=== PATIENT | female | born 1955 | race Caucasian/White ===

== ENCOUNTER → 2018-11-02 | Outpatient (CLI) | payer MEDICARE ==
--- NOTE | 2018-11-02 18:45 | Diagnostic Imaging Report ---
INDICATION: Chronic pain. FINDINGS: There is resection of portions of the femoral neck and head with the residual bony proximal femur showing sclerosis and flattening. There is remodeling, sclerosis, and flattening of the acetabulum superiorly with pseudoarticulation. Findings are all very likely of a chronic nature, but I do not have prior for comparison. No acute lucent fracture line is seen. The left pelvic ring and symphysis are intact. Visualized portions of the left SI joint are intact. IMPRESSION: Postoperative and chronic-appearing findings about the left hip. An acute fracture line is not identified. Dictated by: Dictated on workstation # [id number]
== END ==
LOC: RAD FS 18:20
PROVIDERS: ATTEND Pediatrics
DX: G89.29 Other chronic pain (principal); M25.552 Pain in left hip; Z98.890 Other specified postprocedural states
CPT/HCPCS: 73502

== ENCOUNTER → 2019-06-15 | Outpatient (CLI) | payer MEDICARE | END | disposition home or self-care (01) | LOC: PREOP 05:49 | PROVIDERS: ATTEND Urology | DX: Z01.818 Encounter for other preprocedural examination (principal) ==

== ENCOUNTER 2019-12-08 13:38 | Emergency (ER) | payer MEDICARE, MEDICAID ==
[~2019-12-08] VITALS: Ht 162.6 cm; Wt 135.2 kg
--- NOTE | 2019-12-08 13:49 | ED Cough/URI ---
General Chief Complaint: Respiratory Problems Stated Complaint: SOB History of Present Illness Date Seen by Provider: Dec 08, 2019 Time Seen by Provider: 13:49 Initial Comments 64-year-old female sent out due to wheezing shortness of breath and cough. P atient reports that started having a little bit of a cough couple days ago, developed some wheezing and some shortness of breath today. Patient's oxygen was found to be 88% on room air upon arrival. She does not normally use home oxygen. [facility]. She denies any fevers, chills. She does continue to smoke and has a history of COPD. She used to use a nebulizer in the past but has been unable to do to COVID and them not being allowed to at [facility]. Patient denies any other systemic complaints such as chest pain, nausea vomiting diaphoresis. Allergies and Home Medications Allergies Coded Allergies: No Known Drug Allergies (Unverified , 12/08/19) Patient Home Medication List Home Medication List Reviewed: Yes Review of Systems Review of Systems Constitutional: No chills, No fever EENTM: no symptoms reported Respiratory: cough, short of breath, wheezing Cardiovascular: No chest pain, No palpitations Gastrointestinal: no symptoms reported Genitourinary: no symptoms reported Musculoskeletal: no symptoms reported Skin: no symptoms reported Psychiatric/Neurological: No Symptoms Reported Past Kbenknu-Pkqixe-Obkyyy Hx Past Med/Social Hx: Reviewed Nursing Past Med/Soc Hx Physical Exam Vital Signs - First Documented 12/08/19 13:50 Temp 36.8 Pulse 107 Resp 20 B/P (MAP) 133/53 (79) Pulse Ox 92 O2 Delivery Nasal Cannula Capillary Refill : Height: '" Weight: lbs. oz. kg; BMI Method: General Appearance: WD/WN, no apparent distress HEENT: PERRL/EOMI Respiratory: no respiratory distress, no accessory muscle use, wheezing (mild diffuse) Cardiovascular: regular rate, rhythm Gastrointestinal: normal bowel sounds, non tender, soft Neurologic/Psychiatric: alert, normal mood/affect, oriented x 3 Skin: normal color, warm/dry Progress/Results/Core Measures Suspected Sepsis SIRS Temperature: Pulse: Respiratory Rate: Laboratory Tests 12/08/19 14:05: White Blood Count 8.2 Blood Pressure / Mean: Laboratory Tests 12/08/19 14:05: Creatinine 0.41L, Platelet Count 307, Total Bilirubin 0.3 Results/Orders Lab Results Laboratory Tests Test 12/08/19 14:05 Range/Units White Blood Count 8.2 4.3-11.0 10^3/uL Red Blood Count 4.17 L 4.35-5.85 10^6/uL Hemoglobin 12.7 11.5-16.0 G/DL Hematocrit 36 35-52 % Mean Corpuscular Volume 85 80-99 FL Mean Corpuscular Hemoglobin 30 25-34 PG Mean Corpuscular Hemoglobin Concent 36 32-36 G/DL Red Cell Distribution Width 13.2 10.0-14.5 % Platelet Count 307 130-400 10^3/uL Mean Platelet Volume 8.2 7.4-10.4 FL Neutrophils (%) (Auto) 78 H 42-75 % Lymphocytes (%) (Auto) 12 12-44 % Monocytes (%) (Auto) 7 0-12 % Eosinophils (%) (Auto) 3 0-10 % Basophils (%) (Auto) 0 0-10 % Neutrophils # (Auto) 6.4 1.8-7.8 X 10^3 Lymphocytes # (Auto) 1.0 1.0-4.0 X 10^3 Monocytes # (Auto) 0.5 0.0-1.0 X 10^3 Eosinophils # (Auto) 0.3 0.0-0.3 10^3/uL Basophils # (Auto) 0.0 0.0-0.1 10^3/uL Sodium Level 121 *L 135-145 MMOL/L Potassium Level 3.4 L 3.6-5.0 MMOL/L Chloride Level 80 L 98-107 MMOL/L Carbon Dioxide Level 28 21-32 MMOL/L Anion Gap 13 5-14 MMOL/L Blood Urea Nitrogen 5 L 7-18 MG/DL Creatinine 0.41 L 0.60-1.30 MG/DL Estimat Glomerular Filtration Rate > 60 BUN/Creatinine Ratio 12 Glucose Level 173 H 70-105 MG/DL Calcium Level 8.5 8.5-10.1 MG/DL Corrected Calcium 9.1 8.5-10.1 MG/DL Total Bilirubin 0.3 0.1-1.0 MG/DL Aspartate Amino Transf (AST/SGOT) 15 5-34 U/L Alanine Aminotransferase (ALT/SGPT) 14 0-55 U/L Alkaline Phosphatase 106 40-136 U/L Pro-B-Type Natriuretic Peptide 68.2 <75.0 PG/ML Total Protein 5.8 L 6.4-8.2 GM/DL Albumin 3.3 3.2-4.5 GM/DL My Orders Orders - MONTRELL CHANG DO Albuterol/Ipra Inhalation Soln (Duoneb I (12/08/19 14:00) Dexamethasone Injection (Decadron Inje (12/08/19 14:00) Svn Small Volume Nebulizer (12/08/19 13:54) Cbc With Automated Diff (12/08/19 13:54) Comprehensive Metabolic Panel (12/08/19 13:54) Coronavirus Sars-Cov-2 So 2019 (12/08/19 13:54) Chest 1 View Ap/Pa Only (12/08/19 14:13) Probnp Fs (12/08/19 15:13) Azithromycin Injection (Zithromax Inject (12/08/19 17:00) Ns Iv 1000 Ml (Sodium Chloride 0.9%) (12/08/19 17:00) Medications Given in ED Current Medications Medications Dose Ordered Sig/Letitia Route Start Time Stop Time Status Last Admin Dose Admin Albuterol/ Ipratropium 3 ml ONCE ONCE INH 12/08/19 14:00 12/08/19 14:01 DC 12/08/19 14:21 3 ML Dexamethasone Sodium Phosphate 10 mg ONCE ONCE IV 12/08/19 14:00 12/08/19 14:01 DC 12/08/19 14:21 10 MG Vital Signs/I&O 12/08/19 13:50 Temp 36.8 Pulse 107 Resp 20 B/P (MAP) 133/53 (79) Pulse Ox 92 O2 Delivery Nasal Cannula Capillary Refill : Progress Note : Time: 15:26 Progress Note Patient with low sodium of 121 with low chloride. Patient with x-ray concerning for infiltrate versus edema. Based on patient's presentation labs and response to DuoNeb I suspect that it is more CHF versus infiltrate. We will transfer patient to [facility] or Dr. Saldivar for further management. We'll obtain a BNP to help guide at treatment. Patient stable with her oxygen the mid 90s upon transfer. She did respond well to the DuoNeb with decreased wheezing. Diagnostic Imaging Diagonstic Imaging: Xray Plain Films/CT/US/NM/MRI: chest Comments [facility]. [place], [place] NAME: VIDA MERAZ [facility] REC#: [id number] PT STATUS: REG ER : 1955 PHYSICIAN: MONTRELL CHANG DO ADMIT DATE: 12/08/19/ER FS Draft Date of Exam:12/08/19 CHEST 1 VIEW AP/PA ONLY EXAMINATION: Chest 1 view. HISTORY: Shortness of breath. Cough. COMPARISON: None available. FINDINGS: Patchy opacities are seen throughout the lungs, greatest in the lung bases. The cardiac silhouette is prominent. No large pleural effusion or pneumothorax. No acute osseous abnormality. IMPRESSION: Cardiomegaly. Patchy opacities throughout the lungs may represent edema or infectious/inflammatory process. Departure Communication (Admissions) Time/Spoke to Admitting Phy: 15:10 Impression Primary Impression: COPD (chronic obstructive pulmonary disease) Qualified Codes: J44.1 - Chronic obstructive pulmonary disease with (acute) exacerbation Additional Impressions: Hyponatremia Pulmonary edema Qualified Codes: J81.0 - Acute pulmonary edema Disposition: 62 DISC/XFER TO IRF Condition: Stable Admissions Decision to Admit Reason: Admit from ER (General) Decision to Admit/Date: Dec 08, 2019 Time/Decision to Admit Time: 15:10 Transfer Transfer Reason: Patient preference Transfer Progress Notes Patient was to be initially admitted at [facility]. Patient's primary care provider called was upset and requested patient be transferred to where he can provide care at [facility]. Patient requested that she would be okay to be transferred over there so per her request as request patient now be transferred in stable condition 10 the [facility] Departure-Patient Inst. Referrals: PHOENIX GODOY MD (PCP/Family) Primary Care Physician MONTRELL CHANG DO Dec 08, 2019 13:49
[2019-12-08] MEDS ORDERED: RT-ALBUTEROL/IPRATROPIUM 3 ML (DUONEB) VIAL INH ONE (14:00)
[2019-12-08 14:24] LABS: HEMATOCRIT 36 % (35-52); HEMOGLOBIN 12.7 G/DL (11.5-16.0); MEAN CORPUSCULAR HEMOGLOBIN 30 PG (25-34); MEAN CORPUSCULAR VOLUME 85 FL (80-99); WHITE BLOOD COUNT 8.2 10^3/uL (4.3-11.0)
[2019-12-08 14:25] LABS: BASOPHILS % (AUTO) 0 % (0-10); EOSINOPHILS # (AUTO) 0.3 10^3/uL (0.0-0.3); EOSINOPHILS % (AUTO) 3 % (0-10); LYMPHOCYTES % (AUTO) 12 % (12-44); MEAN CORPUSCULAR HGB CONC 36 G/DL (32-36); MEAN PLATELET VOLUME 8.2 FL (7.4-10.4); MONOCYTES # (AUTO) 0.5 X 10^3 (0.0-1.0); MONOCYTES % (AUTO) 7 % (0-12); NEUTROPHILS # (AUTO) 6.4 X 10^3 (1.8-7.8); NEUTROPHILS % (AUTO) 78 % (42-75); PLATELET COUNT 307 10^3/uL (130-400)
[2019-12-08 14:38] LABS: ALANINE AMINOTRANSFERASE 14 U/L (0-55); ALBUMIN 3.3 GM/DL (3.2-4.5); ALKALINE PHOSPHATASE 106 U/L (40-136); BILIRUBIN,TOTAL 0.3 MG/DL (0.1-1.0); BUN/CREATININE RATIO 12; CALCIUM 8.5 MG/DL (8.5-10.1); CARBON DIOXIDE 28 MMOL/L (21-32); CREATININE SERUM 0.41 MG/DL (0.60-1.30); GFR ESTIMATED > 60; GLUCOSE 173 MG/DL (70-105); POTASSIUM 3.4 MMOL/L (3.6-5.0); TOTAL PROTEIN 5.8 GM/DL (6.4-8.2)
[2019-12-08 14:40] LABS: CHLORIDE 80 MMOL/L (98-107); SODIUM 121 MMOL/L (135-145)
--- NOTE | 2019-12-08 14:48 | Diagnostic Imaging Report ---
EXAMINATION: Chest 1 view. HISTORY: Shortness of breath. Cough. COMPARISON: None available. FINDINGS: Patchy opacities are seen throughout the lungs, greatest in the lung bases. The cardiac silhouette is prominent. No large pleural effusion or pneumothorax. No acute osseous abnormality. IMPRESSION: Cardiomegaly. Patchy opacities throughout the lungs may represent edema or infectious/inflammatory process. Dictated by: Dictated on workstation # [id number]
[2019-12-08] MEDS ORDERED: NS IV 1000 ML 1,000 ML IV STA (17:00)
[2019-12-08] MEDS ORDERED: AZITHROMYCIN INJECTION 500 MG in NS (IVPB) 250 ML IV STA (17:00)
[2019-12-08 18:10] VITALS: BP 172/86
== END 2019-12-08 18:10 | disposition short-term general hospital (02) ==
LOC: EDUNIT# 13:38 → ER FS 13:39
DX: J44.9 Chronic obstructive pulmonary disease, unspecified (principal); E87.1 Hypo-osmolality and hyponatremia; J81.1 Chronic pulmonary edema; F17.200 Nicotine dependence, unspecified, uncomplicated; Z20.828 Contact with and (suspected) exposure to other viral communicable diseases
CPT/HCPCS: 36415; 51702; 71045; 80053; 83880; 85025; 99285; U0002; 87635

== ENCOUNTER 2020-06-29 18:22 | Emergency (ER) | payer MEDICARE, MEDICAID ==
[~2020-06-29] VITALS: Ht 162.5 cm; Wt 135.2 kg
--- NOTE | 2020-06-29 19:09 | Diagnostic Imaging Report ---
EXAMINATION: Chest 1 view. HISTORY: Cough. COMPARISON: Chest radiograph 12/08/2019. FINDINGS: Heart size is enlarged. There is blunting of the left costophrenic angle. There are mild bibasilar opacities, left greater than right. No pneumothorax. The osseous structures are intact. IMPRESSION: Likely left pleural effusion with bibasilar atelectasis or consolidation, left greater than right. Dictated by: Dictated on workstation # [id number]
[2020-06-29 19:29] LABS: BASOPHILS % (AUTO) 0 % (0-10); EOSINOPHILS # (AUTO) 0.1 10^3/uL (0.0-0.3); EOSINOPHILS % (AUTO) 1 % (0-10); HEMATOCRIT 34 % (35-52); HEMOGLOBIN 12.6 G/DL (11.5-16.0); LYMPHOCYTES # (AUTO) 1.3 X 10^3 (1.0-4.0); LYMPHOCYTES % (AUTO) 11 % (12-44); MEAN CORPUSCULAR HEMOGLOBIN 30 PG (25-34); MEAN CORPUSCULAR HGB CONC 37 G/DL (32-36); MEAN CORPUSCULAR VOLUME 81 FL (80-99); MONOCYTES # (AUTO) 0.7 X 10^3 (0.0-1.0); MONOCYTES % (AUTO) 6 % (0-12); NEUTROPHILS # (AUTO) 9.9 X 10^3 (1.8-7.8); NEUTROPHILS % (AUTO) 82 % (42-75); PLATELET COUNT 429 10^3/uL (130-400); WHITE BLOOD COUNT 12.1 10^3/uL (4.3-11.0)
[2020-06-29 19:41] LABS: BACTERIA,URINE LARGE /HPF; BILIRUBIN,URINE NEGATIVE (NEGATIVE); CLARITY,URINE CLOUDY; COLOR,URINE YELLOW; GLUCOSE, URINE (UA) NEGATIVE (NEGATIVE); KETONES,URINE NEGATIVE (NEGATIVE); LEUKOCYTE ESTERASE ,URINE 3+ (NEGATIVE); NITRITE,URINE POSITIVE (NEGATIVE); PH,URINE 7.5 (5-9); PROTEIN,URINE NEGATIVE (NEGATIVE); RENAL EPITHELIAL CELLS,URINE 0-2 /HPF; WBC,URINE >100 /HPF
[2020-06-29 19:45] LABS: ALANINE AMINOTRANSFERASE 19 U/L (0-55); ALKALINE PHOSPHATASE 108 U/L (40-136); BILIRUBIN,TOTAL 0.4 MG/DL (0.1-1.0); BUN/CREATININE RATIO 13; CALCIUM 9.1 MG/DL (8.5-10.1); CARBON DIOXIDE 27 MMOL/L (21-32); CHLORIDE 74 MMOL/L (98-107); CREATININE SERUM 0.38 MG/DL (0.60-1.30); GFR ESTIMATED > 60; GLUCOSE 129 MG/DL (70-105); POTASSIUM 2.9 MMOL/L (3.6-5.0); SODIUM 113 MMOL/L (135-145)
[2020-06-29 19:46] LABS: TOTAL PROTEIN 6.3 GM/DL (6.4-8.2)
[2020-06-29 20:28] LABS: EOSINOPHILS % (MANUAL) 3 %; LYMPHOCYTES % (MANUAL) 10 %; MONOCYTES % (MANUAL) 4 %; NEUTROPHILS % (MANUAL) 83 %; PLATELET ESTIMATE LRG PLTS; TOXIC GRANULATION/VACUOLAZATIO 3+
[2020-06-29 20:31] LABS: BUN/CREATININE RATIO 12; CALCIUM 8.8 MG/DL (8.5-10.1); CARBON DIOXIDE 27 MMOL/L (21-32); CHLORIDE 74 MMOL/L (98-107); CREATININE SERUM 0.42 MG/DL (0.60-1.30); GFR ESTIMATED > 60; GLUCOSE 126 MG/DL (70-105); SODIUM 112 MMOL/L (135-145)
[2020-06-29] MEDS ORDERED: NS IV 1000 ML 1,000 ML IV SCH (21:45)
[2020-06-29] MEDS ORDERED: cefTRIAXone FOR IV USE 1,000 MG in WATER (STERILE) FOR INJECTION 10 ML IV ONE (21:45)
[2020-06-29] MEDS ORDERED: KCL 20 MEQ TAB (K-DUR) PO ONE (21:45)
--- NOTE | 2020-06-29 23:04 | ED Abdominal Pain ---
General Chief Complaint: - Urinary Stated Complaint: URINE OUTPUT Nursing Triage Note: Patient presents to the ED from [facility] via EMS with c/o of decreased urine output, weakness, and catheter site pain. She reports that she has been feeling weaker and her legs gave out to her while she was transferring to the stool earlier. group home staff report that the patient has had decreased urinary output throughout the day. Sepsis Screen: No Definite Risk Source of Information: Patient, EMS History of Present Illness Date Seen by Provider: Jun 29, 2020 Time Seen by Provider: 16:45 Initial Comments Patient is a 64-year-old [facility] patient who presents with complaints of decreased urinary output generalized weakness and pain around catheter insertion site. Patient states she is weaker than normal and her legs have been giving out. She also reports diarrhea. Patient denies fever chills nausea vomiting. No chest pain palpitation shortness of breath. No abdominal pain. No other symptoms or complaints. Timing/Duration: 2-3 Days Severity/Quality: Moderate, Dull Location: Other Radiation: Other Activities at Onset: Other Modifying Factors: Improves With Other Associated Symptoms: Other Allergies and Home Medications Allergies Coded Allergies: No Known Drug Allergies (Unverified , 12/08/19) Patient Home Medication List Home Medication List Reviewed: Yes Review of Systems Review of Systems Constitutional: no symptoms reported EENTM: No Symptoms Reported Respiratory: No Symptoms Reported Cardiovascular: No Symptoms Reported Gastrointestinal: No Symptoms Reported Genitourinary: No Symptoms Reported Musculoskeletal: no symptoms reported Skin: no symptoms reported Psychiatric/Neurological: No Symptoms Reported Endocrine: No Symptoms Reported Hematologic/Lymphatic: No Symptoms Reported All Other Systems Reviewed Negative Unless Noted: Yes Past Zggtvbs-Jtlcro-Kfljxr Hx Past Med/Social Hx: Reviewed Nursing Past Med/Soc Hx Patient Social History Alcohol Use: Denies Use Smoking Status: Current Everyday Smoker Type Used: Cigarettes 2nd Hand Smoke Exposure: No Recent Infectious Disease Expo: No Recent Hopitalizations: No Seasonal Allergies Seasonal Allergies: No Past Medical History Surgeries: Yes (right mastectomy) Section, Gallbladder Respiratory: Yes COPD Cardiac: Yes Hypertension Neurological: No Genitourinary: No Gastrointestinal: No Musculoskeletal: No Endocrine: No HEENT: No Cancer: Yes Breast Did You Recieve Any Treatments: Yes What Type of Treatment Did You: Surgical Intervention Psychosocial: No Integumentary: No Physical Exam Vital Signs Vital Signs - First Documented 3/28/21 18:55 Temp 36.7 Pulse 80 Resp 22 B/P (MAP) 196/80 (118) Pulse Ox 96 O2 Delivery Room Air Capillary Refill : Less Than 3 Seconds Height/Weight/BMI Height: '" Weight: lbs. oz. kg; 51.00 BMI Method: General Appearance: WD/WN, no apparent distress HEENT: PERRL/EOMI, pharynx normal Neck: non-tender, full range of motion, supple Respiratory: chest non-tender, lungs clear Cardiovascular: normal peripheral pulses, no JVD, no murmur Gastrointestinal: normal bowel sounds, non tender, soft Extremities: non-tender Back: no CVA tenderness Neurologic/Psychiatric: hat sprayer II-XII nml as tested, no motor/sensory deficits, normal mood/affect, oriented x 3 Focused Exam Sepsis Stage: Ruled Out Progress/Results/Core Measures Results/Orders Lab Results Laboratory Tests Test 06/29/20 19:17 06/29/20 19:27 06/29/20 20:07 Range/Units White Blood Count 12.1 H 4.3-11.0 10^3/uL Red Blood Count 4.15 L 4.35-5.85 10^6/uL Hemoglobin 12.6 11.5-16.0 G/DL Hematocrit 34 L 35-52 % Mean Corpuscular Volume 81 80-99 FL Mean Corpuscular Hemoglobin 30 25-34 PG Mean Corpuscular Hemoglobin Concent 37 H 32-36 G/DL Red Cell Distribution Width 12.7 10.0-14.5 % Platelet Count 429 H 130-400 10^3/uL Mean Platelet Volume 8.0 7.4-10.4 FL Immature Granulocyte % (Auto) 1 % Neutrophils (%) (Auto) 82 H 42-75 % Lymphocytes (%) (Auto) 11 L 12-44 % Monocytes (%) (Auto) 6 0-12 % Eosinophils (%) (Auto) 1 0-10 % Basophils (%) (Auto) 0 0-10 % Neutrophils # (Auto) 9.9 H 1.8-7.8 X 10^3 Lymphocytes # (Auto) 1.3 1.0-4.0 X 10^3 Monocytes # (Auto) 0.7 0.0-1.0 X 10^3 Eosinophils # (Auto) 0.1 0.0-0.3 10^3/uL Basophils # (Auto) 0.0 0.0-0.1 10^3/uL Immature Granulocyte # (Auto) 0.1 0.0-0.1 10^3/uL Neutrophils % (Manual) 83 % Lymphocytes % (Manual) 10 % Monocytes % (Manual) 4 % Eosinophils % (Manual) 3 % Toxic Granulation 3+ Platelet Estimate LRG PLTS Sodium Level 113 *L 112 *L 135-145 MMOL/L Potassium Level 2.9 L 3.0 L 3.6-5.0 MMOL/L Chloride Level 74 L 74 L 98-107 MMOL/L Carbon Dioxide Level 27 27 21-32 MMOL/L Anion Gap 12 11 5-14 MMOL/L Blood Urea Nitrogen 5 L 5 L 7-18 MG/DL Creatinine 0.38 L 0.42 L 0.60-1.30 MG/DL Estimat Glomerular Filtration Rate > 60 > 60 BUN/Creatinine Ratio 13 12 Glucose Level 129 H 126 H 70-105 MG/DL Calcium Level 9.1 8.8 8.5-10.1 MG/DL Corrected Calcium 9.1 8.5-10.1 MG/DL Total Bilirubin 0.4 0.1-1.0 MG/DL Aspartate Amino Transf (AST/SGOT) 21 5-34 U/L Alanine Aminotransferase (ALT/SGPT) 19 0-55 U/L Alkaline Phosphatase 108 40-136 U/L Total Protein 6.3 L 6.4-8.2 GM/DL Albumin 4.0 3.2-4.5 GM/DL Urine Color YELLOW Urine Clarity CLOUDY Urine pH 7.5 5-9 Urine Specific Leon 1.015 L 1.016-1.022 Urine Protein NEGATIVE NEGATIVE Urine Glucose (UA) NEGATIVE NEGATIVE Urine Ketones NEGATIVE NEGATIVE Urine Nitrite POSITIVE H NEGATIVE Urine Bilirubin NEGATIVE NEGATIVE Urine Urobilinogen 0.2 < = 1.0 MG/DL Urine Leukocyte Esterase 3+ H NEGATIVE Urine RBC (Auto) TRACE-I NEGATIVE Urine RBC NONE /HPF Urine WBC >100 H /HPF Urine Squamous Epithelial Cells NONE /HPF Urine Renal Epithelial Cells 0-2 /HPF Urine Crystals NONE /LPF Urine Bacteria LARGE H /HPF Urine Casts NONE /LPF Urine Mucus NEGATIVE /LPF Urine Culture Indicated YES My Orders Orders - GABINO GUTIERREZ DO Cbc And Manual Diff (06/29/20 18:54) Comprehensive Metabolic Panel (06/29/20 18:54) Urinalysis (06/29/20 18:54) Chest 1 View Ap/Pa Only (06/29/20 18:54) Urine Culture (06/29/20 19:27) Basic Metabolic Panel (06/29/20 19:50) Ceftriaxone For Iv Use (Rocephin For I (06/29/20 21:45) Potassium Chloride (Tablet) (K Dur Table (06/29/20 21:45) Ns Iv 1000 Ml (Sodium Chloride 0.9%) (06/29/20 21:45) Medications Given in ED Current Medications Medications Dose Ordered Sig/Letitia Route Start Time Stop Time Status Last Admin Dose Admin Ceftriaxone Sodium 1000 mg/ Sterile Water 10 ml @ 200 mls/hr ONCE ONCE IV 06/29/20 21:45 06/29/20 21:47 DC 06/29/20 22:01 200 MLS/HR Potassium Chloride 40 meq ONCE ONCE PO 06/29/20 21:45 06/29/20 21:46 DC 06/29/20 22:01 40 MEQ Vital Signs/I&O 06/29/20 18:55 Temp 36.7 Pulse 80 Resp 22 B/P (MAP) 196/80 (118) Pulse Ox 96 O2 Delivery Room Air Blood Pressure Mean: 118 Departure Communication (Admissions) Generalized weakness with urinary tract infection and chronic hyponatremia. Antibiotics and normal saline started. Dr. Harsh GODOY agrees to admit to the [facility]. Impression Primary Impression: Urinary tract infection Additional Impression: Hyponatremia Disposition: [facility] Condition: Stable Departure-Patient Inst. Referrals: PHOENIX GODOY MD (PCP/Family) Primary Care Physician GABINO GUTIERREZ DO Jun 29, 2020 23:04
[2020-06-30 02:29] VITALS: BP 159/75
== END 2020-06-30 02:29 | disposition short-term general hospital (02) ==
LOC: EDUNIT# 18:22 → ER FS 18:25
DX: N39.0 Urinary tract infection, site not specified (principal); E87.1 Hypo-osmolality and hyponatremia; I10 Essential (primary) hypertension; J44.9 Chronic obstructive pulmonary disease, unspecified; F17.210 Nicotine dependence, cigarettes, uncomplicated; Z85.3 Personal history of malignant neoplasm of breast; Z96.0 Presence of urogenital implants
CPT/HCPCS: 36415; 51702; 71045; 80048; 80053; 81000; 85007; 85027; 87077; 87088; 87186

== ENCOUNTER 2020-09-04 17:12 | Emergency (ER) | payer MEDICARE, MEDICAID ==
--- NOTE | 2020-09-04 17:30 | Diagnostic Imaging Report ---
PROCEDURE: CT head w/o r/o stroke. TECHNIQUE: Multiple contiguous axial images were obtained through the brain without the use of intravenous contrast. Auto Exposure Controls were utilized during the CT exam to meet ALARA standards for radiation dose reduction. INDICATION: Strokelike symptoms. FINDINGS: There is prominence of the ventricles and sulci. There are subtle areas of decreased attenuation in the frontal white matter, bilaterally. There is no hydrocephalus. There is no midline shift. There is no mass, hemorrhage or extra-axial fluid collection. Calvarium is intact. The sinuses and mastoid air cells are clear. IMPRESSION: 1. Subtle areas of decreased attenuation in the frontal white matter, bilaterally. While this simply may reflect chronic microvascular ischemic disease, the possibility of developing stroke certainly cannot be excluded. Recommend clinical correlation and, if warranted, follow-up with MRI. 2. No evidence of hemorrhage. Dictated by: Dictated on workstation # [id number]
[2020-09-04] MEDS ORDERED: NS IV 1000 ML 1,000 ML IV STA ×2 (17:34→18:04)
--- NOTE | 2020-09-04 17:35 | ED General ---
General Chief Complaint: Neuro-Stroke Like Symptoms Stated Complaint: AMS Source of Information: EMS, Prison Records, Old Records Exam Limitations: Other (altered mental status) History of Present Illness Date Seen by Provider: Sep 04, 2020 Time Seen by Provider: 17:14 Initial Comments 65-year-old female presenting by EMS from [facility] with altered mental status. According to the retirement staff through EMS patient was last seen normal around 3 PM. Then this afternoon they had gone to her room and found her on the toilet and she was confused. She was having trouble answering questions and EMS was activated to transport her to the ED for evaluation. No fever noted. She had been acting normal according to retirement staff prior to 3 PM. She has indwelling felix catheter and does not have much output in it. She has occasional non productive cough on arrival to the ED. Timing/Duration: 1-3 Hours Associated Systoms: Cough, Malaise Allergies and Home Medications Allergies Coded Allergies: No Known Drug Allergies (Unverified , 12/08/19) Patient Home Medication List Home Medication List Reviewed: Yes Review of Systems Review of Systems Constitutional: No fever Respiratory: cough Genitourinary: see HPI Skin: rash (erythema to groin and under pannus) Unable to answer questions for ROS due to altered mental status Past Aehtsaw-Vnafyz-Qbgmzf Hx Past Med/Social Hx: Reviewed Nursing Past Med/Soc Hx Patient Social History Type Used: Cigarettes 2nd Hand Smoke Exposure: No Recent Hopitalizations: No Seasonal Allergies Seasonal Allergies: No Past Medical History Surgeries: Yes (right mastectomy) Section, Gallbladder Respiratory: Yes COPD Cardiac: Yes Hypertension Neurological: No Genitourinary: No Gastrointestinal: No Musculoskeletal: No Endocrine: No HEENT: No Cancer: Yes Breast Did You Recieve Any Treatments: Yes What Type of Treatment Did You: Surgical Intervention Psychosocial: No Integumentary: No Physical Exam Vital Signs Vital Signs - First Documented 09/04/20 17:12 Temp 37.5 Pulse 125 Resp 20 B/P (MAP) 122/77 (92) Pulse Ox 96 O2 Delivery Room Air Capillary Refill : Height, Weight, BMI Height: '" Weight: lbs. oz. kg; 51.00 BMI Method: General Appearance: No Apparent Distress, Obese HEENT: PERRL/EOMI; No Moist Mucous Membranes (slightly dry mucous membranes) Neck: Supple Respiratory: Chest Non Tender, No Accessory Muscle Use, No Respiratory Distress, Decreased Breath Sounds Cardiovascular: Normal Peripheral Pulses, Tachycardia Gastrointestinal: Normal Bowel Sounds, No Pulsatile Mass, Non Tender, Soft Rectal: Deferred Extremity: Normal Capillary Refill, Pedal Edema (1+ BLE pedal edema) Neurologic/Psychiatric: Disoriented (answered "I don't know" when asked her name, could not say where she was at or anything in regard to time or why she was here. ), Other (somnolent but opens eyes to voice. will answer questions but says "I don't know" to respond to most questions.) Skin: Warm/Dry, Erythema (groin and under pannus) Focused Exam Sepsis Stage: Sepsis Possible Source: Pulmonary Lactate Level 09/04/20 17:32: Lactic Acid Level 3.51*H Time of Focused Exam: 18:21 Respiratory: Chest Non Tender, No Accessory Muscle Use, No Respiratory Distress, Decreased Breath Sounds Cardiovascular: Normal Peripheral Pulses, Tachycardia Capillary Refill: Less Than 3 Seconds Peripheral Pulses: 2+ Radial Pulses (R), 2+ Radial Pulses (L) Skin: normal color, warm/dry Lactic Acid Level Laboratory Tests Test 09/04/20 17:32 Lactic Acid Level 3.51 MMOL/L (0.50-2.00) *H Within 3hrs of presentation: Admin fluids, Admin ABX, Blood cultures prior to ABX's, Focus exam, Lactate level Progress/Results/Core Measures Suspected Sepsis SIRS Temperature: Pulse: Respiratory Rate: Laboratory Tests 09/04/20 17:32: White Blood Count 38.0*H Blood Pressure / Mean: 09/04/20 17:32: Lactic Acid Level 3.51*H Laboratory Tests 09/04/20 17:32: Creatinine 0.61, INR Comment 1.0, Platelet Count 428H, Total Bilirubin 0.9 Results/Orders Lab Results Laboratory Tests Test 09/04/20 17:32 09/04/20 17:33 09/04/20 17:42 Range/Units White Blood Count 38.0 *H 4.3-11.0 10^3/uL Red Blood Count 4.31 L 4.35-5.85 10^6/uL Hemoglobin 12.9 11.5-16.0 G/DL Hematocrit 37 35-52 % Mean Corpuscular Volume 85 80-99 FL Mean Corpuscular Hemoglobin 30 25-34 PG Mean Corpuscular Hemoglobin Concent 35 32-36 G/DL Red Cell Distribution Width 13.1 10.0-14.5 % Platelet Count 428 H 130-400 10^3/uL Mean Platelet Volume 8.4 7.4-10.4 FL Immature Granulocyte % (Auto) 1 % Neutrophils (%) (Auto) 92 H 42-75 % Lymphocytes (%) (Auto) 2 L 12-44 % Monocytes (%) (Auto) 5 0-12 % Eosinophils (%) (Auto) 0 0-10 % Basophils (%) (Auto) 0 0-10 % Neutrophils # (Auto) 35.1 H 1.8-7.8 X 10^3 Lymphocytes # (Auto) 0.7 L 1.0-4.0 X 10^3 Monocytes # (Auto) 1.7 H 0.0-1.0 X 10^3 Eosinophils # (Auto) 0.0 0.0-0.3 10^3/uL Basophils # (Auto) 0.1 0.0-0.1 10^3/uL Immature Granulocyte # (Auto) 0.4 H 0.0-0.1 10^3/uL Neutrophils % (Manual) 78 % Lymphocytes % (Manual) 0 % Monocytes % (Manual) 2 % Eosinophils % (Manual) 0 % Basophils % (Manual) 0 % Band Neutrophils 14 % Atypical Lymphocytes 5 % Blast Cells 1 % Prothrombin Time 13.4 12.2-14.7 SEC INR Comment 1.0 0.8-1.4 Activated Partial Thromboplast Time 31 24-35 SEC Sodium Level 113 *L 135-145 MMOL/L Potassium Level 4.5 3.6-5.0 MMOL/L Chloride Level 77 L 98-107 MMOL/L Carbon Dioxide Level 20 L 21-32 MMOL/L Anion Gap 16 H 5-14 MMOL/L Blood Urea Nitrogen 7 7-18 MG/DL Creatinine 0.61 0.60-1.30 MG/DL Estimat Glomerular Filtration Rate > 60 BUN/Creatinine Ratio 11 Glucose Level 177 H 70-105 MG/DL Lactic Acid Level 3.51 *H 0.50-2.00 MMOL/L Calcium Level 9.3 8.5-10.1 MG/DL Corrected Calcium 9.7 8.5-10.1 MG/DL Magnesium Level 1.3 L 1.6-2.4 MG/DL Total Bilirubin 0.9 0.1-1.0 MG/DL Aspartate Amino Transf (AST/SGOT) 21 5-34 U/L Alanine Aminotransferase (ALT/SGPT) 15 0-55 U/L Alkaline Phosphatase 119 40-136 U/L Troponin I < 0.30 <0.30 NG/ML Pro-B-Type Natriuretic Peptide 291.8 H <75.0 PG/ML Total Protein 6.2 L 6.4-8.2 GM/DL Albumin 3.5 3.2-4.5 GM/DL Blood Gas Puncture Site RT RADIAL Blood Gas Patient Temperature 37.5 Arterial Blood pH 7.49 H 7.37-7.43 Arterial Blood Partial Pressure CO2 34 L 35-45 MMHG Arterial Blood Partial Pressure O2 73 L 79-93 MMHG Arterial Blood HCO3 26 23-27 MMOL/L Arterial Blood Total CO2 26.9 21.0-31.0 MMOL/L Arterial Blood Oxygen Saturation 96 94-100 % Arterial Blood Base Excess 2.8 H -2.5-2.5 MMOL/L Arjun Test OK Blood Gas Ventilator Setting NO Blood Gas Inspired Oxygen ROOM AIR Urine Color YELLOW Urine Clarity SLT CLOUDY Urine pH 7.5 5-9 Urine Specific [place] 1.010 L 1.016-1.022 Urine Protein TRACE H NEGATIVE Urine Glucose (UA) NEGATIVE NEGATIVE Urine Ketones NEGATIVE NEGATIVE Urine Nitrite POSITIVE H NEGATIVE Urine Bilirubin NEGATIVE NEGATIVE Urine Urobilinogen 0.2 < = 1.0 MG/DL Urine Leukocyte Esterase 3+ H NEGATIVE Urine RBC (Auto) TRACE H NEGATIVE Urine RBC NONE /HPF Urine WBC 25-50 H /HPF Urine Squamous Epithelial Cells NONE /HPF Urine Crystals NONE /LPF Urine Bacteria LARGE H /HPF Urine Casts NONE /LPF Urine Mucus NEGATIVE /LPF Urine Culture Indicated YES My Orders Orders - ZEV CONLEY MD Ct Head Wo-R/O Stroke (09/04/20 17:14) Cbc With Automated Diff (09/04/20 17:32) Magnesium (09/04/20 17:32) Chest 1 View Ap/Pa Only (09/04/20 17:32) Ekg Tracing (09/04/20 17:32) Comprehensive Metabolic Panel (09/04/20 17:32) Protime With Inr (09/04/20 17:32) Partial Thromboplastin Time (09/04/20 17:32) O2 (09/04/20 17:32) Monitor-Rhythm Ecg Trace Only (09/04/20 17:32) Ed Iv/Invasive Line Start (09/04/20 17:32) Troponin I Fs (09/04/20 17:32) Probnp Fs (09/04/20 17:32) Blood Culture (09/04/20 17:32) Ua Culture If Indicated (09/04/20 17:32) Lactic Acid Analyzer (09/04/20 17:32) Ns Iv 1000 Ml (Sodium Chloride 0.9%) (09/04/20 17:34) Manual Differential (09/04/20 17:32) Arterial Blood Gas (09/04/20 17:48) Cefepime Injection (Maxipime Injection) (09/04/20 18:04) Ns Iv 1000 Ml (Sodium Chloride 0.9%) (09/04/20 18:04) Urine Culture (09/04/20 17:42) Vital Signs/I&O 09/04/20 09/04/20 17:12 19:04 Temp 37.5 37.5 Pulse 125 117 Resp 20 20 B/P (MAP) 122/77 (92) 177/86 Pulse Ox 96 98 O2 Delivery Room Air Room Air Capillary Refill : Progress Note #1: Progress Note Obtain labs, chest x-ray, urine, CT of her head. With her report of sudden change in mental status per retirement will obtain a CT of her head initially to evaluate for possible stroke or bleeding. Differential diagnosis includes sepsis, urinary tract infection, pneumonia, stroke, dehydration, electrolyte imbalance, myocardial infarction Progress Note #2: Progress Note CT head read out by radiologist as subtle bilateral frontal hypodensities and concerns remain for stroke then obtaining an MRI would be helpful. However with her exam she exhibits signs for infection such as tachycardia in addition to the altered mental status and decreased breath sounds with pulmonary exam and occasional cough. Her Felix catheter does not have any urine output and appears to need changed. When the catheter was changed she had cloudy urine and almost 1100 mL of urine come out almost immediately. This would be consistent with some urinary retention due to the catheter being clogged and not draining. Progress Note #3: Progress Note White blood cell count came back at 38,000 with a left shift. She had elevated lactic acid of 3.51. Her renal function was normal with a creatinine 0.61. Her chest x-ray was showing bilateral basilar infiltrates and possible effusion. Her urinalysis also showed infection. Her heart rate is improving as she is getting IV fluids. Her signs of sepsis with elevated white count, lactic acid, and tachycardia are consistent with her pneumonia and urinary tract infection. These could be causing her altered mental status. Page placed to Dr. Phoenix Godoy her primary care provider about admission. Progress Note #4: Progress Note [address] Godoy and he accepted patient for admission at [facility]. We will continue with the cefepime for pneumonia and IV fluids for sepsis. Call placed to [facility] to get a bed assignment and discussed with REECE Finn and she gave the bed assignment as well as report was given to her. Pt remains stable for transfer and will continue with having EMS give IVF and monitor on telemetry for transport. ECG Initial ECG Impression Date: Sep 04, 2020 Initial ECG Impression Time: 18:11 Initial ECG Rate: 116 Initial ECG Rhythm: S.Tach Initial ECG Comparisson: No Previous ECG Available Comment Sinus tachycardia with heart rate of 116 bpm. DE interval [address] elevation. QT interval 313 ms with a QTc interval 435 ms. No prior tracing related available for comparison. Diagnostic Imaging Diagonstic Imaging: CT Plain Films/CT/US/NM/MRI: head Comments NAME: VIDA MERAZ [facility] REC#: [id number] PT STATUS: REG ER : 1955 PHYSICIAN: ZEV CONLEY MD ADMIT DATE: 09/04/20/ER FS Draft Date of Exam:09/04/20 CT HEAD WO-R/O STROKE PROCEDURE: CT head w/o r/o stroke. TECHNIQUE: Multiple contiguous axial images were obtained through the brain without the use of intravenous contrast. Auto Exposure Controls were utilized during the CT exam to meet ALARA standards for radiation dose reduction. INDICATION: Strokelike symptoms. FINDINGS: There is prominence of the ventricles and sulci. There are subtle areas of decreased attenuation in the frontal white matter, bilaterally. There is no hydrocephalus. There is no midline shift. There is no mass, hemorrhage or extra-axial fluid collection. Calvarium is intact. The sinuses and mastoid air cells are clear. IMPRESSION: 1. Subtle areas of decreased attenuation in the frontal white matter, bilaterally. While this simply may reflect chronic microvascular ischemic disease, the possibility of developing stroke certainly cannot be excluded. Recommend clinical correlation and, if warranted, follow-up with MRI. 2. No evidence of hemorrhage. Dictated on workstation # [id number] Dict: 09/04/20 1724 Trans: 09/04/20 1729 [facility] [id number] Interpreted by: MADYSON JUNG MD Electronically signed by: Diagonstic Imaging: Xray Plain Films/CT/US/NM/MRI: chest Comments [facility] [place], [place] NAME: VIDA MERAZ [facility] REC#: [id number] PT STATUS: REG ER : 1955 PHYSICIAN: ZEV CONLEY MD ADMIT DATE: 09/04/20/ER FS Signed Date of Exam:09/04/20 CHEST 1 VIEW AP/PA ONLY INDICATION: Lethargy and altered mental status. Comparison is made to prior examination 06/29/2020. FINDINGS: Heart size is normal. There are patchy bibasilar infiltrates. There is a small left pleural effusion. There is no pneumothorax. Mediastinum is unremarkable. IMPRESSION: Patchy bibasilar infiltrates and probable small left pleural effusion. Dictated by: Dictated on workstation # [id number] Dict: 09/04/20 1754 Trans: 09/04/20 1815 [facility] [id number] Interpreted by: MADYSON JUNG MD Electronically signed by: MADYSON JUNG MD 09/04/20 181 Departure Impression Primary Impression: Sepsis Qualified Codes: A41.9 - Sepsis, unspecified organism Additional Impressions: FDC-acquired pneumonia Altered mental status Qualified Codes: R41.0 - Disorientation, unspecified Urinary retention Felix catheter in place on admission Obstructed Felix catheter Qualified Codes: T83.091A - Other mechanical complication of indwelling urethral catheter, initial encounter Catheter cystitis Qualified Codes: T83.518A - Infection and inflammatory reaction due to other urinary catheter, initial encounter; N30.90 - Cystitis, unspecified without hematuria Disposition: XF [facility]-TRM HOSP Condition: Stable Transfer Transfer Reason: Patient preference Time Spoke to Accepting Phy: 18:25 Transfer Progress Notes 1824 d/w Dr. Phoenix Godoy about the patient and he accepted her to [facility] for pneumonia, sepsis, uti, altered mental status. 1841 Sharri, REECE, gave me a bed assignment for the patient and took report about the patient. Will arrange transport for her to go to [facility] Transfer Facility: [facility] Method of Transfer: EMS Departure-Patient Inst. Referrals: PHOENIX GODOY MD (PCP/Family) Primary Care Physician ZEV CONLEY MD Sep 04, 2020 17:35
[2020-09-04 17:48] LABS: BASOPHILS % (AUTO) 0 % (0-10); EOSINOPHILS % (AUTO) 0 % (0-10); HEMATOCRIT 37 % (35-52); HEMOGLOBIN 12.9 G/DL (11.5-16.0); LYMPHOCYTES % (AUTO) 2 % (12-44); MEAN CORPUSCULAR HEMOGLOBIN 30 PG (25-34); MEAN CORPUSCULAR HGB CONC 35 G/DL (32-36); MEAN CORPUSCULAR VOLUME 85 FL (80-99); MEAN PLATELET VOLUME 8.4 FL (7.4-10.4); MONOCYTES % (AUTO) 5 % (0-12); NEUTROPHILS % (AUTO) 92 % (42-75); PLATELET COUNT 428 10^3/uL (130-400)
[2020-09-04 17:49] LABS: BASOPHILS # (AUTO) 0.1 10^3/uL (0.0-0.1); LYMPHOCYTES # (AUTO) 0.7 X 10^3 (1.0-4.0); MONOCYTES # (AUTO) 1.7 X 10^3 (0.0-1.0); NEUTROPHILS # (AUTO) 35.1 X 10^3 (1.8-7.8)
--- NOTE | 2020-09-04 17:57 | Diagnostic Imaging Report ---
INDICATION: Lethargy and altered mental status. Comparison is made to prior examination 06/29/2020. FINDINGS: Heart size is normal. There are patchy bibasilar infiltrates. There is a small left pleural effusion. There is no pneumothorax. Mediastinum is unremarkable. IMPRESSION: Patchy bibasilar infiltrates and probable small left pleural effusion. Dictated by: Dictated on workstation # [id number]
[2020-09-04 18:02] LABS: PROTHROMBIN TIME PATIENT 13.4 SEC (12.2-14.7)
[2020-09-04] MEDS ORDERED: CEFEPIME INJECTION 1,000 MG in WATER (STERILE) FOR INJECTION 10 ML IV STA (18:04)
[2020-09-04 18:09] LABS: ABG BASE EXCESS 2.8 MMOL/L (-2.5-2.5); ABG OXYGEN SATURATION 96 % (94-100); ABG PCO2 34 MMHG (35-45); ABG PH 7.49 (7.37-7.43); ABG PO2 73 MMHG (79-93); ABG TCO2 26.9 MMOL/L (21.0-31.0)
[2020-09-04 18:10] LABS: ALLENS TEST OK; INSPIRED O2 ROOM AIR; PATIENT TEMP 37.5; VENTILATOR NO
[2020-09-04 18:11] LABS: BACTERIA,URINE LARGE /HPF; BILIRUBIN,URINE NEGATIVE (NEGATIVE); CLARITY,URINE SLT CLOUDY; COLOR,URINE YELLOW; GLUCOSE, URINE (UA) NEGATIVE (NEGATIVE); KETONES,URINE NEGATIVE (NEGATIVE); LEUKOCYTE ESTERASE ,URINE 3+ (NEGATIVE); NITRITE,URINE POSITIVE (NEGATIVE); PH,URINE 7.5 (5-9); PROTEIN,URINE TRACE (NEGATIVE); WBC,URINE 25-50 /HPF
[2020-09-04 18:32] LABS: CARBON DIOXIDE 20 MMOL/L (21-32); CHLORIDE 77 MMOL/L (98-107); POTASSIUM 4.5 MMOL/L (3.6-5.0); SODIUM 113 MMOL/L (135-145)
[2020-09-04 18:33] LABS: ALANINE AMINOTRANSFERASE 15 U/L (0-55); ALBUMIN 3.5 GM/DL (3.2-4.5); ALKALINE PHOSPHATASE 119 U/L (40-136); BILIRUBIN,TOTAL 0.9 MG/DL (0.1-1.0); BUN/CREATININE RATIO 11; CALCIUM 9.3 MG/DL (8.5-10.1); CREATININE SERUM 0.61 MG/DL (0.60-1.30); GFR ESTIMATED > 60; GLUCOSE 177 MG/DL (70-105); MAGNESIUM 1.3 MG/DL (1.6-2.4); TOTAL PROTEIN 6.2 GM/DL (6.4-8.2)
[2020-09-04 18:34] LABS: ATYPICAL LYMPHOCYTES 5 %; BAND NEUTROPHILS 14 %; BASOPHILS % (MANUAL) 0 %; BLAST CELLS 1 %; EOSINOPHILS % (MANUAL) 0 %; LYMPHOCYTES % (MANUAL) 0 %; MONOCYTES % (MANUAL) 2 %; NEUTROPHILS % (MANUAL) 78 %
[2020-09-04 19:04] VITALS: BP 177/86
== END 2020-09-04 19:04 | disposition short-term general hospital (02) ==
LOC: EDUNIT# 17:12 → ER FS 17:13
DX: A41.9 Sepsis, unspecified organism (principal); R41.82 Altered mental status, unspecified; R33.9 Retention of urine, unspecified; T83.098A Other mechanical complication of other urinary catheter, initial encounter; T83.511A Infection and inflammatory reaction due to indwelling urethral catheter, initial encounter; J44.9 Chronic obstructive pulmonary disease, unspecified; E66.9 Obesity, unspecified; I10 Essential (primary) hypertension; Z68.43 Body mass index [BMI] 50.0-59.9, adult
CPT/HCPCS: 36415; 51702; 70450; 71045; 80053; 81000; 82805; 83605; 83735; 83880; 84484; 85007; 85027; 85610; 85730; 87040; 87077; 87088; 87186; 93005; 93041

== ENCOUNTER → 2021-02-28 | Outpatient (CLI) | payer MEDICARE, MEDICAID | PROVIDERS: ATTEND Pediatrics | DX: R19.7 Diarrhea, unspecified (principal); T36.95XA Adverse effect of unspecified systemic antibiotic, initial encounter | CPT/HCPCS: 87015; 87045; 87046; 87899 ==

== ENCOUNTER → 2021-03-21 | Outpatient (CLI) | payer MEDICARE, MEDICAID ==
[2021-03-21 10:09] LABS: CALCIUM 9.5 MG/DL (8.5-10.1); CREATININE SERUM 0.44 MG/DL (0.60-1.30); HEMATOCRIT 42 % (35-52); HEMOGLOBIN 13.9 g/dL (11.5-16.0); MEAN CORPUSCULAR HEMOGLOBIN 28 pg (25-34); MEAN CORPUSCULAR HGB CONC 33 g/dL (32-36); MEAN CORPUSCULAR VOLUME 83 fL (80-99); MEAN PLATELET VOLUME 8.5 fL (9.0-12.2); PLATELET COUNT 398 10^3/uL (130-400); POTASSIUM 4.1 MMOL/L (3.6-5.0); WHITE BLOOD COUNT 11.1 10^3/uL (4.3-11.0)
== END ==
LOC: LAB FS 10:06
PROVIDERS: ATTEND Pediatrics
DX: R06.02 Shortness of breath (principal)
CPT/HCPCS: 36415; 80048; 83880; 85027

== ENCOUNTER → 2021-06-18 | Outpatient (CLI) | payer MEDICARE, MEDICAID ==
[2021-06-18 18:13] LABS: HEMATOCRIT 41 % (35-52); HEMOGLOBIN 13.6 g/dL (11.5-16.0); MEAN CORPUSCULAR HEMOGLOBIN 28 pg (25-34); MEAN CORPUSCULAR HGB CONC 33 g/dL (32-36); MEAN CORPUSCULAR VOLUME 85 fL (80-99); MEAN PLATELET VOLUME 8.8 fL (9.0-12.2); PLATELET COUNT 392 10^3/uL (130-400); WHITE BLOOD COUNT 10.1 10^3/uL (4.3-11.0)
[2021-06-18 18:29] LABS: BUN/CREATININE RATIO 10; CARBON DIOXIDE 27 MMOL/L (21-32); CHLORIDE 91 MMOL/L (98-107); CREATININE SERUM 0.51 MG/DL (0.60-1.30); GFR ESTIMATED 104; POTASSIUM 4.8 MMOL/L (3.6-5.0); SODIUM 130 MMOL/L (135-145)
[2021-06-18 18:30] LABS: ALANINE AMINOTRANSFERASE 11 U/L (0-55); ALBUMIN 4.7 GM/DL (3.2-4.5); ALKALINE PHOSPHATASE 190 U/L (40-136); BILIRUBIN,TOTAL 0.2 MG/DL (0.1-1.0); CALCIUM 9.7 MG/DL (8.5-10.1); GLUCOSE 100 MG/DL (70-105); TOTAL PROTEIN 7.2 GM/DL (6.4-8.2)
== END ==
PROVIDERS: ATTEND Pediatrics
DX: J44.9 Chronic obstructive pulmonary disease, unspecified (principal)
CPT/HCPCS: 36415; 80053; 85027

== ENCOUNTER → 2021-10-19 | Outpatient (CLI) | payer MEDICARE, MEDICAID ==
[2021-10-19 17:22] LABS: HEMATOCRIT 40 % (35-52); HEMOGLOBIN 13.6 g/dL (11.5-16.0); MEAN CORPUSCULAR HEMOGLOBIN 29 pg (25-34); MEAN CORPUSCULAR HGB CONC 34 g/dL (32-36); MEAN CORPUSCULAR VOLUME 85 fL (80-99); MEAN PLATELET VOLUME 8.9 fL (9.0-12.2); PLATELET COUNT 348 10^3/uL (130-400); WHITE BLOOD COUNT 10.8 10^3/uL (4.3-11.0)
[2021-10-19 17:27] LABS: BILIRUBIN,URINE NEGATIVE (NEGATIVE); CLARITY,URINE CLEAR; GLUCOSE, URINE (UA) NEGATIVE (NEGATIVE); KETONES,URINE NEGATIVE (NEGATIVE); LEUKOCYTE ESTERASE ,URINE 2+ (NEGATIVE); NITRITE,URINE POSITIVE (NEGATIVE); PROTEIN,URINE NEGATIVE (NEGATIVE)
[2021-10-19 17:55] LABS: BACTERIA,URINE MODERATE /HPF; COLOR,URINE PALE YELLOW; RBC,URINE 0-2 /HPF; WBC,URINE 25-50 /HPF
[2021-10-19 17:57] LABS: ALBUMIN 4.3 GM/DL (3.2-4.5); BILIRUBIN,TOTAL 0.5 MG/DL (0.1-1.0); CALCIUM 9.5 MG/DL (8.5-10.1); CREATININE SERUM 0.52 MG/DL (0.60-1.30); POTASSIUM 4.2 MMOL/L (3.6-5.0); TOTAL PROTEIN 6.5 GM/DL (6.4-8.2)
== END ==
PROVIDERS: ATTEND Pediatrics
DX: R10.9 Unspecified abdominal pain (principal)
CPT/HCPCS: 80053; 81000; 85027; 87088

== ENCOUNTER 2022-04-01 14:20 | Inpatient (IN) | payer MEDICARE, MEDICAID ==
[~2022-04-01] VITALS: Ht 162 cm; Wt 109.0 kg
--- NOTE | 2022-04-01 14:28 | ED Respiratory ---
General Chief Complaint: COVID19 Suspect/Confirmed Stated Complaint: SOB; COVID+ Source: patient, EMS Exam Limitations: no limitations History of Present Illness Date Seen by Provider: Apr 01, 2022 Time Seen by Provider: 14:16 Initial Comments 66-year-old female who resides in a local nursing facility with history of COPD presents to the emergency department today for progressively worsening shortness of breath. She was diagnosed with COVID on 03/29. She is on Paxlovid, steroids, Zithromax and breathing treatments and her breathing has continued to decline. She is on 2 L of oxygen via nasal cannula [id number]. Advised to increase this to 4 L as she continues to have respiratory distress. She denies any fevers. She has had a cough that is productive of clear sputum. No nausea or vomiting. No changes in bowel or bladder habits. Allergies and Home Medications Allergies Coded Allergies: No Known Drug Allergies (Unverified , 12/08/19) Patient Home Medication List Home Medication List Reviewed: Yes Review of Systems Review of Systems Constitutional: no symptoms reported EENTM: no symptoms reported Respiratory: cough, short of breath Cardiovascular: no symptoms reported Gastrointestinal: no symptoms reported Genitourinary: no symptoms reported Musculoskeletal: no symptoms reported Skin: no symptoms reported Psychiatric/Neurological: No Symptoms Reported Hematologic/Lymphatic: No Symptoms Reported Immunological/Allergic: no symptoms reported Past Rfuqvgq-Ugaruh-Kfmclc Hx Patient Social History Tobacco Use?: No Use of E-Cig and/or Vaping dev: No Substance use?: No Alcohol Use?: No Family Medical History Reviewed Nursing Family Hx No Pertinent Family Hx Physical Exam Vital Signs - First Documented 04/01/22 04/01/22 14:20 14:32 Temp 36.5 Pulse 109 Resp 32 B/P (MAP) 173/80 (111) Pulse Ox 90 O2 Delivery Nasal Cannula O2 Flow Rate 2.00 Capillary Refill : Height: '" Weight: lbs. oz. kg; BMI Method: General Appearance: WD/WN, moderate distress HEENT: normal ENT inspection, pharynx normal Neck: non-tender, supple Respiratory: other (Dramatically decreased breath sounds bilaterally. She has tachypnea, retractions.) Cardiovascular: no murmur, tachycardia Gastrointestinal: normal bowel sounds, non tender, soft Extremities: normal range of motion, normal inspection Neurologic/Psychiatric: alert, oriented x 3 Skin: normal color, warm/dry Focused Exam Lactate Level 04/01/22 14:26: Lactic Acid Level Laboratory Tests Test 04/01/22 14:26 Progress/Results/Core Measures Suspected Sepsis SIRS Temperature: Pulse: Respiratory Rate: Blood Pressure / Mean: 04/01/22 14:26: Results/Orders Lab Results Laboratory Tests Test 04/01/22 14:26 Range/Units My Orders Orders - KENNYLEV LEWWILMER Bird DO Blood Culture (04/01/22 14:28) Sputum Culture (04/01/22 14:28) Ed Iv/Invasive Line Start (04/01/22 14:28) Ed Iv/Invasive Line Start (04/01/22 14:28) Vital Signs Adult Sepsis Patie Q15M (04/01/22 14:28) Lactic Acid Analyzer (04/01/22 14:28) Vital Signs/I&O 04/01/22 04/01/22 14:20 14:32 Temp 36.5 Pulse 109 Resp 32 B/P (MAP) 173/80 (111) Pulse Ox 90 O2 Delivery Nasal Cannula Nasal Cannula O2 Flow Rate 2.00 4.00 Capillary Refill : Departure Communication (Admissions) Patient has significant increased work of breathing. She is on 5 L oxygen via nasal cannula here and her oxygen saturations are 90 to 92% but still had significant increased work of breathing. Started on BiPAP for work of breathing and she tolerated this well with improvement overall in her symptoms. She had a chest x-ray and labs this morning. Only lab anomaly was sodium of 128. Chest x-ray showed no acute findings. No indication to repeat these at this time. I spoke with Dr. [email or web address] and she accepts the patient in transfer to [place], request the ICU. Impression Primary Impression: COPD exacerbation Additional Impression: COVID-19 Disposition: 30 STILL A PATIENT Condition: Stable KENNY,STACEYWILMER Bird DO Apr 01, 2022 14:27
[2022-04-01] MEDS ORDERED: guaiFENesin SYRUP 100 MG/5 ML 10 ML (ROBITUSSIN SF) PO PRN (16:30)
[2022-04-01] MEDS ORDERED: ONDANSETRON 4 MG/2 ML (SDV) Z0FRAN IV PRN (16:30)
[2022-04-01] MEDS ORDERED: DexMEDEtomidine 250 ML DRIP 250 ML IV ONE (16:42)
[2022-04-01] MEDS ORDERED: RT-ALBUTEROL/IPRATROPIUM 3 ML (DUONEB) VIAL ONE (16:46)
[2022-04-01] MEDS: DexMEDEtomidine 250 ML DRIP 250 ML IV SCH (16:50)
[2022-04-01] MEDS: ENOXAPARIN 60 MG/0.6 ML (LOVENOX) SYR SC SCH (16:50)
[2022-04-01 16:55] VITALS: BP 177/96
[2022-04-01 16:58] VITALS: BP 177/96
[2022-04-01] MEDS ORDERED: RT-ALBUTEROL/IPRATROPIUM 3 ML (DUONEB) VIAL INH PRN (17:00)
--- NOTE | 2022-04-01 17:14 | Diagnostic Imaging Report ---
INDICATION: Respiratory failure Portable chest 5:12 PM There is infiltrate present in the right lung with some faint interstitial infiltrate in the left lung. IMPRESSION: Bilateral pulmonary infiltrates worse on the right than on the left and predominantly interstitial suspicious for pneumonia. Dictated by: Dictated on workstation # [id number]
--- NOTE | 2022-04-01 17:21 | Tele-ICU Consult ---
History of Present Illness History of Present Illness Date Seen by Provider: Apr 01, 2022 Time Seen by Provider: 17:20 Date of Admission (Tele-ICU Physician , consultation as per request of PCP Service provided via interactive audio and video telecommunications E-CARE system to a patient admitted to ICU bed in [facility]. Available chart/ vitals / labs / Images reviewed H&P is from ER notes Patient's information available about PMH, Shx, Fhx allergy reviewed inEMR. ROS as per chart and RN report Now in ICU, hemodynamically stable Video assessment done using teleICU camera, rest of exam as per RN Discussed with RN. Consultants: Hospital course: 04/01- PER ER NOTES; 66-year-old female who resides in a local nursing facility with history of COPD presents to the emergency department today for progressively worsening shortness of breath. She was diagnosed with COVID on 03/29. She is on Paxlovid, steroids, Zithromax and breathing treatments and her breathing has continued to decline. She is on 2 L of oxygen via nasal cannula [id number]. Advised to increase this to 4 L as she continues to have respiratory distress. She denies any fevers. She has had a cough that is productive of clear sputum. No nausea or vomiting. No changes in bowel or bladder habits. A/P AHRF / ARDS due to severe COVID19 - NIPPV - bipap 18/8 50% , rr 26 TV 600 MV > 20 L -prone position to consider - conservative fluid strategy [id number]-Tjdlfzjiasr-7/COVID-19 PNA -diagnosed with COVID on 03/29 as per records , was Paxlovid, steroids, Zithromax ( Symptom onset ~1/ DX 1/ unvaccinated -Remdesivir -Dexamethasone IV - given h/o COPD will give higher doses -Hypercoagulable state ->check ddimer , started on maximilian 60 bid ( proph dose for her weight ) Monitor for superimposed bact PNA -check PCT , was tx for 3 d with Z max as per ER note - check cxr Tachycardia - -will check trop and BNP Anxiety - starting precedex gtt Lines : periph , (Central Line Necessity Reviewed) Hughes: OG: Nutrition: npo Analgesia: Anxiety/ delirium VTE Prophylaxis: maximilian 60 bid ( proph dose for her weight ) Stress Ulcer Prophylaxis: Plans in collaboration with bedside consultants and IM MDs. Discussed with RN to reach out if any questions or concerns A total of 35 minutes of critical care time was devoted to this patient today, required to treat and/or prevent further deterioration of critical care condition ( as above ) . I am remotely monitoring this patient from another state. I am unable to do the bedside exam, and history/physical and pertinent information is taken from other notes in the computer and bedside staff. . Allergies and Home Medications Allergies Coded Allergies: No Known Drug Allergies (Unverified , 12/08/19) Past Medical/Social/Family Hx Patient Social History Tobacco Use?: Yes Tobacco type used: Cigarettes Smoking Status: Current Everyday Smoker Use of E-Cig and/or Vaping dev: No Substance use?: No Alcohol Use?: No Pt stated abuse/neglect: No Immunizations Up To Date Influenza Vaccine Up-to-Date: Yes; Up-to-Date Current Status status: No Advance Directives: No Communicates: Verbally Primary Language: Divehi Preferred Spoken Language: Divehi Review of Systems Constitutional: see HPI Focused Exam Lactate Level 04/01/22 14:26: Lactic Acid Level 0.82 Height, Weight, BMI Height: '" Weight: lbs. oz. kg; 60.96 BMI Method: Lactic Acid Level Laboratory Tests Test 04/01/22 14:26 Lactic Acid Level 0.82 MMOL/L (0.50-2.00) Exam Exam Patient acknowledged, consented, and participated in this virtual visit which was conducted using real time audio/video Vital Signs Date Time Temp Pulse Resp B/P (MAP) Pulse Ox O2 Delivery O2 Flow Rate FiO2 04/01/22 17:00 110 24 154/74 (100) 95 NIV Bilevel 40.00 04/01/22 16:58 107 97 40 04/01/22 16:55 107 30 97 40.00 04/01/22 16:50 105 177/96 04/01/22 16:44 NIV Bilevel 40.00 04/01/22 16:40 95 NIV Bilevel 40 04/01/22 16:37 110 04/01/22 16:35 177/96 (123) 04/01/22 16:30 115 29 212/118 (149) 91 NIV CPAP 04/01/22 15:16 36.5 88 20 141/76 98 NIV Bilevel 50.00 04/01/22 15:04 100 NIV Bilevel 50 04/01/22 14:32 36.5 109 32 173/80 (111) 90 Nasal Cannula 4.00 04/01/22 14:20 Nasal Cannula 2.00 Height & Weight Height: '" Weight: lbs. oz. kg; 60.96 BMI Method: General Appearance: Other Capillary Refill: Less Than 3 Seconds Gastrointestinal: normal bowel sounds, non tender, soft Assessment/Plan Assessment/Plan 1 BRAEDEN WALKER MD Apr 01, 2022 17:21
[2022-04-01 18:04] LABS: ABG BASE EXCESS 2.3 MMOL/L (-2.5-2.5); ABG OXYGEN SATURATION 94 % (94-100); ABG PCO2 59 MMHG (35-45); ABG PO2 74 MMHG (79-93); ABG TCO2 30.2 MMOL/L (21.0-31.0)
[2022-04-01 18:06] LABS: INSPIRED O2 40%; PATIENT TEMP 36.3; VENTILATOR NO
[2022-04-01] MEDS ORDERED: LISI40TA9 PO (18:23)
[2022-04-01] MEDS ORDERED: PRD20T PO (18:23)
[2022-04-01] MEDS ORDERED: FURO20TA4 PO (18:23)
[2022-04-01] MEDS ORDERED: MULT-974 PO (18:23)
[2022-04-01] MEDS ORDERED: AMLO-250 PO (18:23)
[2022-04-01] MEDS ORDERED: NIRM1TAB5 PO (18:23)
[2022-04-01] MEDS ORDERED: AZIT250T12 PO (18:23)
[2022-04-01] MEDS ORDERED: METO-333 PO (18:23)
[2022-04-01] MEDS ORDERED: POLY17PO6 PO (18:23)
[2022-04-01] MEDS ORDERED: GUAI120013 PO (18:23)
[2022-04-01] MEDS ORDERED: MAGN400C PO (18:23)
[2022-04-01] MEDS ORDERED: BUSP30TA2 PO (18:23)
[2022-04-01] MEDS ORDERED: ROPI0.5T4 PO (18:23)
[2022-04-01] MEDS ORDERED: GLMP2T PO (18:23)
[2022-04-01] MEDS ORDERED: POTA10CA44 PO (18:23)
[2022-04-01] MEDS ORDERED: NF-NACL1GT PO (18:23)
[2022-04-01] MEDS ORDERED: ACET325T38 PO (18:23)
[2022-04-01] MEDS ORDERED: BACL10TA PO (18:23)
[2022-04-01] MEDS ORDERED: DULO60CA59 PO (18:23)
[2022-04-01 18:40] VITALS: BP 105/56
[2022-04-01] MEDS: RT-ALBUTEROL/IPRATROPIUM 3 ML (DUONEB) VIAL INH SCH ×2 (18:40→22:44)
[2022-04-01] MEDS: cefTRIAXone 1 GM PRE-MIX 50 ML IV SCH (18:47)
[2022-04-01] MEDS: inSUlin ASPART (NovoLOG) 1 UNIT/0.01 ML (CHARGE PER UNIT) SC SCH (21:00)
[2022-04-01 22:44] VITALS: BP 157/102
[2022-04-01] MEDS: NS IV 1000 ML 1,000 ML IV SCH (23:07)
[2022-04-02 03:05] VITALS: BP 144/76
[2022-04-02] MEDS: RT-ALBUTEROL/IPRATROPIUM 3 ML (DUONEB) VIAL INH SCH ×5 (03:05→19:41)
[2022-04-02] MEDS: ENOXAPARIN 60 MG/0.6 ML (LOVENOX) SYR SC SCH (04:40)
[2022-04-02 05:02] LABS: HEMATOCRIT 37 % (35-52); HEMOGLOBIN 12.3 g/dL (11.5-16.0); MEAN CORPUSCULAR HEMOGLOBIN 29 pg (25-34); MEAN CORPUSCULAR HGB CONC 34 g/dL (32-36); MEAN CORPUSCULAR VOLUME 87 fL (80-99); MEAN PLATELET VOLUME 9.1 fL (9.0-12.2); PLATELET COUNT 334 10^3/uL (130-400); WHITE BLOOD COUNT 7.1 10^3/uL (4.3-11.0)
[2022-04-02 05:18] LABS: CALCIUM 9.7 MG/DL (8.5-10.1)
[2022-04-02 05:23] LABS: CREATININE SERUM 0.6 MG/DL (0.60-1.30)
[2022-04-02 05:41] LABS: PHOSPHORUS 3.4 MG/DL (2.3-4.7)
[2022-04-02 05:43] LABS: MAGNESIUM 2.1 MG/DL (1.6-2.4)
[2022-04-02 06:17] LABS: ABG BASE EXCESS 2.1 MMOL/L (-2.5-2.5); ABG OXYGEN SATURATION 63 % (94-100); ABG PCO2 48 MMHG (35-45); ABG PH 7.37 (7.37-7.43); ABG TCO2 28.6 MMOL/L (21.0-31.0)
[2022-04-02 06:23] LABS: ABG PO2 35 MMHG (79-93); ALLENS TEST YES-POS; INSPIRED O2 40%; PATIENT TEMP 36.4; VENTILATOR NO
[2022-04-02] MEDS: inSUlin ASPART (NovoLOG) 1 UNIT/0.01 ML (CHARGE PER UNIT) SC SCH ×4 (06:42→21:55)
[2022-04-02 07:04] VITALS: BP 167/86
[2022-04-02 07:16] LABS: ABG OXYGEN SATURATION 95 % (94-100); ABG PCO2 56 MMHG (35-45); ABG PO2 73 MMHG (79-93); ABG TCO2 30.4 MMOL/L (21.0-31.0)
[2022-04-02 07:18] LABS: ABG PH 7.32 (7.37-7.43)
[2022-04-02 07:19] LABS: ALLENS TEST YES-POS; INSPIRED O2 40%; PATIENT TEMP 36.4; VENTILATOR NO
--- NOTE | 2022-04-02 09:00 | Tele-ICU Progress Note ---
Subjective Date Seen by a Provider: Apr 02, 2022 Time Seen by a Provider: 09:00 Subjective/Events-last exam (Tele-ICU Physician , consultation) Available chart/ vitals / labs / Images reviewed H&P is from ER notes Patient's information available about PMH, allergy reviewed in EMR. ROS as per chart and RN report Video assessment done using teleICU camera, rest of exam as per RN Discussed with RN. This patient admitted with COPD exacerbation along with COVID19 pneumonia requiring BiPAP ventilation. Currently she is on a Decadron 10 mg every 12 hours DuoNeb nebulizer treatment IV Rocephin. She does have a respiratory acidosis on the blood gas. Urine output is increasing. Impression 1. Acute hypoxic and hypercarbic respiratory failure secondary to COPD exacerbation as well as COVID19 pneumonia. However superadded imposed bacterial pneumonia cannot be ruled out. Will continue BiPAP ventilation 18/8 with 40% FiO2 and wean FiO2 as tolerated. Will continue Decadron, Rocephin, Lovenox. 2. Hyperglycemia secondary to steroids and underlying type 2 diabetes mellitus.. We will continue ISS. 3. Anion gap metabolic acidosis. We will continue hydration and monitor electrolytes. 4. DVT prophylaxis and ulcer prophylaxis. 5. Continue Precedex drip for anxiety related to BiPAP. Plans in collaboration with bedside consultants and IM MDs. Discussed with the [employer]ER to reach out if any questions or concerns. Critical care time 22 minutes. Sepsis Event Evaluation Height, Weight, BMI Height: '" Weight: lbs. oz. kg; 60.96 BMI Method: Focused Exam Lactate Level 04/01/22 14:26: Lactic Acid Level 0.82 Exam Exam Patient acknowledged, consented, and participated in this virtual visit which was conducted using real time audio/video Vital Signs Date Time Temp Pulse Resp B/P (MAP) Pulse Ox O2 Delivery O2 Flow Rate FiO2 04/02/22 08:19 91 NIV Bilevel 40 04/02/22 08:00 102 138/76 (96) 97 NIV Bilevel 40.00 04/02/22 08:00 36.5 04/02/22 07:04 92 25 97 40.00 04/02/22 07:00 96 134/74 (94) 95 NIV Bilevel 40.00 04/02/22 07:00 93 04/02/22 06:06 36.4 04/02/22 06:00 109 143/73 (96) 97 NIV Bilevel 40.00 04/02/22 05:00 97 138/77 (97) 95 NIV Bilevel 40.00 04/02/22 04:00 98 181/93 (122) 93 NIV Bilevel 40.00 04/02/22 04:00 97 NIV Bilevel 40 04/02/22 03:05 95 25 95 40.00 04/02/22 03:00 93 152/76 (101) 95 NIV Bilevel 40.00 04/02/22 02:00 90 144/77 (99) 95 NIV Bilevel 40.00 04/02/22 01:00 98 153/79 (103) 95 NIV Bilevel 40.00 04/02/22 01:00 88 04/02/22 00:00 98 148/85 (106) 93 NIV Bilevel 40.00 04/02/22 00:00 37.0 NIV Bilevel 40.00 04/01/22 23:49 94 NIV Bilevel 40 04/01/22 23:00 98 129/73 (91) 97 NIV Bilevel 40.00 04/01/22 22:44 99 23 95 40.00 04/01/22 22:00 67 132/97 (109) 97 NIV Bilevel 40.00 04/01/22 21:00 72 137/75 (95) 96 NIV Bilevel 40.00 04/01/22 21:00 72 137/75 04/01/22 20:00 95 NIV Bilevel 40 04/01/22 20:00 66 23 128/72 (90) 97 NIV Bilevel 40.00 04/01/22 19:28 36.3 73 105/49 (67) 96 NIV Bilevel 40.00 04/01/22 19:00 70 04/01/22 19:00 71 23 102/55 (71) 91 NIV Bilevel 40.00 04/01/22 18:40 90 25 93 40.00 04/01/22 18:00 90 22 120/63 (82) 96 NIV Bilevel 40.00 04/01/22 17:00 110 24 154/74 (100) 95 NIV Bilevel 40.00 04/01/22 17:00 36.6 04/01/22 16:58 107 97 40 04/01/22 16:55 107 30 97 40.00 04/01/22 16:50 105 177/96 04/01/22 16:44 NIV Bilevel 40.00 04/01/22 16:40 95 NIV Bilevel 40 04/01/22 16:37 110 04/01/22 16:35 177/96 (123) 04/01/22 16:30 115 29 212/118 (149) 91 NIV CPAP 04/01/22 15:16 36.5 88 20 141/76 98 NIV Bilevel 50.00 04/01/22 15:04 100 NIV Bilevel 50 04/01/22 14:32 36.5 109 32 173/80 (111) 90 Nasal Cannula 4.00 04/01/22 14:20 Nasal Cannula 2.00 I & O 04/02/22 07:00 Intake Total 0 ml Output Total 490 ml Balance -490 ml Height & Weight Height: '" Weight: lbs. oz. kg; 60.96 BMI Method: General Appearance: Other Capillary Refill: Less Than 3 Seconds Gastrointestinal: normal bowel sounds, non tender, soft Results Lab Laboratory Tests 04/02/22 04:35 Assessment/Plan Assessment/Plan as above Critical Care: Critically Ill Patient Time spent with patient (mins): 22 GEOVANNA BERGMAN MD Apr 02, 2022 09:00
[2022-04-02] MEDS: PANTOPRAZOLE 40 MG (PROTONIX) VIAL IV SCH (09:26)
--- NOTE | 2022-04-02 10:06 | History & Physical ---
SONIAKARYN 04/02/22 1006: History of Present Illness History of Present Illness Reason for visit/HPI Ms. Meraz is a 66 year old female with a PMHx of COPD who presented to the [facility] ED on 04/01 with increased SOA. [facility] and has tested positive for COVID on 03/29. Management with azithromycin, steroids, Paxlovid, and breathing treatments was initiated, however the patient's respiratory status continued to decline. The patient was placed on BiPap in the ED for respiratory support. The patient is admitted to the Hospitalist service for acute respiratory failure with hypoxia and respiratory acidosis likely secondary to COPD exacerbation and COVID infection with ICU management. Patient is resting in bed this morning on BiPap. Patient denies head ache, chest pain, SOA at rest, abdominal pain, or N/V/D. Patient denies other PMHx. Patient states she uses a wheelchair in the penitentiary and is able to assist with transfers. Date of Admission Apr 01, 2022 at 16:22 Date Seen by a Provider: Apr 02, 2022 Time Seen by a Provider: 08:30 I consulted on this patient on 04/02/22 09:58 Attending Physician Saad Lara MD Admitting Physician Admitting Physician: Berna Saldivar MD Attending Physician: Berna Saldivar MD Consult Allergies and Home Medications Allergies Coded Allergies: No Known Drug Allergies (Unverified , 12/08/19) Patient Home Medication List Home Medication List Reviewed: Yes Acetaminophen (Tylenol) 325 Mg Tablet, 650 MG PO DAILY PRN, (Reported) Entered as Reported by: CODY FUENTES on 04/01/221822 Last Action: Held Amlodipine Besylate (Amlodipine Besylate) 5 Mg Tablet, 5 MG PO DAILY, (Reported) Entered as Reported by: CODY FUENTES on 04/01/221822 Last Action: Held Azithromycin (Azithromycin) 250 Mg Tablet, 250 MG PO DAILY, (Reported) Entered as Reported by: CODY FUENTES on 04/01/221822 Last Action: Held Baclofen (Baclofen) 10 Mg Tablet, 10 MG PO DAILY, (Reported) Entered as Reported by: CODY FUENTES on 04/01/221822 Last Action: Continued Buspirone HCl (Buspirone HCl) 30 Mg Tablet, 30 MG PO BID, (Reported) Entered as Reported by: CODY FUENTES on 04/01/221822 Last Action: Converted Duloxetine HCl (Duloxetine HCl) 60 Mg Capsule.dr, 60 MG PO DAILY, (Reported) Entered as Reported by: CODY FUENTES on 04/01/221822 Last Action: Converted Furosemide (Furosemide) 20 Mg Tablet, 20 MG PO DAILY, (Reported) Entered as Reported by: CODY FUENTES on 04/01/221822 Last Action: Continued Glimepiride (Amaryl) 2 Mg Tab, 2 MG PO TID, (Reported) Entered as Reported by: CODY FUENTES on 04/01/221822 Last Action: Held Guaifenesin (Mucinex) 1,200 Mg Tab.er.12h, 1,200 MG PO BID, (Reported) Entered as Reported by: CODY FUENTES on 04/01/221822 Last Action: Reviewed Lisinopril (Lisinopril) 40 Mg Tablet, 40 MG PO DAILY, (Reported) Entered as Reported by: CODY FUENTES on 04/01/221822 Last Action: Continued Magnesium Oxide (Magnesium) 400 Mg Magnesium Capsule, 400 MG PO DAILY, (Reported) Entered as Reported by: CODY FUENTES on 04/01/221822 Last Action: Held Metoprolol Tartrate (Metoprolol Tartrate) 25 Mg Tablet, 25 MG PO BID, (Reported) Entered as Reported by: CODY FUENTES on 04/01/221822 Last Action: Held Multivitamin (Multi-Vitamin Daily) 1 Each Tablet, 1 EACH PO DAILY, (Reported) Entered as Reported by: CODY FUENTES on 04/01/221822 Last Action: Held Nirmatrelvir/Ritonavir (Paxlovid 150-100 mg Pack (Eua)) 150 Mg-100 Mg Tablet, 1 EACH PO BID, (Reported) Entered as Reported by: CODY FUENTES on 04/01/221822 Last Action: Held Polyethylene Glycol 3350 (Miralax) 17 Gram Powd.pack, 17 GM PO DAILY PRN PRN for CONSTIPATION-1ST LINE, (Reported) Entered as Reported by: CODY FUENTES on 04/01/221822 Last Action: Held Potassium Chloride (Potassium Chloride) 10 Meq Capsule.er, 10 MEQ PO, (Reported) Entered as Reported by: CODY FUENTES on 04/01/221822 Last Action: Held Prednisone (Prednisone) 20 Mg Tab, 20 MG PO BID, (Reported) Entered as Reported by: CODY FUENTES on 04/01/221822 Last Action: Held Ropinirole HCl (Ropinirole HCl) 0.5 Mg Tablet, 0.5 MG PO HS, (Reported) Entered as Reported by: CODY FUENTES on 04/01/221822 Last Action: Converted Sodium Chloride (Sodium Chloride) 1 Gram Tab, 1 GM PO TID, (Reported) Entered as Reported by: CODY FUENTES on 04/01/221822 Last Action: Continued Past Dccirki-Tpptpj-Oprjai Hx Patient Social History Tobacco Use?: Yes Tobacco type used: Cigarettes Smoking Status: Current Everyday Smoker (one pack per day) Use of E-Cig and/or Vaping dev: No Substance use?: No Alcohol Use?: No Pt feels they are or have been: No Seasonal Allergies Seasonal Allergies: No Current Status status: No Advance Directives: No Communicates: Verbally Primary Language: Bulgarian Preferred Spoken Language: Bulgarian Past Medical History Surgeries: Section, Gallbladder COPD Hypertension Breast Did You Recieve Any Treatments: Yes What Type of Treatment Did You: Surgical Intervention Family Medical History Reviewed Nursing Family Hx No Pertinent Family Hx Review of Systems Constitutional: no symptoms reported EENTM: no symptoms reported Respiratory: no symptoms reported; No short of breath Cardiovascular: no symptoms reported; No chest pain, No palpitations Gastrointestinal: no symptoms reported; No abdominal pain, No constipation, No diarrhea, No nausea, No vomiting Genitourinary: no symptoms reported Musculoskeletal: no symptoms reported Skin: no symptoms reported Psychiatric/Neurological: No Symptoms Reported; Denies Headache All Other Systems Reviewed Negative Unless Noted: Yes Physical Exam Vital Signs Vital Signs - First Documented 04/01/22 04/01/22 04/01/22 14:20 14:32 15:04 Temp 36.5 Pulse 109 Resp 32 B/P (MAP) 173/80 (111) Pulse Ox 90 O2 Delivery Nasal Cannula O2 Flow Rate 2.00 FiO2 50 Capillary Refill : Less Than 3 Seconds Height, Weight, BMI Height: '" Weight: lbs. oz. kg; 60.96 BMI Method: General Appearance: Other (patient on BiPap therapy) Respiratory: No Accessory Muscle Use, Other (coarse breath sounds bilaterally) Cardiovascular: Other (distal heart sounds) Gastrointestinal: Normal Bowel Sounds, Non Tender, Soft Genital/Rectal: Other (urinary catheter in place) Extremity: Other (trace pedal and LE edema bilaterally. SCDs in place) Neurologic/Psychiatric: Alert Skin: Normal Color, Warm/Dry Comments NAME: VIDA MERAZ [facility] REC#: [id number] PT STATUS: ADM IN : 1955 PHYSICIAN: BRAEDEN WALKER MD ADMIT DATE: 04/01/22/ICU Signed Date of Exam:04/01/22 CHEST 1 VIEW, AP/PA ONLY INDICATION: Respiratory failure Portable chest 5:12 PM There is infiltrate present in the right lung with some faint interstitial infiltrate in the left lung. IMPRESSION: Bilateral pulmonary infiltrates worse on the right than on the left and predominantly interstitial suspicious for pneumonia. Dictated by: Dictated on workstation # [id number] Dict: 04/01/221710 Trans: 04/01/221715 [facility] [id number] Interpreted by: MANSOOR JAQUEZ MD Electronically signed by: MANSOOR JAQUEZ MD 04/01/221715 Assessment/Plan Assessment and Plan 1. Acute respiratory failure with hypoxia and respiratory acidosis, likely secondary to COPD exacerbation and COVID -BiPap for respiratory support - wean as tolerated -Decadron 10mg Q12H IV -Rocephin 1gm IV - running -Duoneb breathing treatments 3ml RTQ4H INH -Precedex drip for BiPap related anxiety -Lovenox 60mg Q12H SC for DVT prophylaxis. SCDs in place 2. Type 2 Diabetes mellitus -Sliding scale insulin -Monitor blood glucose 3. HTN -Monitor BP -Consider resuming home medications -> lisinopril 40mg PO qd, amlodipine 5mg PO qd, metoprolol 25mg PO BID 4. Hyponatremia of 132 on 04/02 -Monitor with AM BMP 5. Anion gap of 17 -Monitor with AM labs Admission Diagnosis Admission Status: Inpatient Order (span 2 midnights) BERNA SALDIVAR MD 04/02/22 1221: Allergies and Home Medications Allergies Coded Allergies: No Known Drug Allergies (Unverified , 12/08/19) Patient Home Medication List Home Medication List Reviewed: Yes Acetaminophen (Tylenol) 325 Mg Tablet, 650 MG PO DAILY PRN, (Reported) Entered as Reported by: CODY FUENTES on 04/01/221822 Last Action: Held Amlodipine Besylate (Amlodipine Besylate) 5 Mg Tablet, 5 MG PO DAILY, (Reported) Entered as Reported by: CODY FUENTES on 04/01/221822 Last Action: Held Azithromycin (Azithromycin) 250 Mg Tablet, 250 MG PO DAILY, (Reported) Entered as Reported by: CODY FUENTES on 04/01/221822 Last Action: Held Baclofen (Baclofen) 10 Mg Tablet, 10 MG PO DAILY, (Reported) Entered as Reported by: CODY FUENTES on 04/01/221822 Last Action: Continued Buspirone HCl (Buspirone HCl) 30 Mg Tablet, 30 MG PO BID, (Reported) Entered as Reported by: CODY FUENTES on 04/01/221822 Last Action: Converted Duloxetine HCl (Duloxetine HCl) 60 Mg Capsule.dr, 60 MG PO DAILY, (Reported) Entered as Reported by: CODY FUENTES on 04/01/221822 Last Action: Converted Furosemide (Furosemide) 20 Mg Tablet, 20 MG PO DAILY, (Reported) Entered as Reported by: CODY FUENTES on 04/01/221822 Last Action: Continued Glimepiride (Amaryl) 2 Mg Tab, 2 MG PO TID, (Reported) Entered as Reported by: CODY FUENTES on 04/01/221822 Last Action: Held Guaifenesin (Mucinex) 1,200 Mg Tab.er.12h, 1,200 MG PO BID, (Reported) Entered as Reported by: CODY FUENTES on 04/01/221822 Last Action: Reviewed Lisinopril (Lisinopril) 40 Mg Tablet, 40 MG PO DAILY, (Reported) Entered as Reported by: CODY FUENTES on 04/01/221822 Last Action: Continued Magnesium Oxide (Magnesium) 400 Mg Magnesium Capsule, 400 MG PO DAILY, (Reported) Entered as Reported by: CODY FUENTES on 04/01/221822 Last Action: Held Metoprolol Tartrate (Metoprolol Tartrate) 25 Mg Tablet, 25 MG PO BID, (Reported) Entered as Reported by: CODY FUENTES on 04/01/221822 Last Action: Held Multivitamin (Multi-Vitamin Daily) 1 Each Tablet, 1 EACH PO DAILY, (Reported) Entered as Reported by: CODY FUENTES on 04/01/221822 Last Action: Held Nirmatrelvir/Ritonavir (Paxlovid 150-100 mg Pack (Eua)) 150 Mg-100 Mg Tablet, 1 EACH PO BID, (Reported) Entered as Reported by: CODY FUENTES on 04/01/221822 Last Action: Held Polyethylene Glycol 3350 (Miralax) 17 Gram Powd.pack, 17 GM PO DAILY PRN PRN for CONSTIPATION-1ST LINE, (Reported) Entered as Reported by: CODY FUENTES on 04/01/221822 Last Action: Held Potassium Chloride (Potassium Chloride) 10 Meq Capsule.er, 10 MEQ PO, (Reported) Entered as Reported by: CODY FUENTES on 04/01/221822 Last Action: Held Prednisone (Prednisone) 20 Mg Tab, 20 MG PO BID, (Reported) Entered as Reported by: CODY FUENTES on 04/01/221822 Last Action: Held Ropinirole HCl (Ropinirole HCl) 0.5 Mg Tablet, 0.5 MG PO HS, (Reported) Entered as Reported by: CODY FUENTES on 04/01/221822 Last Action: Converted Sodium Chloride (Sodium Chloride) 1 Gram Tab, 1 GM PO TID, (Reported) Entered as Reported by: CODY FUENTES on 04/01/221822 Last Action: Continued Past Aatrcfc-Vvlqzf-Jigddo Hx Immunizations Up To Date First/Initial COVID19 Vaccinat: unvaccinated Assessment/Plan Assessment and Plan Patient is a 66-year-old female with past medical history of COPD who presented to the emergency department due to respiratory distress secondary to COVID. She had already been treated with Paxlovid, steriods, and antibiotics [place] but continued to progress. She is normally on 2 L of oxygen due to her COPD but had to be increased to 4 L and was still hypoxic. In the ER she was quite tachypneic and had increased work of breathing so was placed on BiPAP. She was admitted here to the ICU for this. This morning she reports reports feeling a little bit better and would like to trial off of BiPAP so that she can eat. She has no other complaints at this time. BP is trending up slightly so will restarted her Norvasc. Continue on steroids. TeleICU consulted, appreciate recs. Supervisory-Addendum Brief Verification & Attestation Participated in pt care: history, MDM, physical Personally performed: exam, history, MDM, supervision of care Care discussed with: Medical Student Procedures: n/a Results interpretation: Verified all documentation Verification and Attestation of Medical Student E/M Service A medical student performed and documented this service in my presence. I reviewed and verified all information documented by the medical student and made modifications to such information, when appropriate. I personally performed the physical exam and medical decision making. Berna Saldivar, Apr 02, 2022,12:17 KARYN SCOTT Apr 02, 2022 10:06 BERNA SALDIVAR MD Apr 02, 2022 12:21
[2022-04-02 10:35] VITALS: BP 148/77
[2022-04-02] MEDS ORDERED: amLODIPine 5 MG (NORVASC) TAB PO NR (12:24)
[2022-04-02] MEDS: NS IV 1000 ML 1,000 ML IV SCH ×2 (14:10→16:26)
--- NOTE | 2022-04-02 14:17 | Physical Therapy Evaluation ---
PT Evaluation-General Medical Diagnosis Admission Date Apr 01, 2022 at 16:22 Medical Diagnosis: respiratory failure/Covid Onset Date: Apr 01, 2022 Therapy Diagnosis Therapy Diagnosis: debility/weakness Precautions Precautions/Isolations: Airborne Isolation, Fall Prevention Referral Physician: Yariel Reason for Referral: Evaluation/Treatment Medical History Pertinent Medical History: COPD, HTN, Smoking Additional Medical History morbid obesity/non ambulatory PLOF/w/c bound an sleeps in a recliner Current History ER secondary to Covid 03/29/22 Reviewed History: Yes Social History Home: Halfway Prior Prior Level of Function SCALE: Activities may be completed with or without assistive devices. 9-Jshunieata-tpzuqkm completes the activity by him/herself with no assistance from a helper. 5-Set-up or Clean-up Assistance-helper sets up or cleans up; patient completes activity. [place] assists only prior to or following the activity. 4-Supervision or Touching Assistance-helper provides verbal cues and/or touching/steadying and/or contact guard assistance as patient completes activity. Assistance may be provided throughout the activity or intermittently. 3-Partial/Moderate Assistance-helper does LESS THAN HALF the effort. [place] lifts, holds or supports trunk or limbs, but provides less than half the effort. 2-Substantial/Maximal Assistance-helper does MORE THAN HALF the effort. [place] lifts or holds trunk or limbs and provides more than half the effort. 1-Gebyjkgbx-hvpvaq does ALL the effort. Patient does none of the effort to complete the activity. Or, the assistance of 2 or more helpers is required for the patient to complete the activity. If activity was not attempted, code reason: 7-Patient Refused. 9-Not Applicable-not attempted and the patient did not perform the activity before the current illness, exacerbation or injury. 10-Not Attempted due to Environmental Limitations-(lack of equipment, weather restraints, etc.). 88-Not Attempted due to Medical Conditions or Safety Concerns. Transfers (B,C,W/C): 2 Gait: 9 Stairs: 9 Wheelchair Mobility: 2 Indoor Mobility (Ambulation): Not [place] Stairs: Not [place] Prior Devices Use: Manual wheelchair PT Evaluation-Current Subjective Patient agrees to PT. Objective Patient Orientation: Person, Situation Attachments: Oxygen (vapotherm), Hughes Catheter, IV ROM/Strength ROM Lower Extremities bilateral LE limited due to obesity Strength Lower Extremities 3-/5 grossly bilateral LE Integumentary/Posture Bladder Incontinence: Hughes Cath Neuromuscular (Tone, Coordination, Reflexes) grossly intact Sensory Vision: Functional Hearing: Impaired Transfers Roll Left to Right (QC): 2 Sit to Lying (QC): 2 Lying to Sitting/Side of Bed(Q: 2 Sit to Stand (QC): 88 Chair/Bfe-if-Ejumg Xfer(QC): 88 Gait Does the Patient Walk?: No and Walking Goal NOT indicated Walk 10 feet (QC): 9 Walk 50 ft with 2 Turns(QC): 9 Walk 150 ft (QC): 9 Balance Sitting Static: Fair Sitting Dynamic: Fair Assessment/Needs Patient will be seen short term by skilled PT to address functional strength and bed mobility/transfers to ensure safe return to care home at maximum LOF. Rehab Potential: Guarded PT Care Home Goals Wind Up Operator Goals PT Wind Up Operator Goals Time Frame: Apr 17, 2022 Roll Left & Right (QC): 3 Sit to Lying (QC): 3 Lying-Sitting on Side/Bed(QC): 3 Sit to Stand (QC): 2 Chair/Kxf-qq-Gjutt Xfer(QC): 2 Does the Patient Walk: No and Walking Goal NOT indicated PT Plan Problem List Problem List: Activity Tolerance, Functional Strength, Safety, Balance, Transfer, Bed Mobility Treatment/Plan Treatment Plan: Continue Plan of Care Treatment Plan: Bed Mobility, Education, Functional Activity [place], Functional Strength, Safety, Therapeutic Exercise, Transfers Treatment Duration: Apr 17, 2022 Frequency: 6 times per week Estimated Hrs Per Day: .25 hour per day Time Time In: 1345 Time Out: 1400 DATE: Apr 02, 2022 Total Billed Treatment Time: 15 Total Billed Treatment 1 visit [facility] 15 min NOVA DODSON PT Apr 02, 2022 14:17
[2022-04-02] MEDS: ENOXAPARIN 40 MG/0.4 ML (LOVENOX) SYR SC SCH (16:26)
[2022-04-02] MEDS: cefTRIAXone 1 GM PRE-MIX 50 ML IV SCH (18:05)
[2022-04-02] MEDS: rOPINIRole 0.25 MG (REQUIP) TAB PO SCH (20:00)
[2022-04-02] MEDS: busPIRone 15 MG (BUSPAR) TABLET PO SCH (20:00)
[2022-04-02] MEDS: SODIUM CHLORIDE 1 GM TABLET PO SCH (20:01)
[2022-04-02] MEDS ORDERED: amLODIPine 5 MG (NORVASC) TAB PO ONE (21:00)
[2022-04-02] MEDS: RT-ALBUTEROL HFA 8.5 GM INHALER IH SCH (22:32)
[2022-04-03] MEDS: RT-ALBUTEROL HFA 8.5 GM INHALER IH SCH ×6 (03:12→22:08)
[2022-04-03 05:16] LABS: HEMATOCRIT 35 % (35-52); HEMOGLOBIN 11.8 g/dL (11.5-16.0); MEAN CORPUSCULAR HEMOGLOBIN 29 pg (25-34); MEAN CORPUSCULAR HGB CONC 34 g/dL (32-36); MEAN CORPUSCULAR VOLUME 86 fL (80-99); MEAN PLATELET VOLUME 8.8 fL (9.0-12.2); PLATELET COUNT 338 10^3/uL (130-400); WHITE BLOOD COUNT 8.8 10^3/uL (4.3-11.0)
[2022-04-03] MEDS: ENOXAPARIN 40 MG/0.4 ML (LOVENOX) SYR SC SCH ×2 (05:22→18:00)
[2022-04-03 05:35] LABS: POTASSIUM 3.4 MMOL/L (3.6-5.0)
[2022-04-03 05:36] LABS: CALCIUM 9.2 MG/DL (8.5-10.1)
[2022-04-03] MEDS: inSUlin ASPART (NovoLOG) 1 UNIT/0.01 ML (CHARGE PER UNIT) SC SCH ×4 (05:39→22:47)
[2022-04-03 05:40] LABS: CREATININE SERUM 0.53 MG/DL (0.60-1.30); PHOSPHORUS 2.1 MG/DL (2.3-4.7)
[2022-04-03 05:42] LABS: MAGNESIUM 2.1 MG/DL (1.6-2.4)
[2022-04-03 07:22] VITALS: BP 153/75
[2022-04-03] MEDS: PANTOPRAZOLE 40 MG (PROTONIX) VIAL IV SCH (08:06)
[2022-04-03] MEDS: amLODIPine 5 MG (NORVASC) TAB PO SCH (08:07)
[2022-04-03] MEDS: busPIRone 15 MG (BUSPAR) TABLET PO SCH ×2 (08:07→20:02)
[2022-04-03] MEDS: lisINopril 40 MG (PRINIVIL) TABLET PO SCH (08:07)
[2022-04-03] MEDS: DULoxetine 30 MG (CYMBALTA) CAP PO SCH (08:07)
[2022-04-03] MEDS: BACLOFEN 10 MG (LIORESAL) TAB PO SCH (08:07)
[2022-04-03] MEDS: POTASSIUM CL 10MEQ/50ML IVPB 50 ML IV SCH (08:08)
[2022-04-03] MEDS ORDERED: FUROSEMIDE 20 MG (LASIX) TAB PO SCH (09:00)
[2022-04-03] MEDS: SODIUM CHLORIDE 1 GM TABLET PO SCH ×3 (09:49→20:03)
--- NOTE | 2022-04-03 10:47 | Progress Note ---
KARYN SCOTT 04/03/22 10:47am: Subjective Date Seen by a Provider: Apr 03, 2022 Time Seen by a Provider: 08:30 Subjective/Events-last exam Ms. Stephenson is a 66 year old female with a PMHx of COPD who presented to the [facility] ED on 04/01 with increased SOA. Patient resides at a local senior care and has tested positive for COVID on 03/29. Management with azithromycin, steroids, Paxlovid, and breathing treatments was initiated, however the patient's respiratory status continued to decline. The patient was placed on BiPap in the ED for respiratory support. The patient is admitted to the Hospitalist service for acute respiratory failure with hypoxia and respiratory acidosis likely secondary to COPD exacerbation and COVID infection with ICU management. Patient is resting in bed this morning with Vapotherm. Patient is responsive to voice but does not answer questions. Per nursing report the patient has not been tolerating BiPap or vapotherm and continuously pulled them off throughout the night. Focused Exam Lactate Level 04/01/22 14:26: Lactic Acid Level 0.82 Objective Exam Last Set of Vital Signs Vital Signs Date Time Temp Pulse Resp B/P (MAP) Pulse Ox O2 Delivery O2 Flow Rate FiO2 04/03/22 10:36 98 Vapotherm 30.00 50 04/03/22 10:00 60 162/71 (101) 04/03/22 09:00 33 04/03/22 08:03 36.6 Capillary Refill : Less Than 3 Seconds I&O Intake and Output 04/03/22 00:00 Intake Total 2310 ml Output Total 1390 ml Balance 920 ml Intake Oral 1310 ml IV Total 1000 ml Output Urine Total 1390 ml Results Lab Laboratory Tests 04/02/22 11:13: Glucometer 139H 04/02/22 17:08: Glucometer 229H 04/02/22 20:04: Glucometer 191H 04/02/22 21:50: Glucometer 172H 04/03/22 05:00: White Blood Count 8.8, Red Blood Count 4.03, Hemoglobin 11.8, Hematocrit 35, Mean Corpuscular Volume 86, Mean Corpuscular Hemoglobin 29, Mean Corpuscular Hemoglobin Concent 34, Red Cell Distribution Width 13.3, Platelet Count 338, Mean Platelet Volume 8.8L, Sodium Level 129L, Potassium Level 3.4L, Chloride Level 94L, Carbon Dioxide Level 24, Anion Gap 11, Blood Urea Nitrogen 10, Creatinine 0.53L, Estimat Glomerular Filtration Rate 102, BUN/Creatinine Ratio 19, Glucose Level 163H, Calcium Level 9.2, Phosphorus Level 2.1L, Magnesium Level 2.1 04/03/22 05:23: Glucometer 161H Microbiology 04/01/22 Blood Culture - Preliminary, Resulted Aerococcus Viridans 04/01/22 Gram Stain, Resulted Pending 04/01/22 Sputum Culture - Preliminary, Resulted Usual upper respiratory baltazar Clinical Quality Measures Admission Status Admission Dx 1. Acute respiratory failure with hypoxia and respiratory acidosis, likely secondary to COPD exacerbation and COVID -BiPap for respiratory support - wean as tolerated -Decadron 10mg Q12H IV -Rocephin 1gm IV - running -Duoneb breathing treatments 3ml RTQ4H INH -Precedex drip for BiPap related anxiety -Lovenox 60mg Q12H SC for DVT prophylaxis. SCDs in place 2. Type 2 Diabetes mellitus -Sliding scale insulin -Monitor blood glucose 3. HTN -Monitor BP -Consider resuming home medications -> lisinopril 40mg PO qd, amlodipine 5mg PO qd, metoprolol 25mg PO BID 4. Hyponatremia of 132 on 04/02 -Monitor with AM BMP 5. Anion gap of 17 -Monitor with AM labs LALA SALDIVAR MD 04/03/22 12:57pm: Assessment/Plan Assessment/Plan Assess & Plan/Chief Complaint Patient was quite confused overnight and this morning and was pulling at lines and trying to pull off her BiPAP and Vapotherm. She was placed on Precedex. On my exam she was much more cooperative though somewhat confused. She is doing well on Vapotherm though. We will continue with current measures. Appreciate teleICU involvement. Supervisory-Addendum Brief Verification & Attestation Participated in pt care: history, MDM, physical Personally performed: exam, history, MDM, supervision of care Care discussed with: Medical Student Procedures: n/a Results interpretation: Verified all documentation Verification and Attestation of Medical Student E/M Service A medical student performed and documented this service in my presence. I reviewed and verified all information documented by the medical student and made modifications to such information, when appropriate. I personally performed the physical exam and medical decision making. Lala Saldivar, Apr 03, 2022,12:54 KARYN SCOTT Apr 03, 2022 10:47 am LALA SALDIVAR MD Apr 03, 2022 12:57 pm
[2022-04-03] MEDS: NS IV 1000 ML 1,000 ML IV SCH (11:00)
--- NOTE | 2022-04-03 11:01 | Tele-ICU Progress Note ---
Subjective Date Seen by a Provider: Apr 03, 2022 Time Seen by a Provider: 10:57 Subjective/Events-last exam (Tele-ICU Physician , Progress note) Available chart/ vitals / labs / Images reviewed H&P is from ER notes Patient's information available about PMH, allergy reviewed in EMR. ROS as per chart and RN report Video assessment done using teleICU camera, rest of exam as per RN Discussed with RN. This patient admitted with COPD exacerbation along with COVID19 pneumonia requiring BiPAP ventilation. Currently she is on a Decadron 10 mg every 12 hours DuoNeb nebulizer treatment IV Rocephin. She does have a respiratory acidosis on the blood gas. Urine output is increasing. 04/03/22 Patient is resting in bed this morning with Vapotherm. . Per nursing report the patient has not been tolerating BiPap or vapotherm and continuously pulled them off throughout the night. Impression 1. Acute hypoxic and hypercarbic respiratory failure secondary to COPD exacerbation as well as COVID19 pneumonia. However superadded imposed bacterial pneumonia cannot be ruled out. Will continue BiPAP ventilation 18/8 with 40% FiO2 and wean FiO2 as tolerated. Vapo therm as tolerated. Will continue Decadron, Rocephin, Lovenox. 2. Hyperglycemia secondary to steroids and underlying type 2 diabetes mellitus.. We will continue ISS. 3. Anion gap metabolic acidosis. We will continue hydration and monitor electrolytes. 4. DVT prophylaxis and ulcer prophylaxis. 5. Continue Precedex drip for anxiety related to BiPAP. If does not tolerate will consider intubation. Plans in collaboration with bedside consultants and IM MDs. Discussed with the ENGINEERING PROGRAM ANALYST to reach out if any questions or concerns. Sepsis Event Evaluation Height, Weight, BMI Height: '" Weight: lbs. oz. kg; 60.96 BMI Method: Focused Exam Lactate Level 04/01/22 14:26: Lactic Acid Level 0.82 Exam Exam Patient acknowledged, consented, and participated in this virtual visit which was conducted using real time audio/video Vital Signs Date Time Temp Pulse Resp B/P (MAP) Pulse Ox O2 Delivery O2 Flow Rate FiO2 04/03/22 10:36 98 Vapotherm 30.00 50 04/03/22 10:00 60 162/71 (101) 99 Vapotherm 40.00 40.00 04/03/22 09:25 Vapotherm 40.00 40.00 04/03/22 09:00 55 33 157/91 (113) 100 Vapotherm 40.00 40.00 04/03/22 08:03 36.6 04/03/22 08:00 NIV Bilevel 40.00 04/03/22 08:00 97 NIV Bilevel 40 04/03/22 08:00 80 23 161/77 (105) 96 Vapotherm 30.00 50.00 04/03/22 07:22 111 28 96 40.00 04/03/22 07:14 84 Vapotherm 30.00 50 04/03/22 07:00 116 28 141/91 (108) 96 Vapotherm 30.00 50.00 04/03/22 07:00 99 04/03/22 06:29 98 153/75 (101) 97 Vapotherm 30.00 50.00 04/03/22 05:42 107 119/52 (74) 94 Vapotherm 30.00 50.00 04/03/22 05:00 106 33 95 Vapotherm 30.00 50.00 04/03/22 04:00 96 Vapotherm 40.00 40 04/03/22 04:00 89 () 95 Vapotherm 30.00 50.00 04/03/22 03:36 37.2 04/03/22 03:30 103 116/73 (87) 97 Vapotherm 30.00 50.00 04/03/22 03:12 98 Vapotherm 30.00 50 04/03/22 02:00 98 21 142/65 (90) 97 Vapotherm 30.00 50.00 04/03/22 01:38 148 04/03/22 01:00 94 04/03/22 01:00 94 115/71 (86) 96 Vapotherm 30.00 50.00 04/03/22 00:00 89 38 138/73 (94) 96 Vapotherm 30.00 50.00 04/02/22 23:36 95 Vapotherm 40.00 40 04/02/22 23:23 36.8 Vapotherm 30.00 50.00 04/02/22 22:36 Vapotherm 30.00 50.00 04/02/22 22:32 94 Vapotherm 30.00 50 04/02/22 21:59 37.1 Vapotherm 40.00 40.00 04/02/22 21:00 95 25 177/100 (125) 94 Vapotherm 40.00 40.00 04/02/22 20:00 122 29 191/97 (128) 92 Vapotherm 40.00 40.00 04/02/22 19:41 94 Vapotherm 40.00 40 04/02/22 19:30 Vapotherm 40.00 40.00 04/02/22 19:28 92 Vapotherm 40.00 40 04/02/22 19:00 124 04/02/22 19:00 124 34 147/85 (105) 90 Vapotherm 40.00 40.00 04/02/22 18:00 116 26 140/67 (91) 94 Vapotherm 40.00 40.00 04/02/22 17:00 101 23 146/89 (108) 96 Vapotherm 40.00 40.00 04/02/22 16:00 95 Vapotherm 60 04/02/22 16:00 36.9 04/02/22 16:00 102 30 171/92 (118) 97 Vapotherm 40.00 40.00 04/02/22 15:00 106 17 159/99 (119) 96 Vapotherm 40.00 60.00 04/02/22 15:00 97 Vapotherm 40.00 40 04/02/22 14:57 99 Vapotherm 40.00 60 04/02/22 14:00 82 26 179/84 (115) 100 Vapotherm 40.00 60.00 04/02/22 13:26 Vapotherm 40.00 60.00 04/02/22 13:00 90 25 171/90 (117) 98 NIV Bilevel 40.00 04/02/22 13:00 91 Vapotherm 4 04/02/22 13:00 91 04/02/22 12:42 96 Vapotherm 40.00 60 04/02/22 12:00 78 24 147/80 (102) 96 NIV Bilevel 40.00 04/02/22 11:47 36.4 04/02/22 11:00 75 24 142/71 (94) 96 NIV Bilevel 40.00 I & O 04/03/22 07:00 Intake Total 2870 ml Output Total 1900 ml Balance 970 ml Height & Weight Height: '" Weight: lbs. oz. kg; 60.96 BMI Method: General Appearance: Other Respiratory: No Accessory Muscle Use, Other (coarse breath sounds bilaterally) Cardiovascular: Other (distal heart sounds) Capillary Refill: Less Than 3 Seconds Gastrointestinal: normal bowel sounds, non tender, soft Extremity: Other (trace pedal and LE edema bilaterally. SCDs in place) Neurologic/Psychiatric: Alert Skin: Normal Color, Warm/Dry Results Lab Laboratory Tests 04/02/22 04:35 04/03/22 05:00 Assessment/Plan Assessment/Plan as above Critical Care: Critically Ill Patient Time spent with patient (mins): 15 GEOVANNA BERGMAN MD Apr 03, 2022 11:01
--- NOTE | 2022-04-03 12:18 | Physical Therapy Daily Note ---
PT Daily Note-Current Subjective Pt in bed, agreeable to bed exercises. Nursing reports Pt is non-compliant with vapotherm and bipap. Pt pleasant but not oriented with this therapist. Pain Numeric Pain Scale: 0-No Pain Location: No Pain Reported Section J - Health Conditions 1. Rarely or not at all 2. Occasionally 3. Frequently 4. Almost constantly 8. Unable to answer Pain Effect on Sleep: 1 Pain Interference with Therapy: 1 Pain Interference w/Day-to-Day: 1 Mental Status Patient Orientation: Person, Confused Attachments: Oxygen Pt thought she was in this therapist's living room and that the room was not hers. Re-oriented to place and time. Transfers SCALE: Activities may be completed with or without assistive devices. 4-[id number]-ncchfxk completes the activity by him/herself with no assistance from a helper. 5-Set-up or Clean-up Assistance-helper sets up or cleans up; patient completes activity. Rock assists only prior to or following the activity. 4-Supervision or Touching Assistance-helper provides verbal cues and/or touching/steadying and/or contact guard assistance as patient completes activity. Assistance may be provided throughout the activity or intermittently. 3-Partial/Moderate Assistance-helper does LESS THAN HALF the effort. Rock lifts, holds or supports trunk or limbs, but provides less than half the effort. 2-Substantial/Maximal Assistance-helper does MORE THAN HALF the effort. Rock lifts or holds trunk or limbs and provides more than half the effort. 7-Hqmhhgajo-neddmx does ALL the effort. Patient does none of the effort to complete the activity. Or, the assistance of 2 or more helpers is required for the patient to complete the activity. If activity was not attempted, code reason: 7-Patient Refused. 9-Not Applicable-not attempted and the patient did not perform the activity before the current illness, exacerbation or injury. 10-Not Attempted due to Environmental Limitations-(lack of equipment, weather restraints, etc.). 88-Not Attempted due to Medical Conditions or Safety Concerns. Exercises Supine Ex: Ankle pumps, Quad Set, Glut sets, Heel Slides, Hip abd/add Supine Reps: 10 Treatments LE functional exercises. In bed with O2 in situ, needs met. Assessment Current Status: Fair Progress Pt compliant with exercises this date. PT Data Communications Analyst Goals Intermediate Goals PT Data Communications Analyst Goals Time Frame: Apr 17, 2022 Roll Left & Right (QC): 3 Sit to Lying (QC): 3 Lying-Sitting on Side/Bed(QC): 3 Sit to Stand (QC): 2 Chair/Ipu-mr-Ttbkv Xfer(QC): 2 Does the Patient Walk: No and Walking Goal NOT indicated PT Plan Problem List Problem List: Activity Tolerance, Functional Strength, Safety, Balance, Transfer, Bed Mobility Treatment/Plan Treatment Plan: Continue Plan of Care Treatment Plan: Bed Mobility, Education, Functional Activity Forest, Functional Strength, Safety, Therapeutic Exercise, Transfers Treatment Duration: Apr 17, 2022 Frequency: 6 times per week Estimated Hrs Per Day: .25 hour per day Time Time In: 1113 Time Out: 1125 DATE: Apr 03, 2022 Total Billed Treatment Time: 12 Total Billed Treatment 1, Ex ANNIE SANTILLAN DPT Apr 03, 2022 12:18
[2022-04-03] MEDS: cefTRIAXone 1 GM PRE-MIX 50 ML IV SCH (18:00)
[2022-04-03] MEDS: rOPINIRole 0.25 MG (REQUIP) TAB PO SCH (20:02)
[2022-04-04] MEDS: DexMEDEtomidine 250 ML DRIP 250 ML IV SCH ×3 (00:11→11:13)
[2022-04-04] MEDS: NS IV 1000 ML 1,000 ML IV SCH ×2 (00:11→20:11)
[2022-04-04] MEDS: RT-ALBUTEROL HFA 8.5 GM INHALER IH SCH ×6 (02:44→22:00)
[2022-04-04] MEDS: ENOXAPARIN 40 MG/0.4 ML (LOVENOX) SYR SC SCH ×2 (04:58→17:56)
[2022-04-04 05:03] LABS: HEMATOCRIT 37 % (35-52); HEMOGLOBIN 12.6 g/dL (11.5-16.0); MEAN CORPUSCULAR HEMOGLOBIN 29 pg (25-34); MEAN CORPUSCULAR HGB CONC 34 g/dL (32-36); MEAN CORPUSCULAR VOLUME 87 fL (80-99); MEAN PLATELET VOLUME 8.8 fL (9.0-12.2); PLATELET COUNT 355 10^3/uL (130-400); WHITE BLOOD COUNT 9.5 10^3/uL (4.3-11.0)
[2022-04-04 05:25] LABS: CALCIUM 9.1 MG/DL (8.5-10.1); CREATININE SERUM 0.6 MG/DL (0.60-1.30); MAGNESIUM 1.8 MG/DL (1.6-2.4); PHOSPHORUS 3.4 MG/DL (2.3-4.7); POTASSIUM 3.7 MMOL/L (3.6-5.0)
[2022-04-04] MEDS: inSUlin ASPART (NovoLOG) 1 UNIT/0.01 ML (CHARGE PER UNIT) SC SCH ×4 (05:27→20:18)
[2022-04-04] MEDS ORDERED: NS IV 500 ML 500 ML IV PRN (07:45)
[2022-04-04] MEDS: PANTOPRAZOLE 40 MG (PROTONIX) VIAL IV SCH (07:59)
--- NOTE | 2022-04-04 08:52 | Tele-ICU Progress Note ---
Subjective Date Seen by a Provider: Apr 04, 2022 Time Seen by a Provider: 08:47 Subjective/Events-last exam This patient admitted with COPD exacerbation along with COVID19 pneumonia requiring BiPAP ventilation. Currently she is on a Decadron 10 mg every 12 hours DuoNeb nebulizer treatment IV Rocephin. She does have a respiratory acidosis on the blood gas. Urine output is increasing. Currently on Decadron 10, on bid lovenox due to elevated d dimer On vapotherm increased to 25lpm, FiO2 30% with SpO2 97%, working hard to breathe, On IV Precedex 1.5, will get new ABG Sepsis Event Evaluation Height, Weight, BMI Height: '" Weight: lbs. oz. kg; 60.96 BMI Method: Focused Exam Lactate Level 04/01/22 14:26: Lactic Acid Level 0.82 Exam Exam Patient acknowledged, consented, and participated in this virtual visit which was conducted using real time audio/video Vital Signs Date Time Temp Pulse Resp B/P (MAP) Pulse Ox O2 Delivery O2 Flow Rate FiO2 04/04/22 08:29 97 Vapotherm 25.00 35.00 04/04/22 08:20 99 NIV Bilevel 40.00 04/04/22 08:00 100 Vapotherm 25.00 45.00 04/04/22 08:00 36.4 04/04/22 08:00 100 Vapotherm 25.00 35.00 04/04/22 07:00 65 04/04/22 06:15 100 Vapotherm 25.00 45 04/04/22 06:10 72 30 167/84 (111) 100 NIV Bilevel 40.00 04/04/22 05:10 53 25 122/104 (110) 100 NIV Bilevel 40.00 04/04/22 04:50 36.1 NIV Bilevel 40.00 04/04/22 04:10 57 22 161/87 (111) 99 Vapotherm 25.00 40.00 04/04/22 04:00 93 Vapotherm 40 04/04/22 03:00 55 22 166/90 (115) 99 Vapotherm 40.00 40.00 04/04/22 02:45 99 Vapotherm 25.00 45 04/04/22 02:00 93 31 169/93 (118) 100 Vapotherm 40.00 40.00 04/04/22 01:00 54 23 172/86 (114) 100 Vapotherm 40.00 40.00 04/04/22 01:00 54 04/04/22 00:00 50 24 165/89 (114) 100 Vapotherm 40.00 40.00 04/03/22 23:54 93 Vapotherm 40 04/03/22 23:25 36.5 04/03/22 23:00 53 22 168/91 (116) 100 Vapotherm 40.00 40.00 04/03/22 22:09 100 Vapotherm 30.00 50 04/03/22 22:00 49 24 170/81 (110) 100 Vapotherm 40.00 40.00 04/03/22 21:35 77 23 169/88 (115) 100 Vapotherm 40.00 40.00 04/03/22 20:00 93 Vapotherm 40 04/03/22 19:57 97 Vapotherm 30.00 50 04/03/22 19:53 108 110/82 (91) 99 Vapotherm 40.00 40.00 04/03/22 19:47 36.6 04/03/22 19:38 109 30 138/82 (100) 97 Vapotherm 40.00 40.00 04/03/22 19:04 106 04/03/22 18:00 133 175/96 (122) 97 Vapotherm 40.00 40.00 04/03/22 17:00 101 167/84 (111) 92 Vapotherm 40.00 40.00 04/03/22 16:10 35.7 04/03/22 16:00 93 174/86 (115) 95 Vapotherm 40.00 40.00 04/03/22 16:00 93 Vapotherm 40 04/03/22 15:00 83 175/82 (113) 95 Vapotherm 40.00 40.00 04/03/22 14:18 96 Vapotherm 30.00 50 04/03/22 14:00 93 172/93 (119) 96 Vapotherm 40.00 40.00 04/03/22 13:00 101 171/98 (122) 95 Vapotherm 40.00 40.00 04/03/22 12:36 75 04/03/22 12:16 36.4 04/03/22 12:00 75 165/76 (105) 96 Vapotherm 40.00 40.00 04/03/22 12:00 95 Vapotherm 40 04/03/22 11:00 60 187/76 (113) 98 Vapotherm 40.00 40.00 04/03/22 10:36 98 Vapotherm 30.00 50 04/03/22 10:00 60 162/71 (101) 99 Vapotherm 40.00 40.00 04/03/22 09:25 Vapotherm 40.00 40.00 04/03/22 09:00 55 33 157/91 (113) 100 Vapotherm 40.00 40.00 I & O 04/04/22 06:59 Intake Total 3720 ml Output Total 2800 ml Balance 920 ml Height & Weight Height: '" Weight: lbs. oz. kg; 60.96 BMI Method: General Appearance: Moderate Distress, Other Respiratory: No Accessory Muscle Use, Decreased Breath Sounds, Rhonci, Other (coarse breath sounds bilaterally) Cardiovascular: Regular Rate, Rhythm, Bradycardia, Other (distal heart sounds) Capillary Refill: Less Than 3 Seconds Gastrointestinal: normal bowel sounds, non tender, soft Extremity: Other (trace pedal and LE edema bilaterally. SCDs in place) Neurologic/Psychiatric: Alert, Other (confused, lethargic but arousable) Skin: Normal Color, Warm/Dry Results Lab Laboratory Tests 04/03/22 05:00 04/04/22 04:03 Assessment/Plan Assessment/Plan COVID PNA, also H fllu in sputum- will continue IV Rocephin, Decadron, vapotherm I am concerned about WOB and mental status change, lehtargy, I would have a low threshold to intubate Has small amout of secretions, appears to swallow ok I spoke with hospitalist who has been following pt, She feels pt is actually looking better than yesterday, will hold off intubation unless pt is hard to arouse or SpO2 goes < 90% on oxygen Critical Care: Critically Ill Patient Time spent with patient (mins): 35 BAILEY STRICKLAND MD Apr 04, 2022 08:52
[2022-04-04] MEDS: lisINopril 40 MG (PRINIVIL) TABLET PO SCH ×2 (09:00→15:30)
[2022-04-04] MEDS: SODIUM CHLORIDE 1 GM TABLET PO SCH ×3 (09:00→20:09)
[2022-04-04] MEDS: DULoxetine 30 MG (CYMBALTA) CAP PO SCH ×2 (09:00→15:30)
[2022-04-04] MEDS: amLODIPine 5 MG (NORVASC) TAB PO SCH ×2 (09:00→15:30)
[2022-04-04] MEDS: busPIRone 15 MG (BUSPAR) TABLET PO SCH ×3 (09:00→20:10)
[2022-04-04] MEDS: BACLOFEN 10 MG (LIORESAL) TAB PO SCH ×2 (09:00→15:30)
[2022-04-04 10:01] LABS: ABG BASE EXCESS 6.3 MMOL/L (-2.5-2.5); ABG OXYGEN SATURATION 98 % (94-100); ABG PCO2 60 MMHG (35-45); ABG PO2 90 MMHG (79-93); ABG TCO2 33.8 MMOL/L (21.0-31.0)
[2022-04-04 10:06] LABS: ABG PH 7.34 (7.37-7.43); ALLENS TEST YES-POS; INSPIRED O2 35%; PATIENT TEMP 36.7; VENTILATOR NO
--- NOTE | 2022-04-04 13:19 | Progress Note ---
KARYN SCOTT 04/04/22 1319: Subjective Date Seen by a Provider: Apr 04, 2022 Time Seen by a Provider: 10:30 Subjective/Events-last exam Ms. Stephenson is a 66 year old female with a PMHx of COPD who presented to the [facility] ED on 04/01 with increased SOA. Patient resides at a local [facility] and has tested positive for COVID on 03/29. Management with azithromycin, steroids, Paxlovid, and breathing treatments was initiated, however the patient's respiratory status continued to decline. The patient was placed on BiPap in the ED for respiratory support. The patient is admitted to the Hospitalist service for acute respiratory failure with hypoxia and respiratory acidosis likely se condary to COPD exacerbation and COVID infection with ICU management. Patient is resting in bed this morning with Vapotherm. Patient is responsive to voice and is agitated. Mittens are in place to prevent patient from removing vapotherm/BiPap. Review of Systems Unable to obtain Focused Exam Lactate Level 04/01/22 14:26: Lactic Acid Level 0.82 Objective Exam Last Set of Vital Signs Vital Signs Date Time Temp Pulse Resp B/P (MAP) Pulse Ox O2 Delivery O2 Flow Rate FiO2 04/04/22 12:32 59 04/04/22 12:00 29 149/84 (105) 94 Vapotherm 20.00 30.00 04/04/22 12:00 36.9 04/04/22 10:02 35 Capillary Refill : Less Than 3 Seconds I&O Intake and Output 04/04/22 00:00 Intake Total 2730 ml Output Total 3400 ml Balance -670 ml Intake Oral 1630 ml IV Total 1100 ml Output Urine Total 3400 ml General: Other (Responsive to voice, moderately agitated) Lungs: Other (Exam findings were dictated to me by Dr. Saldivar - diminished lung sounds bilaterally, no wheezing) Results Lab Laboratory Tests 04/03/22 15:40: Glucometer 187H 04/03/22 20:28: Glucometer 164H 04/04/22 04:03: White Blood Count 9.5, Red Blood Count 4.30, Hemoglobin 12.6, Hematocrit 37, Mean Corpuscular Volume 87, Mean Corpuscular Hemoglobin 29, Mean Corpuscular Hemoglobin Concent 34, Red Cell Distribution Width 13.2, Platelet Count 355, Mean Platelet Volume 8.8L, Sodium Level 133L, Potassium Level 3.7, Chloride Level 97L, Carbon Dioxide Level 26, Anion Gap 10, Blood Urea Nitrogen 11, Creatinine 0.60, Estimat Glomerular Filtration Rate 99, BUN/Creatinine Ratio 18, Glucose Level 153H, Calcium Level 9.1, Phosphorus Level 3.4, Magnesium Level 1.8 04/04/22 09:54: Blood Gas Puncture Site L RADIAL, Blood Gas Patient Temperature 36.7, Arterial Blood pH 7.34*L, Arterial Blood Partial Pressure CO2 60H, Arterial Blood Partial Pressure O2 90, Arterial Blood HCO3 32H, Arterial Blood Total CO2 33.8H, Arterial Blood Oxygen Saturation 98, Arterial Blood Base Excess 6.3H, Arjun Test YES-POS, Blood Gas Ventilator Setting NO, Blood Gas Inspired Oxygen 35% 04/04/22 11:22: Glucometer 147H Microbiology 04/01/22 Blood Culture - Preliminary, Resulted Aerococcus Viridans Staphylococcus hominis Acinetobacter pittii 04/01/22 Gram Stain - Final, Complete 04/01/22 Sputum Culture - Final, Complete Usual Mixed Chantelle Haemophilus influenza See Comments Assessment/Plan Assessment/Plan Assess & Plan/Chief Complaint 1. Acute respiratory failure with hypoxia and respiratory acidosis, likely secondary to COPD exacerbation and COVID -Vapotherm therapy, BiPap if needed. Close monitoring and communication with EICU provider to determine whether intubation is necessary. Patient is alert this morning and tolerating Vapotherm well. -Decadron 10mg Q12H IV -Rocephin 1gm IV - running -Duoneb breathing treatments 3ml RTQ4H INH -Precedex drip for BiPap related anxiety -Lovenox 60mg Q12H SC for DVT prophylaxis. SCDs in place 2. Type 2 Diabetes mellitus -Sliding scale insulin -Monitor blood glucose 3. HTN -Monitor BP -Consider resuming home medications -> lisinopril 40mg PO qd, amlodipine 5mg PO qd, metoprolol 25mg PO BID 4. Hyponatremia of 133 on 04/04 -Monitor with AM BMP 5. Anion gap of 17, resolution to 10 on 04/04 -Monitor with AM labs Clinical Quality Measures Admission Status Admission Dx 1. Acute respiratory failure with hypoxia and respiratory acidosis, likely secondary to COPD exacerbation and COVID -BiPap for respiratory support - wean as tolerated -Decadron 10mg Q12H IV -Rocephin 1gm IV - running -Duoneb breathing treatments 3ml RTQ4H INH -Precedex drip for BiPap related anxiety -Lovenox 60mg Q12H SC for DVT prophylaxis. SCDs in place 2. Type 2 Diabetes mellitus -Sliding scale insulin -Monitor blood glucose 3. HTN -Monitor BP -Consider resuming home medications -> lisinopril 40mg PO qd, amlodipine 5mg PO qd, metoprolol 25mg PO BID 4. Hyponatremia of 132 on 04/02 -Monitor with AM BMP 5. Anion gap of 17 -Monitor with AM labs BRENA SALDIVAR MD 04/04/222058: Assessment/Plan Assessment/Plan Assess & Plan/Chief Complaint Pt alert and on Vapotherm. I weaned down oxygen while at bedside and oxygen saturation remained 97% or above. She is more alert today than she was yesterday and her only request is for her mittens to be taken off. We discussed their indication at this time but as soon as it was safe they would be removed. When I exited room I was winformed by RN TeleICU had requested intubation due to work of breathing. Discussed with TeleICU physician, Dr Pearson, about patient status. Ultimately elected to give her a little longer as she was maintaining oxygenation and hypercapnia essentially stable on ABG though up very slightly. Plan to reassess with nurse this afternoon to see if more cooperative or work of breathing improves. Discussed plan with RN and gave instructions to call for any issues or concerns and we would have a low threshold for intubation. Supervisory-Addendum Brief Verification & Attestation Participated in pt care: history, MDM, physical Personally performed: exam, history, MDM, supervision of care Care discussed with: Medical Student Procedures: n/a Results interpretation: Verified all documentation Verification and Attestation of Medical Student E/M Service A medical student performed and documented this service in my presence. I reviewed and verified all information documented by the medical student and made modifications to such information, when appropriate. I personally performed the physical exam and medical decision making. Berna Saldivar, Apr 04, 2022,20:55 KARYN SCOTT Apr 04, 2022 13:19 BERNA SALDIVAR MD Apr 04, 2022 20:59
[2022-04-04] MEDS ORDERED: FUROSEMIDE 40 MG/4 ML INJ (LASIX) ONE (13:22)
--- NOTE | 2022-04-04 13:39 | Tele-ICU Progress Note ---
Subjective Date Seen by a Provider: Apr 04, 2022 Time Seen by a Provider: 13:37 Subjective/Events-last exam called by RN, pt confused and not keepin oxygen off, SpO2 falls into low 80's, At this point would intubate, Still having paradoxical breathing with spont RR 35-40 Sepsis Event Evaluation Height, Weight, BMI Height: '" Weight: lbs. oz. kg; 60.96 BMI Method: Focused Exam Lactate Level 04/01/22 14:26: Lactic Acid Level 0.82 Exam Exam Patient acknowledged, consented, and participated in this virtual visit which was conducted using real time audio/video Vital Signs Date Time Temp Pulse Resp B/P (MAP) Pulse Ox O2 Delivery O2 Flow Rate FiO2 04/04/22 13:00 67 29 177/78 (111) 96 Vapotherm 20.00 30.00 04/04/22 12:32 59 04/04/22 12:00 54 29 149/84 (105) 94 Vapotherm 20.00 30.00 04/04/22 12:00 36.9 04/04/22 11:59 36.9 94 Vapotherm 20.00 30.00 04/04/22 11:13 54 171/85 04/04/22 11:00 61 26 168/77 (107) 98 Vapotherm 25.00 35.00 04/04/22 10:18 82 157/70 04/04/22 10:02 99 Vapotherm 25.00 35 04/04/22 10:00 82 28 157/70 (99) 99 Vapotherm 25.00 35.00 04/04/22 09:00 75 162/90 (114) 97 Vapotherm 25.00 35.00 04/04/22 08:29 97 Vapotherm 25.00 35.00 04/04/22 08:20 99 NIV Bilevel 40.00 04/04/22 08:00 93 Vapotherm 40 04/04/22 08:00 100 Vapotherm 25.00 45.00 04/04/22 08:00 61 31 163/89 (113) 100 Vapotherm 25.00 45.00 04/04/22 08:00 36.4 04/04/22 08:00 100 Vapotherm 25.00 35.00 04/04/22 07:00 60 27 172/106 (128) 100 NIV Bilevel 40.00 04/04/22 07:00 65 04/04/22 06:15 100 Vapotherm 25.00 45 04/04/22 06:10 72 30 167/84 (111) 100 NIV Bilevel 40.00 04/04/22 05:10 53 25 122/104 (110) 100 NIV Bilevel 40.00 04/04/22 04:50 36.1 NIV Bilevel 40.00 04/04/22 04:10 57 22 161/87 (111) 99 Vapotherm 25.00 40.00 04/04/22 04:00 93 Vapotherm 40 04/04/22 03:00 55 22 166/90 (115) 99 Vapotherm 40.00 40.00 04/04/22 02:45 99 Vapotherm 25.00 45 04/04/22 02:00 93 31 169/93 (118) 100 Vapotherm 40.00 40.00 04/04/22 01:00 54 23 172/86 (114) 100 Vapotherm 40.00 40.00 04/04/22 01:00 54 04/04/22 00:00 50 24 165/89 (114) 100 Vapotherm 40.00 40.00 04/03/22 23:54 93 Vapotherm 40 04/03/22 23:25 36.5 04/03/22 23:00 53 22 168/91 (116) 100 Vapotherm 40.00 40.00 04/03/22 22:09 100 Vapotherm 30.00 50 04/03/22 22:00 49 24 170/81 (110) 100 Vapotherm 40.00 40.00 04/03/22 21:35 77 23 169/88 (115) 100 Vapotherm 40.00 40.00 04/03/22 20:00 93 Vapotherm 40 04/03/22 19:57 97 Vapotherm 30.00 50 04/03/22 19:53 108 110/82 (91) 99 Vapotherm 40.00 40.00 04/03/22 19:47 36.6 04/03/22 19:38 109 30 138/82 (100) 97 Vapotherm 40.00 40.00 04/03/22 19:04 106 04/03/22 18:00 133 175/96 (122) 97 Vapotherm 40.00 40.00 04/03/22 17:00 101 167/84 (111) 92 Vapotherm 40.00 40.00 04/03/22 16:10 35.7 04/03/22 16:00 93 174/86 (115) 95 Vapotherm 40.00 40.00 04/03/22 16:00 93 Vapotherm 40 04/03/22 15:00 83 175/82 (113) 95 Vapotherm 40.00 40.00 04/03/22 14:18 96 Vapotherm 30.00 50 04/03/22 14:00 93 172/93 (119) 96 Vapotherm 40.00 40.00 I & O 04/04/22 07:00 Intake Total 3720 ml Output Total 2800 ml Balance 920 ml Height & Weight Height: '" Weight: lbs. oz. kg; 60.96 BMI Method: General Appearance: Moderate Distress, Other Respiratory: No Accessory Muscle Use, Decreased Breath Sounds, Rhonci, Other (coarse breath sounds bilaterally) Cardiovascular: Regular Rate, Rhythm, Bradycardia, Other (distal heart sounds) Capillary Refill: Less Than 3 Seconds Gastrointestinal: normal bowel sounds, non tender, soft Extremity: Other (trace pedal and LE edema bilaterally. SCDs in place) Neurologic/Psychiatric: Alert, Other (confused, lethargic but arousable) Skin: Normal Color, Warm/Dry Results Lab Laboratory Tests 04/03/22 05:00 04/04/22 04:03 Assessment/Plan Assessment/Plan called by RN, pt confused and not keepin oxygen off, SpO2 falls into low 80's, At this point would intubate, Still having paradoxical breathing with spont RR 35-[address] Saldivar, we agreed pt should be inrubated Critical Care: Critically Ill Patient Time spent with patient (mins): 20 BAILEY STRICKLAND MD Apr 04, 2022 13:39
[2022-04-04] MEDS: PROPOFOL DRIP (ICU) 100 ML IV SCH ×4 (14:04→22:29)
[2022-04-04 14:08] VITALS: BP 185/85
--- NOTE | 2022-04-04 14:26 | Diagnostic Imaging Report ---
EXAMINATION: Chest 1 view HISTORY: Intubated COMPARISON: 04/01/2022 FINDINGS: Endotracheal tube tip terminates 5 cm above the mely. Gastric tube tip terminates below the field of view. Bilateral interstitial opacities have improved. Left hemidiaphragm is elevated. No pneumothorax. There is a small left effusion. IMPRESSION: 1. Small left effusion and improving bilateral interstitial opacities. Dictated by: Dictated on workstation # [id number]
--- NOTE | 2022-04-04 14:36 | Progress Note ---
Standard Progress Note Progress Notes/Assess & Plan Date Seen by a Provider: Apr 04, 2022 Time Seen by a Provider: 14:35 Progress/Assessment & Plan asked to check CXR, ET tube is in good position, BP up, will give am meds thru OG tube BAILEY STRICKLAND MD Apr 04, 2022 14:36
--- NOTE | 2022-04-04 14:42 | Anesthesia-Procedure Note ---
Procedures/Interventions Procedure Start/Stop/Diagnosis Date of Procedure: Apr 04, 2022 Start Time: 13:45 Referring Physician: Yariel Preprocedural Diagnosis: respiratory fx/covid Positive Brief History Called to intubate patient no longer tolerating hi flow NC or bipap due to confusion and agitation. PPV with 15L via ambu mask. Intubation x 1 attempt with glidescope 3. Sp02 main tained greater than 96% throughout. OGT/PIV/stephon placed at this time as well. Stop Time: 14:30 Central Line/IV Access IV : Location: Right Site: Antecubital IV Catheter Type: Peripheral IV IV Catheter Gauge: 20 Progress Flushed with 10mL NS. Site intact. Intubation Vital Signs Pre-procedure see nurse notes 100% pre-Ox, [id number]: Yes Intubation Method: orotracheal Videoscope used: Yes (glidescope 3 ) Grade View: 1 Medications: Etomidate (20mg), Propofol (gtt started per sedation protocol), Rocuronium (given post extubation as patient is moving extremities during line placement. Propofol gtt for sedation infusing as well. 50mg), Succinylcholine (100mg) Mask Ventilation: positive Positive End Tide CO2: Yes (delayed. Glidescope reinerted to ensure ETT remained through cords. +) ETT Securred @ (cm): 22 Intubated with ease: Yes Intubation Complications: no complications Post Intubation Xray-done: Yes Arterial Line Arterial Line Catheter: 20G (attempted on right first, unable to thread guide wire but blood return positive. ) Type: Radial Location: Left Procedure: prepped, draped in sterile fashion, good wave-form was obtained, patient tolerated procedure well, no immediate complications, post procedure area cleaned, post procedure dressing applied HAILEY ZHANG CRNA Apr 04, 2022 14:42
--- NOTE | 2022-04-04 15:32 | Progress Note ---
Standard Progress Note Progress Notes/Assess & Plan Date Seen by a Provider: Apr 04, 2022 Time Seen by a Provider: 15:31 Progress/Assessment & Plan on IV propofol and IV Precedex, still restless, will add IV Fentanyl drip starting at 50 mcg MD MARCO A Gann JOSEPH K MD Apr 04, 2022 15:32
[2022-04-04 15:49] LABS: BASOPHILS % (AUTO) 0 % (0-10); EOSINOPHILS % (AUTO) 0 % (0-10); HEMATOCRIT 34 % (35-52); HEMOGLOBIN 11.7 g/dL (11.5-16.0); LYMPHOCYTES # (AUTO) 0.6 10^3/uL (1.0-4.0); LYMPHOCYTES % (AUTO) 8 % (12-44); MEAN CORPUSCULAR HEMOGLOBIN 30 pg (25-34); MEAN CORPUSCULAR HGB CONC 35 g/dL (32-36); MEAN CORPUSCULAR VOLUME 86 fL (80-99); MEAN PLATELET VOLUME 8.5 fL (9.0-12.2); MONOCYTES # (AUTO) 0.8 10^3/uL (0.0-1.0); MONOCYTES % (AUTO) 9 % (0-12); NEUTROPHILS # (AUTO) 6.6 10^3/uL (1.8-7.8); NEUTROPHILS % (AUTO) 78 % (42-75); PLATELET COUNT 338 10^3/uL (130-400); WHITE BLOOD COUNT 8.4 10^3/uL (4.3-11.0)
[2022-04-04] MEDS ORDERED: SUCCINYLCHOLINE INJ 100 MG/5 ML SYR/VIAL INJ ONE (16:11)
[2022-04-04] MEDS ORDERED: ROCURONIUM 10 MG/ML 5 ML SYRINGE IV ONE (16:11)
[2022-04-04] MEDS ORDERED: ETOMIDATE IV SOLN 20 MG/10 ML VIAL IV ONE (16:11)
[2022-04-04 16:18] LABS: BAND NEUTROPHILS 2 %; BASOPHILS % (MANUAL) 0 %; EOSINOPHILS % (MANUAL) 0 %; LYMPHOCYTES % (MANUAL) 6 %; MONOCYTES % (MANUAL) 6 %; MYELOCYTES % 1 %; NEUTROPHILS % (MANUAL) 85 %; RBC MORPH NORMAL
[2022-04-04] MEDS: fentaNYL DRIP PRE-MIX 250 ML IV SCH ×2 (16:58→20:19)
[2022-04-04 17:14] LABS: ABG BASE EXCESS 4.9 MMOL/L (-2.5-2.5); ABG OXYGEN SATURATION 100 % (94-100); ABG PCO2 53 MMHG (35-45); ABG PH 7.37 (7.37-7.43); ABG PO2 267 MMHG (79-93); ABG TCO2 31.8 MMOL/L (21.0-31.0)
[2022-04-04 17:27] LABS: ALLENS TEST YES-POS
[2022-04-04 17:28] LABS: INSPIRED O2 20%; PATIENT TEMP 36.2; VENTILATOR YES
[2022-04-04] MEDS: cefTRIAXone 1 GM PRE-MIX 50 ML IV SCH (17:56)
[2022-04-04 19:38] VITALS: BP 145/62
[2022-04-04] MEDS: rOPINIRole 0.25 MG (REQUIP) TAB PO SCH (20:10)
[2022-04-04 22:00] VITALS: BP 111/65
[2022-04-05] VITALS (7 sets, daily range): BP systolic 113–142; BP diastolic 47–72
[2022-04-05] MEDS: PROPOFOL DRIP (ICU) 100 ML IV SCH ×9 (01:36→23:34)
[2022-04-05] MEDS: RT-ALBUTEROL HFA 8.5 GM INHALER IH SCH ×3 (03:02→10:53)
[2022-04-05 04:10] LABS: BASOPHILS # (AUTO) 0.1 10^3/uL (0.0-0.1); BASOPHILS % (AUTO) 0 % (0-10); EOSINOPHILS % (AUTO) 0 % (0-10); HEMATOCRIT 37 % (35-52); LYMPHOCYTES % (AUTO) 7 % (12-44); MEAN CORPUSCULAR HEMOGLOBIN 29 pg (25-34); MEAN CORPUSCULAR HGB CONC 33 g/dL (32-36); MEAN CORPUSCULAR VOLUME 88 fL (80-99); MEAN PLATELET VOLUME 8.6 fL (9.0-12.2); MONOCYTES # (AUTO) 1.1 10^3/uL (0.0-1.0); MONOCYTES % (AUTO) 8 % (0-12); NEUTROPHILS # (AUTO) 11.8 10^3/uL (1.8-7.8); NEUTROPHILS % (AUTO) 79 % (42-75); PLATELET COUNT 411 10^3/uL (130-400); WHITE BLOOD COUNT 14.9 10^3/uL (4.3-11.0)
[2022-04-05] MEDS: ENOXAPARIN 40 MG/0.4 ML (LOVENOX) SYR SC SCH ×2 (04:25→17:21)
[2022-04-05] MEDS: fentaNYL DRIP PRE-MIX 250 ML IV SCH ×5 (04:29→21:51)
[2022-04-05 04:30] LABS: CALCIUM 8.7 MG/DL (8.5-10.1); CREATININE SERUM 0.73 MG/DL (0.60-1.30); MAGNESIUM 1.8 MG/DL (1.6-2.4); PHOSPHORUS 3.8 MG/DL (2.3-4.7); POTASSIUM 3.2 MMOL/L (3.6-5.0)
[2022-04-05] MEDS: inSUlin ASPART (NovoLOG) 1 UNIT/0.01 ML (CHARGE PER UNIT) SC SCH ×4 (04:32→21:00)
[2022-04-05] MEDS: MAGNESIUM 1 GM/100 ML IVPB 100 ML IV SCH (04:33)
[2022-04-05] MEDS: POTASSIUM CL 10MEQ/50ML IVPB 50 ML IV SCH ×3 (04:45→07:10)
[2022-04-05] MEDS: KCL 20 MEQ TAB (K-DUR) PO SCH (04:46)
--- NOTE | 2022-04-05 06:47 | Occ Therapy Progress Note ---
Therapy Progress Note OT orders received. Pt currently intubated. OT to monitor pt's status then will initiate treatment when pt is medically stable and able to actively participate in skilled therapy. LEXY SALAMANCA Apr 05, 2022 06:47
--- NOTE | 2022-04-05 07:31 | Physical Therapy Progress Note ---
Therapy Progress Note Patient currently sedated and intubated. PT will monitor patient's status and initiate treatment when patient is able to actively participate with skilled therapy. NOVA DODSON PT Apr 05, 2022 07:31
[2022-04-05] MEDS: FUROSEMIDE 40 MG/4 ML INJ (LASIX) IVP SCH (08:20)
[2022-04-05] MEDS: amLODIPine 5 MG (NORVASC) TAB PO SCH (08:20)
[2022-04-05] MEDS: PANTOPRAZOLE 40 MG (PROTONIX) VIAL IV SCH (08:20)
[2022-04-05] MEDS: busPIRone 15 MG (BUSPAR) TABLET PO SCH ×2 (08:20→20:58)
[2022-04-05] MEDS: DULoxetine 30 MG (CYMBALTA) CAP PO SCH (08:20)
[2022-04-05] MEDS: lisINopril 40 MG (PRINIVIL) TABLET PO SCH (08:20)
[2022-04-05] MEDS: SODIUM CHLORIDE 1 GM TABLET PO SCH ×3 (08:25→20:58)
[2022-04-05] MEDS: BACLOFEN 10 MG (LIORESAL) TAB PO SCH (08:25)
--- NOTE | 2022-04-05 09:07 | Diagnostic Imaging Report ---
EXAMINATION: Chest, 1 view. HISTORY: Intubation. COMPARISON: 04/04/2022. FINDINGS: Heart size and pulmonary vasculature are normal. Stable small left pleural effusion. Overall stable appearance of the interstitial opacities seen throughout both lungs, greatest within the left upper lobe. No pneumothorax. The osseous structures are intact. Medical support lines and tubes are unchanged. IMPRESSION: Stable interstitial opacities and small left pleural effusion compared to 04/04/2022. Dictated by: Dictated on workstation # [id number]
--- NOTE | 2022-04-05 11:05 | Tele-ICU Progress Note ---
Subjective Date Seen by a Provider: Apr 05, 2022 Time Seen by a Provider: 11:01 Subjective/Events-last exam (Tele-ICU Physician , Progress note) Available chart/ vitals / labs / Images reviewed H&P is from ER notes Patient's information available about PMH, allergy reviewed in EMR. ROS as per chart and RN report Video assessment done using teleICU camera, rest of exam as per RN Discussed with RN. This patient admitted with COPD exacerbation along with COVID19 pneumonia requiring BiPAP ventilation. Currently she is on a Decadron 10 mg every 12 hours DuoNeb nebulizer treatment IV Rocephin. She does have a respiratory acidosis on the blood gas. Urine output is increasing. 04/03/22 Patient is resting in bed this morning with Vapotherm. . Per nursing report the patient has not been tolerating BiPap or vapotherm and continuously pulled them off throughout the night. 04/05/22 . she was intubated on 04/04/22 due to increased WOB. now sedated on Vent 400/45%/20/8 Impression 1. Acute hypoxic and hypercarbic respiratory failure secondary to COPD exacerbation as well as COVID19 pneumonia. However superadded imposed bacterial pneumonia cannot be ruled out. Will continue Ventilator support with TV 400, RR20,peep 8, fi02 45% FiO2 and wean FiO2 as tolerated. Will continue Decadron, Rocephin, Lovenox. 2. Hyperglycemia secondary to steroids and underlying type 2 diabetes melli tus.. We will continue ISS. 3. Started already on iv lasix, 4. DVT prophylaxis and ulcer prophylaxis. 5. Continue Propafol and fenanyl drip.. Plans in collaboration with bedside consultants and IM MDs. Discussed with the CASE REVIEWER, and RT to reach out if any questions or concerns. Sepsis Event Evaluation Height, Weight, BMI Height: '" Weight: lbs. oz. kg; 60.96 BMI Method: Exam Exam Patient acknowledged, consented, and participated in this virtual visit which was conducted using real time audio/video Vital Signs Date Time Temp Pulse Resp B/P (MAP) Pulse Ox O2 Delivery O2 Flow Rate FiO2 04/05/22 10:00 48 19 96 Mechanical Ventilator 65.00 04/05/22 09:51 48 145/59 04/05/22 09:45 73 173/75 1/2/23 09:25 37.0 56 94 40 04/05/22 09:00 50 20 96 Mechanical Ventilator 65.00 04/05/22 08:54 51 126/55 04/05/22 08:53 51 126/55 04/05/22 08:00 55 20 88 Mechanical Ventilator 65.00 04/05/22 08:00 37.0 04/05/22 07:36 56 22 94 40 04/05/22 07:00 53 19 94 Mechanical Ventilator 65.00 04/05/22 07:00 53 04/05/22 06:00 60 23 143/78 (99) 95 Mechanical Ventilator 65.00 04/05/22 05:46 79 152/72 04/05/22 05:00 74 19 129/59 (82) 96 Mechanical Ventilator 65.00 04/05/22 04:00 100 Mechanical Ventilator 65 04/05/22 04:00 75 20 128/58 (81) 97 Mechanical Ventilator 65.00 04/05/22 03:00 51 20 115/51 (72) 98 Mechanical Ventilator 65.00 04/05/22 02:55 52 20 98 40 04/05/22 02:00 55 20 115/51 (72) 98 Mechanical Ventilator 65.00 04/05/22 01:36 52 104/47 04/05/22 01:00 65 04/05/22 01:00 68 20 128/57 (80) 95 Mechanical Ventilator 65.00 04/05/22 00:00 53 19 123/55 (77) 97 Mechanical Ventilator 65.00 04/04/22 23:59 100 Mechanical Ventilator 65 04/04/22 23:00 51 19 122/54 (76) 97 Mechanical Ventilator 65.00 04/04/22 22:29 51 97/80 04/04/22 22:00 49 20 115/77 (90) 99 Mechanical Ventilator 65.00 04/04/22 22:00 48 20 99 40 04/04/22 21:00 53 19 110/56 (74) 98 Mechanical Ventilator 65.00 04/04/22 20:58 50 84/60 04/04/22 20:11 53 83/54 04/04/22 20:00 61 13 132/65 (87) 96 Mechanical Ventilator 65.00 04/04/22 20:00 100 Mechanical Ventilator 65 04/04/22 19:53 36.2 04/04/22 19:38 50 20 100 50 1/1/23 19:08 Mechanical Ventilator 65.00 04/04/22 19:00 51 20 132/60 (84) 100 Mechanical Ventilator 90.00 04/04/22 19:00 53 04/04/22 18:04 61 145/65 04/04/22 18:00 61 20 145/65 (91) 100 Mechanical Ventilator 90.00 04/04/22 17:57 68 149/72 04/04/22 17:10 51 20 147/66 (93) 100 Mechanical Ventilator 90.00 04/04/22 16:58 61 108/91 04/04/22 16:31 36.8 04/04/22 16:04 100 Mechanical Ventilator 90.00 04/04/22 16:00 49 19 147/67 (93) 100 Mechanical Ventilator 100.00 04/04/22 16:00 100 Mechanical Ventilator 90 04/04/22 15:13 67 146/67 04/04/22 15:00 67 20 192/85 (120) 100 Mechanical Ventilator 100.00 Automatic Cuff 04/04/22 14:25 04/04/22 14:08 75 20 99 100 04/04/22 14:04 92 190/88 04/04/22 14:00 57 29 174/75 (108) 96 Mechanical Ventilator 100.00 04/04/22 13:00 67 29 177/78 (111) 96 Vapotherm 20.00 30.00 04/04/22 12:32 59 04/04/22 12:00 93 Vapotherm 40 04/04/22 12:00 54 29 149/84 (105) 94 Vapotherm 20.00 30.00 04/04/22 12:00 36.9 04/04/22 11:59 36.9 94 Vapotherm 20.00 30.00 04/04/22 11:13 54 171/85 I & O 04/05/22 07:00 Intake Total 1495 ml Output Total 1525 ml Balance -30 ml Height & Weight Height: '" Weight: lbs. oz. kg; 60.96 BMI Method: General Appearance: Moderate Distress, Other Respiratory: No Accessory Muscle Use, Decreased Breath Sounds, Rhonci, Other (coarse breath sounds bilaterally) Cardiovascular: Regular Rate, Rhythm, Bradycardia, Other (distal heart sounds) Capillary Refill: Less Than 3 Seconds Gastrointestinal: normal bowel sounds, non tender, soft Extremity: Other (trace pedal and LE edema bilaterally. SCDs in place) Neurologic/Psychiatric: Alert, Other (confused, lethargic but arousable) Skin: Normal Color, Warm/Dry Results Lab Laboratory Tests 04/04/22 04:03 04/04/22 15:15 04/05/22 03:50 Assessment/Plan Assessment/Plan as above Critical Care: Ventilator Management Time spent with patient (mins): 36 GEOVANNA BERGMAN MD Apr 05, 2022 11:05
[2022-04-05 11:08] LABS: BILIRUBIN,URINE NEGATIVE (NEGATIVE); CLARITY,URINE CLEAR; COLOR,URINE YELLOW; GLUCOSE, URINE (UA) NEGATIVE (NEGATIVE); KETONES,URINE NEGATIVE (NEGATIVE); LEUKOCYTE ESTERASE ,URINE TRACE (NEGATIVE); NITRITE,URINE NEGATIVE (NEGATIVE); PROTEIN,URINE NEGATIVE (NEGATIVE)
[2022-04-05 11:18] LABS: BACTERIA,URINE FEW /HPF; SQUAMOUS EPITHELIAL CELL,UR 0-2 /HPF
[2022-04-05] MEDS ORDERED: RT-ALBUTEROL HFA 8.5 GM INHALER IH PRN (12:00)
[2022-04-05 12:39] LABS: ABG BASE EXCESS 3.6 MMOL/L (-2.5-2.5); ABG OXYGEN SATURATION 97 % (94-100); ABG PCO2 53 MMHG (35-45); ABG PH 7.35 (7.37-7.43); ABG PO2 76 MMHG (79-93); ABG TCO2 30.6 MMOL/L (21.0-31.0)
[2022-04-05 12:44] LABS: ALLENS TEST ART LINE; INSPIRED O2 45%; PATIENT TEMP 37.3; VENTILATOR YES
[2022-04-05] MEDS ORDERED: RT-ALBUTEROL/IPRATROPIUM 3 ML (DUONEB) VIAL ONE (14:14)
[2022-04-05] MEDS ORDERED: RT-ALBUTEROL/IPRATROPIUM 3 ML (DUONEB) VIAL INH PRN (14:15)
[2022-04-05] MEDS: cefTRIAXone 1 GM PRE-MIX 50 ML IV SCH (17:28)
--- NOTE | 2022-04-05 17:54 | Progress Note - Hospitalist ---
Subjective HPI/CC On Admission Date Seen by Provider: Apr 05, 2022 Time Seen by Provider: 09:30 Subjective/Events-last exam She is intubated and sedated. Objective Exam Vital Signs Vital Signs Date Time Temp Pulse Resp B/P (MAP) Pulse Ox O2 Delivery O2 Flow Rate FiO2 04/05/22 16:07 36.4 04/05/22 16:00 94 Mechanical Ventilator 45 04/05/22 16:00 55 19 65.00 Capillary Refill : Less Than 3 Seconds General Appearance: No Apparent Distress, Obese Respiratory: No Respiratory Distress, Decreased Breath Sounds, Other (intubated and sedated) Cardiovascular: No Murmur, Bradycardia Gastrointestinal: Normal Bowel Sounds, Soft Extremity: Normal Inspection, Pedal Edema Neurologic/Psychiatric: Alert Skin: Normal Color, Warm/Dry Results/Procedures Lab Laboratory Tests 04/05/22 03:50 Patient resulted labs reviewed. Imaging: Reviewed Imaging Report Assessment/Plan Assessment and Plan Assess & Plan/Chief Complaint Acute respiratory failure with hypoxia Pneumonia due to COVID-19 COPD with acute exacerbation Endotracheally intubated TeleICU following, managing ventilator Decadron Rocephin T2DM Sliding scale HTN Continue current meds DVT prophylaxis: Lovenox Critical Care Critically Ill Patient Diagnosis/Problems Diagnosis/Problems (1) Acute respiratory failure Status: Acute Qualifiers: Respiratory failure complication: hypoxia and hypercapnia Qualified Codes: J96.01 - Acute respiratory failure with hypoxia; J96.02 - Acute respiratory failure with hypercapnia (2) COVID-19 Status: Acute (3) COPD exacerbation Status: Acute (4) Endotracheally intubated Status: Acute KRISTY RAMOS MD Apr 05, 2022 17:54
[2022-04-05] MEDS: RT-ALBUTEROL/IPRATROPIUM 3 ML (DUONEB) VIAL INH SCH ×2 (19:25→22:16)
[2022-04-05] MEDS: rOPINIRole 0.25 MG (REQUIP) TAB PO SCH (20:58)
[2022-04-06] MEDS: PROPOFOL DRIP (ICU) 100 ML IV SCH ×9 (02:07→22:32)
[2022-04-06 02:18] VITALS: BP 139/54
[2022-04-06] MEDS: RT-ALBUTEROL/IPRATROPIUM 3 ML (DUONEB) VIAL INH SCH ×6 (02:18→22:06)
[2022-04-06 03:56] LABS: ABG BASE EXCESS 3.1 MMOL/L (-2.5-2.5); ABG OXYGEN SATURATION 97 % (94-100); ABG PCO2 48 MMHG (35-45); ABG PH 7.38 (7.37-7.43); ABG PO2 74 MMHG (79-93); ABG TCO2 29.5 MMOL/L (21.0-31.0)
[2022-04-06 03:57] LABS: BASOPHILS % (AUTO) 0 % (0-10); EOSINOPHILS % (AUTO) 0 % (0-10); HEMATOCRIT 33 % (35-52); LYMPHOCYTES # (AUTO) 0.7 10^3/uL (1.0-4.0); LYMPHOCYTES % (AUTO) 9 % (12-44); MEAN CORPUSCULAR HEMOGLOBIN 29 pg (25-34); MEAN CORPUSCULAR HGB CONC 33 g/dL (32-36); MEAN CORPUSCULAR VOLUME 88 fL (80-99); MEAN PLATELET VOLUME 8.7 fL (9.0-12.2); MONOCYTES # (AUTO) 0.6 10^3/uL (0.0-1.0); MONOCYTES % (AUTO) 7 % (0-12); NEUTROPHILS # (AUTO) 5.9 10^3/uL (1.8-7.8); NEUTROPHILS % (AUTO) 76 % (42-75); PLATELET COUNT 345 10^3/uL (130-400); WHITE BLOOD COUNT 7.7 10^3/uL (4.3-11.0)
[2022-04-06 04:19] LABS: ALLENS TEST YES-POS; INSPIRED O2 70%; PATIENT TEMP 36.4; VENTILATOR YES
[2022-04-06 04:20] LABS: POTASSIUM 3.3 MMOL/L (3.6-5.0); SMEAR SCAN COMMENT YES
[2022-04-06 04:21] LABS: CALCIUM 8.4 MG/DL (8.5-10.1)
[2022-04-06 04:25] LABS: CREATININE SERUM 0.69 MG/DL (0.60-1.30); PHOSPHORUS 3.9 MG/DL (2.3-4.7)
[2022-04-06 04:28] LABS: MAGNESIUM 1.9 MG/DL (1.6-2.4)
[2022-04-06] MEDS: fentaNYL DRIP PRE-MIX 250 ML IV SCH ×3 (05:44→17:34)
[2022-04-06] MEDS: ENOXAPARIN 40 MG/0.4 ML (LOVENOX) SYR SC SCH ×2 (05:45→17:33)
[2022-04-06] MEDS ORDERED: POTASSIUM CL 10MEQ/50ML IVPB 100 ML IV ONE (05:45)
[2022-04-06] MEDS: POTASSIUM CL 10MEQ/50ML IVPB 50 ML IV SCH ×2 (05:48→05:49)
--- NOTE | 2022-04-06 06:46 | Occ Therapy Progress Note ---
Therapy Progress Note Pt is currently intubated. OT to monitor pt's progress then will initiate treatment when pt is medically stable and able to actively participate in skilled therapy. LEXY SALAMANCA Apr 06, 2022 06:46
[2022-04-06] MEDS: MAGNESIUM 1 GM/100 ML IVPB 100 ML IV SCH (06:48)
[2022-04-06] MEDS: KCL 20 MEQ TAB (K-DUR) PO SCH (06:49)
[2022-04-06] MEDS: inSUlin ASPART (NovoLOG) 1 UNIT/0.01 ML (CHARGE PER UNIT) SC SCH ×3 (06:49→18:00)
--- NOTE | 2022-04-06 07:28 | Physical Therapy Progress Note ---
Therapy Progress Note Patient currently sedated and intubated. PT will require new orders and will monitor patient status. PT will initiate treatment when patient is able to actively participate with skilled therapy. NOVA DODSON PT Apr 06, 2022 07:28
[2022-04-06 07:41] VITALS: BP 142/58
--- NOTE | 2022-04-06 08:17 | Tele-ICU Progress Note ---
Subjective Date Seen by a Provider: Apr 06, 2022 Subjective/Events-last exam (Tele-ICU Physician , Progress note) Available chart/ vitals / labs / Images reviewed H&P is from ER notes Patient's information available about PMH, allergy reviewed in EMR. ROS as per chart and RN report Video assessment done using teleICU camera, rest of exam as per RN Discussed with RN. This patient admitted with COPD exacerbation along with COVID19 pneumonia requiring BiPAP ventilation. Currently she is on a Decadron 10 mg every 12 hours DuoNeb nebulizer treatment IV Rocephin. She does have a respiratory acidosis on the blood gas. Urine output is increasing. 04/03/22 Patient is resting in bed this morning with Vapotherm. . Per nursing report the patient has not been tolerating BiPap or vapotherm and continuously pulled them off throughout the night. 04/05/22 . she was intubated on 04/04/22 due to increased WOB. now sedated on Vent 400/45%/20/8 04/06/22 remained intubated, sedated ,not ready for SBT. Impression 1. Acute hypoxic and hypercarbic respiratory failure secondary to COPD exacerbation as well as COVID19 pneumonia. However superadded imposed bacterial pneumonia cannot be ruled out. Will continue Ventilator support with TV 400, RR20,peep 5, fi02 35% FiO2 and wean FiO2 as tolerated. Peak pressure 20, P mean 11 Will continue Decadron, Rocephin, Lovenox. 2. Hyperglycemia secondary to steroids and underlying type 2 diabetes mellitus.. We will continue ISS. 3. Started already on iv lasix, 4. DVT prophylaxis and ulcer prophylaxis. 5. Continue Propafol and fenanyl drip.. Plans in collaboration with bedside consultants and IM MDs. Discussed with the PARTS ROOM ASSISTANT, and RT to reach out if any questions or concerns. Sepsis Event Evaluation Height, Weight, BMI Height: '" Weight: lbs. oz. kg; 60.96 BMI Method: Exam Exam Patient acknowledged, consented, and participated in this virtual visit which was conducted using real time audio/video Vital Signs Date Time Temp Pulse Resp B/P (MAP) Pulse Ox O2 Delivery O2 Flow Rate FiO2 04/06/22 07:41 55 20 100 35 04/06/22 07:22 36.3 04/06/22 07:12 55 04/06/22 07:05 58 121/47 04/06/22 06:00 58 20 100 Mechanical Ventilator 70.00 04/06/22 05:45 54 121/47 04/06/22 05:44 54 121/47 04/06/22 05:00 51 20 99 Mechanical Ventilator 70.00 04/06/22 04:00 93 Mechanical Ventilator 70 04/06/22 04:00 54 20 99 Mechanical Ventilator 70.00 04/06/22 03:45 56 121/47 04/06/22 03:41 36.4 04/06/22 03:00 56 20 98 Mechanical Ventilator 70.00 04/06/22 02:18 53 20 95 40 04/06/22 02:07 57 123/47 04/06/22 02:00 53 20 97 Mechanical Ventilator 70.00 04/06/22 01:55 53 129/48 04/06/22 01:00 52 04/06/22 01:00 52 20 96 Mechanical Ventilator 70.00 04/06/22 00:54 55 122/45 04/06/22 00:00 55 20 95 Mechanical Ventilator 70.00 04/06/22 00:00 92 Mechanical Ventilator 70 04/05/22 23:34 57 123/47 04/05/22 23:00 57 20 95 Mechanical Ventilator 70.00 04/05/22 22:16 54 20 95 40 04/05/22 22:10 54 118/47 04/05/22 22:00 54 19 95 Mechanical Ventilator 70.00 04/05/22 21:51 56 126/50 04/05/22 21:04 36.6 86 18 94 Mechanical Ventilator 70.00 04/05/22 20:54 98 183/72 04/05/22 20:17 36.4 04/05/22 20:00 66 20 96 Mechanical Ventilator 65.00 04/05/22 20:00 94 Mechanical Ventilator 70 04/05/22 19:49 36.4 04/05/22 19:23 51 20 96 40 04/05/22 19:20 54 139/54 04/05/22 19:00 50 19 96 Mechanical Ventilator 65.00 04/05/22 19:00 50 04/05/22 18:00 53 22 94 Mechanical Ventilator 65.00 04/05/22 17:00 53 19 94 Mechanical Ventilator 65.00 04/05/22 16:07 36.4 04/05/22 16:00 94 Mechanical Ventilator 45 04/05/22 16:00 55 19 93 Mechanical Ventilator 65.00 04/05/22 15:05 93 40 04/05/22 15:00 48 19 98 Mechanical Ventilator 65.00 04/05/22 14:42 47 19 98 45 04/05/22 14:00 50 20 95 Mechanical Ventilator 65.00 04/05/22 13:00 51 20 96 Mechanical Ventilator 65.00 04/05/22 12:23 50 04/05/22 12:00 50 20 94 Mechanical Ventilator 65.00 04/05/22 12:00 92 Mechanical Ventilator 45 04/05/22 11:58 36.4 04/05/22 11:00 67 27 96 Mechanical Ventilator 65.00 04/05/22 10:53 49 20 95 45 04/05/22 10:00 48 19 96 Mechanical Ventilator 65.00 04/05/22 09:51 48 145/59 04/05/22 09:45 73 173/75 04/05/22 09:25 37.0 56 94 40 04/05/22 09:00 50 20 96 Mechanical Ventilator 65.00 04/05/22 08:54 51 126/55 04/05/22 08:53 51 126/55 I & O 04/06/22 07:00 Intake Total 1990 ml Output Total 1435 ml Balance 555 ml Height & Weight Height: '" Weight: lbs. oz. kg; 60.96 BMI Method: General Appearance: No Apparent Distress, Obese Respiratory: No Respiratory Distress, Decreased Breath Sounds, Other (intubated and sedated) Cardiovascular: No Murmur, Bradycardia Capillary Refill: Less Than 3 Seconds Gastrointestinal: normal bowel sounds, non tender, soft Extremity: Normal Inspection, Pedal Edema Neurologic/Psychiatric: Alert Skin: Normal Color, Warm/Dry Results Lab Laboratory Tests 04/04/22 15:15 04/05/22 03:50 04/06/22 03:45 Assessment/Plan Assessment/Plan as above Critical Care: Ventilator Management Time spent with patient (mins): 35 GEOVANNA BERGMAN MD Apr 06, 2022 08:17
--- NOTE | 2022-04-06 09:05 | Diagnostic Imaging Report ---
INDICATION: Respiratory failure. Frontal chest obtained at 05:47 a.m. and compared to yesterday. FINDINGS: ET tube and NG tube are unchanged. The heart is mildly enlarged. There is central vascular congestion. There is no pneumothorax or pleural fluid. There are mild perihilar infiltrates. IMPRESSION: Central vascular congestion with mild perihilar infiltrates. Stable life support lines. Dictated by: Dictated on workstation # [id number]
[2022-04-06] MEDS: busPIRone 15 MG (BUSPAR) TABLET PO SCH ×2 (09:09→20:05)
[2022-04-06] MEDS: DULoxetine 30 MG (CYMBALTA) CAP PO SCH (09:09)
[2022-04-06] MEDS: amLODIPine 5 MG (NORVASC) TAB PO SCH (09:09)
[2022-04-06] MEDS: FUROSEMIDE 40 MG/4 ML INJ (LASIX) IVP SCH (09:09)
[2022-04-06] MEDS: lisINopril 40 MG (PRINIVIL) TABLET PO SCH (09:09)
[2022-04-06] MEDS: PANTOPRAZOLE 40 MG (PROTONIX) VIAL IV SCH (09:09)
[2022-04-06] MEDS: BACLOFEN 10 MG (LIORESAL) TAB PO SCH (09:09)
[2022-04-06] MEDS: SODIUM CHLORIDE 1 GM TABLET PO SCH ×3 (09:43→20:05)
[2022-04-06] MEDS: NS IV 1000 ML 1,000 ML IV SCH ×2 (10:12→19:23)
[2022-04-06 11:01] VITALS: BP 138/52
[2022-04-06] MEDS ORDERED: ACET325T38 PO (11:43)
[2022-04-06] MEDS ORDERED: FEXO-14 PO (11:43)
[2022-04-06] MEDS ORDERED: ALBU2.5V4 NEB (11:43)
[2022-04-06] MEDS ORDERED: SACC250C12 PO (11:43)
[2022-04-06] MEDS ORDERED: ALBU18HF2 INH (11:43)
[2022-04-06] MEDS ORDERED: CARB15DR OU (11:43)
[2022-04-06] MEDS ORDERED: GLIM2TAB4 PO (11:43)
[2022-04-06] MEDS ORDERED: MULT-422 PO (11:43)
[2022-04-06] MEDS ORDERED: ANAS1TAB50 PO (11:43)
[2022-04-06] MEDS ORDERED: IPRA3AMP31 NEB (11:43)
--- NOTE | 2022-04-06 12:30 | Progress Note - Hospitalist ---
Subjective HPI/CC On Admission Date Seen by Provider: Apr 06, 2022 Time Seen by Provider: 09:20 Subjective/Events-last exam She remains intubated and sedated. Objective Exam Vital Signs Vital Signs Date Time Temp Pulse Resp B/P (MAP) Pulse Ox O2 Delivery O2 Flow Rate FiO2 04/06/22 12:00 60 20 93 Mechanical Ventilator 35.00 04/06/22 11:53 36.4 04/06/22 11:01 35 Capillary Refill : Less Than 3 Seconds General Appearance: No Apparent Distress, Obese Respiratory: No Respiratory Distress, Decreased Breath Sounds, Other (intubated and mechanically ventilated) Cardiovascular: No Murmur, Bradycardia Gastrointestinal: Normal Bowel Sounds, Soft Extremity: Normal Inspection, Pedal Edema Neurologic/Psychiatric: Other (sedated) Skin: Normal Color, Warm/Dry Results/Procedures Lab Laboratory Tests 04/06/22 03:45 Patient resulted labs reviewed. Imaging: Reviewed Imaging Report Assessment/Plan Assessment and Plan Assess & Plan/Chief Complaint Acute respiratory failure with hypoxia Pneumonia due to COVID-19 COPD with acute exacerbation Endotracheally intubated TeleICU following, managing ventilator, minimal requirements Decadron Rocephin T2DM Sliding scale HTN Continue current meds DVT prophylaxis: Lovenox Critical Care Critically Ill Patient Diagnosis/Problems Diagnosis/Problems (1) Acute respiratory failure Status: Acute Qualifiers: Respiratory failure complication: hypoxia and hypercapnia Qualified Codes: J96.01 - Acute respiratory failure with hypoxia; J96.02 - Acute respiratory failure with hypercapnia (2) COVID-19 Status: Acute (3) COPD exacerbation Status: Acute (4) Endotracheally intubated Status: Acute KRISTY RAMOS MD Apr 06, 2022 12:30
[2022-04-06 14:10] VITALS: BP 131/53
[2022-04-06 18:54] VITALS: BP 133/52
[2022-04-06] MEDS: rOPINIRole 0.25 MG (REQUIP) TAB PO SCH (20:06)
[2022-04-06 22:06] VITALS: BP 143/57
[2022-04-07] MEDS: fentaNYL DRIP PRE-MIX 250 ML IV SCH ×4 (00:05→19:01)
[2022-04-07] MEDS: inSUlin ASPART (NovoLOG) 1 UNIT/0.01 ML (CHARGE PER UNIT) SC SCH ×4 (00:12→17:30)
[2022-04-07] MEDS: PROPOFOL DRIP (ICU) 100 ML IV SCH ×8 (01:07→22:40)
[2022-04-07 02:46] VITALS: BP 135/53
[2022-04-07] MEDS: RT-ALBUTEROL/IPRATROPIUM 3 ML (DUONEB) VIAL INH SCH ×6 (02:47→23:02)
[2022-04-07 03:33] LABS: ABG BASE EXCESS 3.9 MMOL/L (-2.5-2.5); ABG OXYGEN SATURATION 96 % (94-100); ABG PCO2 49 MMHG (35-45); ABG PH 7.39 (7.37-7.43); ABG PO2 75 MMHG (79-93); ABG TCO2 30.1 MMOL/L (21.0-31.0)
[2022-04-07 03:34] LABS: BASOPHILS % (AUTO) 0 % (0-10); EOSINOPHILS % (AUTO) 0 % (0-10); HEMATOCRIT 33 % (35-52); HEMOGLOBIN 10.8 g/dL (11.5-16.0); LYMPHOCYTES # (AUTO) 0.7 10^3/uL (1.0-4.0); LYMPHOCYTES % (AUTO) 11 % (12-44); MEAN CORPUSCULAR HEMOGLOBIN 29 pg (25-34); MEAN CORPUSCULAR HGB CONC 33 g/dL (32-36); MEAN CORPUSCULAR VOLUME 89 fL (80-99); MEAN PLATELET VOLUME 8.8 fL (9.0-12.2); MONOCYTES # (AUTO) 0.5 10^3/uL (0.0-1.0); MONOCYTES % (AUTO) 8 % (0-12); NEUTROPHILS # (AUTO) 4.5 10^3/uL (1.8-7.8); NEUTROPHILS % (AUTO) 72 % (42-75); PLATELET COUNT 321 10^3/uL (130-400); WHITE BLOOD COUNT 6.2 10^3/uL (4.3-11.0)
[2022-04-07 03:56] LABS: POTASSIUM 3.7 MMOL/L (3.6-5.0)
[2022-04-07 03:58] LABS: CALCIUM 8.3 MG/DL (8.5-10.1)
[2022-04-07 04:00] LABS: ALLENS TEST YES-POS; PATIENT TEMP 36.9; VENTILATOR YES
[2022-04-07 04:02] LABS: CREATININE SERUM 0.7 MG/DL (0.60-1.30); PHOSPHORUS 4.1 MG/DL (2.3-4.7)
[2022-04-07] MEDS: ENOXAPARIN 40 MG/0.4 ML (LOVENOX) SYR SC SCH ×2 (05:20→17:34)
[2022-04-07] MEDS: MAGNESIUM 1 GM/100 ML IVPB 100 ML IV SCH (05:48)
[2022-04-07] MEDS: POTASSIUM CL 10MEQ/50ML IVPB 50 ML IV SCH (05:48)
[2022-04-07] MEDS: KCL 20 MEQ TAB (K-DUR) PO SCH (05:49)
--- NOTE | 2022-04-07 06:40 | Occ Therapy Progress Note ---
Therapy Progress Note Pt currently intubated. OT to monitor pt's status then will initiate treatment when pt is medically stable and able to actively participate in skilled therapy. LEXY SALAMANCA Apr 07, 2022 06:40
[2022-04-07 07:32] VITALS: BP 153/73
--- NOTE | 2022-04-07 07:48 | Tele-ICU Progress Note ---
Subjective Date Seen by a Provider: Apr 07, 2022 Subjective/Events-last exam Tele-ICU Physician , Progress note) Available chart/ vitals / labs / Images reviewed H&P is from ER notes Patient's information available about PMH, allergy reviewed in EMR. ROS as per chart and RN report Video assessment done using teleICU camera, rest of exam as per RN Discussed with RN. This patient admitted with COPD exacerbation along with COVID19 pneumonia requiring BiPAP ventilation. Currently she is on a Decadron 10 mg every 12 hours DuoNeb nebulizer treatment IV Rocephin. She does have a respiratory acidosis on the blood gas. Urine output is increasing. 04/03/22 Patient is resting in bed this morning with Vapotherm. . Per nursing report the patient has not been tolerating BiPap or vapotherm and continuously pulled them off throughout the night. 04/05/22 . she was intubated on 04/04/22 due to increased WOB. now sedated on Vent 400/45%/20/8 04/06/22 remained intubated, sedated ,not ready for SBT. 04/07/22 remained on vent. sputum c/s grew staph, H. influenza and acenetobacter which were not adequately treated. not ready for SBT. cxr showes jian. pulmonary congestive changes. Impression 1. Acute hypoxic and hypercarbic respiratory failure secondary to COPD exacerbation as well as COVID19 pneumonia. However superadded imposed bacterial pneumonia cannot be ruled out. Will continue Ventilator support with TV 400, RR20,peep 5, fi02 35% FiO2 and wean FiO2 as tolerated. Peak pressure 20, P mean 11 Will continue Decadron, Lovenox and start meropenum and doxycycline.. 2. Hyperglycemia secondary to steroids and underlying type 2 diabetes mellitus.. We will continue ISS. 3. Started already on iv lasix, will give additional dose of lasix. 4. DVT prophylaxis and ulcer prophylaxis. 5. Continue Propafol and fenanyl drip.. Plans in collaboration with bedside consultants and IM MDs. Discussed with the [employer] E[employer]CEMENT OFFICER, and RT to reach out if any questions or concerns. Sepsis Event Evaluation Height, Weight, BMI Height: '" Weight: lbs. oz. kg; 60.96 BMI Method: Exam Exam Patient acknowledged, consented, and participated in this virtual visit which was conducted using real time audio/video Vital Signs Date Time Temp Pulse Resp B/P (MAP) Pulse Ox O2 Delivery O2 Flow Rate FiO2 04/07/22 07:44 37.2 04/07/22 07:32 55 20 96 35 04/07/22 07:22 53 04/07/22 06:00 58 20 95 Mechanical Ventilator 35.00 04/07/22 05:59 55 135/53 04/07/22 05:58 55 135/53 04/07/22 05:10 55 135/53 04/07/22 05:00 55 20 96 Mechanical Ventilator 35.00 04/07/22 04:10 55 135/53 04/07/22 04:00 58 20 95 Mechanical Ventilator 35.00 04/07/22 04:00 95 Mechanical Ventilator 35 04/07/22 03:19 55 135/53 04/07/22 03:17 36.9 Mechanical Ventilator 35.00 04/07/22 03:00 53 20 96 Mechanical Ventilator 35.00 04/07/22 02:46 55 20 96 35 04/07/22 02:40 55 135/53 04/07/22 02:00 57 20 95 Mechanical Ventilator 35.00 04/07/22 01:07 59 143/57 04/07/22 01:00 56 04/07/22 01:00 56 20 96 Mechanical Ventilator 35.00 04/07/22 00:10 59 143/57 04/07/22 00:05 59 143/57 04/07/22 00:03 36.9 04/07/22 00:00 58 20 95 Mechanical Ventilator 35.00 04/07/22 00:00 92 Mechanical Ventilator 35 04/06/22 23:00 62 20 95 Mechanical Ventilator 35.00 04/06/22 22:32 59 143/57 04/06/22 22:06 59 20 95 35 04/06/22 22:00 56 20 95 Mechanical Ventilator 35.00 04/06/22 21:40 59 143/57 04/06/22 21:40 59 143/57 04/06/22 21:00 60 20 95 Mechanical Ventilator 35.00 04/06/22 20:05 61 141/55 04/06/22 20:00 93 Mechanical Ventilator 35 04/06/22 20:00 61 20 94 Mechanical Ventilator 35.00 04/06/22 19:11 37.4 04/06/22 19:00 62 20 95 Mechanical Ventilator 35.00 04/06/22 19:00 62 04/06/22 18:54 88 20 98 35 04/06/22 18:00 62 20 94 Mechanical Ventilator 35.00 04/06/22 17:34 73 131/53 04/06/22 17:34 73 131/53 04/06/22 17:00 62 19 94 Mechanical Ventilator 35.00 04/06/22 16:00 73 19 93 Mechanical Ventilator 35.00 04/06/22 16:00 94 Mechanical Ventilator 35 04/06/22 15:50 36.8 04/06/22 15:16 67 131/53 04/06/22 15:15 67 131/53 04/06/22 15:00 67 20 91 Mechanical Ventilator 35.00 04/06/22 14:52 67 131/53 04/06/22 14:10 72 20 93 35 04/06/22 14:00 57 19 94 Mechanical Ventilator 35.00 04/06/22 13:20 67 131/53 04/06/22 13:00 57 20 97 Mechanical Ventilator 35.00 04/06/22 12:45 58 04/06/22 12:00 60 20 93 Mechanical Ventilator 35.00 04/06/22 12:00 93 Mechanical Ventilator 35 04/06/22 11:53 36.4 04/06/22 11:16 58 138/52 04/06/22 11:15 58 138/52 04/06/22 11:05 58 138/52 04/06/22 11:01 58 20 96 35 04/06/22 11:00 58 20 96 Mechanical Ventilator 35.00 04/06/22 10:52 57 142/58 04/06/22 10:00 57 20 96 Mechanical Ventilator 35.00 04/06/22 09:45 55 142/58 04/06/22 09:44 55 142/58 04/06/22 09:20 55 142/58 04/06/22 09:00 57 19 99 Mechanical Ventilator 35.00 04/06/22 08:00 57 19 99 Mechanical Ventilator 35.00 04/06/22 08:00 93 Mechanical Ventilator 35 I & O 04/07/22 07:00 Intake Total 1240 ml Output Total 1550 ml Balance -310 ml Height & Weight Height: '" Weight: lbs. oz. kg; 60.96 BMI Method: General Appearance: No Apparent Distress, Obese Respiratory: No Respiratory Distress, Decreased Breath Sounds, Other (intubated and mechanically ventilated) Cardiovascular: No Murmur, Bradycardia Capillary Refill: Less Than 3 Seconds Gastrointestinal: normal bowel sounds, non tender, soft Extremity: Normal Inspection, Pedal Edema Neurologic/Psychiatric: Other (sedated) Skin: Normal Color, Warm/Dry Results Lab Laboratory Tests 04/06/22 03:45 04/07/22 03:25 Assessment/Plan Assessment/Plan as above Critical Care: Ventilator Management Time spent with patient (mins): 35 GEOVANNA BERGMAN MD Apr 07, 2022 07:48
--- NOTE | 2022-04-07 07:54 | Physical Therapy Progress Note ---
Therapy Progress Note Patient currently sedated and intubated. PT will require new orders and will monitor patient status. PT will initiate treatment when patient is able to actively participate with skilled therapy. BERRY VAN PT Apr 07, 2022 07:54
--- NOTE | 2022-04-07 08:26 | Diagnostic Imaging Report ---
EXAMINATION: Chest 1 view HISTORY: Covid-19. COMPARISON: 04/06/2022. FINDINGS: Endotracheal tube tip terminates 2 cm above the mely. Gastric tube terminates in the stomach or vascular congestion. Lung volumes are small. There are small pleural effusions. No pneumothorax. Heart size is normal. IMPRESSION: 1. Pulmonary vascular congestion and small pleural effusions. Dictated by: Dictated on workstation # [id number]
[2022-04-07] MEDS: FUROSEMIDE 40 MG/4 ML INJ (LASIX) IVP SCH (09:03)
[2022-04-07] MEDS: DOXYCYCLINE INJECTION 100 MG in NS (IVPB) 100 ML IV SCH ×3 (09:03→20:42)
[2022-04-07] MEDS: MEROPENEM 500 MG in NS (IVPB) 100 ML IV SCH ×3 (09:03→20:01)
[2022-04-07] MEDS: BACLOFEN 10 MG (LIORESAL) TAB PO SCH (09:04)
[2022-04-07] MEDS: DULoxetine 30 MG (CYMBALTA) CAP PO SCH (09:04)
[2022-04-07] MEDS: lisINopril 40 MG (PRINIVIL) TABLET PO SCH (09:04)
[2022-04-07] MEDS: amLODIPine 5 MG (NORVASC) TAB PO SCH (09:04)
[2022-04-07] MEDS: busPIRone 15 MG (BUSPAR) TABLET PO SCH ×2 (09:04→20:02)
[2022-04-07] MEDS: PANTOPRAZOLE 40 MG (PROTONIX) VIAL IV SCH (09:04)
[2022-04-07] MEDS: ANASTROZOLE 1 MG TAB (ARIMIDEX) PO SCH (09:05)
[2022-04-07] MEDS: SODIUM CHLORIDE 1 GM TABLET PO SCH ×3 (09:05→20:03)
[2022-04-07] MEDS: NS IV 1000 ML 1,000 ML IV SCH (10:50)
[2022-04-07 11:00] VITALS: BP 163/65
[2022-04-07] MEDS ORDERED: FUROSEMIDE 40 MG/4 ML INJ (LASIX) IVP NR (12:30)
--- NOTE | 2022-04-07 13:40 | Progress Note - Hospitalist ---
ABNER HERRERA 04/07/22 1340: Subjective HPI/CC On Admission Date Seen by Provider: Apr 07, 2022 Time Seen by Provider: 07:45 Subjective/Events-last exam Pt is sedated on a ventilator and was unable to acquire an interview. Pt was stable on vent. She received a CXR yesterday showing central vascular congestion with mild perihilar infiltrates; Today's CXR in comparison from yesterday showed pulmonary vascular congestion and small pleural effusions. Objective Exam Vital Signs Vital Signs Date Time Temp Pulse Resp B/P (MAP) Pulse Ox O2 Delivery O2 Flow Rate FiO2 04/07/22 12:07 60 145/56 04/07/22 11:00 17 94 Mechanical Ventilator 35.00 04/07/22 11:00 35 04/07/22 07:44 37.2 Capillary Refill : Less Than 3 Seconds General Appearance: Other Respiratory: Chest Non Tender, Lungs Clear, Normal Breath Sounds Cardiovascular: Regular Rate, Rhythm, No Edema, No Murmur, Normal Peripheral Pulses Gastrointestinal: No Organomegaly, Soft Rectal: Deferred Neurologic/Psychiatric: Other (sedated) Skin: Normal Color, Warm/Dry Results/Procedures Lab Laboratory Tests 04/07/22 03:25 Patient resulted labs reviewed. Imaging: Reviewed Imaging Report Assessment/Plan Assessment and Plan Assess & Plan/Chief Complaint Acute respiratory failure with hypoxia Pneumonia due to COVID-19 COPD with acute exacerbation Endotracheally intubated TeleICU following, managing ventilator, minimal requirements T2DM Sliding scale HTN Continue current meds DVT prophylaxis: LoveKRISTY Arreola MD 04/07/22 1634: Subjective HPI/CC On Admission Time Seen by Provider: 10:20 Objective Exam General Appearance: No Apparent Distress, Obese Respiratory: Lungs Clear, No Respiratory Distress Cardiovascular: No Murmur, Bradycardia Gastrointestinal: Normal Bowel Sounds, Soft Extremity: Normal Inspection, No Pedal Edema Neurologic/Psychiatric: Other (sedated) Skin: Normal Color, Warm/Dry Results/Procedures Imaging: Reviewed Imaging Report Assessment/Plan Assessment and Plan Assess & Plan/Chief Complaint Remains intubated and sedated. TeleICU following, managing ventilator. Started on Meropenem and Doxycycline for possible bacterial pneumonia. Critical Care: Critically Ill Patient Diagnosis/Problems Diagnosis/Problems (1) Acute respiratory failure Status: Acute Qualifiers: Qualified Codes: J96.01 - Acute respiratory failure with hypoxia; J96.02 - Acute respiratory failure with hypercapnia (2) COVID-19 Status: Acute (3) COPD exacerbation Status: Acute (4) Endotracheally intubated Status: Acute Supervisory-Addendum Brief Verification & Attestation Participated in pt care: history, MDM, physical Personally performed: exam, history, MDM, supervision of care Care discussed with: Medical Student Procedures: n/a Results interpretation: Verified all documentation A medical student performed and documented this service in my presence. I reviewed and verified all information documented by the medical student and made modifications to such information, when appropriate. I personally performed the physical exam and medical decision making. ABNER HERRERA Apr 07, 2022 13:40 KRISTY RAMOS MD Apr 07, 2022 16:34
[2022-04-07 15:25] VITALS: BP 165/64
[2022-04-07 18:52] VITALS: BP 145/55
[2022-04-07] MEDS: rOPINIRole 0.25 MG (REQUIP) TAB PO SCH (20:02)
[2022-04-07 23:06] VITALS: BP 165/64
[2022-04-08] MEDS: inSUlin ASPART (NovoLOG) 1 UNIT/0.01 ML (CHARGE PER UNIT) SC SCH ×4 (00:51→18:03)
[2022-04-08] MEDS: fentaNYL DRIP PRE-MIX 250 ML IV SCH ×3 (00:52→19:57)
[2022-04-08] MEDS: PROPOFOL DRIP (ICU) 100 ML IV SCH ×7 (00:52→23:11)
[2022-04-08] MEDS: MEROPENEM 500 MG in NS (IVPB) 100 ML IV SCH ×4 (02:24→19:46)
[2022-04-08 02:33] VITALS: BP 131/53
[2022-04-08] MEDS: RT-ALBUTEROL/IPRATROPIUM 3 ML (DUONEB) VIAL INH SCH ×6 (02:33→22:33)
[2022-04-08] MEDS: NS IV 1000 ML 1,000 ML IV SCH ×2 (03:30→22:10)
[2022-04-08 03:51] LABS: BASOPHILS % (AUTO) 0 % (0-10); EOSINOPHILS % (AUTO) 0 % (0-10); HEMATOCRIT 34 % (35-52); HEMOGLOBIN 11.2 g/dL (11.5-16.0); LYMPHOCYTES # (AUTO) 0.7 10^3/uL (1.0-4.0); LYMPHOCYTES % (AUTO) 10 % (12-44); MEAN CORPUSCULAR HEMOGLOBIN 29 pg (25-34); MEAN CORPUSCULAR HGB CONC 33 g/dL (32-36); MEAN CORPUSCULAR VOLUME 90 fL (80-99); MONOCYTES # (AUTO) 0.5 10^3/uL (0.0-1.0); MONOCYTES % (AUTO) 7 % (0-12); NEUTROPHILS # (AUTO) 5.4 10^3/uL (1.8-7.8); NEUTROPHILS % (AUTO) 74 % (42-75); PLATELET COUNT 297 10^3/uL (130-400); WHITE BLOOD COUNT 7.4 10^3/uL (4.3-11.0)
[2022-04-08 03:52] LABS: ABG BASE EXCESS 5.5 MMOL/L (-2.5-2.5); ABG OXYGEN SATURATION 96 % (94-100); ABG PCO2 51 MMHG (35-45); ABG PH 7.39 (7.37-7.43); ABG PO2 77 MMHG (79-93); ABG TCO2 31.8 MMOL/L (21.0-31.0)
[2022-04-08 03:53] LABS: ALLENS TEST ART LINE; INSPIRED O2 35%; PATIENT TEMP 37.3; VENTILATOR YES
[2022-04-08 04:52] LABS: CALCIUM 8.3 MG/DL (8.5-10.1); CREATININE SERUM 0.68 MG/DL (0.60-1.30); MAGNESIUM 1.9 MG/DL (1.6-2.4); PHOSPHORUS 3.8 MG/DL (2.3-4.7); POTASSIUM 3.4 MMOL/L (3.6-5.0)
[2022-04-08] MEDS: ENOXAPARIN 40 MG/0.4 ML (LOVENOX) SYR SC SCH ×2 (05:36→17:13)
[2022-04-08] MEDS: POTASSIUM CL 10MEQ/50ML IVPB 50 ML IV SCH ×3 (06:12→06:51)
--- NOTE | 2022-04-08 06:45 | Occ Therapy Progress Note ---
Therapy Progress Note Pt currently intubated. OT to monitor pt's status then will initiate treatment when pt is medically stable and able to actively participate in skilled therapy. LEXY SALAMANCA Apr 08, 2022 06:45
[2022-04-08] MEDS: KCL 20 MEQ TAB (K-DUR) PO SCH (06:51)
[2022-04-08] MEDS: MAGNESIUM 1 GM/100 ML IVPB 100 ML IV SCH (06:51)
[2022-04-08 07:21] VITALS: BP 160/66
--- NOTE | 2022-04-08 07:31 | Tele-ICU Progress Note ---
Subjective Date Seen by a Provider: Apr 08, 2022 Time Seen by a Provider: 12:03 Subjective/Events-last exam Tele-ICU Physician , Progress note) Available chart/ vitals / labs / Images reviewed H&P is from ER notes Patient's information available about PMH, allergy reviewed in EMR. ROS as per chart and RN report Video assessment done using teleICU camera, rest of exam as per RN Discussed with RN. This patient admitted with COPD exacerbation along with COVID19 pneumonia requiring BiPAP ventilation. Currently she is on a Decadron 10 mg every 12 hours DuoNeb nebulizer treatment IV Rocephin. She does have a respiratory acidosis on the blood gas. Urine output is increasing. 04/03/22 Patient is resting in bed this morning with Vapotherm. . Per nursing report the patient has not been tolerating BiPap or vapotherm and continuously pulled them off throughout the night. 04/05/22 . she was intubated on 04/04/22 due to increased WOB. now sedated on Vent 400/45%/20/8 04/06/22 remained intubated, sedated ,not ready for SBT. 04/07/22 remained on vent. sputum c/s grew staph, H. influenza and acenetobacter which were not adequately treated. not ready for SBT. cxr showes jian. pulmonary congestive changes. 04/08/2022 resting comfortably on the vent. sedation vacation given. awaiting her mental status to improve to give trial of sbt. Impression 1. Acute hypoxic and hypercarbic respiratory failure secondary to COPD exacerbation as well as COVID19 pneumonia. However superadded imposed bacterial pneumonia cannot be ruled out. Will continue Ventilator support with TV 400, RR20,peep 5, fi02 35% FiO2 and wean FiO2 as tolerated. Peak pressure 20, P mean 11. sedation is on hold now, w ill try on SBT today once her mental status improves will try on SBT Will decrease Decadron to 6 mg a day and continue, Lovenox, meropenum and doxycycline.. 2. Hyperglycemia secondary to steroids and underlying type 2 diabetes mellitus.. We will continue ISS. 3. Started already on iv lasix, will give additional dose of lasix. 4. DVT prophylaxis and ulcer prophylaxis. 5. Continue Propafol and fenanyl drip.. Plans in collaboration with bedside consultants and IM MDs. Discussed with the LICENSE DISTRIBUTOR, and RT to reach out if any questions or concerns. Sepsis Event Evaluation Height, Weight, BMI Height: '" Weight: lbs. oz. kg; 49.03 BMI Method: Exam Exam Patient acknowledged, consented, and participated in this virtual visit which was conducted using real time audio/video Vital Signs Date Time Temp Pulse Resp B/P (MAP) Pulse Ox O2 Delivery O2 Flow Rate FiO2 04/08/22 07:21 54 20 96 35 04/08/22 06:13 58 131/53 04/08/22 06:00 62 20 95 Mechanical Ventilator 35.00 04/08/22 05:00 58 131/53 04/08/22 05:00 58 131/53 04/08/22 05:00 60 20 96 Mechanical Ventilator 35.00 04/08/22 04:00 95 Mechanical Ventilator 35 04/08/22 04:00 58 20 96 Mechanical Ventilator 35.00 04/08/22 03:40 61 131/53 04/08/22 03:39 37.3 04/08/22 03:00 61 20 96 Mechanical Ventilator 35.00 04/08/22 02:40 58 131/53 04/08/22 02:33 61 20 95 35 04/08/22 02:00 60 20 96 Mechanical Ventilator 35.00 04/08/22 01:00 61 04/08/22 01:00 61 20 95 Mechanical Ventilator 35.00 04/08/22 00:52 58 165/64 04/08/22 00:52 58 165/64 04/08/22 00:46 37.6 Mechanical Ventilator 35.00 04/08/22 00:00 94 Mechanical Ventilator 35 04/08/22 00:00 58 165/64 04/08/22 00:00 100 20 94 Mechanical Ventilator 35.00 04/07/22 23:06 58 20 95 35 04/07/22 23:00 58 165/64 04/07/22 23:00 57 20 95 Mechanical Ventilator 35.00 04/07/22 22:40 60 145/55 04/07/22 22:00 58 20 95 Mechanical Ventilator 35.00 04/07/22 21:00 64 20 95 Mechanical Ventilator 35.00 04/07/22 20:30 58 165/64 04/07/22 20:02 60 145/55 04/07/22 20:00 95 Mechanical Ventilator 35 04/07/22 20:00 73 20 94 Mechanical Ventilator 35.00 04/07/22 19:43 37.2 04/07/22 19:01 60 145/55 04/07/22 19:00 65 04/07/22 19:00 65 20 94 Mechanical Ventilator 35.00 04/07/22 18:52 60 20 94 35 04/07/22 18:00 61 19 94 Mechanical Ventilator 35.00 04/07/22 18:00 61 115/46 04/07/22 17:00 62 19 94 Mechanical Ventilator 35.00 04/07/22 16:29 60 127/52 04/07/22 16:10 61 109/50 04/07/22 16:00 61 20 93 Mechanical Ventilator 35.00 04/07/22 16:00 92 Mechanical Ventilator 35 04/07/22 15:39 36.9 04/07/22 15:35 65 128/57 04/07/22 15:25 57 20 94 35 04/07/22 15:00 58 20 94 Mechanical Ventilator 35.00 04/07/22 14:00 58 19 94 Mechanical Ventilator 35.00 04/07/22 14:00 58 131/55 04/07/22 13:11 58 04/07/22 13:00 58 19 94 Mechanical Ventilator 35.00 04/07/22 12:07 60 145/56 04/07/22 12:00 60 19 93 Mechanical Ventilator 35.00 04/07/22 12:00 93 Mechanical Ventilator 35 04/07/22 11:34 60 142/53 04/07/22 11:00 68 17 94 Mechanical Ventilator 35.00 04/07/22 11:00 62 20 94 35 04/07/22 10:00 55 20 95 Mechanical Ventilator 35.00 04/07/22 10:00 55 151/59 04/07/22 10:00 55 151/59 04/07/22 09:00 71 28 96 Mechanical Ventilator 35.00 165/64 (97) 04/07/22 08:00 94 Mechanical Ventilator 35 04/07/22 08:00 58 19 94 Mechanical Ventilator 35.00 04/07/22 07:44 37.2 04/07/22 07:32 55 20 96 35 I & O 04/08/22 07:00 Intake Total 1535 ml Output Total 2810 ml Balance -1275 ml Height & Weight Height: '" Weight: lbs. oz. kg; 49.03 BMI Method: General Appearance: No Apparent Distress, Obese Respiratory: Lungs Clear, No Respiratory Distress Cardiovascular: No Murmur, Bradycardia Capillary Refill: Less Than 3 Seconds Gastrointestinal: normal bowel sounds, non tender, soft Extremity: Normal Inspection, No Pedal Edema Neurologic/Psychiatric: Other (sedated) Skin: Normal Color, Warm/Dry Results Lab Laboratory Tests 04/07/22 03:25 04/08/22 03:45 Assessment/Plan Assessment/Plan as above Critical Care: Ventilator Management Time spent with patient (mins): 36 GEOVANNA BERGMAN MD Apr 08, 2022 07:31
--- NOTE | 2022-04-08 07:34 | Physical Therapy Progress Note ---
Therapy Progress Note Patient currently sedated and intubated. PT will require new orders and will monitor patient status. PT will initiate treatment when patient is able to actively participate with skilled therapy. NOVA DODSON PT Apr 08, 2022 07:34
--- NOTE | 2022-04-08 08:59 | Diagnostic Imaging Report ---
INDICATION: Respiratory failure Portable chest 5:44 AM There is ET tube projected over the trachea. NG tube enters the stomach. There are no infiltrates, effusions or pneumothoraces. IMPRESSION: No acute abnormalities in the chest. No appreciable change compared to previous day. Dictated by: Dictated on workstation # [id number]
[2022-04-08] MEDS: busPIRone 15 MG (BUSPAR) TABLET PO SCH ×2 (09:13→20:00)
[2022-04-08] MEDS: PANTOPRAZOLE 40 MG (PROTONIX) VIAL IV SCH (09:13)
[2022-04-08] MEDS: BACLOFEN 10 MG (LIORESAL) TAB PO SCH (09:14)
[2022-04-08] MEDS: FUROSEMIDE 40 MG/4 ML INJ (LASIX) IVP SCH (09:14)
[2022-04-08] MEDS: ANASTROZOLE 1 MG TAB (ARIMIDEX) PO SCH (09:14)
[2022-04-08] MEDS: DULoxetine 30 MG (CYMBALTA) CAP PO SCH (09:14)
[2022-04-08] MEDS: lisINopril 40 MG (PRINIVIL) TABLET PO SCH (09:14)
[2022-04-08] MEDS: amLODIPine 5 MG (NORVASC) TAB PO SCH (09:14)
[2022-04-08] MEDS: SODIUM CHLORIDE 1 GM TABLET PO SCH ×3 (09:14→20:01)
[2022-04-08] MEDS: DOXYCYCLINE INJECTION 100 MG in NS (IVPB) 100 ML IV SCH ×2 (09:15→20:01)
[2022-04-08 11:04] VITALS: BP 165/65
--- NOTE | 2022-04-08 15:00 | Progress Note - Hospitalist ---
ABNER HERRERA 04/08/22 1500: Subjective HPI/CC On Admission Date Seen by Provider: Apr 08, 2022 Time Seen by Provider: 08:15 Subjective/Events-last exam Geovanna Stephenson is a 66yo female presenting with acute respiratory failure with hypoxia secondary to COVID and possibly superimposed pneumonia. CXR on 04/07/22 s howed pulmonary vascular congestion with small pleural effusion, and today showed no acute abnormalities or change from previous CXR. TeleICU continued ventilator settings and started patient on Meropenem and Doxycycline. Patient is currently sedated and wasn't able to participate in an interview. Objective Exam Vital Signs Vital Signs Date Time Temp Pulse Resp B/P (MAP) Pulse Ox O2 Delivery O2 Flow Rate FiO2 04/08/22 15:26 53 20 97 35 04/08/22 15:00 Mechanical Ventilator 35.00 04/08/22 11:55 36.8 Capillary Refill : Less Than 3 Seconds Respiratory: Normal Breath Sounds, Crackles Cardiovascular: Regular Rate, Rhythm, No Murmur, Normal Peripheral Pulses Gastrointestinal: Soft; No Distended Skin: Normal Color, Warm/Dry Results/Procedures Lab Laboratory Tests 04/08/22 03:45 Patient resulted labs reviewed. Imaging: Reviewed Imaging Report Assessment/Plan Assessment and Plan Assess & Plan/Chief Complaint 1. Acute respiratory failure with hypoxia secondary to COVID-19 and possibly superimposed pneumonia Hypercapnia ABG: PCO2 51mmHg increased from 49mmHg on 04/07/22 Endotracheally intubated 2. T2DM Elevated blood glucose 3. HTN 4. DVT prophylaxis Pt is intubated on ventilator; cannot ambulate Plan: 1. Acute respiratory failure with hypoxia secondary to COVID-19 and possibly superimposed pneumonia TeleICU monitoring Ventilator Albuterol/Ipratropium 3ml RTQ4HR Pantoprazole 40mg daily IV Propofol 100ml @ 15.12mls/hr Fentanyl 250ml @ 10mls/hr Decadron 6mg daily injection Consider discontinuing Decadron Meropenum 500mg/sodium chloride 100ml @ 200mls/hr Doxycycline Hyclate 100mg/sodium chloride 100ml @ 100mls/hr 2. T2DM Insulin Aspart - Sliding scale 3. HTN Amlodipine 5mg daily po Lisinopril 40gm daily po 4. DVT prophylaxis Enoxaparin 40mg Q12H SC KRISTY RAMOS MD 04/08/22 1655: Subjective HPI/CC On Admission Time Seen by Provider: 10:15 Objective Exam General Appearance: No Apparent Distress, Obese Respiratory: Lungs Clear, No Respiratory Distress, Other (intubated and mechanically ventilated) Cardiovascular: No Murmur, Bradycardia Gastrointestinal: Normal Bowel Sounds, Soft Extremity: Normal Inspection, No Pedal Edema Neurologic/Psychiatric: Other (sedated) Skin: Normal Color, Warm/Dry Results/Procedures Imaging: Reviewed Imaging Report Assessment/Plan Assessment and Plan Assess & Plan/Chief Complaint Continue ventilator weaning as tolerated per TeleICU. IV antibiotics for possible secondary bacterial pneumonia. Consider tapering steroids. Critical Care: Critically Ill Patient Diagnosis/Problems Diagnosis/Problems (1) Acute respiratory failure Status: Acute Qualifiers: Qualified Codes: J96.01 - Acute respiratory failure with hypoxia; J96.02 - Acute respiratory failure with hypercapnia (2) COVID-19 Status: Acute (3) Endotracheally intubated Status: Acute (4) COPD exacerbation Status: Acute (5) Morbid obesity Status: Acute Supervisory-Addendum Brief Verification & Attestation Participated in pt care: history, MDM, physical Personally performed: exam, history, MDM, supervision of care Care discussed with: Medical Student Procedures: n/a Results interpretation: Verified all documentation A medical student performed and documented this service in my presence. I reviewed and verified all information documented by the medical student and made modifications to such information, when appropriate. I personally performed the physical exam and medical decision making. ABNER HERRERA Apr 08, 2022 15:00 KRISTY RAMOS MD Apr 08, 2022 16:55
[2022-04-08 15:26] VITALS: BP 165/65
[2022-04-08 19:42] VITALS: BP 165/64
[2022-04-08] MEDS: rOPINIRole 0.25 MG (REQUIP) TAB PO SCH (20:00)
[2022-04-08] MEDS: DexMEDEtomidine 250 ML DRIP 250 ML IV SCH (22:26)
[2022-04-08 22:33] VITALS: BP 129/46
[2022-04-09] MEDS: inSUlin ASPART (NovoLOG) 1 UNIT/0.01 ML (CHARGE PER UNIT) SC SCH ×5 (00:39→23:49)
[2022-04-09] MEDS ORDERED: hydrALAZINE (APESOLINE) 20 MG/ML VIAL IV ONE (01:30)
[2022-04-09] MEDS: MEROPENEM 500 MG in NS (IVPB) 100 ML IV SCH ×2 (01:46→08:17)
[2022-04-09] MEDS: fentaNYL DRIP PRE-MIX 250 ML IV SCH ×4 (01:58→22:57)
[2022-04-09] MEDS: PROPOFOL DRIP (ICU) 100 ML IV SCH ×5 (02:22→22:56)
[2022-04-09] MEDS: RT-ALBUTEROL/IPRATROPIUM 3 ML (DUONEB) VIAL INH SCH ×6 (03:24→23:00)
[2022-04-09 03:27] VITALS: BP 181/67
[2022-04-09 04:25] LABS: ABG BASE EXCESS 5.7 MMOL/L (-2.5-2.5); ABG OXYGEN SATURATION 95 % (94-100); ABG PCO2 47 MMHG (35-45); ABG PH 7.42 (7.37-7.43); ABG PO2 67 MMHG (79-93); ABG TCO2 31.4 MMOL/L (21.0-31.0); ALLENS TEST YES-POS; INSPIRED O2 35%; VENTILATOR YES
[2022-04-09 04:26] LABS: BASOPHILS % (AUTO) 0 % (0-10); EOSINOPHILS % (AUTO) 0 % (0-10); HEMATOCRIT 37 % (35-52); HEMOGLOBIN 12.1 g/dL (11.5-16.0); LYMPHOCYTES # (AUTO) 1.2 10^3/uL (1.0-4.0); LYMPHOCYTES % (AUTO) 21 % (12-44); MEAN CORPUSCULAR HEMOGLOBIN 30 pg (25-34); MEAN CORPUSCULAR HGB CONC 33 g/dL (32-36); MEAN CORPUSCULAR VOLUME 90 fL (80-99); MEAN PLATELET VOLUME 9.4 fL (9.0-12.2); MONOCYTES # (AUTO) 0.5 10^3/uL (0.0-1.0); MONOCYTES % (AUTO) 9 % (0-12); NEUTROPHILS # (AUTO) 3.7 10^3/uL (1.8-7.8); NEUTROPHILS % (AUTO) 65 % (42-75); PATIENT TEMP 37.4; PLATELET COUNT 224 10^3/uL (130-400); WHITE BLOOD COUNT 5.7 10^3/uL (4.3-11.0)
[2022-04-09 04:43] LABS: CALCIUM 8.3 MG/DL (8.5-10.1); CREATININE SERUM 0.61 MG/DL (0.60-1.30); MAGNESIUM 1.9 MG/DL (1.6-2.4); PHOSPHORUS 2.9 MG/DL (2.3-4.7); POTASSIUM 3.1 MMOL/L (3.6-5.0)
[2022-04-09] MEDS ORDERED: POTASSIUM CL 10MEQ/50ML IVPB 200 ML IV ONE (04:55)
[2022-04-09] MEDS: POTASSIUM CL 10MEQ/50ML IVPB 50 ML IV SCH ×5 (05:01→08:17)
[2022-04-09] MEDS: ENOXAPARIN 40 MG/0.4 ML (LOVENOX) SYR SC SCH ×2 (05:02→16:21)
[2022-04-09] MEDS: KCL 20 MEQ TAB (K-DUR) PO SCH (05:18)
[2022-04-09] MEDS: MAGNESIUM 1 GM/100 ML IVPB 100 ML IV SCH (05:18)
--- NOTE | 2022-04-09 06:40 | Occ Therapy Progress Note ---
Therapy Progress Note Pt currently intubated. OT to monitor pt's status then will initiate treatment when pt is medically stable and able to actively participate in skilled therapy. LEXY SALAMANCA Apr 09, 2022 06:40
[2022-04-09 07:06] VITALS: BP 166/62
--- NOTE | 2022-04-09 07:30 | Physical Therapy Progress Note ---
Therapy Progress Note Patient currently sedated and intubated. PT will require new orders and will monitor patient status. PT will initiate treatment when patient is able to actively participate with skilled therapy. NOVA DODSON PT Apr 09, 2022 07:30
[2022-04-09] MEDS: lisINopril 40 MG (PRINIVIL) TABLET PO SCH (08:32)
[2022-04-09] MEDS: busPIRone 15 MG (BUSPAR) TABLET PO SCH ×2 (08:32→20:56)
[2022-04-09] MEDS: FUROSEMIDE 40 MG/4 ML INJ (LASIX) IVP SCH (08:32)
[2022-04-09] MEDS: BACLOFEN 10 MG (LIORESAL) TAB PO SCH (08:32)
[2022-04-09] MEDS: amLODIPine 5 MG (NORVASC) TAB PO SCH (08:32)
[2022-04-09] MEDS: DOXYCYCLINE INJECTION 100 MG in NS (IVPB) 100 ML IV SCH (08:32)
[2022-04-09] MEDS: PANTOPRAZOLE 40 MG (PROTONIX) VIAL IV SCH (08:32)
[2022-04-09] MEDS: DULoxetine 30 MG (CYMBALTA) CAP PO SCH (08:32)
[2022-04-09] MEDS: SODIUM CHLORIDE 1 GM TABLET PO SCH ×3 (08:33→20:55)
[2022-04-09] MEDS: ANASTROZOLE 1 MG TAB (ARIMIDEX) PO SCH (08:34)
--- NOTE | 2022-04-09 10:35 | Diagnostic Imaging Report ---
INDICATION: Respiratory failure. Portable chest 3:50 AM There is an ET tube projecting over the trachea. NG tube tip is in the upper mediastinum just beyond the thoracic inlet. There is cardiomegaly with pulmonary vascular congestion. IMPRESSION: Congestive heart failure. NG tube is in the superior mediastinum. Dictated by: Dictated on workstation # [id number]
--- NOTE | 2022-04-09 10:38 | Tele-ICU Progress Note ---
Subjective Date Seen by a Provider: Apr 09, 2022 Subjective/Events-last exam This virtual visit was conducted using real time audio/video. Thank you for asking us to see this patient for respiratory insufficiency due to AECOPD, Covid infection and possible superimposed bacterial pna. PE: VSS. O2 sat 96% on AC20/400/35%/+5. HEENT: No obvious masses, adenopathy or JVD. Chest: coarse breath sounds on auscultation. CV: RRR S1 S2 No murmur or added sounds. Abd: Non-tender. Bowel sounds Y. : Unremarkable. Hughes Y. ART INSTRUCTOR/psychiatric: Grossly intact. No obvious focal findings. Extremities: No edema. Capillary refill < 3 seconds. Skin: unremarkable. Results: Elevated BG 125. Decreased K 3.1. AB.42/47/67 on 35%. CXR: hyperinflated. Available chart/ vitals / labs / images reviewed. Video assessment done using teleICU camera, rest of exam as per RN. A/P: Respiratory insufficiency: Continue present management with vent., Prop., Fent., Prec., duonebs. Hold SBT with marginal oxygenation Critical Care: critically ill patient. Cont. dex., abx, maximilian., SSI, lasix, PPI, Norv., lisin., Ropinirole. Discussed with RN Ainsley. Asked RN to reach out to eICU if any questions or concerns later. Time spent with patient/coordination of care with other health professionals (mins): 25 Sepsis Event Evaluation Height, Weight, BMI Height: '" Weight: lbs. oz. kg; 49.72 BMI Method: Exam Exam Patient acknowledged, consented, and participated in this virtual visit which was conducted using real time audio/video Vital Signs Date Time Temp Pulse Resp B/P (MAP) Pulse Ox O2 Delivery O2 Flow Rate FiO2 04/09/22 09:00 53 26 97 Mechanical Ventilator 35.00 04/09/22 08:51 57 144/57 04/09/22 08:30 97 Mechanical Ventilator 35 04/09/22 08:00 57 26 97 Mechanical Ventilator 35.00 04/09/22 07:50 37.4 04/09/22 07:06 57 20 97 35 04/09/22 07:00 58 25 97 Mechanical Ventilator 35.00 04/09/22 07:00 57 04/09/22 06:00 59 26 97 Mechanical Ventilator 35.00 04/09/22 05:00 60 22 96 Mechanical Ventilator 35.00 04/09/22 04:23 96 Mechanical Ventilator 35 04/09/22 04:00 67 20 98 Mechanical Ventilator 35.00 04/09/22 04:00 37.4 04/09/22 03:27 66 20 95 35 04/09/22 03:00 62 26 98 Mechanical Ventilator 35.00 04/09/22 02:00 63 26 94 Mechanical Ventilator 35.00 04/09/22 01:00 56 20 96 Mechanical Ventilator 35.00 04/09/22 01:00 57 04/09/22 00:00 97 Mechanical Ventilator 35 04/09/22 00:00 56 19 96 Mechanical Ventilator 35.00 04/08/22 23:00 59 20 95 Mechanical Ventilator 35.00 04/08/22 22:33 57 20 95 35 04/08/22 22:00 52 26 96 Mechanical Ventilator 35.00 04/08/22 21:00 56 21 96 Mechanical Ventilator 35.00 04/08/22 20:00 96 Mechanical Ventilator 35 04/08/22 20:00 58 22 94 Mechanical Ventilator 35.00 04/08/22 20:00 37.1 04/08/22 19:42 48 20 97 35 04/08/22 19:00 51 04/08/22 19:00 50 25 97 Mechanical Ventilator 35.00 04/08/22 18:00 54 37 96 Mechanical Ventilator 35.00 04/08/22 17:14 52 169/63 04/08/22 17:00 51 20 97 Mechanical Ventilator 35.00 04/08/22 16:27 37.2 04/08/22 16:00 51 19 97 Mechanical Ventilator 35.00 04/08/22 16:00 95 Mechanical Ventilator 35 04/08/22 15:26 53 20 97 35 04/08/22 15:00 55 20 97 Mechanical Ventilator 35.00 04/08/22 14:00 67 19 94 Mechanical Ventilator 35.00 04/08/22 13:00 61 04/08/22 13:00 59 19 96 Mechanical Ventilator 35.00 04/08/22 12:00 95 Mechanical Ventilator 35 04/08/22 12:00 65 19 96 Mechanical Ventilator 35.00 04/08/22 11:55 36.8 04/08/22 11:04 69 20 95 35 04/08/22 11:00 65 20 95 Mechanical Ventilator 35.00 I & O 04/09/22 07:00 Intake Total 2188 ml Output Total 1900 ml Balance 288 ml Height & Weight Height: '" Weight: lbs. oz. kg; 49.72 BMI Method: General Appearance: No Apparent Distress, Obese Respiratory: Lungs Clear, No Respiratory Distress, Other (intubated and mechani kade ventilated) Cardiovascular: No Murmur, Bradycardia Capillary Refill: Less Than 3 Seconds Gastrointestinal: normal bowel sounds, non tender, soft Extremity: Normal Inspection, No Pedal Edema Neurologic/Psychiatric: Other (sedated) Skin: Normal Color, Warm/Dry Results Lab Laboratory Tests 04/08/22 03:45 04/09/22 04:13 Assessment/Plan Assessment/Plan See free text Critical Care: Ventilator Management ELIAS FLYNN MD Apr 09, 2022 10:38
[2022-04-09 10:40] VITALS: BP 149/62
[2022-04-09] MEDS: MICONAZOLE 2% POWDER (DESENEX AF) 90 GM TOP SCH ×2 (11:17→20:56)
--- NOTE | 2022-04-09 13:18 | Progress Note - Hospitalist ---
Subjective HPI/CC On Admission Date Seen by Provider: Apr 09, 2022 Time Seen by Provider: 10:50 Subjective/Events-last exam She remains intubated and sedated. Objective Exam Vital Signs Vital Signs Date Time Temp Pulse Resp B/P (MAP) Pulse Ox O2 Delivery O2 Flow Rate FiO2 04/09/22 12:00 54 20 97 Mechanical Ventilator 35.00 04/09/22 11:42 37.0 04/09/22 10:40 35 Capillary Refill : Less Than 3 Seconds General Appearance: No Apparent Distress, Obese, Other (intubated and sedated) Respiratory: No Respiratory Distress, Other (intubated and mechanically ventilated) Cardiovascular: Regular Rate, Rhythm, No Murmur Gastrointestinal: Normal Bowel Sounds, Soft Extremity: Normal Inspection, No Pedal Edema Neurologic/Psychiatric: Other (sedated) Skin: Warm/Dry, Pallor Results/Procedures Lab Laboratory Tests 04/09/22 04:13 Patient resulted labs reviewed. Imaging: Reviewed Imaging Report Assessment/Plan Assessment and Plan Assess & Plan/Chief Complaint Acute respiratory failure with hypoxia secondary to COVID-19 and possibly superimposed pneumonia TeleICU following, managing ventilator Failed SBT yesterday Continue steroids MAT protocol Not septic, procalcitonin negative x2, no evidence of bacterial pneumonia Stop antibiotics T2DM Sliding scale insulin HTN Continue current meds DVT prophylaxis: Lovenox Critical Care Critically Ill Patient Diagnosis/Problems Diagnosis/Problems (1) Acute respiratory failure Status: Acute Qualifiers: Respiratory failure complication: hypoxia and hypercapnia Qualified Codes: J96.01 - Acute respiratory failure with hypoxia; J96.02 - Acute respiratory failure with hypercapnia (2) COVID-19 Status: Acute (3) Endotracheally intubated Status: Acute (4) COPD exacerbation Status: Acute (5) Morbid obesity Status: Acute KRISTY RAMOS MD Apr 09, 2022 13:18
[2022-04-09] MEDS: NS IV 1000 ML 1,000 ML IV SCH (13:32)
[2022-04-09] MEDS: hydrALAZINE (APESOLINE) 20 MG/ML VIAL IV SCH ×2 (18:47→22:57)
[2022-04-09 20:10] VITALS: BP 166/63
[2022-04-09] MEDS: rOPINIRole 0.25 MG (REQUIP) TAB PO SCH (20:56)
[2022-04-09] MEDS: DexMEDEtomidine 250 ML DRIP 250 ML IV SCH (22:42)
[2022-04-09 23:00] VITALS: BP 142/54
[2022-04-10 02:44] VITALS: BP 140/55
[2022-04-10] MEDS: RT-ALBUTEROL/IPRATROPIUM 3 ML (DUONEB) VIAL INH SCH ×6 (02:44→23:15)
[2022-04-10 04:03] LABS: ABG OXYGEN SATURATION 95 % (94-100); ABG PCO2 46 MMHG (35-45); ABG PH 7.42 (7.37-7.43); ABG PO2 66 MMHG (79-93); ABG TCO2 30.8 MMOL/L (21.0-31.0)
[2022-04-10 04:04] LABS: ALLENS TEST ARTLINE; INSPIRED O2 35%; PATIENT TEMP 37; VENTILATOR YES
[2022-04-10 04:07] LABS: BASOPHILS % (AUTO) 0 % (0-10); EOSINOPHILS % (AUTO) 1 % (0-10); HEMATOCRIT 36 % (35-52); HEMOGLOBIN 11.5 g/dL (11.5-16.0); LYMPHOCYTES # (AUTO) 1.1 10^3/uL (1.0-4.0); LYMPHOCYTES % (AUTO) 17 % (12-44); MEAN CORPUSCULAR HEMOGLOBIN 29 pg (25-34); MEAN CORPUSCULAR HGB CONC 32 g/dL (32-36); MEAN CORPUSCULAR VOLUME 91 fL (80-99); MEAN PLATELET VOLUME 9.8 fL (9.0-12.2); MONOCYTES # (AUTO) 0.5 10^3/uL (0.0-1.0); MONOCYTES % (AUTO) 7 % (0-12); NEUTROPHILS # (AUTO) 4.9 10^3/uL (1.8-7.8); NEUTROPHILS % (AUTO) 74 % (42-75); PLATELET COUNT 195 10^3/uL (130-400); WHITE BLOOD COUNT 6.7 10^3/uL (4.3-11.0)
[2022-04-10] MEDS: hydrALAZINE (APESOLINE) 20 MG/ML VIAL IV SCH ×6 (04:14→23:58)
[2022-04-10] MEDS: ENOXAPARIN 40 MG/0.4 ML (LOVENOX) SYR SC SCH ×2 (04:15→17:46)
[2022-04-10 04:36] LABS: CALCIUM 8.1 MG/DL (8.5-10.1); CREATININE SERUM 0.56 MG/DL (0.60-1.30); POTASSIUM 3.5 MMOL/L (3.6-5.0)
[2022-04-10] MEDS: NS IV 1000 ML 1,000 ML IV SCH ×2 (04:58→22:02)
[2022-04-10] MEDS: MAGNESIUM 1 GM/100 ML IVPB 100 ML IV SCH (05:08)
[2022-04-10] MEDS: inSUlin ASPART (NovoLOG) 1 UNIT/0.01 ML (CHARGE PER UNIT) SC SCH ×4 (05:08→23:55)
[2022-04-10] MEDS: KCL 20 MEQ TAB (K-DUR) PO SCH (05:08)
[2022-04-10] MEDS: POTASSIUM CL 10MEQ/50ML IVPB 50 ML IV SCH ×3 (05:15→05:53)
[2022-04-10] MEDS: fentaNYL DRIP PRE-MIX 250 ML IV SCH ×3 (05:52→22:13)
[2022-04-10 06:41] VITALS: BP 121/48
[2022-04-10] MEDS: DULoxetine 30 MG (CYMBALTA) CAP PO SCH (08:40)
[2022-04-10] MEDS: DexMEDEtomidine 250 ML DRIP 250 ML IV SCH ×2 (08:40→20:35)
[2022-04-10] MEDS: busPIRone 15 MG (BUSPAR) TABLET PO SCH ×2 (08:41→20:36)
[2022-04-10] MEDS: PANTOPRAZOLE 40 MG (PROTONIX) VIAL IV SCH (08:41)
[2022-04-10] MEDS: lisINopril 40 MG (PRINIVIL) TABLET PO SCH (08:41)
[2022-04-10] MEDS: FUROSEMIDE 40 MG/4 ML INJ (LASIX) IVP SCH (08:41)
[2022-04-10] MEDS: amLODIPine 5 MG (NORVASC) TAB PO SCH (08:41)
[2022-04-10] MEDS: SODIUM CHLORIDE 1 GM TABLET PO SCH ×3 (08:42→20:37)
[2022-04-10] MEDS: BACLOFEN 10 MG (LIORESAL) TAB PO SCH (08:42)
[2022-04-10] MEDS: MICONAZOLE 2% POWDER (DESENEX AF) 90 GM TOP SCH ×2 (08:42→20:37)
[2022-04-10] MEDS: ANASTROZOLE 1 MG TAB (ARIMIDEX) PO SCH (08:45)
--- NOTE | 2022-04-10 08:50 | Diagnostic Imaging Report ---
INDICATION: Ventilator support. TIME OF EXAM: 7:27 AM. COMPARISON: Correlation is made with the prior chest of one day earlier. FINDINGS: The ET tube and NG tube are noted. The NG tube has been advanced and appears to pass below the diaphragm. The heart size is stable. There appears to be some atelectasis or infiltrate in the left base. The right lung appears fairly clear. No significant effusion or pneumothorax is seen. IMPRESSION: The NG tube appears to pass below the diaphragm on today's study. There is some left basilar infiltrate or atelectasis. Dictated by: Dictated on workstation # [id number]
--- NOTE | 2022-04-10 08:52 | Tele-ICU Progress Note ---
Subjective Date Seen by a Provider: Apr 10, 2022 Subjective/Events-last exam Tele-ICU Physician , Progress note) Available chart/ vitals / labs / Images reviewed H&P is from ER notes Patient's information available about PMH, allergy reviewed in EMR. ROS as per chart and RN report Video assessment done using teleICU camera, rest of exam as per RN Discussed with RN. This patient admitted with COPD exacerbation along with COVID19 pneumonia requiring BiPAP ventilation. Currently she is on a Decadron 10 mg every 12 hours DuoNeb nebulizer treatment IV Rocephin. She does have a respiratory acidosis on the blood gas. Urine output is increasing. 04/03/22 Patient is resting in bed this morning with Vapotherm. . Per nursing report the patient has not been tolerating BiPap or vapotherm and continuously pulled them off throughout the night. 04/05/22 . she was intubated on 04/04/22 due to increased WOB. now sedated on Vent 400/45%/20/8 04/06/22 remained intubated, sedated ,not ready for SBT. 04/07/22 remained on vent. sputum c/s grew staph, H. influenza and acenetobacter which were not adequately treated. not ready for SBT. cxr showes jian. pulmonary congestive changes. 04/08/2022 resting comfortably on the vent. sedation vacation given. awaiting her mental status to improve to give trial of sbt. 04/10/2022 she is resting on vent. sedation is with prof 10, fentanyl 150mcg, & precedex 0.7 mcg. Doxycycline dc'd as procal x3 normal. Impression 1. Acute hypoxic and hypercarbic respiratory failure secondary to COPD exacerbation as well as COVID19 pneumonia. Will continue Ventilator support with TV 400, RR20,peep 5, fi02 35% FiO2 and wean FiO2 as tolerated. if we could wean fentanyl below 75 mcg consider SBT today. continue Decadron to 6 mg a day . 2. Hyperglycemia secondary to steroids and underlying type 2 diabetes mellitus.. We will continue ISS. 3. Started already on iv lasix, will give additional dose of lasix. 4. DVT prophylaxis and ulcer prophylaxis. 5. Continue Propafol and fenanyl drip. as mentioned above. Plans in collaboration with bedside consultants and IM MDs. Discussed with the BELLSTAFF, and RT to reach out if any questions or concerns. Sepsis Event Evaluation Height, Weight, BMI Height: '" Weight: lbs. oz. kg; 45.80 BMI Method: Exam Exam Patient acknowledged, consented, and participated in this virtual visit which was conducted using real time audio/video Vital Signs Date Time Temp Pulse Resp B/P (MAP) Pulse Ox O2 Delivery O2 Flow Rate FiO2 04/10/22 08:40 64 140/57 04/10/22 08:00 64 20 94 Mechanical Ventilator 35.00 04/10/22 07:51 37.3 04/10/22 07:00 69 04/10/22 07:00 70 26 94 Mechanical Ventilator 35.00 04/10/22 06:41 63 20 93 35 04/10/22 06:00 57 32 94 Mechanical Ventilator 35.00 04/10/22 05:52 53 140/55 04/10/22 05:00 61 27 95 Mechanical Ventilator 35.00 04/10/22 04:00 53 28 95 Mechanical Ventilator 35.00 04/10/22 04:00 95 Mechanical Ventilator 35 04/10/22 03:40 36.6 04/10/22 03:00 62 26 97 Mechanical Ventilator 35.00 04/10/22 02:57 53 140/55 04/10/22 02:56 53 140/55 04/10/22 02:44 53 20 97 35 04/10/22 02:42 53 140/55 04/10/22 02:00 56 19 97 Mechanical Ventilator 35.00 04/10/22 01:00 60 04/10/22 01:00 55 20 96 Mechanical Ventilator 35.00 04/10/22 00:00 61 20 97 Mechanical Ventilator 35.00 04/10/22 00:00 36.9 04/10/22 00:00 36.9 04/09/22 23:20 96 Mechanical Ventilator 35 04/09/22 23:00 63 20 97 Mechanical Ventilator 35.00 04/09/22 23:00 59 20 96 35 04/09/22 22:57 56 166/63 04/09/22 22:56 56 166/63 04/09/22 22:42 56 166/63 04/09/22 22:00 56 19 97 Mechanical Ventilator 35.00 04/09/22 21:35 56 166/63 04/09/22 21:00 61 20 96 Mechanical Ventilator 35.00 04/09/22 20:21 56 166/63 04/09/22 20:10 56 20 96 35 04/09/22 20:00 96 Mechanical Ventilator 35 04/09/22 20:00 57 20 96 Mechanical Ventilator 35.00 04/09/22 19:54 36.3 04/09/22 19:00 61 19 96 Mechanical Ventilator 35.00 04/09/22 19:00 62 04/09/22 18:00 53 19 96 Mechanical Ventilator 35.00 04/09/22 17:35 55 185/71 04/09/22 17:00 54 20 96 Mechanical Ventilator 35.00 04/09/22 16:30 97 Mechanical Ventilator 35 04/09/22 16:21 57 169/73 04/09/22 16:18 37.4 04/09/22 16:00 55 19 96 Mechanical Ventilator 35.00 04/09/22 15:00 64 22 96 Mechanical Ventilator 35.00 04/09/22 14:56 57 169/73 04/09/22 14:53 55 20 97 35 04/09/22 14:00 53 20 98 Mechanical Ventilator 35.00 04/09/22 13:00 54 04/09/22 13:00 53 20 98 Mechanical Ventilator 35.00 04/09/22 12:51 55 178/69 04/09/22 12:30 97 Mechanical Ventilator 35 04/09/22 12:00 54 20 97 Mechanical Ventilator 35.00 04/09/22 11:42 37.0 04/09/22 11:00 56 26 95 Mechanical Ventilator 35.00 04/09/22 10:56 54 152/62 04/09/22 10:40 56 20 95 35 04/09/22 10:40 56 152/62 04/09/22 10:00 53 26 98 Mechanical Ventilator 35.00 04/09/22 09:00 53 26 97 Mechanical Ventilator 35.00 04/09/22 08:51 57 144/57 I & O 04/10/22 07:00 Intake Total 3080 ml Output Total 2625 ml Balance 455 ml Height & Weight Height: '" Weight: lbs. oz. kg; 45.80 BMI Method: General Appearance: No Apparent Distress, Obese, Other (intubated and sedated) Respiratory: No Respiratory Distress, Other (intubated and mechanically ventilated) Cardiovascular: Regular Rate, Rhythm, No Murmur Capillary Refill: Less Than 3 Seconds Gastrointestinal: normal bowel sounds, non tender, soft Extremity: Normal Inspection, No Pedal Edema Neurologic/Psychiatric: Other (sedated) Skin: Warm/Dry, Pallor Results Lab Laboratory Tests 04/09/22 04:13 04/10/22 03:55 Assessment/Plan Assessment/Plan as above Critical Care: Ventilator Management Time spent with patient (mins): 35 GEOVANNA BERGMAN MD Apr 10, 2022 08:52
[2022-04-10 10:21] VITALS: BP 155/63
[2022-04-10] MEDS: PROPOFOL DRIP (ICU) 100 ML IV SCH ×2 (10:38→22:13)
[2022-04-10 14:18] VITALS: BP 130/52
--- NOTE | 2022-04-10 15:42 | Progress Note - Hospitalist ---
Subjective HPI/CC On Admission Date Seen by Provider: Apr 10, 2022 Time Seen by Provider: 10:40 Subjective/Events-last exam She remains intubated and sedated. Objective Exam Vital Signs Vital Signs Date Time Temp Pulse Resp B/P (MAP) Pulse Ox O2 Delivery O2 Flow Rate FiO2 04/10/22 15:06 66 130/52 04/10/22 15:00 20 96 Mechanical Ventilator 35.00 04/10/22 14:18 35 04/10/22 12:05 37.6 Capillary Refill : Less Than 3 Seconds General Appearance: No Apparent Distress, Obese, Other (intubated and sedated) Respiratory: Lungs Clear, No Respiratory Distress Cardiovascular: Regular Rate, Rhythm, No Murmur Gastrointestinal: Normal Bowel Sounds, Soft Extremity: Normal Inspection, No Pedal Edema Neurologic/Psychiatric: Other (sedated) Skin: Normal Color, Warm/Dry Results/Procedures Lab Laboratory Tests 04/10/22 03:55 Patient resulted labs reviewed. Imaging: Reviewed Imaging Report Assessment/Plan Assessment and Plan Assess & Plan/Chief Complaint Acute respiratory failure with hypoxia secondary to COVID-19 and possibly superimposed pneumonia TeleICU following, managing ventilator Continue steroids MAT protocol Continue tube feeds T2DM Sliding scale insulin HTN Continue current meds Morbid obesity Clinically significant, no acute management needs DVT prophylaxis: Lovenox Critical Care Critically Ill Patient Diagnosis/Problems Diagnosis/Problems (1) Acute respiratory failure Status: Acute Qualifiers: Respiratory failure complication: hypoxia and hypercapnia Qualified Codes: J96.01 - Acute respiratory failure with hypoxia; J96.02 - Acute respiratory failure with hypercapnia (2) COVID-19 Status: Acute (3) Endotracheally intubated Status: Acute (4) COPD exacerbation Status: Acute (5) Morbid obesity Status: Acute KRISTY RAMOS MD Apr 10, 2022 15:42
[2022-04-10 20:14] VITALS: BP 146/62
[2022-04-10] MEDS: rOPINIRole 0.25 MG (REQUIP) TAB PO SCH (20:36)
[2022-04-10 23:07] VITALS: BP 135/54
[2022-04-11 03:05] VITALS: BP 145/56
[2022-04-11] MEDS: RT-ALBUTEROL/IPRATROPIUM 3 ML (DUONEB) VIAL INH SCH ×4 (03:05→13:26)
[2022-04-11] MEDS: hydrALAZINE (APESOLINE) 20 MG/ML VIAL IV SCH ×3 (03:35→11:36)
[2022-04-11 03:59] LABS: ABG BASE EXCESS 4.4 MMOL/L (-2.5-2.5); ABG OXYGEN SATURATION 96 % (94-100); ABG PCO2 50 MMHG (35-45); ABG PH 7.39 (7.37-7.43); ABG PO2 76 MMHG (79-93); ABG TCO2 30.5 MMOL/L (21.0-31.0)
[2022-04-11 04:00] LABS: BASOPHILS % (AUTO) 0 % (0-10); EOSINOPHILS # (AUTO) 0.1 10^3/uL (0.0-0.3); EOSINOPHILS % (AUTO) 1 % (0-10); HEMATOCRIT 35 % (35-52); HEMOGLOBIN 11.3 g/dL (11.5-16.0); LYMPHOCYTES # (AUTO) 1.2 10^3/uL (1.0-4.0); LYMPHOCYTES % (AUTO) 16 % (12-44); MEAN CORPUSCULAR HEMOGLOBIN 30 pg (25-34); MEAN CORPUSCULAR HGB CONC 33 g/dL (32-36); MEAN CORPUSCULAR VOLUME 93 fL (80-99); MEAN PLATELET VOLUME 10.1 fL (9.0-12.2); MONOCYTES # (AUTO) 0.5 10^3/uL (0.0-1.0); MONOCYTES % (AUTO) 6 % (0-12); NEUTROPHILS # (AUTO) 5.7 10^3/uL (1.8-7.8); NEUTROPHILS % (AUTO) 76 % (42-75); PLATELET COUNT 180 10^3/uL (130-400); WHITE BLOOD COUNT 7.6 10^3/uL (4.3-11.0)
[2022-04-11 04:03] LABS: ALLENS TEST ARTLINE; INSPIRED O2 35%; PATIENT TEMP 37.8; VENTILATOR YES
[2022-04-11] MEDS: ENOXAPARIN 40 MG/0.4 ML (LOVENOX) SYR SC SCH ×2 (04:17→17:26)
[2022-04-11 04:23] LABS: CALCIUM 8.1 MG/DL (8.5-10.1); CREATININE SERUM 0.53 MG/DL (0.60-1.30); MAGNESIUM 2.1 MG/DL (1.6-2.4); PHOSPHORUS 2.7 MG/DL (2.3-4.7); POTASSIUM 3.6 MMOL/L (3.6-5.0)
[2022-04-11] MEDS: POTASSIUM CL 10MEQ/50ML IVPB 50 ML IV SCH ×2 (05:11→05:13)
[2022-04-11] MEDS: MAGNESIUM 1 GM/100 ML IVPB 100 ML IV SCH (05:12)
[2022-04-11] MEDS: KCL 20 MEQ TAB (K-DUR) PO SCH (05:12)
[2022-04-11] MEDS: inSUlin ASPART (NovoLOG) 1 UNIT/0.01 ML (CHARGE PER UNIT) SC SCH ×4 (05:12→23:55)
[2022-04-11] MEDS: fentaNYL DRIP PRE-MIX 250 ML IV SCH (05:14)
[2022-04-11 06:49] VITALS: BP 157/57
[2022-04-11] MEDS: DexMEDEtomidine 250 ML DRIP 250 ML IV SCH (08:10)
[2022-04-11] MEDS: lisINopril 40 MG (PRINIVIL) TABLET PO SCH ×2 (08:10→09:03)
[2022-04-11] MEDS: PANTOPRAZOLE 40 MG (PROTONIX) VIAL IV SCH (08:11)
[2022-04-11] MEDS: ANASTROZOLE 1 MG TAB (ARIMIDEX) PO SCH (08:11)
[2022-04-11] MEDS: busPIRone 15 MG (BUSPAR) TABLET PO SCH ×2 (08:11→20:45)
[2022-04-11] MEDS: BACLOFEN 10 MG (LIORESAL) TAB PO SCH (08:11)
[2022-04-11] MEDS: DULoxetine 30 MG (CYMBALTA) CAP PO SCH (08:11)
[2022-04-11] MEDS: FUROSEMIDE 40 MG/4 ML INJ (LASIX) IVP SCH (08:11)
[2022-04-11] MEDS: SODIUM CHLORIDE 1 GM TABLET PO SCH ×3 (08:11→20:45)
[2022-04-11] MEDS: amLODIPine 5 MG (NORVASC) TAB PO SCH ×2 (08:11→09:03)
[2022-04-11] MEDS: MICONAZOLE 2% POWDER (DESENEX AF) 90 GM TOP SCH ×2 (08:12→20:13)
--- NOTE | 2022-04-11 09:09 | Diagnostic Imaging Report ---
INDICATION: Respiratory distress. Study compared 04/10/2022. FINDINGS: ET tube mid thoracic trachea stable. NG catheter tip is below the [id number], does appear to course below the EG junction. Some patchy bibasilar infiltrates as well as diffuse pulmonary opacity having improved. IMPRESSION: Improved basilar lung expansion with reduction in diffuse pulmonary opacity likely reduction in edema and decreased atelectasis. No adverse development. Stable support apparatus where visualized. Dictated by: Dictated on workstation # [id number]
[2022-04-11 10:10] VITALS: BP 118/107
[2022-04-11] MEDS: PROPOFOL DRIP (ICU) 100 ML IV SCH (10:43)
--- NOTE | 2022-04-11 11:07 | Tele-ICU Progress Note ---
Subjective Date Seen by a Provider: Apr 11, 2022 Time Seen by a Provider: 11:01 Subjective/Events-last exam Tele-ICU Physician , Progress note) Available chart/ vitals / labs / Images reviewed H&P is from ER notes Patient's information available about PMH, allergy reviewed in EMR. ROS as per chart and RN report Video assessment done using teleICU camera, rest of exam as per RN Discussed with RN. This patient admitted with COPD exacerbation along with COVID19 pneumonia requiring BiPAP ventilation. Currently she is on a Decadron 10 mg every 12 hours DuoNeb nebulizer treatment IV Rocephin. She does have a respiratory acidosis on the blood gas. Urine output is increasing. 04/03/22 Patient is resting in bed this morning with Vapotherm. . Per nursing report the patient has not been tolerating BiPap or vapotherm and continuously pulled them off throughout the night. 04/05/22 . she was intubated on 04/04/22 due to increased WOB. now sedated on Vent 400/45%/21/1104/06/22 remained intubated, sedated ,not ready for SBT. 04/07/22 remained on vent. sputum c/s grew staph, H. influenza and acenetobacter which were not adequately treated. not ready for SBT. cxr showes jian. pulmonary congestive changes. 04/08/2022 resting comfortably on the vent. sedation vacation given. awaiting her mental status to improve to give trial of sbt. 04/10/2022 she is resting on vent. sedation is with prof 10, fentanyl 150mcg, & precedex 0.7 mcg. Doxycycline dc'd as procal x3 normal. 04/11/2022. she is diuressing. pulmonary congestion improving but not adequate yet. bp stable. Impression 1. Acute hypoxic and hypercarbic respiratory failure secondary to COPD exacerbation as well as COVID19 pneumonia. will give metolazone via ngt and then try on SBT today.. continue Decadron to 6 mg a day . 2. Hyperglycemia secondary to steroids and underlying type 2 diabetes mellitus.. We will continue ISS. 3. Started already on iv lasix, will give additional dose of lasix. 4. DVT prophylaxis and ulcer prophylaxis. 5. Continue to wean Propafol and fenanyl drip as tolerated. Plans in collaboration with bedside consultants and IM MDs. Discussed with the PROTOTYPE FABRICATOR, and RT to reach out if any questions or concerns. Sepsis Event Evaluation Height, Weight, BMI Height: '" Weight: lbs. oz. kg; 45.99 BMI Method: Exam Exam Patient acknowledged, consented, and participated in this virtual visit which was conducted using real time audio/video Vital Signs Date Time Temp Pulse Resp B/P (MAP) Pulse Ox O2 Delivery O2 Flow Rate FiO2 04/11/22 10:46 Arterial Line 04/11/22 10:43 61 118/60 04/11/22 10:10 61 20 96 35 04/11/22 10:00 58 20 96 Mechanical Ventilator 35.00 04/11/22 09:01 62 114/46 04/11/22 09:00 62 19 95 Mechanical Ventilator 35.00 04/11/22 08:10 62 146/53 04/11/22 08:00 67 19 95 Mechanical Ventilator 35.00 04/11/22 08:00 37.3 04/11/22 08:00 97 Mechanical Ventilator 35 04/11/22 07:00 68 04/11/22 07:00 61 20 96 Mechanical Ventilator 35.00 04/11/22 06:49 59 20 97 35 04/11/22 06:00 65 20 97 Mechanical Ventilator 35.00 04/11/22 05:14 65 145/56 04/11/22 05:00 60 20 96 Mechanical Ventilator 35.00 04/11/22 04:00 65 20 95 Mechanical Ventilator 35.00 04/11/22 03:51 97 Mechanical Ventilator 35 04/11/22 03:38 37.8 04/11/22 03:05 56 20 97 35 04/11/22 03:00 56 19 97 Mechanical Ventilator 35.00 04/11/22 02:07 55 135/54 04/11/22 02:07 55 135/54 04/11/22 02:00 54 20 97 Mechanical Ventilator 35.00 04/11/22 01:00 60 04/11/22 01:00 57 20 97 Mechanical Ventilator 35.00 04/11/22 00:14 55 135/54 04/11/22 00:00 57 20 97 Mechanical Ventilator 35.00 04/10/22 23:59 97 Mechanical Ventilator 35 04/10/22 23:53 37.5 1/7/23 23:07 55 20 97 35 04/10/22 23:00 60 20 97 Mechanical Ventilator 35.00 04/10/22 22:13 56 146/62 04/10/22 22:13 56 146/62 04/10/22 22:00 61 20 97 Mechanical Ventilator 35.00 04/10/22 21:00 63 20 97 Mechanical Ventilator 35.00 04/10/22 20:41 37.4 04/10/22 20:35 56 146/62 04/10/22 20:14 56 20 97 35 04/10/22 20:00 52 19 98 Mechanical Ventilator 35.00 04/10/22 20:00 97 Mechanical Ventilator 35 04/10/22 19:06 62 130/52 04/10/22 19:00 52 04/10/22 19:00 50 19 97 Mechanical Ventilator 35.00 04/10/22 18:00 62 19 97 Mechanical Ventilator 35.00 04/10/22 17:00 54 20 97 Mechanical Ventilator 35.00 04/10/22 16:11 37.7 04/10/22 16:00 63 19 97 Mechanical Ventilator 35.00 04/10/22 16:00 94 Mechanical Ventilator 35 04/10/22 15:06 66 130/52 04/10/22 15:00 59 20 96 Mechanical Ventilator 35.00 04/10/22 14:42 66 130/52 04/10/22 14:18 66 27 96 35 04/10/22 14:00 68 19 95 Mechanical Ventilator 35.00 04/10/22 13:08 68 173/74 04/10/22 13:00 60 04/10/22 13:00 58 19 97 Mechanical Ventilator 35.00 04/10/22 12:05 37.6 04/10/22 12:00 60 20 95 Mechanical Ventilator 35.00 04/10/22 12:00 94 Mechanical Ventilator 35 I & O 04/11/22 07:00 Intake Total 2680 ml Output Total 2350 ml Balance 330 ml Height & Weight Height: '" Weight: lbs. oz. kg; 45.99 BMI Method: General Appearance: No Apparent Distress, Obese, Other (intubated and sedated) Respiratory: Lungs Clear, No Respiratory Distress Cardiovascular: Regular Rate, Rhythm, No Murmur Capillary Refill: Less Than 3 Seconds Gastrointestinal: normal bowel sounds, non tender, soft Extremity: Normal Inspection, No Pedal Edema Neurologic/Psychiatric: Other (sedated) Skin: Normal Color, Warm/Dry Results Lab Laboratory Tests 04/10/22 03:55 04/11/22 03:49 Assessment/Plan Assessment/Plan as above Critical Care: Ventilator Management Time spent with patient (mins): 32 GEOVANNA BERGMAN MD Apr 11, 2022 11:07
[2022-04-11] MEDS ORDERED: METOLAZONE 2.5 MG (ZAROXOLYN) TAB NG ONE (12:00)
--- NOTE | 2022-04-11 13:22 | Progress Note - Hospitalist ---
Subjective HPI/CC On Admission Date Seen by Provider: Apr 11, 2022 Time Seen by Provider: 10:45 Subjective/Events-last exam She remains intubated and sedated. Objective Exam Vital Signs Vital Signs Date Time Temp Pulse Resp B/P (MAP) Pulse Ox O2 Delivery O2 Flow Rate FiO2 04/11/22 13:00 55 04/11/22 12:10 135/64 04/11/22 12:00 35.8 04/11/22 12:00 20 97 Mechanical Ventilator 35.00 04/11/22 11:41 35 Capillary Refill : Less Than 3 Seconds General Appearance: No Apparent Distress, Obese, Other (intubated and sedated) Respiratory: Lungs Clear, No Respiratory Distress, Other (intubated and mechanically ventilated) Cardiovascular: Regular Rate, Rhythm, No Murmur Gastrointestinal: Normal Bowel Sounds, Soft Extremity: Normal Inspection, No Pedal Edema Neurologic/Psychiatric: Other (sedated) Skin: Normal Color, Warm/Dry Results/Procedures Lab Laboratory Tests 04/11/22 03:49 Patient resulted labs reviewed. Imaging: Reviewed Imaging Report Assessment/Plan Assessment and Plan Assess & Plan/Chief Complaint Acute respiratory failure with hypoxia secondary to COVID-19 TeleICU following, managing ventilator Continue steroids MAT protocol Continue tube feeds Wean sedation, SBT if able T2DM Sliding scale insulin HTN Continue current meds Morbid obesity Clinically significant, no acute management needs DVT prophylaxis: Lovenox Critical Care Ventilator Management Diagnosis/Problems Diagnosis/Problems (1) Acute respiratory failure Status: Acute Qualifiers: Respiratory failure complication: hypoxia and hypercapnia Qualified Codes: J96.01 - Acute respiratory failure with hypoxia; J96.02 - Acute respiratory failure with hypercapnia (2) COVID-19 Status: Acute (3) Endotracheally intubated Status: Acute (4) COPD exacerbation Status: Acute (5) Morbid obesity Status: Acute KRISTY RAMOS MD Apr 11, 2022 13:22
[2022-04-11 13:26] VITALS: BP 158/75
[2022-04-11 15:06] LABS: ABG BASE EXCESS 5.1 MMOL/L (-2.5-2.5); ABG OXYGEN SATURATION 93 % (94-100); ABG PCO2 45 MMHG (35-45); ABG PH 7.43 (7.37-7.43); ABG PO2 57 MMHG (79-93); ABG TCO2 30.9 MMOL/L (21.0-31.0)
[2022-04-11 15:15] LABS: ALLENS TEST positive; INSPIRED O2 35%
[2022-04-11 15:16] LABS: PATIENT TEMP 37.3; VENTILATOR NO
[2022-04-11] MEDS: RT-ALBUTEROL HFA 8.5 GM INHALER IH SCH ×2 (19:00→22:23)
[2022-04-11] MEDS: rOPINIRole 0.25 MG (REQUIP) TAB PO SCH (20:45)
[2022-04-11] MEDS: NS IV 1000 ML 1,000 ML IV SCH (20:47)
[2022-04-12] MEDS: RT-ALBUTEROL HFA 8.5 GM INHALER IH SCH ×6 (02:25→22:14)
[2022-04-12 05:02] LABS: BASOPHILS % (AUTO) 0 % (0-10); EOSINOPHILS # (AUTO) 0.1 10^3/uL (0.0-0.3); EOSINOPHILS % (AUTO) 1 % (0-10); HEMATOCRIT 35 % (35-52); HEMOGLOBIN 11.2 g/dL (11.5-16.0); LYMPHOCYTES # (AUTO) 0.8 10^3/uL (1.0-4.0); LYMPHOCYTES % (AUTO) 8 % (12-44); MEAN CORPUSCULAR HEMOGLOBIN 30 pg (25-34); MEAN CORPUSCULAR HGB CONC 32 g/dL (32-36); MEAN CORPUSCULAR VOLUME 92 fL (80-99); MEAN PLATELET VOLUME 10.3 fL (9.0-12.2); MONOCYTES # (AUTO) 0.7 10^3/uL (0.0-1.0); MONOCYTES % (AUTO) 7 % (0-12); NEUTROPHILS # (AUTO) 8.4 10^3/uL (1.8-7.8); NEUTROPHILS % (AUTO) 83 % (42-75); PLATELET COUNT 191 10^3/uL (130-400); WHITE BLOOD COUNT 10.1 10^3/uL (4.3-11.0)
[2022-04-12 05:19] LABS: CALCIUM 8.5 MG/DL (8.5-10.1); CREATININE SERUM 0.52 MG/DL (0.60-1.30); POTASSIUM 3.1 MMOL/L (3.6-5.0)
[2022-04-12] MEDS: MAGNESIUM 1 GM/100 ML IVPB 100 ML IV SCH (05:33)
[2022-04-12] MEDS: KCL 20 MEQ TAB (K-DUR) PO SCH (05:33)
[2022-04-12] MEDS: inSUlin ASPART (NovoLOG) 1 UNIT/0.01 ML (CHARGE PER UNIT) SC SCH ×3 (05:33→18:25)
[2022-04-12] MEDS: ENOXAPARIN 40 MG/0.4 ML (LOVENOX) SYR SC SCH ×2 (06:23→16:30)
[2022-04-12] MEDS: POTASSIUM CL 10MEQ/50ML IVPB 50 ML IV SCH ×5 (06:30→10:22)
--- NOTE | 2022-04-12 07:37 | Physical Therapy Progress Note ---
Therapy Progress Note Patient extubated 04/11/22. PT will require new orders when patient is deemed medically stable and able to actively participate with skilled therapy. NOVA DODSON PT Apr 12, 2022 07:37
--- NOTE | 2022-04-12 08:18 | Occ Therapy Progress Note ---
Therapy Progress Note Pt. has been extubated. Will await new therapy orders when medically stable to evaluate pt. Hold until OT has new orders. [id number] BRYCE SANDERSON OT Apr 12, 2022 08:18
--- NOTE | 2022-04-12 08:53 | Diagnostic Imaging Report ---
Indication: Respiratory distress Frontal chest obtained at 4:41 a.m. compared to yesterday. There is cardiomegaly. Patient has been extubated compared to the prior study and the NG tube removed. There is poor inspiration with some bibasilar atelectasis. There is some infiltrate in the right upper lobe. There is no pneumothorax or gross pleural fluid. Impression: Status post extubation. Mild right upper lobe infiltrate and bibasilar atelectasis. No pneumothorax or gross pleural fluid. Dictated by: Dictated on workstation # [id number]
--- NOTE | 2022-04-12 09:01 | Progress Note - Hospitalist ---
Subjective HPI/CC On Admission Date Seen by Provider: Apr 12, 2022 Subjective/Events-last exam Pt extubated yesterday. Doing well. Asking to go outside. Discussed how she is still in the ICU and needs to remain here. Rn requests speech therapy evaluation prior to starting diet. Objective Exam Vital Signs Vital Signs Date Time Temp Pulse Resp B/P (MAP) Pulse Ox O2 Delivery O2 Flow Rate FiO2 04/12/22 08:00 89 29 150/97 (114) High Flow N/C 3.00 04/12/22 07:59 36.5 04/12/22 07:26 97 04/11/22 16:00 35 Capillary Refill : Less Than 3 Seconds General Appearance: No Apparent Distress Results/Procedures Lab Laboratory Tests 04/12/22 04:44 Patient resulted labs reviewed. Imaging: Reviewed Imaging Report Assessment/Plan Assessment and Plan Assess & Plan/Chief Complaint Acute respiratory failure with hypoxia secondary to COVID-19 Continue steroids MAT protocol Extuabted 04/11 TeleICU consulted, appreciate recs Speech therapy consult T2DM Sliding scale insulin BS well controlled HTN Continue current meds Morbid obesity Clinically significant, no acute management needs DVT prophylaxis: Lovenox Critical Care Ventilator Management Clinical Quality Measures Admission Status Admission Dx Patient is a 66-year-old female with past medical history of COPD who presented to the emergency department due to respiratory distress secondary to COVID. She had already been treated with Paxlovid, steriods, and antibiotics in the alf but continued to progress. She is normally on 2 L of oxygen due to her COPD but had to be increased to 4 L and was still hypoxic. In the ER she was quite tachypneic and had increased work of breathing so was placed on BiPAP. She was admitted here to the ICU for this. This morning she reports reports feeling a little bit better and would like to trial off of BiPAP so that she can eat. She has no other complaints at this time. BP is trending up slightly so will restarted her Norvasc. Continue on steroids. TeleICU consulted, appreciate recs. BERNA SANDHU MD Apr 12, 2022 09:01
--- NOTE | 2022-04-12 09:23 | ST Dysphagia Evaluation ---
Speech Evaluation-General Medical Diagnosis Respiratory Failure/Covid Onset Date: Apr 01, 2022 Therapy Diagnosis Therapy Diagnosis: Suspected Oropharyngeal Dysphagia Precautions Precautions: Fall, Pressure Ulcer, Aspiration Precautions/Isolations: Airborne Isolation, Fall Prevention, Pressure Ulcer Referral Referring Physician: Dr. Saldivar Reason for Referral: Evaluation/Treatment Medical History Pertinent Medical History: COPD, HTN, Smoking Reviewed History: Yes Speech PLF/Current-Dysphagia Prior Level of Function The patient was unable to provide the clinician with prior level of function information due to her current cognitive functioning. Subjective The patient was seated upright in her bed, eyes opened, upon entrance to her room by the clinician. The patient did not respond verbally to the clinician's greeting, however, did make eye contact and follow the clinician throughout the room with her eye gaze. Cognitive Status Patient Orientation: Person, Confused Oral Motor Skills Dentition: Natural (Sparse, poor condition.) Ability to Follow Directions: Fair Oral Expression Ability: Moderate Impairment (Moderate to severe.) Voice Voice Phonatory-Based Quality: Breathy, Weak Face Facial Symmetry: Symmetrical Oral-Facial Assessment Oral-Facial Dentition: Normal Labial Seal Description: Weak Smile: Reduced ROM Puff Cheeks: Reduced Strength Lingual Protrusion: Normal Lingual ROM: Normal Lingual Strength: Abnormal Volitional Dry Swallow: Yes Voluntary Cough: No Can Clear Throat Volitionally: No Productive Cough: Yes Productive Throat Clear: Yes Dysphagia Evaluation Consistencies Presented: Thin Liquid, Moro Thick Liquid, Pureed The patient was able to draw material appropriately from a teaspoon and a straw. Intermittent oral holding was displayed with all consistencies which appeared secondary to fatigue. The patient would elicit posterior transfer of the ma terial with a verbal prompt from the clinician. Laryngeal elevation was present to palpation. A suspected delay was present to t he pharyngeal swallow. The patient displayed a delayed cough following trials of thin liquid. The patient does not display overt s/s of suspected aspiration with puree. While overt s/s of suspected aspiration were not present with nectar-thick liquids, the patient's respirations appeared to become labored and effortful. Following a period of rest, the patient's respirations returned to baseline. Recommendations: - The patient should remain N.P.O. at this time. - Frequent and excellent oral care to reduce the transfer of oral bacteria to the lungs should aspiration of secretions occur. - Ice chips, sparingly, for oral comfort and oropharyngeal swallowing rehabilitation following excellent oral care. - Essential medication may be crushed and placed in puree for administration (if necessary). - Speech pathology to re-assess the oropharyngeal swallowing function on the subsequent treatment date. The results and recommendations were discussed with the patient and the patient's RN immediately following completion of the study. Dysphagia Evaluation Summary The patient demonstrated suspected oropharyngeal dysphagia characterized by poor airway protection in the presence of bolus material. Additionally, the patient demonstrated an increased risk for aspiration at this time secondary to the increased respiratory effort displayed towards completion of the evaluation. Speech Short Term Goals Short Term Goals Short Term Goals 1. The patient will tolerate trials of the least restrictive diet consistency without s/s of suspected aspiration. Time Frame-STG: Three Days. Speech Half-Way Goals Half-Way Goals 1. The patient will tolerate the least restrictive diet consistency without s/s of suspected aspiration. Speech-Plan Treatment Plan Speech Therapy Treatment Plan: Continue Plan of Care Treatment Duration: Apr 23, 2022 Frequency: 4 times per week Estimated Hrs Per Day: .25 hour per day Rehab Potential: Guarded Safety Risks/Education Teaching Recipient: Patient Teaching Methods: Discussion Response to Teaching: Unable to Comprehend, Reinforcement Needed Education Topics Provided: Results, Recommendations, Plan of Care Time Speech Therapy Time In: 08:40 Speech Therapy Time Out: 08:56 DATE: Apr 12, 2022 Total Billed Time: 16 Billed Treatment Time 1, SHE ARAMBULA [facility] Apr 12, 2022 09:23
--- NOTE | 2022-04-12 09:24 | ST Cognitive Linguistic Eval ---
Speech Evaluation-General Medical Diagnosis Respiratory Failure/Covid Onset Date: Apr 01, 2022 Therapy Diagnosis Therapy Diagnosis: Declined Mentation/Cognitive Impairment (Moderate) Referral Referring Physician: Dr. Saldivar Reason for Referral: Evaluation/Treatment Medical History Pertinent Medical History: COPD, HTN, Smoking Reviewed History: Yes Speech PLF-Current Status Prior Level of Function The patient was unable to provide the clinician with prior level of function information. Subjective The patient was seated upright in bed, eyes opened, upon entrance to her room by the clinician. The patient does not respond to a verbal greeting, however, does make eye contact and track the patient as she moves around the bed. The patient was agreeable to participation in the cognitive linguistic assessment. Language Eval: Auditory Follows 1-Step Commands: Moderate (The patient intermittently followed simple one step commands with prolonged processing time and direct modeling.) The patient intermittently responded to simple yes and no questions asked by the clinician. The yes and no responses provided were accurate. The patient does not attempt to name familiar ADL items. Language Eval: Verbal Language The patient does not attempt expressive speech throughout the assessment. The patient does not gesture or request items verbally from the clinician. Cognitive Patient Orientation The patient was oriented to first name, only. The patient was not oriented to month, day of the week, or year regardless of maximum cueing (field of two, yes and no responses). Objective Cognitive Domain Attention: Moderate Composite Severity Rating: Moderate (Moderate to severe.) Objective Impression At this time, the patient displays increased fatigue and suspected confusion. A reliable cognitive evaluation could not be completed due to the level of confusion, however, the patient will continued to be monitored and re-assessed as the patient is appropriate. Speech Short Term Goals Short Term Goals Short Term Goals 1. The patient will display 80% accuracy with orientation information, independently. Time Frame-STG: Three Days. 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 The patient will display improved cognitive linguistic skills for safe discharge to the least restrictive environment. Time Frame: Ten Days. Speech-Plan Treatment Plan Speech Therapy Treatment Plan: Continue Plan of Care Treatment Duration: Apr 23, 2022 Frequency: 4 times per week Estimated Hrs Per Day: .25 hour per day Rehab Potential: Guarded Safety Risks/Education Teaching Recipient: Patient Teaching Methods: Discussion Response to Teaching: Reinforcement Needed Education Topics Provided: Results, Recommendations, Plan of Care, Orientation Strategies Time Speech Therapy Time In: 08:56 Speech Therapy Time Out: 09:12 DATE: Apr 12, 2022 Total Billed Time: 16 Billed Treatment Time 1, JOSE BULL [facility] Apr 12, 2022 09:24
[2022-04-12] MEDS: FUROSEMIDE 40 MG/4 ML INJ (LASIX) IVP SCH (09:52)
[2022-04-12] MEDS: PANTOPRAZOLE 40 MG (PROTONIX) VIAL IV SCH (09:52)
[2022-04-12] MEDS: BACLOFEN 10 MG (LIORESAL) TAB PO SCH (09:53)
[2022-04-12] MEDS: amLODIPine 5 MG (NORVASC) TAB PO SCH (09:53)
[2022-04-12] MEDS: DULoxetine 30 MG (CYMBALTA) CAP PO SCH (09:53)
[2022-04-12] MEDS: busPIRone 15 MG (BUSPAR) TABLET PO SCH ×2 (09:53→20:38)
[2022-04-12] MEDS: lisINopril 40 MG (PRINIVIL) TABLET PO SCH (09:53)
[2022-04-12] MEDS: SODIUM CHLORIDE 1 GM TABLET PO SCH ×3 (09:54→20:38)
[2022-04-12] MEDS: ANASTROZOLE 1 MG TAB (ARIMIDEX) PO SCH (09:54)
[2022-04-12] MEDS: MICONAZOLE 2% POWDER (DESENEX AF) 90 GM TOP SCH ×2 (09:55→20:34)
--- NOTE | 2022-04-12 11:12 | Tele-ICU Progress Note ---
Subjective Date Seen by a Provider: Apr 12, 2022 Time Seen by a Provider: 11:12 Subjective/Events-last exam Tele-ICU Physician , consultation as per request of PCP Service provided via interactive audio and video telecommunications E-CARE system to a patient admitted to ICU bed in [facility]. Available chart/ vitals / labs / Images reviewed H&P is from ER notes Patient's information available about PMH, Shx, Fhx allergy reviewed inEMR. ROS as per chart and RN report Now in ICU, hemodynamically stable Video assessment done using teleICU camera, rest of exam as per RN Discussed with RN. Consultants: Hospital course: (04/01) 66F Admitted for COVID PNA/COPD exacerbation. Bipap (04/04) Increased work of breathing. Bacteremia. H. influenza in sputum. INTUBATED @ 1355 (04/11) EXTUBATED A/P Acute hypoxic and hypercarbic respiratory failure secondary to COPD exacerbation as well as COVID19 pneumonia. -(04/11) EXTUBATED, on 3 L COVID19 pneumonia. continue Decadron to 6 mg a day - finished ABX course Hyperglycemia secondary to steroids and underlying type 2 diabetes mellitus -continue ISS to do swallow eval today Lines : midline left , (Central Line Necessity Reviewed) Hughes: + OG: Nutrition: to do swallow eval today Analgesia: Anxiety/ delirium VTE Prophylaxis: maximilian Stress Ulcer Prophylaxis: ppi Plans in collaboration with bedside consultants and IM MDs. Discussed with RN to reach out if any questions or concerns A total of 31 minutes of critical care time was devoted to this patient today, required to treat and/or prevent further deterioration of critical care condition ( as above ) . I am remotely monitoring this patient from another state. I am unable to do the bedside exam, and history/physical and pertinent information is taken from other notes in the computer and bedside staff. . Sepsis Event Evaluation Height, Weight, BMI Height: '" Weight: lbs. oz. kg; 45.99 BMI Method: Exam Exam Patient acknowledged, consented, and participated in this virtual visit which was conducted using real time audio/video Vital Signs Date Time Temp Pulse Resp B/P (MAP) Pulse Ox O2 Delivery O2 Flow Rate FiO2 04/12/22 10:50 High Flow N/C 2.00 04/12/22 10:47 97 High Flow N/C 2.00 04/12/22 10:00 92 37 162/83 (109) High Flow N/C 3.00 04/12/22 09:00 85 34 138/61 (86) High Flow N/C 3.00 04/12/22 08:00 89 29 150/97 (114) High Flow N/C 3.00 04/12/22 07:59 36.5 04/12/22 07:26 97 High Flow N/C 3.00 04/12/22 07:00 90 21 160/77 (104) 97 High Flow N/C 3.00 04/12/22 07:00 90 04/12/22 06:19 87 23 164/74 (104) 98 High Flow N/C 3.00 04/12/22 05:00 92 13 158/86 (110) 96 High Flow N/C 3.00 04/12/22 04:16 37.3 04/12/22 04:00 96 High Flow N/C 3.00 04/12/22 04:00 102 11 150/78 (102) 96 High Flow N/C 3.00 04/12/22 03:00 107 26 164/76 (105) 93 High Flow N/C 3.00 04/12/22 02:25 97 High Flow N/C 3.00 04/12/22 02:00 105 21 154/81 (105) 97 High Flow N/C 3.00 04/12/22 01:00 111 04/12/22 01:00 111 12 156/86 (109) 95 High Flow N/C 3.00 04/12/22 00:02 36.9 105 20 163/70 (101) 96 High Flow N/C 3.00 04/12/22 00:00 96 High Flow N/C 3.00 04/11/22 23:30 102 24 159/83 (108) 96 High Flow N/C 3.00 04/11/22 23:00 108 18 171/84 (113) 94 High Flow N/C 3.00 04/11/22 22:24 97 High Flow N/C 3.00 04/11/22 22:00 94 19 156/77 (103) 96 High Flow N/C 3.00 04/11/22 21:00 96 13 146/77 (100) 95 High Flow N/C 3.00 04/11/22 20:13 37.0 87 20 143/72 (95) 96 High Flow N/C 3.00 04/11/22 20:00 96 High Flow N/C 3.00 04/11/22 20:00 36.9 04/11/22 19:00 97 04/11/22 19:00 97 High Flow N/C 3.00 04/11/22 19:00 97 18 145/76 (99) 98 High Flow N/C 3.00 04/11/22 18:00 80 19 130/68 (88) 98 Nasal Cannula 6.00 04/11/22 17:00 89 13 153/64 (93) 97 Nasal Cannula 6.00 04/11/22 16:28 Nasal Cannula 6.00 04/11/22 16:20 98 28 97 04/11/22 16:00 96 Mechanical Ventilator 35 04/11/22 16:00 92 25 136/59 (84) 94 Mechanical Ventilator 35.00 04/11/22 15:01 86 110/46 04/11/22 15:00 71 22 133/51 (78) 94 Mechanical Ventilator 35.00 04/11/22 14:00 86 29 110/46 (67) 90 Mechanical Ventilator 35.00 04/11/22 13:26 85 29 96 35 04/11/22 13:00 74 19 159/74 (102) 97 Mechanical Ventilator 35.00 04/11/22 13:00 55 04/11/22 12:10 58 135/64 04/11/22 12:00 35.8 04/11/22 12:00 58 20 135/64 (87) 97 Mechanical Ventilator 35.00 04/11/22 11:41 94 Mechanical Ventilator 35 I & O 04/12/22 07:00 Intake Total 1025 ml Output Total 3475 ml Balance -2450 ml Height & Weight Height: '" Weight: lbs. oz. kg; 45.99 BMI Method: General Appearance: No Apparent Distress Respiratory: Lungs Clear, No Respiratory Distress, Other (intubated and mechanically ventilated) Cardiovascular: Regular Rate, Rhythm, No Murmur Capillary Refill: Less Than 3 Seconds Gastrointestinal: normal bowel sounds, non tender, soft Extremity: Normal Inspection, No Pedal Edema Neurologic/Psychiatric: Other (sedated) Skin: Normal Color, Warm/Dry Results Lab Laboratory Tests 04/11/22 03:49 04/12/22 04:44 Assessment/Plan Assessment/Plan 1 BRAEDEN WALKER MD Apr 12, 2022 11:12
[2022-04-12] MEDS: DexMEDEtomidine 250 ML DRIP 250 ML IV SCH (18:25)
[2022-04-12 18:50] VITALS: BP 107/59
[2022-04-12] MEDS: rOPINIRole 0.25 MG (REQUIP) TAB PO SCH (20:38)
[2022-04-12] MEDS: NS IV 1000 ML 1,000 ML IV SCH ×2 (22:09→22:21)
[2022-04-12 22:14] VITALS: BP 121/71
[2022-04-13] MEDS: inSUlin ASPART (NovoLOG) 1 UNIT/0.01 ML (CHARGE PER UNIT) SC SCH ×4 (00:30→21:00)
[2022-04-13] MEDS: RT-ALBUTEROL HFA 8.5 GM INHALER IH SCH ×6 (02:13→22:23)
[2022-04-13] MEDS: ENOXAPARIN 40 MG/0.4 ML (LOVENOX) SYR SC SCH ×2 (05:03→16:14)
--- NOTE | 2022-04-13 07:31 | Physical Therapy Progress Note ---
Therapy Progress Note Patient extubated 04/11/22. PT will require new orders when patient is deemed medically stable and able to actively participate with skilled therapy. NOVA DODSON PT Apr 13, 2022 07:31
[2022-04-13] MEDS: PANTOPRAZOLE 40 MG (PROTONIX) VIAL IV SCH (08:38)
[2022-04-13 09:16] VITALS: BP 133/68
--- NOTE | 2022-04-13 09:38 | Progress Note - Hospitalist ---
Subjective HPI/CC On Admission Date Seen by Provider: Apr 13, 2022 Subjective/Events-last exam Pt much more alert today. States she is breathing better and feeling better. Requesting a diet coke. No other complaints. Was on BiPAP in the afternoon but now back to [place]. Objective Exam Vital Signs Vital Signs Date Time Temp Pulse Resp B/P (MAP) Pulse Ox O2 Delivery O2 Flow Rate FiO2 04/13/22 09:16 36.2 61 96 28 04/13/22 07:06 High Flow N/C 2.00 04/13/22 06:00 20 133/68 (89) Capillary Refill : Less Than 3 Seconds General Appearance: No Apparent Distress, Chronically ill, Obese Respiratory: Lungs Clear, No Respiratory Distress Cardiovascular: Regular Rate, Rhythm, No Murmur Neurologic/Psychiatric: Alert, Oriented x3 Results/Procedures Lab Patient resulted labs reviewed. Imaging: Reviewed Imaging Report Assessment/Plan Assessment and Plan Assess & Plan/Chief Complaint Acute respiratory failure with hypoxia secondary to COVID-19 Continue steroids MAT protocol Extubated 04/11 TeleICU consulted, appreciate recs Speech therapy consult- NPO at this time, with improving mentation hopefully can advance today T2DM Sliding scale insulin BS well controlled HTN Continue current meds Morbid obesity Clinically significant, no acute management needs DVT prophylaxis: Lovenox Critical Care Ventilator Management Clinical Quality Measures Admission Status Admission Dx Patient is a 66-year-old female with past medical history of COPD who presented to the emergency department due to respiratory distress secondary to COVID. She had already been treated with Paxlovid, steriods, and antibiotics in the [facility] but continued to progress. She is normally on 2 L of oxygen due to her COPD but had to be increased to 4 L and was still hypoxic. In the ER she was quite tachypneic and had increased work of breathing so was placed on BiPAP. She was admitted here to the ICU for this. This morning she reports reports feeling a little bit better and would like to trial off of BiPAP so that she can eat. She has no other complaints at this time. BP is trending up slightly so will restarted her Norvasc. Continue on steroids. TeleICU consulted, appreciate recs. BERNA SANDHU MD Apr 13, 2022 09:38
--- NOTE | 2022-04-13 09:52 | Tele-ICU Progress Note ---
Subjective Date Seen by a Provider: Apr 13, 2022 Time Seen by a Provider: 09:51 Subjective/Events-last exam (Tele-ICU Physician , Progress Note ) Service provided via interactive audio and video telecommunications E-CARE system to a patient admitted to ICU bed in [facility]. Patient is seen today due to persistent need of ICU care Available chart/ vitals / labs / Images reviewed Video assessment done using teleICU camera, rest of exam as per RN Discussed with RN Events overnight : Afebrile hemodynamically stable Respiratory - 2l I/O = nwg 4L Drips: Pressors- no Consultants: Hospital course: Consultants: Hospital course: (04/01) 66F Admitted for COVID PNA/COPD exacerbation. Bipap (04/04) Increased work of breathing. Bacteremia. H. influenza in sputum. INTUBATED @ 1355 (04/11) EXTUBATED 04/12 - PRN BIPAP for WOB A/P Acute hypoxic and hypercarbic respiratory failure secondary to COPD exacerbation as well as COVID19 pneumonia. -(04/11) EXTUBATED, on 3 L 04/12 - PRN BIPAP for WOB - this am on 2 l - doing well COVID19 pneumonia. continue Decadron to 6 mg a day - finished ABX course Hyperglycemia secondary to steroids and underlying type 2 diabetes mellitus -continue ISS to do swallow eval today - Lines : midline left , (Central Line Necessity Reviewed) Hughes: + OG: Nutrition: to do swallow eval today Analgesia: Anxiety/ delirium VTE Prophylaxis: maximilian Stress Ulcer Prophylaxis: ppi Plans in collaboration with bedside consultants and IM MDs. Discussed with RN to reach out if any questions or concerns A total of 20 minutes of critical care time was devoted to this patient today, required to treat and/or prevent further deterioration of critical care condition ( as above ) . I am remotely monitoring this patient from another state. I am unable to do the bedside exam, and history/physical and pertinent information is taken from other notes in the computer and bedside staff. . Sepsis Event Evaluation Height, Weight, BMI Height: '" Weight: lbs. oz. kg; 45.99 BMI Method: Exam Exam Patient acknowledged, consented, and participated in this virtual visit which was conducted using real time audio/video Vital Signs Date Time Temp Pulse Resp B/P (MAP) Pulse Ox O2 Delivery O2 Flow Rate FiO2 04/13/22 09:16 36.2 61 96 28 04/13/22 08:00 36.2 04/13/22 07:06 High Flow N/C 2.00 04/13/22 07:06 88 Room Air 0.00 04/13/22 06:52 64 04/13/22 06:49 94 Room Air 0.00 04/13/22 06:44 96 High Flow N/C 2.00 04/13/22 06:00 53 20 133/68 (89) 96 Nasal Cannula 3.00 04/13/22 05:00 59 22 140/68 (92) 90 Nasal Cannula 3.00 04/13/22 04:25 127 04/13/22 04:08 36.0 04/13/22 04:00 53 22 137/71 (93) 96 Nasal Cannula 3.00 04/13/22 04:00 96 High Flow N/C 3.00 04/13/22 03:00 51 20 140/76 (97) 95 Nasal Cannula 3.00 04/13/22 02:18 95 Nasal Cannula 3.00 04/13/22 02:13 99 High Flow N/C 3.00 04/13/22 02:00 51 22 134/71 (92) 98 NIV Bilevel 40.00 04/13/22 01:00 55 04/13/22 01:00 60 18 138/73 (94) 98 NIV Bilevel 40.00 04/13/22 00:00 53 23 125/63 (83) 96 NIV Bilevel 40.00 04/13/22 00:00 96 NIV Bilevel 40 04/13/22 00:00 36.2 04/12/22 23:00 56 22 120/66 (84) 95 NIV Bilevel 40.00 04/12/22 22:20 56 112/68 04/12/22 22:14 57 21 98 40.00 04/12/22 22:00 56 21 112/68 (83) 99 NIV Bilevel 40.00 04/12/22 21:00 56 21 131/66 (87) 100 NIV Bilevel 40.00 04/12/22 20:33 36.1 58 20 114/65 (81) 99 NIV Bilevel 40.00 04/12/22 20:00 100 NIV Bilevel 40 04/12/22 19:00 59 04/12/22 19:00 59 20 112/62 (79) 97 NIV Bilevel 65.00 04/12/22 18:50 58 19 100 65.00 04/12/22 18:25 68 105/62 04/12/22 18:00 55 19 133/68 (89) 100 NIV Bilevel 65.00 04/12/22 17:00 60 19 130/70 (90) 100 NIV Bilevel 65.00 04/12/22 16:00 58 19 128/66 (86) 100 NIV Bilevel 65.00 04/12/22 16:00 35.7 NIV Bilevel 65.00 04/12/22 16:00 98 NIV Bilevel 65 04/12/22 15:00 65 17 158/94 (115) 100 High Flow N/C 2.00 04/12/22 14:00 69 18 148/74 (98) 100 High Flow N/C 2.00 04/12/22 13:07 87 04/12/22 13:00 84 25 161/90 (113) 94 High Flow N/C 2.00 04/12/22 12:30 93 65.00 04/12/22 12:00 36.0 04/12/22 12:00 90 High Flow N/C 2.00 04/12/22 12:00 90 14 167/75 (105) 89 High Flow N/C 2.00 04/12/22 11:00 96 37 149/70 (96) 93 High Flow N/C 2.00 04/12/22 10:50 High Flow N/C 2.00 04/12/22 10:47 97 High Flow N/C 2.00 04/12/22 10:00 92 37 162/83 (109) High Flow N/C 3.00 I & O 04/13/22 07:00 Intake Total 215 ml Output Total 3380 ml Balance -3165 ml Height & Weight Height: '" Weight: lbs. oz. kg; 45.99 BMI Method: General Appearance: No Apparent Distress, Chronically ill, Obese Respiratory: Lungs Clear, No Respiratory Distress Cardiovascular: Regular Rate, Rhythm, No Murmur Capillary Refill: Less Than 3 Seconds Gastrointestinal: normal bowel sounds, non tender, soft Extremity: Normal Inspection, No Pedal Edema Neurologic/Psychiatric: Alert, Oriented x3 Skin: Normal Color, Warm/Dry Results Lab Laboratory Tests 04/12/22 04:44 Assessment/Plan Assessment/Plan 1 BRAEDEN WALKER MD Apr 13, 2022 09:52
[2022-04-13] MEDS: DULoxetine 30 MG (CYMBALTA) CAP PO SCH (10:33)
[2022-04-13] MEDS: amLODIPine 5 MG (NORVASC) TAB PO SCH (10:33)
[2022-04-13] MEDS: busPIRone 15 MG (BUSPAR) TABLET PO SCH ×2 (10:33→20:27)
[2022-04-13] MEDS: BACLOFEN 10 MG (LIORESAL) TAB PO SCH (10:34)
[2022-04-13] MEDS: lisINopril 40 MG (PRINIVIL) TABLET PO SCH (10:34)
[2022-04-13] MEDS: FUROSEMIDE 40 MG/4 ML INJ (LASIX) IVP SCH (10:34)
[2022-04-13] MEDS: ANASTROZOLE 1 MG TAB (ARIMIDEX) PO SCH (10:34)
[2022-04-13] MEDS: SODIUM CHLORIDE 1 GM TABLET PO SCH ×3 (10:35→20:27)
[2022-04-13] MEDS: MICONAZOLE 2% POWDER (DESENEX AF) 90 GM TOP SCH ×2 (10:35→20:28)
[2022-04-13] MEDS: NS IV 1000 ML 1,000 ML IV SCH ×2 (11:12→22:09)
[2022-04-13] MEDS: KCL 20 MEQ TAB (K-DUR) PO SCH (11:13)
[2022-04-13] MEDS: POTASSIUM CL 10MEQ/50ML IVPB 50 ML IV SCH (11:13)
[2022-04-13] MEDS: MAGNESIUM 1 GM/100 ML IVPB 100 ML IV SCH (11:13)
--- NOTE | 2022-04-13 11:55 | Physical Therapy Evaluation ---
PT Evaluation-General Medical Diagnosis Admission Date Apr 01, 2022 at 16:22 Medical Diagnosis: Respiratory Failure/Covid Onset Date: Apr 01, 2022 Therapy Diagnosis Therapy Diagnosis: generalized weakness/debility Precautions Precautions/Isolations: Airborne Isolation, Aspiration, Fall Prevention, Pressure Ulcer Referral Physician: Yariel Reason for Referral: Evaluation/Treatment Medical History Pertinent Medical History: COPD, HTN, Smoking Additional Medical History morbid obesity/non ambulatory PLOF/w/c bound an sleeps in a recliner Current History recently intubated for several days, currently extubated. Reviewed History: Yes Social History Home: Halfway Prior Prior Level of Function SCALE: Activities may be completed with or without assistive devices. 2-Blpeytbynj-ihgfvzm completes the activity by him/herself with no assistance from a helper. 5-Set-up or Clean-up Assistance-helper sets up or cleans up; patient completes activity. [place] assists only prior to or following the activity. 4-Supervision or Touching Assistance-helper provides verbal cues and/or touching/steadying and/or contact guard assistance as patient completes activity. Assistance may be provided throughout the activity or intermittently. 3-Partial/Moderate Assistance-helper does LESS THAN HALF the effort. [place] lifts, holds or supports trunk or limbs, but provides less than half the effort. 2-Substantial/Maximal Assistance-helper does MORE THAN HALF the effort. [place] lifts or holds trunk or limbs and provides more than half the effort. 8-Fkwunhqbn-tkadrk does ALL the effort. Patient does none of the effort to complete the activity. Or, the assistance of 2 or more helpers is required for the patient to complete the activity. If activity was not attempted, code reason: 7-Patient Refused. 9-Not Applicable-not attempted and the patient did not perform the activity before the current illness, exacerbation or injury. 10-Not Attempted due to Environmental Limitations-(lack of equipment, weather restraints, etc.). 88-Not Attempted due to Medical Conditions or Safety Concerns. Transfers (B,C,W/C): 2 Gait: 9 Stairs: 9 Wheelchair Mobility: 2 Indoor Mobility (Ambulation): Not Applicalbe Stairs: Not Applicalbe Prior Devices Use: Manual wheelchair PT Evaluation-Current Subjective Patient agrees to PT. Objective Patient Orientation: Person, Time ROM/Strength ROM Lower Extremities bilateral LE WFL Strength Lower Extremities 1/5 grossly bilateral LE all planes Integumentary/Posture Bladder Incontinence: Hughes Cath Sensory Vision: Functional Hearing: Impaired Transfers Roll Left to Right (QC): 1 Sit to Lying (QC): 88 Lying to Sitting/Side of Bed(Q: 88 due to patient extreme weakness, patient will require a Fatmata Lift for safe transfers Treatment bilateral LE PROM all planes Assessment/Needs Patient will be seen short term by skilled PT to initiate bed mobility and transfer training with nursing staff due to patient will require a Fatmata for safe transfer for patient and staff. Rehab Potential: Guarded PT Residential Goals Lehr Loader Goals PT Lehr Loader Goals Time Frame: Apr 24, 2022 Roll Left & Right (QC): 2 Sit to Lying (QC): 2 Lying-Sitting on Side/Bed(QC): 2 Chair/Vwx-hz-Gjdvg Xfer(QC): 2 Does the Patient Walk: No and Walking Goal NOT indicated PT Plan Problem List Problem List: Activity Tolerance, Functional Strength, Safety, Balance, Transf er, Bed Mobility Treatment/Plan Treatment Plan: Continue Plan of Care Treatment Plan: Bed Mobility, Education, Functional Activity Forest, Functional Strength, Safety, Therapeutic Exercise, Transfers Treatment Duration: Apr 24, 2022 Frequency: 5 times per week Estimated Hrs Per Day: .25 hour per day Discharge Recommendations Therapy Discharge Recommendati: Other, See Comments (return to alf for continued care) Time Time In: 1050 Time Out: 1104 DATE: Apr 13, 2022 Total Billed Treatment Time: 14 Total Billed Treatment 1 visit [facility] 14 min NOVA DODSON PT Apr 13, 2022 11:55
--- NOTE | 2022-04-13 13:56 | Occ Therapy Progress Note ---
Therapy Progress Note OT orders received. OT will complete evaluation next available time, morning of 04/14/22. MIKE TURCIOS OT Apr 13, 2022 13:56
--- NOTE | 2022-04-13 14:02 | Speech Therapy Daily Note ---
Speech Daily Progress Note Subjective Date Seen by Provider: Apr 13, 2022 Time Seen by Provider: 09:35 The patient was lying in bed, awake and alert, upon entrance to her room by the clinician. The patient greeted the clinician and was agreeable to participation in the cognitive and dysphagia treatment session. Objective The patient has displayed cognitive improvement since the prior treatment session 24 hours prior. The patient interacts verbally with the clinician appropriately and responds consistently to yes and no questions accurately. The patient is oriented to self, location, city, month, and year. The patient is able to consistently follow simple one-step commands with high accuracy. The patient is currently receiving 3L supplemental oxygen via nasal cannula. The patient consumes teaspoons of thin liquid and nectar-thick liquid, straw drinks of thin liquid and nectar-thick liquid, and four ounces of puree. The patient displayed an intermittently wet vocal quality following straw drinks of thin liquid. Once the patient was challenged with a consecutive drink of thin liquid, rigorous coughing was displayed immediately following the swallow. Overt s/s of suspected aspiration were not displayed with nectar-thick liquids or puree. At this time, solid consistencies were deferred as energy conservation towards the patient's oropharyngeal swallow function. While the patient did display increased fatigue towards the close of the session, the patient's respiratory rate remained below 32 bpm. Recommendations: - PU4 (pureed) with mildly thick (nectar-thick) liquids, as tolerated. - Fully upright and alert for P.O. intake. Cease P.O. intake during periods of fatigue (including respiratory fatigue). - Full, 1:1, feeding assistance. - Small, single bites and sips. - Crush medication and place in puree for administration. - Monitor for s/s of suspected aspiration with P.O. intake. If demonstrated, place the patient N.P.O. and contact speech pathology. - Speech pathology to monitor the patient's diet tolerance three times per week or as appropriate. The results and recommendations were shared with the patient and the patient's RN immediately following completion. Assessment Assessment Current Status: Fair Progress Treatment Plan Continue Plan of Care Speech Short Term Goals Short Term Goals Short Term Goals 1. The patient will tolerate trials of the least restrictive diet consistency without s/s of suspected aspiration. Time Frame-STG: Three Days. Speech Halfway Goals Halfway Goals 1. The patient will tolerate the least restrictive diet consistency without s/s of suspected aspiration. Time Frame: Ten Days. Speech-Plan Treatment Plan Speech Therapy Treatment Plan: Continue Plan of Care Treatment Duration: Apr 23, 2022 Frequency: 4 times per week Estimated Hrs Per Day: .25 hour per day Rehab Potential: Guarded Safety Risks/Education Teaching Recipient: Patient Teaching Methods: Discussion Response to Teaching: Reinforcement Needed Education Topics Provided: Results, Recommendations, Plan of Care, Safe Swallowing Strategies Time Speech Therapy Time In: 09:35 Speech Therapy Time Out: 10:00 DATE: Apr 13, 2022 Total Billed Time: 25 Billed Treatment Time SHE Funes SLTS LOY, ELIZABETH ST Apr 13, 2022 14:02
[2022-04-13] MEDS: ACETAMINOPHEN 325 MG TABLET PO PRN (16:14)
[2022-04-13] MEDS: rOPINIRole 0.25 MG (REQUIP) TAB PO SCH (20:27)
[2022-04-14] MEDS: DexMEDEtomidine 250 ML DRIP 250 ML IV SCH (00:42)
[2022-04-14] MEDS: inSUlin ASPART (NovoLOG) 1 UNIT/0.01 ML (CHARGE PER UNIT) SC SCH ×4 (00:59→23:42)
[2022-04-14] MEDS: RT-ALBUTEROL HFA 8.5 GM INHALER IH SCH ×3 (02:43→10:25)
[2022-04-14] MEDS: ENOXAPARIN 40 MG/0.4 ML (LOVENOX) SYR SC SCH ×2 (06:06→17:40)
--- NOTE | 2022-04-14 07:58 | Occupational Therapy Eval ---
OT Evaluation-General/PLF Medical Diagnosis Admission Date Apr 01, 2022 at 16:22 Medical Diagnosis: Respiratory Failure/Covid Onset Date: Apr 01, 2022 Therapy Diagnosis Therapy Diagnosis: Weakness, inability to perform ADLS, low tolerance to activity Precautions Precautions/Isolations: Airborne Isolation, Aspiration, Fall Prevention, Pressure Ulcer Weight Bear Status Weight Bearing Restriction: Weight Bearing/Tolerated Referral Physician: Yariel Referral Reason: Activity Tolerance, Self Care, Evaluation/Treatment, Stre ngthening/ROM Referral Comments Eval and treat, PLOF LTC/NH Medical History Pertinent Medical History: COPD, HTN, Smoking Additional Medical History Morbid obesity, hard of hearing, Reviewed History: Yes Social History Home: Fdc Non ambulatory, sleeps in recliner ADL-Prior Level of Function SCALE: Activities may be completed with or without assistive devices. 8-Tbldrmhhhm-kumxwcm completes the activity by him/herself with no assistance from a helper. 5-Set-up or Clean-up Assistance-helper sets up or cleans up; patient completes activity. [place] assists only prior to or following the activity. 4-Supervision or Touching Assistance-helper provides verbal cues and/or touching/steadying and/or contact guard assistance as patient completes activity. Assistance may be provided throughout the activity or intermittently. 3-Partial/Moderate Assistance-helper does LESS THAN HALF the effort. [place] lifts, holds or supports trunk or limbs, but provides less than half the effort. 2-Substantial/Maximal Assistance-helper does MORE THAN HALF the effort. [place] lifts or holds trunk or limbs and provides more than half the effort. 3-Opkxxtemf-kcsotv does ALL the effort. Patient does none of the effort to complete the activity. Or, the assistance of 2 or more helpers is required for the patient to complete the activity. If activity was not attempted, code reason: 7-Patient Refused. 9-Not Applicable-not attempted and the patient did not perform the activity before the current illness, exacerbation or injury. 10-Not Attempted due to Environmental Limitations-(lack of equipment, weather restraints, etc.). 88-Not Attempted due to Medical Conditions or Safety Concerns. Self Care: Dependent Functional Cognition: Needed Some Help DME/Equipment Comments WC dependent OT Current Status Subjective Opens and closes eyes, answers yes and no intermittently Mental Status/Objective Patient Orientation: Person Attachments: Central Line, Hughes Catheter, IV, SCD's Current Glasses/Contacts: Yes Upper Extremity ROM Performed BUE PROM as pt pulls arm away from therapist and places under blanket ADL-Treatment Eating (QC): 88 Oral Hygiene (QC): 2 Shower/Bathe Self (QC): 88 Upper Body Dressing (QC): 7 Lower Body Dressing (QC): 88 On/Off Footwear (QC): 88 Toileting Hygiene (QC): 88 unable to arouse patient to perform Education OT Patient Education: Progress toward Goal/Update tx plan, Purpose of tx/functional activities, Reviewed precautions, Rehab process Teaching Recipient: Patient Teaching Methods: Demonstration, Discussion Response to Teaching: Unable to Return Demonstration, Reinforcement Needed OT Correction Goals Machining Manager Goals Time Frame: Apr 24, 2022 Eating (QC): 6 Oral Hygiene (QC): 6 Toileting Hygiene (QC): 2 Shower/Bathe Self (QC): 2 Upper Body Dressing (QC): 3 Lower Body Dressing (QC): 2 On/Off Footwear (QC): 2 Additional Goals: 1-Demonstrate ADL Tasks, 2-Verbalize Understanding, 3- ImproveStrength/Forest 1=Demonstrate adherence to instructed precautions during ADL tasks. 2=Patient will verbalize/demonstrate understanding of assistive devices/modifications for ADL. 3=Patient will improve strength/tolerance for activity to enable patient to perform ADL's. resident of snf WC bound OT Education/Plan Problem List/Assessment Assessment: Decreased Activ Tolerance, Decreased UE Strength, Dependent Transfers, Impaired Bed Mobility, Impaired Cognition, Impaired Coordination, Impaired Funct Balance, Impaired Self-Care Skills, Restricted Funct UE ROM Discharge Recommendations Plan/Recommendations: Continue POC Therapy Discharge Recommendati: 24 Hour Supervision, Post Acute OT Equpiment Recommendations-D/C: None Treatment Plan/Plan of Care Treatment,Training & Education: Yes Patient would benefit from OT for education, treatment and training to promote independence in ADL's, mobility, safety and/or upper extremity function for ADL's. Plan of Care: ADL Retraining, Functional Mobility, Group Exercise/Act as Ind, UE Funct Exercise/Act Treatment Duration: Apr 24, 2022 Frequency: 3 times per week (3-5 times per week) Estimated Hrs Per Day: .25 hour per day Agreement: Yes Rehab Potential: Guarded Time Start Time: 07:37 Stop Time: 07:52 DATE: Apr 14, 2022 Total Time Billed (hr/min): 15 Billed Treatment Time 1 EVH 15 minutes GRACE HUA OT Apr 14, 2022 07:58
[2022-04-14] MEDS: predniSONE 10 MG TAB PO SCH (08:33)
[2022-04-14] MEDS: PANTOPRAZOLE 40 MG (PROTONIX) VIAL IV SCH (08:33)
[2022-04-14] MEDS: BACLOFEN 10 MG (LIORESAL) TAB PO SCH (08:33)
[2022-04-14] MEDS: amLODIPine 5 MG (NORVASC) TAB PO SCH (08:33)
[2022-04-14] MEDS: ANASTROZOLE 1 MG TAB (ARIMIDEX) PO SCH (08:34)
[2022-04-14] MEDS: busPIRone 15 MG (BUSPAR) TABLET PO SCH ×2 (08:34→20:39)
[2022-04-14] MEDS: lisINopril 40 MG (PRINIVIL) TABLET PO SCH (08:34)
[2022-04-14] MEDS: DULoxetine 30 MG (CYMBALTA) CAP PO SCH (08:34)
[2022-04-14] MEDS: MICONAZOLE 2% POWDER (DESENEX AF) 90 GM TOP SCH ×2 (08:34→20:41)
[2022-04-14] MEDS: SODIUM CHLORIDE 1 GM TABLET PO SCH ×3 (08:34→20:40)
[2022-04-14] MEDS: FUROSEMIDE 40 MG/4 ML INJ (LASIX) IVP SCH (08:34)
[2022-04-14 09:00] LABS: BASOPHILS % (AUTO) 0 % (0-10); EOSINOPHILS # (AUTO) 0.1 10^3/uL (0.0-0.3); EOSINOPHILS % (AUTO) 1 % (0-10); HEMATOCRIT 37 % (35-52); LYMPHOCYTES # (AUTO) 0.9 10^3/uL (1.0-4.0); LYMPHOCYTES % (AUTO) 10 % (12-44); MEAN CORPUSCULAR HEMOGLOBIN 30 pg (25-34); MEAN CORPUSCULAR HGB CONC 33 g/dL (32-36); MEAN CORPUSCULAR VOLUME 91 fL (80-99); MEAN PLATELET VOLUME 10.8 fL (9.0-12.2); MONOCYTES # (AUTO) 0.7 10^3/uL (0.0-1.0); MONOCYTES % (AUTO) 9 % (0-12); NEUTROPHILS # (AUTO) 6.6 10^3/uL (1.8-7.8); NEUTROPHILS % (AUTO) 80 % (42-75); PLATELET COUNT 233 10^3/uL (130-400); WHITE BLOOD COUNT 8.2 10^3/uL (4.3-11.0)
[2022-04-14 09:22] LABS: ALBUMIN 3.2 GM/DL (3.2-4.5); BILIRUBIN,TOTAL 0.8 MG/DL (0.1-1.0); CREATININE SERUM 0.58 MG/DL (0.60-1.30); PHOSPHORUS 3.2 MG/DL (2.3-4.7); POTASSIUM 3.1 MMOL/L (3.6-5.0); TOTAL PROTEIN 5.3 GM/DL (6.4-8.2)
[2022-04-14] MEDS: POTASSIUM CL 10MEQ/50ML IVPB 50 ML IV SCH ×5 (10:09→12:50)
[2022-04-14] MEDS: MAGNESIUM 1 GM/100 ML IVPB 100 ML IV SCH (10:10)
[2022-04-14] MEDS: KCL 20 MEQ TAB (K-DUR) PO SCH (10:10)
[2022-04-14] MEDS: ACETAMINOPHEN 325 MG TABLET PO PRN (10:37)
--- NOTE | 2022-04-14 10:48 | Tele-ICU Progress Note ---
Subjective Date Seen by a Provider: Apr 14, 2022 Time Seen by a Provider: 10:48 Subjective/Events-last exam (Tele-ICU Physician , Progress Note ) Service provided via interactive audio and video telecommunications E-CARE system to a patient admitted to ICU bed in [facility]. Patient is seen today due to persistent need of ICU care Available chart/ vitals / labs / Images reviewed Video assessment done using teleICU camera, rest of exam as per RN Discussed with RN Events overnight : Afebrile hemodynamically stable Respiratory - 2l I/O = nwg 4L Drips: Pressors- no Consultants: Hospital course: (04/01) 66F Admitted for COVID PNA/COPD exacerbation. Bipap (04/04) Increased work of breathing. Bacteremia. H. influenza in sputum. INTUBATED @ 1355 (04/11) EXTUBATED 04/12 - PRN BIPAP for WOB A/P Acute hypoxic and hypercarbic respiratory failure secondary to COPD exacerbation as well as COVID19 pneumonia. -(04/11) EXTUBATED, on 3 L 04/12 and 10 - PRN BIPAP for WOB - this am on 3 l - doing well - refused BIPAP last night after 1 h Anxiety -precedex 0.3 - mostly at night and on BIPAP COVID19 pneumonia. continue Decadron to 6 mg a day - finished ABX course Hyperglycemia secondary to steroids and underlying type 2 diabetes mellitus -continue ISS Dysphagia - nectar thick - to follow Lines : midline left , (Central Line Necessity Reviewed) Hughes: + OG: Nutrition: to do swallow eval today Analgesia: Anxiety/ delirium VTE Prophylaxis: maximilian Stress Ulcer Prophylaxis: ppi Plans in collaboration with bedside consultants and IM MDs. Discussed with RN to reach out if any questions or concerns A total of 20 minutes of critical care time was devoted to this patient today, required to treat and/or prevent further deterioration of critical care condition ( as above ) . I am remotely monitoring this patient from another state. I am unable to do the bedside exam, and history/physical and pertinent information is taken from other notes in the computer and bedside staff. . Sepsis Event Evaluation Height, Weight, BMI Height: '" Weight: lbs. oz. kg; 42.63 BMI Method: Exam Exam Patient acknowledged, consented, and participated in this virtual visit which was conducted using real time audio/video Vital Signs Date Time Temp Pulse Resp B/P (MAP) Pulse Ox O2 Delivery O2 Flow Rate FiO2 04/14/22 10:26 93 High Flow N/C 4.00 04/14/22 10:00 62 28 136/72 (93) 95 High Flow N/C 4.00 04/14/22 09:00 58 21 136/73 (94) 96 High Flow N/C 4.00 04/14/22 08:16 36.2 04/14/22 08:00 52 24 133/80 (97) 94 High Flow N/C 4.00 04/14/22 07:18 52 04/14/22 07:16 High Flow N/C 4.00 04/14/22 07:12 98 High Flow N/C 4.00 04/14/22 07:10 99 High Flow N/C 6.00 04/14/22 07:00 46 21 164/91 (115) 100 High Flow N/C 6.00 04/14/22 06:00 48 23 145/72 (96) 98 High Flow N/C 6.00 04/14/22 05:00 50 23 150/77 (101) 99 High Flow N/C 6.00 04/14/22 04:49 48 138/74 04/14/22 04:00 96 High Flow N/C 6.00 04/14/22 04:00 62 31 133/70 (91) 94 High Flow N/C 6.00 04/14/22 03:00 64 27 140/73 (95) 98 NIV Bilevel 100.00 04/14/22 02:46 66 27 92 NIV Bilevel 100.00 04/14/22 02:43 65 30 83 30.00 04/14/22 02:00 63 26 145/76 (99) 91 High Flow N/C 3.00 04/14/22 01:00 65 04/14/22 01:00 65 19 146/70 (95) 93 High Flow N/C 3.00 04/14/22 00:42 58 135/86 04/14/22 00:00 96 High Flow N/C 3.00 04/14/22 00:00 36.3 04/14/22 00:00 71 15 154/77 (102) 87 High Flow N/C 3.00 04/13/22 23:00 59 26 148/78 (101) 93 High Flow N/C 3.00 04/13/22 22:23 92 High Flow N/C 4.00 04/13/22 22:00 56 22 133/74 (93) 93 High Flow N/C 3.00 04/13/22 21:00 56 24 132/68 (89) 94 High Flow N/C 3.00 04/13/22 20:25 36.9 58 20 115/67 (83) 94 High Flow N/C 3.00 04/13/22 20:00 97 High Flow N/C 3.00 04/13/22 19:00 64 04/13/22 19:00 64 16 115/59 (77) 92 High Flow N/C 3.00 04/13/22 18:44 92 High Flow N/C 4.00 04/13/22 18:00 70 10 122/65 (84) 97 Nasal Cannula 6.00 04/13/22 17:00 55 21 123/66 (85) 95 Nasal Cannula 6.00 04/13/22 16:28 96 High Flow N/C 3.00 04/13/22 16:00 57 22 118/57 (77) 95 Nasal Cannula 6.00 04/13/22 16:00 36.3 04/13/22 15:00 71 21 106/71 (83) 92 Nasal Cannula 6.00 04/13/22 14:52 92 High Flow N/C 6.00 04/13/22 14:25 Nasal Cannula 6.00 04/13/22 14:00 75 13 153/62 (92) 96 Nasal Cannula 3.00 04/13/22 13:00 80 19 137/70 (92) 95 Nasal Cannula 3.00 04/13/22 12:45 92 04/13/22 12:00 83 9 131/108 (116) 92 Nasal Cannula 3.00 04/13/22 12:00 36.5 04/13/22 11:50 96 High Flow N/C 3.00 04/13/22 11:00 68 14 145/71 (95) 93 Nasal Cannula 3.00 I & O 04/14/22 07:00 Intake Total 2570 ml Output Total 2150 ml Balance 420 ml Height & Weight Height: '" Weight: lbs. oz. kg; 42.63 BMI Method: General Appearance: No Apparent Distress, Chronically ill, Obese Respiratory: Lungs Clear, No Respiratory Distress Cardiovascular: Regular Rate, Rhythm, No Murmur Capillary Refill: Less Than 3 Seconds Gastrointestinal: normal bowel sounds, non tender, soft Extremity: Normal Inspection, No Pedal Edema Neurologic/Psychiatric: Alert, Oriented x3 Skin: Normal Color, Warm/Dry Results Lab Laboratory Tests 04/14/22 08:50 Assessment/Plan Assessment/Plan 1 BRAEDEN WALKER MD Apr 14, 2022 10:48
--- NOTE | 2022-04-14 11:01 | Physical Therapy Daily Note ---
PT Daily Note-Current Subjective Patient in bed pre tx, agrees to PT, has no complaints of pain. Pain Section J - Health Conditions 1. Rarely or not at all 2. Occasionally 3. Frequently 4. Almost constantly 8. Unable to answer Pain Effect on Sleep: 1 Pain Interference with Therapy: 1 Pain Interference w/Day-to-Day: 1 Appearance Patient in bed post tx with nurse call, phone, tray, all needs met, SCD's on. Mental Status Patient Orientation: Person, Confused Attachments: Oxygen, Hughes Catheter, IV Transfers SCALE: Activities may be completed with or without assistive devices. 0-Ryqenniefo-tjuklzy completes the activity by him/herself with no assistance from a helper. 5-Set-up or Clean-up Assistance-helper sets up or cleans up; patient completes activity. [place] assists only prior to or following the activity. 4-Supervision or Touching Assistance-helper provides verbal cues and/or touching/steadying and/or contact guard assistance as patient completes activity. Assistance may be provided throughout the activity or intermittently. 3-Partial/Moderate Assistance-helper does LESS THAN HALF the effort. [place] lifts, holds or supports trunk or limbs, but provides less than half the effort. 2-Substantial/Maximal Assistance-helper does MORE THAN HALF the effort. [place] lifts or holds trunk or limbs and provides more than half the effort. 4-Sdibolyfl-efgpzo does ALL the effort. Patient does none of the effort to complete the activity. Or, the assistance of 2 or more helpers is required for the patient to complete the activity. If activity was not attempted, code reason: 7-Patient Refused. 9-Not Applicable-not attempted and the patient did not perform the activity before the current illness, exacerbation or injury. 10-Not Attempted due to Environmental Limitations-(lack of equipment, weather restraints, etc.). 88-Not Attempted due to Medical Conditions or Safety Concerns. attempted to sit to the side of the bed, started moving legs for patient and then she says that she cannot sit to the side of the bed because she has a headache. Attempted to perform exercises in bed but she would not participate. Educated patient on the importance of participating in therapy and she ignores therapist. Treatments partial sitting Assessment Current Status: Poor Progress Patient would not participate and ignored therapist. Patient is not participating and is normally a danial lift for transfers at the [facility]. Patient will be discharged from PT at this time. PT Intermediate Goals Cash Room Clerk Goals PT Intermediate Goals Time Frame: Apr 24, 2022 Roll Left & Right (QC): 2 Sit to Lying (QC): 2 Lying-Sitting on Side/Bed(QC): 2 Chair/Lvj-td-Nxlun Xfer(QC): 2 Does the Patient Walk: No and Walking Goal NOT indicated PT Plan Problem List Problem List: Activity Tolerance, Functional Strength, Safety, Balance, Gait, Transfer, Bed Mobility, ROM Treatment/Plan Treatment Plan: Continue Plan of Care Treatment Plan: Bed Mobility, Education, Functional Activity Forest, Functional Strength, Safety, Therapeutic Exercise, Transfers Treatment Duration: Apr 24, 2022 Frequency: 5 times per week Estimated Hrs Per Day: .25 hour per day Safety Risks/Education Patient Education: Correct Positioning, Safety Issues Teaching Recipient: Patient Teaching Methods: Demonstration, Discussion Response to Teaching: Reinforcement Needed Time Time In: 1041 Time Out: 1049 DATE: Apr 14, 2022 Total Billed Treatment Time: 8 Total Billed Treatment 1 visit FA BERRY BROWN PT Apr 14, 2022 11:01
--- NOTE | 2022-04-14 14:41 | Progress Note - Hospitalist ---
Subjective HPI/CC On Admission Date Seen by Provider: Apr 14, 2022 Time Seen by Provider: 07:50 Subjective/Events-last exam Pt is laying in bed. More sedate today. On Precedex. Objective Exam Vital Signs Vital Signs Date Time Temp Pulse Resp B/P (MAP) Pulse Ox O2 Delivery O2 Flow Rate FiO2 04/14/22 14:00 77 30 182/76 (111) 91 High Flow N/C 4.00 04/14/22 12:00 37.0 04/13/22 09:16 28 Capillary Refill : Less Than 3 Seconds General Appearance: No Apparent Distress, WD/WN Results/Procedures Lab Laboratory Tests 04/14/22 08:50 Patient resulted labs reviewed. Imaging: Reviewed Imaging Report Assessment/Plan Assessment and Plan Assess & Plan/Chief Complaint Acute respiratory failure with hypoxia secondary to COVID-19 Continue steroids MAT protocol Extubated 04/11 TeleICU consulted, appreciate recs Speech therapy to continue Was on BiPAP again overnight Back on precedex T2DM Sliding scale insulin BS well controlled HTN Continue current meds Morbid obesity Clinically significant, no acute management needs DVT prophylaxis: Lovenox Critical Care Ventilator Management Clinical Quality Measures Admission Status Admission Dx Patient is a 66-year-old female with past medical history of COPD who presented to the emergency department due to respiratory distress secondary to COVID. She had already been treated with Paxlovid, steriods, and antibiotics in the residential but continued to progress. She is normally on 2 L of oxygen due to her COPD but had to be increased to 4 L and was still hypoxic. In the ER she was quite tachypneic and had increased work of breathing so was placed on BiPAP. She was admitted here to the ICU for this. This morning she reports reports feeling a little bit better and would like to trial off of BiPAP so that she can eat. She has no other complaints at this time. BP is trending up slightly so will restarted her Norvasc. Continue on steroids. TeleICU consulted, appreciate recs. BERNA SANDHU MD Apr 14, 2022 14:41
[2022-04-14] MEDS: RT-ALBUTEROL/IPRATROPIUM 3 ML (DUONEB) VIAL INH SCH ×3 (15:02→22:24)
[2022-04-14 19:27] VITALS: BP 199/85
[2022-04-14] MEDS: hydrALAZINE (APESOLINE) 20 MG/ML VIAL IV PRN (20:37)
[2022-04-14] MEDS: rOPINIRole 0.25 MG (REQUIP) TAB PO SCH (20:40)
[2022-04-14 22:24] VITALS: BP 151/69
[2022-04-14] MEDS ORDERED: meTOprolol 5 MG/5 ML (LOPRESSOR) VIAL IV ONE ×2 (22:30→23:00)
[2022-04-14] MEDS ORDERED: meTOprolol 5 MG/5 ML (LOPRESSOR) VIAL ONE (22:30)
[2022-04-14 23:14] LABS: POTASSIUM 4.6 MMOL/L (3.6-5.0)
[2022-04-14 23:15] LABS: CALCIUM 8.8 MG/DL (8.5-10.1)
[2022-04-14 23:19] LABS: CREATININE SERUM 0.58 MG/DL (0.60-1.30)
[2022-04-14] MEDS ORDERED: LACTATED RINGERS 1,000 ML IV SCH (23:45)
[2022-04-14] MEDS ORDERED: LACTATED RINGERS 1,000 ML IV ONE (23:45)
[2022-04-15] MEDS ORDERED: AMIODARONE FOR BOLUS 150 MG in NS (IVPB) 100 ML IV SCH (00:47)
[2022-04-15 01:00] LABS: ALBUMIN 3.4 GM/DL (3.2-4.5)
[2022-04-15] MEDS ORDERED: AMIODARONE INJECTION 450 MG in NORMAL SALINE 250 ML IV SCH (01:00)
[2022-04-15 01:03] LABS: TOTAL PROTEIN 6.4 GM/DL (6.4-8.2)
[2022-04-15 01:05] LABS: BILIRUBIN,TOTAL 0.7 MG/DL (0.1-1.0)
[2022-04-15 01:08] LABS: BILIRUBIN,DIRECT 0.2 MG/DL (0.0-0.3); BILIRUBIN,INDIRECT 0.5 MG/DL
[2022-04-15] MEDS ORDERED: AMIODARONE (Pyxis Kit Only) DRIP 450 MG/9 ML VIAL IV ONE (01:15)
[2022-04-15] MEDS ORDERED: NORMAL SALINE 250 ML ONE (01:15)
[2022-04-15 03:41] VITALS: BP 181/67
[2022-04-15] MEDS: RT-ALBUTEROL/IPRATROPIUM 3 ML (DUONEB) VIAL INH SCH ×6 (03:41→22:50)
[2022-04-15] MEDS: ENOXAPARIN 40 MG/0.4 ML (LOVENOX) SYR SC SCH (05:30)
[2022-04-15] MEDS: MAGNESIUM 1 GM/100 ML IVPB 100 ML IV SCH (06:19)
[2022-04-15] MEDS: KCL 20 MEQ TAB (K-DUR) PO SCH (06:19)
[2022-04-15] MEDS: POTASSIUM CL 10MEQ/50ML IVPB 50 ML IV SCH ×9 (06:19→21:43)
[2022-04-15] MEDS: inSUlin ASPART (NovoLOG) 1 UNIT/0.01 ML (CHARGE PER UNIT) SC SCH ×3 (06:20→18:27)
--- NOTE | 2022-04-15 09:06 | Occupational Ther Daily Note ---
OT Current Status-Daily Note Subjective In bed with eyes open Mental Status/Objective Patient Orientation: Person, Place, Situation Attachments: IV, Oxygen ADL-Treatment Therapy Code Descriptions/Definitions Functional [place] Measure: 0=Not Assessed/NA 4=Minimal Assistance 1=Total Assistance 5=Supervision or Setup 2=Maximal Assistance 6=Modified [place] 3=Moderate Assistance 7=Complete IndependenceSCALE: Activities may be completed with or without assistive devices. 9-Zielunydnp-aljsbxu completes the activity by him/herself with no assistance from a helper. 5-Set-up or Clean-up Assistance-helper sets up or cleans up; patient completes activity. [place] assists only prior to or following the activity. 4-Supervision or Touching Assistance-helper provides verbal cues and/or touching/steadying and/or contact guard assistance as patient completes activity. Assistance may be provided throughout the activity or intermittently. 3-Partial/Moderate Assistance-helper does LESS THAN HALF the effort. [place] lifts, holds or supports trunk or limbs, but provides less than half the effort. 2-Substantial/Maximal Assistance-helper does MORE THAN HALF the effort. [place] lifts or holds trunk or limbs and provides more than half the effort. 1-Dncibstck-gkxzlq does ALL the effort. Patient does none of the effort to complete the activity. Or, the assistance of 2 or more helpers is required for the patient to complete the activity. If activity was not attempted, code reason: 7-Patient Refused. 9-Not Applicable-not attempted and the patient did not perform the activity before the current illness, exacerbation or injury. 10-Not Attempted due to Environmental Limitations-(lack of equipment, weather restraints, etc.). 88-Not Attempted due to Medical Conditions or Safety Concerns. Eating (QC): 5 Other Treatment Face grooming, BUE ROM and drink , Discuss with ST for swallow assesement Education OT Patient Education: Energy conservation, Exercise program, Modified ADL techniques, Progress toward Goal/Update tx plan, Purpose of tx/functional activities, Safety issues Teaching Recipient: Patient Teaching Methods: Demonstration, Discussion Response to Teaching: Verbalize Understanding, Return Demonstration, Reinforcement Needed OT Apartment Locator Goals [facility] Goals Time Frame: Apr 24, 2022 Eating (QC): 6 Oral Hygiene (QC): 6 Toileting Hygiene (QC): 2 Shower/Bathe Self (QC): 2 Upper Body Dressing (QC): 3 Lower Body Dressing (QC): 2 On/Off Footwear (QC): 2 Additional Goals: 1-Demonstrate ADL Tasks, 2-Verbalize Understanding, 3- ImproveStrength/Forest 1=Demonstrate adherence to instructed precautions during ADL tasks. 2=Patient will verbalize/demonstrate understanding of assistive devices/modifications for ADL. 3=Patient will improve strength/tolerance for activity to enable patient to perform ADL's. OT Education/Plan Problem List/Assessment Assessment: Decreased Activ Tolerance, Decreased UE Strength, Dependent Transfers, Impaired Bed Mobility, Impaired Coordination, Impaired Funct Balance, Impaired Self-Care Skills Discharge Recommendations Plan/Recommendations: Continue POC Therapy Discharge Recommendati: 24 Hour Supervision Treatment Plan/Plan of Care Treatment,Training & Education: Yes Patient would benefit from OT for education, treatment and training to promote independence in ADL's, mobility, safety and/or upper extremity function for A DL's. Plan of Care: ADL Retraining, Functional Mobility, Group Exercise/Act as Ind, UE Funct Exercise/Act Comment OT exited room with pt in bed and ST to assess for swalllow Treatment Duration: Apr 24, 2022 Frequency: 3 times per week (3-5 times per week) Estimated Hrs Per Day: .25 hour per day Agreement: Yes Rehab Potential: Guarded Time Start Time: 08:20 Stop Time: 08:37 DATE: Apr 15, 2022 Total Time Billed (hr/min): 17 Billed Treatment Time 1 FA 17 GRACE HUA OT Apr 15, 2022 09:06
--- NOTE | 2022-04-15 09:15 | Speech Therapy Daily Note ---
Speech Daily Progress Note Subjective Date Seen by Provider: Apr 15, 2022 Time Seen by Provider: 08:45 The patient was seated upright in her bed, awake and alert, upon entrance to her room by the clinician. The patient greeted the clinician appropriately and was agreeable to participation in the cognitive and dysphagia treatment session. For patient safety, the head of the bed was elevated to an upright position. To note, throughout the evening the maintenance supervisor 2nd shift was not aware the patient was receiving thickened liquids (written on in-room white board by the clinician). The patient received thin liquids throughout the night without reported difficulties or s/s of suspected aspiration. Objective The patient required feeding assistance due to upper extremity weakness. The patient consumed twelve ounces of water via ice chip, teaspoon, single straw drink and multiple straw drink. The patient was agreeable to one bite of puree, only. The clinician continued to verbally encouraged soft solid or solid consistencies to advance the patient's diet consistency and possibly improve oral intake. The patient took one bite of aguila cracker with pudding. The patient removed the pudding from the aguila cracker and expectorated the aguila cracker onto her sheet. As the patient continued refusal of puree, soft solid, or solid consistencies. The clinician cannot advance the patient's solid diet consistency. The patient did not display overt s/s of suspected aspiration with puree or thin liquid consistencies tested. The patient's SpO2% remained at 95% with 3l supplemental oxygen via nasal cannula throughout and following the treatment session. The patient was oriented to self, city, and location. The patient stated the month was "May" and the year was "2021." The patient responded appropriately to simple yes and no questions and followed simple one-step commands. The patient does continue to display a level of confusion, as she required consistent verbal prompting to task and topic. Recommendations: - PU4 with thin liquids, as tolerated. - Fully upright and alert with P.O. intake. If the patient displays increased respiratory fatigue or decreased alertness, hold P.O. intake for patient safety. - Small bites and sips. - Crush medication and place in puree for administration. - Monitor for s/s of suspected aspiration with P.O. intake. If demonstrated, place the patient N.P.O. and contact speech pathology. - Speech pathology to continue monitoring and assessing the patient's needs throughout her acute progression. The recommendations were shared and discussed with the patient and the patient's RN immediately following completion of the treatment session. Assessment Assessment Current Status: Good Progress Treatment Plan Continue Plan of Care Speech Short Term Goals Short Term Goals Short Term Goals 1. The patient will tolerate trials of the least restrictive diet consistency without s/s of suspected aspiration. Time Frame-STG: Three Days. Speech Footwear Sales Representative Goals Long-Term Goals 1. The patient will tolerate the least restrictive diet consistency without s/s of suspected aspiration. Time Frame: Ten Days. Speech-Plan Treatment Plan Speech Therapy Treatment Plan: Continue Plan of Care Treatment Duration: Apr 23, 2022 Frequency: 4 times per week Estimated Hrs Per Day: .25 hour per day Rehab Potential: Guarded Safety Risks/Education Teaching Recipient: Patient Teaching Methods: Discussion Response to Teaching: Reinforcement Needed Education Topics Provided: Safe Swallowing Precautions Time Speech Therapy Time In: 08:45 Speech Therapy Time Out: 09:06 DATE: Apr 15, 2022 Total Billed Time: 21 Billed Treatment Time SHE Funes SLTS LOY, ELIZABETH ST Apr 15, 2022 09:15
[2022-04-15] MEDS: FUROSEMIDE 40 MG/4 ML INJ (LASIX) IVP SCH (09:40)
[2022-04-15] MEDS: PANTOPRAZOLE 40 MG (PROTONIX) VIAL IV SCH (09:40)
[2022-04-15] MEDS: busPIRone 15 MG (BUSPAR) TABLET PO SCH ×2 (09:41→20:57)
[2022-04-15] MEDS: predniSONE 10 MG TAB PO SCH (09:41)
[2022-04-15] MEDS: BACLOFEN 10 MG (LIORESAL) TAB PO SCH (09:41)
[2022-04-15] MEDS: lisINopril 40 MG (PRINIVIL) TABLET PO SCH (09:41)
[2022-04-15] MEDS: DULoxetine 30 MG (CYMBALTA) CAP PO SCH (09:42)
[2022-04-15] MEDS: MICONAZOLE 2% POWDER (DESENEX AF) 90 GM TOP SCH ×2 (09:43→20:59)
[2022-04-15] MEDS: amLODIPine 5 MG (NORVASC) TAB PO SCH (09:43)
--- NOTE | 2022-04-15 11:07 | Progress Note - Hospitalist ---
Subjective HPI/CC On Admission Date Seen by Provider: Apr 15, 2022 Subjective/Events-last exam Pt more alert. No complaints. Hoping to get some water. Off precedex but was in a fiub with RVR and on BiPAP overnight. Objective Exam Vital Signs Vital Signs Date Time Temp Pulse Resp B/P (MAP) Pulse Ox O2 Delivery O2 Flow Rate FiO2 04/15/22 14:00 107 30 153/100 (117) 95 High Flow N/C 2.00 04/15/22 12:21 36.8 04/15/22 04:00 80 Capillary Refill : Less Than 3 Seconds General Appearance: No Apparent Distress, Chronically ill, Obese Respiratory: Lungs Clear, No Respiratory Distress Cardiovascular: Regular Rate, Rhythm, No Murmur Neurologic/Psychiatric: Alert Results/Procedures Lab Laboratory Tests 04/14/22 22:56 04/15/22 11:30 Patient resulted labs reviewed. Imaging: Reviewed Imaging Report Assessment/Plan Assessment and Plan Assess & Plan/Chief Complaint Acute respiratory failure with hypoxia secondary to COVID-19 Continue steroids MAT protocol Extubated 04/11 TeleICU consulted, appreciate recs Speech therapy to continue Was on BiPAP again overnight Off precedex Discussed with hat finishing materials preparer and can come out of isolation on midnight 04/18 A-fib with RVR responded to lopressor overnight Converted back to sinus rhythm Will increase Lovenox to therapeutic dosing replace potassium T2DM Sliding scale insulin BS well controlled HTN Continue current meds Morbid obesity Clinically significant, no acute management needs DVT prophylaxis: Lovenox Critical Care Ventilator Management Clinical Quality Measures Admission Status Admission Dx Patient is a 66-year-old female with past medical history of COPD who presented to the emergency department due to respiratory distress secondary to COVID. She had already been treated with Paxlovid, steriods, and antibiotics in the [facility] but continued to progress. She is normally on 2 L of oxygen due to her COPD but had to be increased to 4 L and was still hypoxic. In the ER she was quite tachypneic and had increased work of breathing so was placed on BiPAP. She was admitted here to the ICU for this. This morning she reports reports feeling a little bit better and would like to trial off of BiPAP so that she can eat. She has no other complaints at this time. BP is trending up slightly so will restarted her Norvasc. Continue on steroids. TeleICU consulted, appreciate recs. BERNA SANDHU MD Apr 15, 2022 11:07
--- NOTE | 2022-04-15 11:19 | Tele-ICU Progress Note ---
Subjective Date Seen by a Provider: Apr 15, 2022 Time Seen by a Provider: 11:19 Subjective/Events-last exam (Tele-ICU Physician , Progress Note ) Service provided via interactive audio and video telecommunications E-CARE system to a patient admitted to ICU bed in [facility]. Patient is seen today due to persistent need of ICU care Available chart/ vitals / labs / Images reviewed Video assessment done using teleICU camera, rest of exam as per RN Discussed with RN Events overnight : Afebrile hemodynamically stable Respiratory - 2l I/O = nwg 4L Drips: Pressors- no Consultants: Hospital course: (04/01) 66F Admitted for COVID PNA/COPD exacerbation. Bipap (04/04) Increased work of breathing. Bacteremia. H. influenza in sputum. INTUBATED @ 1355 (04/11) EXTUBATED 04/12 - PRN BIPAP for WOB 04/14- a fib RVR again - lopressor -> conferted to sinus A/P Acute hypoxic and hypercarbic respiratory failure secondary to COPD exacerbation as well as COVID19 pneumonia. -(04/11) EXTUBATED, on 3 L 04/12 and and - PRN BIPAP for WOB , suspected due to mucous plug - this am on 3 l - doing well - nebs changed to duoneb and encourage IS Anxiety -precedex 0.3 - mostly at night and on BIPAP- OFF >30 h COVID19 pneumonia. continueprednisone taper - finished ABX course 04/14- a fib RVR - lopressor -> converted to sinus Hyperglycemia secondary to steroids and underlying type 2 diabetes mellitus -continue ISS Dysphagia -- to follow on modified dier , add protein / ensure Lines : midline left , (Central Line Necessity Reviewed) Hughes: + OG: Nutrition: to do swallow eval today Analgesia: Anxiety/ delirium VTE Prophylaxis: maximilian Stress Ulcer Prophylaxis: ppi Plans in collaboration with bedside consultants and IM MDs. Discussed with RN to reach out if any questions or concerns A total of 20 minutes of critical care time was devoted to this patient today, required to treat and/or prevent further deterioration of critical care condition ( as above ) . I am remotely monitoring this patient from another state. I am unable to do the bedside exam, and history/physical and pertinent information is taken from other notes in the computer and bedside staff. . Sepsis Event Evaluation Height, Weight, BMI Height: '" Weight: lbs. oz. kg; 41.38 BMI Method: Exam Exam Patient acknowledged, consented, and participated in this virtual visit which was conducted using real time audio/video Vital Signs Date Time Temp Pulse Resp B/P (MAP) Pulse Ox O2 Delivery O2 Flow Rate FiO2 04/15/22 10:20 97 High Flow N/C 3.00 04/15/22 10:15 High Flow N/C 5.00 04/15/22 10:00 87 26 185/81 (115) 96 High Flow N/C 3.00 04/15/22 09:00 100 26 180/77 (111) 95 High Flow N/C 3.00 04/15/22 08:00 100 30 117/66 (83) 93 High Flow N/C 3.00 04/15/22 07:53 36.5 04/15/22 07:08 97 High Flow N/C 3.00 04/15/22 07:01 96 High Flow N/C 5.00 04/15/22 07:00 99 04/15/22 07:00 93 28 146/78 (100) 97 High Flow N/C 3.00 04/15/22 06:00 92 26 163/74 (103) 100 NIV Bilevel 70.00 04/15/22 05:30 88 31 164/71 (102) 100 NIV Bilevel 70.00 04/15/22 05:00 85 26 164/71 (102) 100 NIV Bilevel 80.00 04/15/22 04:00 96 NIV Bilevel 80 04/15/22 04:00 92 26 176/89 (118) 95 NIV Bilevel 80.00 04/15/22 03:45 37.3 04/15/22 03:41 91 31 100 80.00 04/15/22 03:00 80 28 173/90 (117) 98 NIV Bilevel 80.00 04/15/22 03:00 92 19 173/90 (117) 96 Nasal Cannula 5.00 04/15/22 02:20 Nasal Cannula 5.00 04/15/22 02:00 93 30 155/66 (95) 98 NIV Bilevel 80.00 04/15/22 01:45 93 04/15/22 01:30 98 04/15/22 01:15 168 168/95 (119) 96 04/15/22 01:00 152 32 126/106 (113) 97 04/15/22 01:00 156 04/15/22 00:45 168 30 118/54 (75) 97 04/15/22 00:30 161 28 109/89 (96) 95 04/15/22 00:15 158 35 106/85 (92) 97 04/15/22 00:00 168 32 122/86 (98) 97 NIV Bilevel 80.00 04/15/22 00:00 96 NIV Bilevel 80 04/15/22 00:00 37.2 04/14/22 23:45 152 30 118/70 (86) 97 04/14/22 23:30 154 30 93/81 (85) 97 04/14/22 23:15 156 133/87 (102) 96 04/14/22 23:00 158 34 121/94 (103) 96 04/14/22 22:45 151 34 97 04/14/22 22:35 181 33 119/74 (89) 98 04/14/22 22:25 203 32 128/80 (96) 100 04/14/22 22:24 176 36 100 80.00 04/14/22 22:00 89 26 151/69 (96) 97 NIV Bilevel 80.00 04/14/22 22:00 83 32 151/69 (96) 96 NIV Bilevel 80.00 04/14/22 21:00 117 28 94 04/14/22 21:00 117 25 171/84 (113) 94 High Flow N/C 4.00 04/14/22 20:47 112 171/84 (113) 04/14/22 20:15 99 30 184/87 (119) 94 04/14/22 20:05 96 NIV Bilevel 80 04/14/22 20:00 99 25 184/87 (119) 98 High Flow N/C 4.00 04/14/22 19:30 88 100 04/14/22 19:27 89 30 96 80.00 04/14/22 19:15 37.0 04/14/22 19:00 88 16 199/85 (123) 93 Nasal Cannula 04/14/22 19:00 91 04/14/22 19:00 88 14 199/85 (123) 94 High Flow N/C 4.00 04/14/22 18:00 79 16 180/81 (114) 94 High Flow N/C 4.00 04/14/22 17:00 69 34 184/91 (122) 96 High Flow N/C 4.00 04/14/22 16:12 96 High Flow N/C 3.00 04/14/22 16:00 75 19 176/82 (113) 96 High Flow N/C 4.00 04/14/22 15:50 36.7 04/14/22 15:02 91 High Flow N/C 5.00 04/14/22 15:00 85 27 173/81 (111) 90 High Flow N/C 4.00 04/14/22 14:00 77 30 182/76 (111) 91 High Flow N/C 4.00 04/14/22 13:30 78 27 175/79 (111) 93 High Flow N/C 4.00 04/14/22 13:00 72 28 94 High Flow N/C 4.00 04/14/22 12:51 64 04/14/22 12:27 96 High Flow N/C 6.00 04/14/22 12:00 70 28 174/77 (109) 90 High Flow N/C 4.00 04/14/22 12:00 37.0 I & O 04/15/22 07:00 Intake Total 1620 ml Output Total 2075 ml Balance -455 ml Height & Weight Height: '" Weight: lbs. oz. kg; 41.38 BMI Method: General Appearance: No Apparent Distress, WD/WN Respiratory: Lungs Clear, No Respiratory Distress Cardiovascular: Regular Rate, Rhythm, No Murmur Capillary Refill: Less Than 3 Seconds Gastrointestinal: normal bowel sounds, non tender, soft Extremity: Normal Inspection, No Pedal Edema Neurologic/Psychiatric: Alert, Oriented x3 Skin: Normal Color, Warm/Dry Results Lab Laboratory Tests 04/14/22 08:50 04/14/22 22:56 Assessment/Plan Assessment/Plan 1 BRAEDEN WALKER MD Apr 15, 2022 11:19
[2022-04-15 11:42] LABS: BASOPHILS % (AUTO) 0 % (0-10); EOSINOPHILS % (AUTO) 0 % (0-10); HEMATOCRIT 37 % (35-52); LYMPHOCYTES # (AUTO) 0.4 X 10^3 (1.0-4.0); LYMPHOCYTES % (AUTO) 4 % (12-44); MEAN CORPUSCULAR HEMOGLOBIN 30 pg (25-34); MEAN CORPUSCULAR HGB CONC 33 g/dL (32-36); MEAN CORPUSCULAR VOLUME 91 fL (80-99); MEAN PLATELET VOLUME 10.4 fL (9.0-12.2); MONOCYTES # (AUTO) 0.7 X 10^3 (0.0-1.0); MONOCYTES % (AUTO) 7 % (0-12); NEUTROPHILS # (AUTO) 9.3 X 10^3 (1.8-7.8); NEUTROPHILS % (AUTO) 89 % (42-75); PLATELET COUNT 287 10^3/uL (130-400); WHITE BLOOD COUNT 10.5 10^3/uL (4.3-11.0)
[2022-04-15 11:57] LABS: POTASSIUM 2.7 MMOL/L (3.6-5.0)
[2022-04-15 11:58] LABS: CALCIUM 8.9 MG/DL (8.5-10.1)
[2022-04-15 12:02] LABS: PHOSPHORUS 2.6 MG/DL (2.3-4.7)
[2022-04-15 12:03] LABS: CREATININE SERUM 0.56 MG/DL (0.60-1.30)
[2022-04-15 12:05] LABS: MAGNESIUM 1.8 MG/DL (1.6-2.4)
[2022-04-15 12:10] LABS: BAND NEUTROPHILS 0 %; BASOPHILS % (MANUAL) 0 %; EOSINOPHILS % (MANUAL) 0 %; LYMPHOCYTES % (MANUAL) 4 %; MONOCYTES % (MANUAL) 3 %; NEUTROPHILS % (MANUAL) 93 %; RBC MORPH NORMAL
[2022-04-15] MEDS ORDERED: MAGNESIUM 1 GM/100 ML IVPB 100 ML IV ONE (13:00)
[2022-04-15] MEDS: NS IV 1000 ML 1,000 ML IV SCH ×2 (13:00→13:25)
[2022-04-15] MEDS: ANASTROZOLE 1 MG TAB (ARIMIDEX) PO SCH (13:08)
[2022-04-15] MEDS: SODIUM CHLORIDE 1 GM TABLET PO SCH ×4 (13:09→20:57)
[2022-04-15] MEDS: ENOXAPARIN 100 MG/1 ML (LOVENOX) SYR SC SCH (16:38)
[2022-04-15] MEDS ORDERED: ENOXAPARIN 40 MG/0.4 ML (LOVENOX) SYR SC SCH (17:00)
[2022-04-15] MEDS: rOPINIRole 0.25 MG (REQUIP) TAB PO SCH (20:57)
[2022-04-16] MEDS: inSUlin ASPART (NovoLOG) 1 UNIT/0.01 ML (CHARGE PER UNIT) SC SCH ×5 (00:26→23:45)
[2022-04-16 01:34] LABS: CALCIUM 8.8 MG/DL (8.5-10.1); CREATININE SERUM 0.57 MG/DL (0.60-1.30); POTASSIUM 3.1 MMOL/L (3.6-5.0)
[2022-04-16] MEDS: POTASSIUM CL 10MEQ/50ML IVPB 50 ML IV SCH ×7 (01:45→16:48)
[2022-04-16] MEDS: RT-ALBUTEROL/IPRATROPIUM 3 ML (DUONEB) VIAL INH SCH ×6 (03:14→21:30)
[2022-04-16] MEDS: hydrALAZINE (APESOLINE) 20 MG/ML VIAL IV PRN ×2 (04:32→14:30)
[2022-04-16] MEDS: ENOXAPARIN 100 MG/1 ML (LOVENOX) SYR SC SCH ×2 (05:29→18:04)
[2022-04-16] MEDS: FUROSEMIDE 40 MG/4 ML INJ (LASIX) IVP SCH (08:40)
[2022-04-16] MEDS: lisINopril 40 MG (PRINIVIL) TABLET PO SCH ×2 (08:40→08:58)
[2022-04-16] MEDS: PANTOPRAZOLE 40 MG (PROTONIX) VIAL IV SCH (08:40)
[2022-04-16] MEDS: BACLOFEN 10 MG (LIORESAL) TAB PO SCH ×2 (08:40→08:57)
[2022-04-16] MEDS: predniSONE 10 MG TAB PO SCH (08:41)
[2022-04-16] MEDS: DULoxetine 30 MG (CYMBALTA) CAP PO SCH ×2 (08:41→08:57)
[2022-04-16] MEDS: busPIRone 15 MG (BUSPAR) TABLET PO SCH ×3 (08:41→21:10)
--- NOTE | 2022-04-16 08:46 | Consultation-Cardiology ---
HPI-Cardiology Cardiology Consultation: Date of Consultation 04/16/22 Date of Admission 04-01-22 Attending Physician Saad Lara MD Admitting Physician Admitting Physician: Lala Saldivar MD Attending Physician: Malou Purcell MD Consulting Physician Elizabeth De Souza MD HPI: Chief Complaint: PAF with RVR dx 04-14-22 Ms. Meraz is a 66 yr old female who was admitted on 04-01-22 from the ED with COVID pneumonia requiring intubation. She is currently extubated. She had an episode of PAF with RVR dx on ECG of 04-14-22. She converted to SR spontaneously and has been maintaining SR. Review of Systems-Cardiology All Other Systems Reviewed Negative Unless Noted: Yes KRV-Mwelrb-[place] Hx Patient Social History Smoking Status: Current Everyday Smoker (one pack per day) 2nd Hand Smoke Exposure: No Have you traveled recently?: No Alcohol Use?: No Pt feels they are or have been: No Tobacco type used: Cigarettes Past Medical History PMH As described under Assessment. Allergies and Home Medications Allergies Coded Allergies: No Known Drug Allergies (Unverified , 12/08/19) Patient Home Medication List Acetaminophen (Tylenol) 325 Mg Tablet, 650 MG PO TID, (Reported) Entered as Reported by: CODY FUENTES on 04/01/221822 Last Action: Reviewed Acetaminophen (Tylenol) 325 Mg Tablet, 650 MG PO DAILY PRN for PAIN-MILD (1-4), (Reported) Entered as Reported by: ZENAIDA COBIAN on 04/06/221142 Last Action: Reviewed Albuterol Sulfate (Ventolin Hfa) 90 Mcg Hfa.aer.ad, 2 PUFF INH Q6H PRN for SH ORTNESS OF BREATH, (Reported) Entered as Reported by: ZENAIDA COBIAN on 04/06/221142 Last Action: Reviewed Albuterol Sulfate (Albuterol Sulfate) 2.5 Mg/3 Ml (0.083 %) Vial.neb, 3 ML NEB Q6H PRN for WHEEZING, (Reported) Entered as Reported by: ZENAIDA COBIAN on 04/06/221142 Last Action: Reviewed Amlodipine Besylate (Amlodipine Besylate) 5 Mg Tablet, 5 MG PO DAILY, (Reported) Entered as Reported by: CODY FUENTES on 04/01/221822 Last Action: Reviewed Anastrozole (Arimidex) 1 Mg Tablet, 1 MG PO DAILY, (Reported) Entered as Reported by: ZENAIDA COBIAN on 04/06/221142 Last Action: Continued Azithromycin (Azithromycin) 250 Mg Tablet, 250 MG PO DAILY, (Reported) Entered as Reported by: CODY FUENTES on 04/01/221822 Last Action: Reviewed Baclofen (Baclofen) 10 Mg Tablet, 10 MG PO DAILY, (Reported) Entered as Reported by: CODY FUENTES on 04/01/221822 Last Action: Reviewed Buspirone HCl (Buspirone HCl) 30 Mg Tablet, 30 MG PO BID, (Reported) Entered as Reported by: CODY FUENTES on 04/01/221822 Last Action: Reviewed Carboxymethylcellulose Sodium (Refresh Tears) 0.5 % Drops, 2 DROP OU Q4H PRN for DRY EYES, (Reported) Entered as Reported by: ZENAIDA COBIAN on 04/06/221142 Last Action: Reviewed Duloxetine HCl (Duloxetine HCl) 60 Mg Capsule.dr, 60 MG PO DAILY, (Reported) Entered as Reported by: CODY FUENTES on 04/01/221822 Last Action: Reviewed Fexofenadine HCl (Cassy Allergy) 60 Mg Tablet, 60 MG PO BID, (Reported) Entered as Reported by: ZENAIDA COBIAN on 04/06/221142 Last Action: Reviewed Furosemide (Furosemide) 20 Mg Tablet, 20 MG PO DAILY, (Reported) Entered as Reported by: CODY FUENTES on 04/01/221822 Last Action: Reviewed Glimepiride (Glimepiride) 2 Mg Tablet, 2 MG PO TID, (Reported) Entered as Reported by: ZENAIDA COBIAN on 04/06/221142 Last Action: Reviewed Ipratropium/Albuterol Sulfate (Iprat-Albut 0.5-3(2.5) mg/3 ml) 0.5 Mg-3 Mg (2.5 Mg Base)/3 Ml Ampul.neb, 3 ML NEB Q6H PRN for SHORTNESS OF BREATH, (Reported) Entered as Reported by: ZENAIDA COBIAN on 04/06/221142 Last Action: Reviewed Lisinopril (Lisinopril) 40 Mg Tablet, 40 MG PO DAILY, (Reported) Entered as Reported by: CODY FUENTES on 04/01/221822 Last Action: Reviewed Magnesium Oxide (Magnesium) 400 Mg Magnesium Capsule, 400 MG PO DAILY, (Reported) Entered as Reported by: CODY FUENTES on 04/01/221822 Last Action: Reviewed Metoprolol Tartrate (Metoprolol Tartrate) 25 Mg Tablet, 25 MG PO BID, (Reported) Entered as Reported by: CODY FUENTES on 04/01/221822 Last Action: Reviewed Multivitamin with Minerals (One Daily Plus Minerals) 1 Each Tablet, 1 EACH PO DAILY, (Reported) Entered as Reported by: ZENAIDA COBIAN on 04/06/221142 Last Action: Reviewed Polyethylene Glycol 3350 (Miralax) 17 Gram Powd.pack, 17 GM PO DAILY PRN for CONSTIPATION-2ND LINE, (Reported) Entered as Reported by: CODY FUENTES on 04/01/221822 Last Action: Reviewed Potassium Chloride (Potassium Chloride) 10 Meq Capsule.er, 10 MEQ PO DAILY, (Reported) Entered as Reported by: CODY FUENTES on 04/01/221822 Last Action: Reviewed Prednisone (Prednisone) 20 Mg Tab, 20 MG PO BID, (Reported) Entered as Reported by: CODY FUENTES on 04/01/221822 Last Action: Reviewed Ropinirole HCl (Ropinirole HCl) 0.5 Mg Tablet, 0.5 MG PO HS, (Reported) Entered as Reported by: CODY FUENTES on 04/01/221822 Last Action: Reviewed Saccharomyces Boulardii (Saccharomyces Boulardii) 250 Mg Capsule, 250 MG PO DAILY, (Reported) Entered as Reported by: ZENAIDA COBIAN on 04/06/221142 Last Action: Reviewed Sodium Chloride (Sodium Chloride) 1 Gram Tab, 1 GM PO TID, (Reported) Entered as Reported by: CODY FUENTES on 04/01/221822 Last Action: Reviewed Physical Exam-Cardiology Physical Exam Vital Signs/I&O 04/16/22 04/16/22 04/16/22 04/16/22 03:00 03:14 04:00 04:00 Temp 37.2 Pulse 90 96 Resp 22 24 B/P (MAP) 188/95 (126) 184/77 (112) Pulse Ox 99 98 96 O2 Delivery High Flow N/C Nasal Cannula O2 Flow Rate 2.00 3.00 04/16/22 04/16/22 04/16/22 04/16/22 04:15 05:00 05:21 06:00 Pulse 98 98 Resp 24 30 B/P (MAP) 171/81 (111) 161/69 (99) Pulse Ox 96 96 93 O2 Delivery Nasal Cannula Nasal Cannula High Flow N/C Room Air O2 Flow Rate 3.00 3.00 2.00 04/16/22 04/16/22 04/16/22 04/16/22 07:00 07:00 08:00 08:00 Temp 37.0 Pulse 99 92 Resp 33 B/P (MAP) 159/68 (98) Pulse Ox 94 O2 Delivery Room Air Nasal Cannula O2 Flow Rate 3.00 04/16/22 04/16/22 04/16/22 04/16/22 08:00 09:00 10:00 10:31 Pulse 93 96 114 Resp 32 18 28 B/P (MAP) 154/74 (100) Pulse Ox 94 92 95 97 O2 Delivery Room Air Room Air Room Air Room Air 04/16/22 04/16/22 04/16/22 04/16/22 11:00 12:00 12:00 12:00 Temp 37.0 Pulse 107 94 Resp 28 Pulse Ox 96 93 O2 Delivery Room Air Room Air Nasal Cannula O2 Flow Rate 3.00 04/16/22 04/16/22 04/16/22 12:43 13:00 14:00 Pulse 101 93 89 B/P (MAP) 124/60 (81) 196/92 (126) Pulse Ox 93 92 O2 Delivery Room Air Room Air 04/16/22 00:00 Intake Total 1690 ml Output Total 1725 ml Balance -35 ml Capillary Refill : Less Than 3 Seconds Data Review Labs Laboratory Tests 04/15/22 18:03: Glucometer 112H 04/15/22 23:59: Glucometer 80 04/16/22 00:23: Sodium Level 138, Potassium Level 3.1L, Chloride Level 99, Carbon Dioxide Level 28, Anion Gap 11, Blood Urea Nitrogen 20H, Creatinine 0.57L, Estimat Glomerular Filtration Rate 100, BUN/Creatinine Ratio 35, Glucose Level 93, Calcium Level 8.8 04/16/22 06:07: Glucometer 83 04/16/22 09:39: White Blood Count 8.3, Red Blood Count 3.94, Hemoglobin 11.8, Hematocrit 36, Mean Corpuscular Volume 91, Mean Corpuscular Hemoglobin 30, Mean Corpuscular Hemoglobin Concent 33, Red Cell Distribution Width 14.4, Platelet Count 289, Mean Platelet Volume 10.4, Immature Granulocyte % (Auto) 1, Neutrophils (%) (Auto) 84H, Lymphocytes (%) (Auto) 7L, Monocytes (%) (Auto) 9, Eosinophils (%) (Auto) 1, Basophils (%) (Auto) 0, Neutrophils # (Auto) 6.9, Lymphocytes # (Auto) 0.6L, Monocytes # (Auto) 0.7, Eosinophils # (Auto) 0.0, Basophils # (Auto) 0.0, Immature Granulocyte # (Auto) 0.0, Sodium Level 138, Potassium Level 3.1L, Ch loride Level 98, Carbon Dioxide Level 29, Anion Gap 11, Blood Urea Nitrogen 18, Creatinine 0.61, Estimat Glomerular Filtration Rate 99, BUN/Creatinine Ratio 30, Glucose Level 115H, Calcium Level 9.1, Corrected Calcium 9.4, Phosphorus Level 2.2L, Magnesium Level 1.9, Total Bilirubin 1.3H, Aspartate Amino Transf (AST/SGOT) 22, Alanine Aminotransferase (ALT/SGPT) 53, Alkaline Phosphatase 74, Total Protein 5.7L, Albumin 3.6 04/16/22 11:39: Glucometer 108 Microbiology 04/06/22 Blood Culture - Final, Complete No growth 04/05/22 Urine Culture - Final, Complete NO GROWTH 04/04/22 Gram Stain - Final, Complete 04/04/22 Sputum Culture - Final, Complete Usual upper respiratory baltazar Radiology NAME: VIDA MERAZ [facility] REC#: [id number] PT STATUS: ADM IN : 1955 PHYSICIAN: BAILEY STRICKLAND MD ADMIT DATE: 04/01/22/ICU Signed Date of Exam:04/12/22 CHEST 1 VIEW, AP/PA ONLY Indication: Respiratory distress Frontal chest obtained at 4:41 a.m. compared to yesterday. There is cardiomegaly. Patient has been extubated compared to the prior study and the NG tube removed. There is poor inspiration with some bibasilar atelectasis. There is some infiltrate in the right upper lobe. There is no pneumothorax or gross pleural fluid. Impression: Status post extubation. Mild right upper lobe infiltrate and bibasilar atelectasis. No pneumothorax or gross pleural fluid. Dictated by: Dictated on workstation # [id number] Dict: 04/12/22 0812 Trans: 04/12/22 1253 CVB [id number] Interpreted by: MAHOGANY VELIZ MD Electronically signed by: MAHOGANY VELIZ MD 04/12/22 1253 ECG Impression ECG Comment A-fib with RVR on ECG of 04-14-22 A/P-Cardiology Assessment/Admission Diagnosis PAF with RVR - first dx on ECG of 04-14-22 at [facility] - converted spontaneously to SR - has been maintaining SR - currently on Lovenox - advise changing to OAC Acute resp failure d/t COVID pneumonia - requiring intubation - extubated on 04-12-22 HTN COPD - oxygen dependant at home on 2L/NC DM Obesity - BMI approx 41 ABBY LICONA Apr 16, 2022 08:46
[2022-04-16] MEDS: amLODIPine 5 MG (NORVASC) TAB PO SCH (08:53)
[2022-04-16] MEDS: ANASTROZOLE 1 MG TAB (ARIMIDEX) PO SCH (08:53)
[2022-04-16] MEDS: SODIUM CHLORIDE 1 GM TABLET PO SCH ×3 (08:54→21:10)
--- NOTE | 2022-04-16 08:55 | Occupational Ther Daily Note ---
OT Current Status-Daily Note Subjective Awake and alert laying supine in bed Mental Status/Objective Patient Orientation: Person, Place, Situation Attachments: Hughes Catheter, IV, Oxygen, SCD's ADL-Treatment NO ADL this visit, Ther ex perform with bed positioning, and rolling. Therapy Code Descriptions/Definitions Functional [place] Measure: 0=Not Assessed/NA 4=Minimal Assistance 1=Total Assistance 5=Supervision or Setup 2=Maximal Assistance 6=Modified [place] 3=Moderate Assistance 7=Complete IndependenceSCALE: Activities may be completed with or without assistive devices. 4-Sbyharymwr-pyizicc completes the activity by him/herself with no assistance from a helper. 5-Set-up or Clean-up Assistance-helper sets up or cleans up; patient completes activity. [place] assists only prior to or following the activity. 4-Supervision or Touching Assistance-helper provides verbal cues and/or touching/steadying and/or contact guard assistance as patient completes activity. Assistance may be provided throughout the activity or intermittently. 3-Partial/Moderate Assistance-helper does LESS THAN HALF the effort. [place] lifts, holds or supports trunk or limbs, but provides less than half the effort. 2-Substantial/Maximal Assistance-helper does MORE THAN HALF the effort. [place] lifts or holds trunk or limbs and provides more than half the effort. 8-Vbpfwtpno-slvgye does ALL the effort. Patient does none of the effort to complete the activity. Or, the assistance of 2 or more helpers is required for the patient to complete the activity. If activity was not attempted, code reason: 7-Patient Refused. 9-Not Applicable-not attempted and the patient did not perform the activity before the current illness, exacerbation or injury. 10-Not Attempted due to Environmental Limitations-(lack of equipment, weather restraints, etc.). 88-Not Attempted due to Medical Conditions or Safety Concerns. Other Treatment Use of bed and body mechanics to roll Right and Left with caution of lines and tubes, Max assist for partial rolling to each side, reduced cervical rotation to right noted. BM noted following rolling, OT notified PCT Education OT Patient Education: Exercise program, Progress toward Goal/Update tx plan, Purpose of tx/functional activities, Reviewed precautions, Rehab process, Use of adapted equipment Teaching Recipient: Patient Teaching Methods: Demonstration, Discussion Response to Teaching: Verbalize Understanding, Return Demonstration, Re inforcement Needed OT [employer] Supervisor Goals Shelter Goals Time Frame: Apr 24, 2022 Eating (QC): 6 Oral Hygiene (QC): 6 Toileting Hygiene (QC): 2 Shower/Bathe Self (QC): 2 Upper Body Dressing (QC): 3 Lower Body Dressing (QC): 2 On/Off Footwear (QC): 2 Additional Goals: 1-Demonstrate ADL Tasks, 2-Verbalize Understanding, 3- ImproveStrength/Forest 1=Demonstrate adherence to instructed precautions during ADL tasks. 2=Patient will verbalize/demonstrate understanding of assistive devices/modifications for ADL. 3=Patient will improve strength/tolerance for activity to enable patient to perform ADL's. OT Education/Plan Discharge Recommendations Plan/Recommendations: Continue POC Therapy Discharge Recommendati: 24 Hour Supervision Treatment Plan/Plan of Care Treatment,Training & Education: Yes Patient would benefit from OT for education, treatment and training to promote independence in ADL's, mobility, safety and/or upper extremity function for ADL's. Plan of Care: ADL Retraining, Functional Mobility, Group Exercise/Act as Ind, UE Funct Exercise/Act Treatment Duration: Apr 24, 2022 Frequency: 3 times per week (3-5 times per week) Estimated Hrs Per Day: .25 hour per day Agreement: Yes Rehab Potential: Guarded Pt remains in [facility] isolation room Time Start Time: 07:52 Stop Time: 08:12 DATE: Apr 16, 2022 Total Time Billed (hr/min): 20 Billed Treatment Time 1 EX 20 minutes GRACE HUA OT Apr 16, 2022 08:54
[2022-04-16] MEDS: MICONAZOLE 2% POWDER (DESENEX AF) 90 GM TOP SCH ×2 (09:00→21:10)
--- NOTE | 2022-04-16 09:20 | Consultation-Cardiology ---
HPI-Cardiology Cardiology Consultation: Date of Consultation 04/16/22 Time Seen by a Provider: 09:05 Date of Admission Attending Physician Saad Lara MD Admitting Physician Admitting Physician: Lala Saldivar MD Attending Physician: Malou Purcell MD Consulting Physician YUAN MAI MD, MA, FACP, FACC, [facility], CCDS HPI: Chief Complaint: PAF with RVR dx 04-14-22 Ms. Stephenson is a 66 yr old female who was admitted on 04-01-22 from the ED with COVID pneumonia requiring intubation. She has had a long hospitalization with ac resp failure requiring mech vent. She is currently extubated. She had an episode of PAF with RVR dx on ECG of 04-14-22. She converted to SR spontaneously and has been maintaining SR. She does not report cp or palp or syncope or shortness of breath or swelling Review of Systems-Cardiology Review of Systems Constitutional: malaise, tiredness; No weight loss, No weight gain Eyes: No vision change Ears/Nose/Throat: No ear discharge, No nasal drainage, No recent hearing loss Respiratory: As described under HPI Cardiovascular: As described under HPI Gastrointestinal: No diarrhea; nausea (has had intermittent n/v), vomiting (has had intermittent n/v) Genitourinary: No dysuria, No hematuria Musculoskeletal: No back pain, No joint pain Skin: No rash, No ulcerations Psychiatric/Neurological: No seizure, No focal weakness, No syncope Hematologic: No bleeding abnormalities All Other Systems Reviewed Negative Unless Noted: Yes UIB-[id number] Hx Patient Social History Smoking Status: Current Everyday Smoker (one pack per day) 2nd Hand Smoke Exposure: No Have you traveled recently?: No Alcohol Use?: No Pt feels they are or have been: No Tobacco type used: Cigarettes Past Medical History PMH As described under Assessment. Family Medical History Family Medical History: She does not report fam h/o early CAD or SCD Allergies and Home Medications Allergies Coded Allergies: No Known Drug Allergies (Unverified , 12/08/19) Patient Home Medication List Home Medication List Reviewed: Yes Acetaminophen (Tylenol) 325 Mg Tablet, 650 MG PO TID, (Reported) Entered as Reported by: CODY FUENTES on 04/01/22 7076 Last Action: Reviewed Acetaminophen (Tylenol) 325 Mg Tablet, 650 MG PO DAILY PRN for PAIN-MILD (1-4), (Reported) Entered as Reported by: ZEANIDA COBIAN on 04/06/221142 Last Action: Reviewed Albuterol Sulfate (Ventolin Hfa) 90 Mcg Hfa.aer.ad, 2 PUFF INH Q6H PRN for ELI RTNESS OF BREATH, (Reported) Entered as Reported by: ZENAIDA COBIAN on 04/06/221142 Last Action: Reviewed Albuterol Sulfate (Albuterol Sulfate) 2.5 Mg/3 Ml (0.083 %) Vial.neb, 3 ML NEB Q6H PRN for WHEEZING, (Reported) Entered as Reported by: ZENAIDA COBIAN on 04/06/221142 Last Action: Reviewed Amlodipine Besylate (Amlodipine Besylate) 5 Mg Tablet, 5 MG PO DAILY, (Reported) Entered as Reported by: CODY FUENTES on 04/01/221822 Last Action: Reviewed Anastrozole (Arimidex) 1 Mg Tablet, 1 MG PO DAILY, (Reported) Entered as Reported by: ZENAIDA COBIAN on 04/06/221142 Last Action: Continued Azithromycin (Azithromycin) 250 Mg Tablet, 250 MG PO DAILY, (Reported) Entered as Reported by: CODY FUENTES on 04/01/221822 Last Action: Reviewed Baclofen (Baclofen) 10 Mg Tablet, 10 MG PO DAILY, (Reported) Entered as Reported by: CODY FUENTES on 04/01/221822 Last Action: Reviewed Buspirone HCl (Buspirone HCl) 30 Mg Tablet, 30 MG PO BID, (Reported) Entered as Reported by: CODY FUENTES on 04/01/221822 Last Action: Reviewed Carboxymethylcellulose Sodium (Refresh Tears) 0.5 % Drops, 2 DROP OU Q4H PRN for DRY EYES, (Reported) Entered as Reported by: ZENAIDA COBIAN on 04/06/221142 Last Action: Reviewed Duloxetine HCl (Duloxetine HCl) 60 Mg Capsule.dr, 60 MG PO DAILY, (Reported) Entered as Reported by: CODY FUENTES on 04/01/221822 Last Action: Reviewed Fexofenadine HCl (Cassy Allergy) 60 Mg Tablet, 60 MG PO BID, (Reported) Entered as Reported by: ZENAIDA COBIAN on 04/06/221142 Last Action: Reviewed Furosemide (Furosemide) 20 Mg Tablet, 20 MG PO DAILY, (Reported) Entered as Reported by: CODY FUENTES on 04/01/221822 Last Action: Reviewed Glimepiride (Glimepiride) 2 Mg Tablet, 2 MG PO TID, (Reported) Entered as Reported by: ZENAIDA COBIAN on 04/06/221142 Last Action: Reviewed Ipratropium/Albuterol Sulfate (Iprat-Albut 0.5-3(2.5) mg/3 ml) 0.5 Mg-3 Mg (2.5 Mg Base)/3 Ml Ampul.neb, 3 ML NEB Q6H PRN for SHORTNESS OF BREATH, (Reported) Entered as Reported by: ZENAIDA COBIAN on 04/06/221142 Last Action: Reviewed Lisinopril (Lisinopril) 40 Mg Tablet, 40 MG PO DAILY, (Reported) Entered as Reported by: CODY FUENTES on 04/01/221822 Last Action: Reviewed Magnesium Oxide (Magnesium) 400 Mg Magnesium Capsule, 400 MG PO DAILY, (Rep orted) Entered as Reported by: CODY FUENTES on 04/01/221822 Last Action: Reviewed Metoprolol Tartrate (Metoprolol Tartrate) 25 Mg Tablet, 25 MG PO BID, (Reported) Entered as Reported by: CODY FUENTES on 04/01/221822 Last Action: Reviewed Multivitamin with Minerals (One Daily Plus Minerals) 1 Each Tablet, 1 EACH PO DAILY, (Reported) Entered as Reported by: ZENAIDA COBIAN on 04/06/221142 Last Action: Reviewed Polyethylene Glycol 3350 (Miralax) 17 Gram Powd.pack, 17 GM PO DAILY PRN for CONSTIPATION-2ND LINE, (Reported) Entered as Reported by: CODY FUENTES on 04/01/221822 Last Action: Reviewed Potassium Chloride (Potassium Chloride) 10 Meq Capsule.er, 10 MEQ PO DAILY, (Reported) Entered as Reported by: CODY FUENTES on 04/01/221822 Last Action: Reviewed Prednisone (Prednisone) 20 Mg Tab, 20 MG PO BID, (Reported) Entered as Reported by: CODY FUENTES on 04/01/221822 Last Action: Reviewed Ropinirole HCl (Ropinirole HCl) 0.5 Mg Tablet, 0.5 MG PO HS, (Reported) Entered as Reported by: CODY FUENTES on 04/01/221822 Last Action: Reviewed Saccharomyces Boulardii (Saccharomyces Boulardii) 250 Mg Capsule, 250 MG PO DAILY, (Reported) Entered as Reported by: ZENAIDA COBIAN on 04/06/22 114 Last Action: Reviewed Sodium Chloride (Sodium Chloride) 1 Gram Tab, 1 GM PO TID, (Reported) Entered as Reported by: CODY FUENTES on 04/01/221822 Last Action: Reviewed Physical Exam-Cardiology Physical Exam Vital Signs/I&O 04/15/22 04/15/22 04/15/22 04/15/22 22:00 22:00 22:37 22:50 Pulse 98 98 Resp B/P (MAP) 146/57 (86) 146/57 (86) Pulse Ox 93 92 99 O2 Delivery Room Air Nasal Cannula High Flow N/C O2 Flow Rate 3.00 2.00 04/15/22 04/15/22 04/16/22 04/16/22 23:00 23:00 00:00 00:00 Temp 37.0 Pulse 98 98 94 Resp B/P (MAP) 128/78 (95) 128/78 (95) 168/71 (103) Pulse Ox 99 99 97 O2 Delivery Nasal Cannula Nasal Cannula Nasal Cannula O2 Flow Rate 3.00 3.00 3.00 04/16/22 04/16/22 04/16/22 04/16/22 00:15 01:00 01:00 02:00 Pulse 86 85 90 Resp B/P (MAP) 171/72 (105) 171/68 (102) Pulse Ox 98 98 O2 Delivery Nasal Cannula O2 Flow Rate 3.00 FiO2 8 04/16/22 04/16/22 04/16/22 04/16/22 03:00 03:14 04:00 04:00 Temp 37.2 Pulse 90 96 Resp 24 B/P (MAP) 188/95 (126) 184/77 (112) Pulse Ox 99 98 96 O2 Delivery High Flow N/C Nasal Cannula O2 Flow Rate 2.00 3.00 04/16/22 04/16/22 04/16/22 04/16/22 04:15 05:00 05:21 06:00 Pulse 98 98 Resp 24 30 B/P (MAP) 171/81 (111) 161/69 (99) Pulse Ox 96 96 93 O2 Delivery Nasal Cannula Nasal Cannula High Flow N/C Room Air O2 Flow Rate 3.00 3.00 2.00 04/16/22 04/16/22 04/16/22 04/16/22 07:00 07:00 08:00 08:00 Temp 37.0 Pulse 99 92 93 Resp 33 32 B/P (MAP) 159/68 (98) 154/74 (100) Pulse Ox 94 94 O2 Delivery Room Air Room Air 04/16/22 09:00 Pulse 96 Resp 18 Pulse Ox 92 O2 Delivery Room Air 04/16/22 00:00 Intake Total 1690 ml Output Total 1725 ml Balance -35 ml Capillary Refill : Less Than 3 Seconds Constitutional: AAO x 3, well-developed, well-nourished HEENT: EOMI, hearing is well preserved, oral hygience is good; No xanthelasmas are seen Neck: carotid bruit, carotid pulses are 2 + bilaterally, with good upstrokes Respiratory: No accessory muscle use; chest expansion is symmetric, other (fair to good, bilateral air entry) Cardiovascular: regular rate-rhythm, S1 and S2, systolic murmur (soft ARVIND at card base) Gastrointestinal: No tender; soft; No guarding, No rebound; audible bowel sounds Extremities: No clubbing, No cyanosis, No significant edema Neurologic/Psychiatric: oriented x 3, other (moves all limbs equally) Skin: No rash on exposed areas, No ulcerations on exposed areas Data Review Labs Laboratory Tests 04/15/22 11:30: White Blood Count 10.5, Red Blood Count 4.05, Hemoglobin 12.0, Hematocrit 37, Mean Corpuscular Volume 91, Mean Corpuscular Hemoglobin 30, Mean Corpuscular Hemoglobin Concent 33, Red Cell Distribution Width 14.3, Platelet Count 287, Mean Platelet Volume 10.4, Immature Granulocyte % (Auto) 0, Neutrophils (%) (Auto) 89H, Lymphocytes (%) (Auto) 4L, Monocytes (%) (Auto) 7, Eosinophils (%) (Auto) 0, Basophils (%) (Auto) 0, Neutrophils # (Auto) 9.3H, Lymphocytes # (Auto) 0.4L, Monocytes # (Auto) 0.7, Eosinophils # (Auto) 0.0, Basophils # (Auto) 0.0, Immature Granulocyte # (Auto) 0.0, Neutrophils % (Manual) 93, Lymphocytes % (Manual) 4, Monocytes % (Manual) 3, Eosinophils % (Manual) 0, Basophils % (Manual) 0, Band Neutrophils 0, Blood Morphology Comment NORMAL, Sodium Level 140, Potassium Level 2.7L, Chloride Level 96L, Carbon Dioxide Level 33H, Anion Gap 11, Blood Urea Nitrogen 22H, Creatinine 0.56L, Estimat Glomerular Filtration Rate 101, BUN/Creatinine Ratio 39, Glucose Level 139H, Calcium Level 8.9, Phosphorus Level 2.6, Magnesium Level 1.8 04/15/22 12:00: Glucometer 127H 04/15/22 18:03: Glucometer 112H 04/15/22 23:59: Glucometer 80 04/16/22 00:23: Sodium Level 138, Potassium Level 3.1L, Chloride Level 99, Carbon Dioxide Level 28, Anion Gap 11, Blood Urea Nitrogen 20H, Creatinine 0.57L, Estimat Glomerular Filtration Rate 100, BUN/Creatinine Ratio 35, Glucose Level 93, Calcium Level 8.8 04/16/22 06:07: Glucometer 83 Microbiology 04/06/22 Blood Culture - Final, Complete No growth 04/05/22 Urine Culture - Final, Complete NO GROWTH 04/04/22 Gram Stain - Final, Complete 04/04/22 Sputum Culture - Final, Complete Usual upper respiratory baltazar Laboratory Tests 04/14/22 22:56 04/15/22 11:30 04/16/22 00:23 A/P-Cardiology Assessment/Admission Diagnosis PAF with RVR - first dx on ECG of 04-14-22 at [facility] - converted spontaneously to SR - has been maintaining SR - currently on Lovenox - advise changing to OAC Acute resp failure d/t COVID pneumonia - requiring intubation - extubated on 04-12-22 HTN COPD - oxygen dependant at home on 2L/NC DM Obesity - BMI approx 41 Discussion and Recomendations * Beta-chance for vent rate control and for hypertension * Lovenox/OAC for stroke prophylaxis * Replenish K * Echo to eval LVEF, chamber sizes, valve function, wall motion, PASP * Monitor labs closely YUAN MAI MD FACP [facility] CCDS Apr 16, 2022 09:20
[2022-04-16 09:54] LABS: BASOPHILS % (AUTO) 0 % (0-10); EOSINOPHILS % (AUTO) 1 % (0-10); HEMATOCRIT 36 % (35-52); HEMOGLOBIN 11.8 g/dL (11.5-16.0); LYMPHOCYTES # (AUTO) 0.6 10^3/uL (1.0-4.0); LYMPHOCYTES % (AUTO) 7 % (12-44); MEAN CORPUSCULAR HEMOGLOBIN 30 pg (25-34); MEAN CORPUSCULAR HGB CONC 33 g/dL (32-36); MEAN CORPUSCULAR VOLUME 91 fL (80-99); MEAN PLATELET VOLUME 10.4 fL (9.0-12.2); MONOCYTES # (AUTO) 0.7 10^3/uL (0.0-1.0); MONOCYTES % (AUTO) 9 % (0-12); NEUTROPHILS # (AUTO) 6.9 10^3/uL (1.8-7.8); NEUTROPHILS % (AUTO) 84 % (42-75); PLATELET COUNT 289 10^3/uL (130-400); WHITE BLOOD COUNT 8.3 10^3/uL (4.3-11.0)
[2022-04-16 10:10] LABS: ALBUMIN 3.6 GM/DL (3.2-4.5); BILIRUBIN,TOTAL 1.3 MG/DL (0.1-1.0); CALCIUM 9.1 MG/DL (8.5-10.1); CREATININE SERUM 0.61 MG/DL (0.60-1.30); MAGNESIUM 1.9 MG/DL (1.6-2.4); PHOSPHORUS 2.2 MG/DL (2.3-4.7); POTASSIUM 3.1 MMOL/L (3.6-5.0); TOTAL PROTEIN 5.7 GM/DL (6.4-8.2)
--- NOTE | 2022-04-16 10:28 | Progress Note - Hospitalist ---
Subjective HPI/CC On Admission Date Seen by Provider: Apr 16, 2022 Subjective/Events-last exam Pt reports feeling well. NO complaints. Getting blood work down. RN reports she stayed off BiPAP overnight. Objective Exam Vital Signs Vital Signs Date Time Temp Pulse Resp B/P (MAP) Pulse Ox O2 Delivery O2 Flow Rate FiO2 04/16/22 10:00 114 28 95 Room Air 04/16/22 08:00 154/74 (100) 04/16/22 08:00 37.0 04/16/22 05:21 2.00 04/16/22 00:15 8 Capillary Refill : Less Than 3 Seconds General Appearance: No Apparent Distress, Chronically ill, Obese Respiratory: Lungs Clear, No Accessory Muscle Use Cardiovascular: Regular Rate, Rhythm, No Murmur Neurologic/Psychiatric: Alert, Oriented x3 Results/Procedures Lab Laboratory Tests 04/15/22 11:30 04/16/22 00:23 04/16/22 09:39 Patient resulted labs reviewed. Imaging: Reviewed Imaging Report Assessment/Plan Assessment and Plan Assess & Plan/Chief Complaint Acute respiratory failure with hypoxia secondary to COVID-19 Continue steroids MAT protocol Extubated 04/11 TeleICU consulted, appreciate recs Was on room air when I was room Speech therapy to continue Off precedex Discussed with radiagraph operator and can come out of isolation on midnight 04/18 A-fib with RVR Converted back to sinus rhythm Lovenox therapeutic dosing Cardiology consulted, apprecaite recs T2DM Sliding scale insulin BS well controlled HTN Continue current meds Morbid obesity Clinically significant, no acute management needs DVT prophylaxis: Lovenox Critical Care Ventilator Management Clinical Quality Measures Admission Status Admission Dx Patient is a 66-year-old female with past medical history of COPD who presented to the emergency department due to respiratory distress secondary to COVID. She had already been treated with Paxlovid, steriods, and antibiotics in the half-way but continued to progress. She is normally on 2 L of oxygen due to her COPD but had to be increased to 4 L and was still hypoxic. In the ER she was quite tachypneic and had increased work of breathing so was placed on BiPAP. She was admitted here to the ICU for this. This morning she reports reports feeling a little bit better and would like to trial off of BiPAP so that she can eat. She has no other complaints at this time. BP is trending up slightly so will restarted her Norvasc. Continue on steroids. TeleICU consulted, appreciate recs. BERNA SANDHU MD Apr 16, 2022 10:28 am
[2022-04-16] MEDS: KCL 20 MEQ TAB (K-DUR) PO SCH (10:30)
[2022-04-16] MEDS: MAGNESIUM 1 GM/100 ML IVPB 100 ML IV SCH (11:26)
--- NOTE | 2022-04-16 11:57 | Speech Therapy Progress Note ---
Therapy Progress Note Speech pathology attempted a follow up treatment session at 0915. At this time, the patient is receiving care from RT. ST will re-attempt as able. APRIL SHEA Apr 16, 2022 11:57
--- NOTE | 2022-04-16 14:18 | Speech Therapy Daily Note ---
Speech Daily Progress Note Subjective Date Seen by Provider: Apr 16, 2022 Time Seen by Provider: 13:25 The patient was lying in bed, awake and alert, upon entrance to her room by the clinician. The patient greeted the clinician appropriately and was agreeable to participation in the cognitive and dysphagia treatment session. The patient was positioned upright in bed for safe swallowing. Objective The patient appears with increased confusion on this date, following one-step commands intermittently with multiple verbal redirections and direct modeling. The patient does not respond to orientation questions asked by the clinician and does not participate in informal conversation as she had been in previous treatment sessions. Consistent redirection was provided to the patient to complete the task requested. The patient was agreeable to consume straw drinks of thin liquid and two bites of jell-O. The patient refused all additional P.O. trials attempted. The clinician continues attempts to upgrade the patient's diet consistency, however, she continues to refuse P.O. trials. Overt s/s of suspected aspiration were not demonstrated with thin liquids via straw or the two straw drinks. The patient's lunch tray was present which had nectar-thick liquids. The clinician upgraded the patient's liquid consistencies to thin liquids the day prior. The clinician discussed the finding with the RN following treatment. Assessment Assessment Current Status: Poor Progress Treatment Plan Continue Plan of Care Speech Short Term Goals Short Term Goals Short Term Goals 1. The patient will tolerate trials of the least restrictive diet consistency without s/s of suspected aspiration. Time Frame-STG: Three Days. Speech Youth Associate Goals Youth Associate Goals 1. The patient will tolerate the least restrictive diet consistency without s/s of suspected aspiration. Time Frame: Ten Days. Speech-Plan Treatment Plan Speech Therapy Treatment Plan: Continue Plan of Care Treatment Duration: Apr 23, 2022 Frequency: 4 times per week Estimated Hrs Per Day: .25 hour per day Rehab Potential: Guarded Safety Risks/Education Teaching Recipient: Patient Teaching Methods: Discussion Response to Teaching: Unable to Comprehend, Reinforcement Needed Education Topics Provided: Safe Swallowing Precautions Time Speech Therapy Time In: 13:25 Speech Therapy Time Out: 13:45 DATE: Apr 16, 2022 Total Billed Time: 20 Billed Treatment Time 1, JOSE, APRIL MONDRAGON Apr 16, 2022 14:18
[2022-04-16] MEDS: LORazepam INJ 2 MG/ML (ATIVAN) VIAL IVP PRN (14:49)
[2022-04-16 20:04] VITALS: BP 148/68
[2022-04-16 20:18] LABS: POTASSIUM 4.3 MMOL/L (3.6-5.0)
[2022-04-16 20:19] LABS: CALCIUM 8.6 MG/DL (8.5-10.1)
[2022-04-16 20:24] LABS: CREATININE SERUM 0.49 MG/DL (0.60-1.30)
[2022-04-16] MEDS: rOPINIRole 0.25 MG (REQUIP) TAB PO SCH (21:10)
[2022-04-16 21:28] VITALS: BP 109/52
[2022-04-17 02:56] VITALS: BP 130/65
[2022-04-17] MEDS: RT-ALBUTEROL/IPRATROPIUM 3 ML (DUONEB) VIAL INH SCH ×6 (02:56→21:31)
[2022-04-17] MEDS: ENOXAPARIN 100 MG/1 ML (LOVENOX) SYR SC SCH ×2 (04:52→18:26)
[2022-04-17 05:22] LABS: BASOPHILS % (AUTO) 0 % (0-10); EOSINOPHILS # (AUTO) 0.1 10^3/uL (0.0-0.3); EOSINOPHILS % (AUTO) 1 % (0-10); HEMATOCRIT 34 % (35-52); HEMOGLOBIN 10.9 g/dL (11.5-16.0); LYMPHOCYTES # (AUTO) 0.5 10^3/uL (1.0-4.0); LYMPHOCYTES % (AUTO) 10 % (12-44); MEAN CORPUSCULAR HEMOGLOBIN 30 pg (25-34); MEAN CORPUSCULAR HGB CONC 32 g/dL (32-36); MEAN CORPUSCULAR VOLUME 92 fL (80-99); MEAN PLATELET VOLUME 10.5 fL (9.0-12.2); MONOCYTES # (AUTO) 0.5 10^3/uL (0.0-1.0); MONOCYTES % (AUTO) 10 % (0-12); NEUTROPHILS # (AUTO) 3.8 10^3/uL (1.8-7.8); NEUTROPHILS % (AUTO) 77 % (42-75); PLATELET COUNT 251 10^3/uL (130-400)
[2022-04-17 05:30] LABS: POTASSIUM 3.2 MMOL/L (3.6-5.0)
[2022-04-17 05:32] LABS: CALCIUM 8.4 MG/DL (8.5-10.1)
[2022-04-17 05:35] LABS: BILIRUBIN,TOTAL 0.7 MG/DL (0.1-1.0)
[2022-04-17 05:36] LABS: PHOSPHORUS 3.5 MG/DL (2.3-4.7)
[2022-04-17 05:37] LABS: CREATININE SERUM 0.51 MG/DL (0.60-1.30)
[2022-04-17 05:39] LABS: MAGNESIUM 1.8 MG/DL (1.6-2.4)
[2022-04-17] MEDS: inSUlin ASPART (NovoLOG) 1 UNIT/0.01 ML (CHARGE PER UNIT) SC SCH ×3 (06:04→18:13)
[2022-04-17] MEDS: MAGNESIUM 1 GM/100 ML IVPB 100 ML IV SCH (06:05)
[2022-04-17] MEDS: KCL 20 MEQ TAB (K-DUR) PO SCH (06:18)
[2022-04-17] MEDS: POTASSIUM CL 10MEQ/50ML IVPB 50 ML IV SCH (06:18)
[2022-04-17] MEDS ORDERED: KCL 20 MEQ TAB (K-DUR) PO ONE (08:30)
[2022-04-17] MEDS: PANTOPRAZOLE 40 MG (PROTONIX) VIAL IV SCH (09:04)
[2022-04-17] MEDS: FUROSEMIDE 40 MG/4 ML INJ (LASIX) IVP SCH (09:04)
[2022-04-17] MEDS: predniSONE 10 MG TAB PO SCH (09:07)
[2022-04-17] MEDS: busPIRone 15 MG (BUSPAR) TABLET PO SCH ×2 (09:07→20:03)
[2022-04-17] MEDS: amLODIPine 5 MG (NORVASC) TAB PO SCH (09:07)
[2022-04-17] MEDS: lisINopril 40 MG (PRINIVIL) TABLET PO SCH (09:07)
[2022-04-17] MEDS: BACLOFEN 10 MG (LIORESAL) TAB PO SCH (09:07)
[2022-04-17] MEDS: ANASTROZOLE 1 MG TAB (ARIMIDEX) PO SCH (09:08)
[2022-04-17] MEDS: SODIUM CHLORIDE 1 GM TABLET PO SCH ×3 (09:08→20:03)
[2022-04-17] MEDS: MICONAZOLE 2% POWDER (DESENEX AF) 90 GM TOP SCH ×2 (09:08→20:03)
[2022-04-17] MEDS: DULoxetine 30 MG (CYMBALTA) CAP PO SCH (09:12)
[2022-04-17] MEDS: LORazepam INJ 2 MG/ML (ATIVAN) VIAL IVP PRN ×2 (10:41→18:25)
--- NOTE | 2022-04-17 11:12 | Progress Note - Cardiology ---
Cardiology SOAP Progress Note Subjective: Does not feels well Reports gen malaise No cp No palp or syncope No shortness of breath at rest Does not report n/v/d Objective: I&O/Vital Signs 04/16/22 04/17/22 04/17/22 04/17/22 23:45 00:00 01:00 01:00 Pulse 100 96 102 Resp 24 24 B/P (MAP) 123/67 (85) 119/60 (79) Pulse Ox 95 96 95 O2 Delivery NIV Bilevel NIV Bilevel NIV Bilevel O2 Flow Rate 40.00 40.00 FiO2 40 04/17/22 04/17/22 04/17/22 04/17/22 02:00 02:56 03:00 03:12 Temp 36.0 Pulse 97 95 87 Resp 24 24 28 B/P (MAP) 130/65 (86) 153/63 (93) Pulse Ox 95 84 95 O2 Delivery NIV Bilevel NIV Bilevel O2 Flow Rate 40.00 40.00 40.00 04/17/22 04/17/22 04/17/22 04/17/22 04:00 04:00 05:00 06:00 Pulse 98 85 93 Resp 28 28 25 B/P (MAP) 131/59 (83) 142/66 (91) 137/65 (89) Pulse Ox 95 93 96 90 O2 Delivery NIV Bilevel NIV Bilevel NIV Bilevel NIV Bilevel O2 Flow Rate 40.00 40.00 40.00 FiO2 40 04/17/22 04/17/22 04/17/22 04/17/22 07:00 07:00 07:53 08:00 Temp 36.7 Pulse 109 102 Resp 28 B/P (MAP) 148/75 (99) Pulse Ox 96 95 O2 Delivery NIV Bilevel NIV Bilevel O2 Flow Rate 40.00 FiO2 40 04/17/22 04/17/22 04/17/22 08:00 09:00 10:00 Pulse 96 98 120 Resp 21 28 B/P (MAP) 150/92 (111) 141/73 (95) 136/79 (98) Pulse Ox 96 97 91 O2 Delivery NIV Bilevel NIV Bilevel NIV Bilevel O2 Flow Rate 40.00 40.00 40.00 04/17/22 00:00 Intake Total 450 ml Output Total 700 ml Balance -250 ml Constitutional: AAO x 3, well-developed, well-nourished Respiratory: No accessory muscle use; chest expansion is symmetric, other (fair to good, bilateral air entry) Cardiovascular: regular rate-rhythm, S1 and S2, systolic murmur (soft ARVIND at card base) Gastrointestional: No tender; soft; No guarding, No rebound; audible bowel sounds Extremities: No clubbing, No cyanosis, No significant edema Neurologic/Psychiatric: oriented x 3, other (moves all limbs equally) Skin: No rash on exposed areas, No ulcerations on exposed areas Results/Procedures: Labs Laboratory Tests 04/16/22 11:39: Glucometer 108 04/16/22 18:20: Glucometer 87 04/16/22 19:53: Sodium Level 135, Potassium Level 4.3, Chloride Level 101, Carbon Dioxide Level 22, Anion Gap 12, Blood Urea Nitrogen 17, Creatinine 0.49L, Estimat Glomerular Filtration Rate 104, BUN/Creatinine Ratio 35, Glucose Level 91, Calcium Level 8.6 04/16/22 23:27: Glucometer 91 04/17/22 04:53: White Blood Count 5.0, Red Blood Count 3.67L, Hemoglobin 10.9L, Hematocrit 34L, Mean Corpuscular Volume 92, Mean Corpuscular Hemoglobin 30, Mean Corpuscular Hemoglobin Concent 32, Red Cell Distribution Width 14.8H, Platelet Count 251, Mean Platelet Volume 10.5, Immature Granulocyte % (Auto) 0, Neutrophils (%) (Auto) 77H, Lymphocytes (%) (Auto) 10L, Monocytes (%) (Auto) 10, Eosinophils (%) (Auto) 1, Basophils (%) (Auto) 0, Neutrophils # (Auto) 3.8, Lymphocytes # (Auto) 0.5L, Monocytes # (Auto) 0.5, Eosinophils # (Auto) 0.1, Basophils # (Auto) 0.0, Immature Granulocyte # (Auto) 0.0, Sodium Level 138, Potassium Level 3.2L, Chloride Level 102, Carbon Dioxide Level 25, Anion Gap 11, Blood Urea Nitrogen 19H, Creatinine 0.51L, Estimat Glomerular Filtration Rate 103, BUN/Creatinine Ratio 37, Glucose Level 89, Calcium Level 8.4L, Corrected Calcium 9.2, P hosphorus Level 3.5, Magnesium Level 1.8, Total Bilirubin 0.7, Aspartate Amino Transf (AST/SGOT) 18, Alanine Aminotransferase (ALT/SGPT) 41, Alkaline Phosphatase 63, Total Protein 5.0L, Albumin 3.0L 04/17/22 05:38: Glucometer 82 04/17/22 10:34: Glucometer 153H Microbiology 04/06/22 Blood Culture - Final, Complete No growth 04/05/22 Urine Culture - Final, Complete NO GROWTH 04/04/22 Gram Stain - Final, Complete 04/04/22 Sputum Culture - Final, Complete Usual upper respiratory baltazar Laboratory Tests 04/15/22 11:30 04/16/22 00:23 04/16/22 09:39 04/16/22 19:53 04/17/22 04:53 A/P: Assessment: PAF with RVR - first dx on ECG of 04-14-22 at [facility]; converted spontaneously to SR - has been maintaining SR - currently on Lovenox - advise changing to OAC - echo on 04/16/22: LVEF 60-65%, mild to mod aortic stenosis Acute resp failure d/t COVID pneumonia - requiring intubation - extubated on 04-12-22 HTN COPD - oxygen dependant at home on 2L/NC DM Obesity - BMI approx 41 Plan: * Beta-chance for vent rate control and for hypertension * Lovenox/OAC for stroke prophylaxis * Replenish K * Monitor labs closely YUAN MAI MD FACP [facility] CCDS Apr 17, 2022 11:12
--- NOTE | 2022-04-17 11:27 | Tele-ICU Progress Note ---
Subjective Date Seen by a Provider: Apr 17, 2022 Time Seen by a Provider: 11:27 Subjective/Events-last exam (Tele-ICU Physician , Progress Note ) Service provided via interactive audio and video telecommunications E-CARE system to a patient admitted to ICU bed in [facility]. Patient is seen today due to persistent need of ICU care Available chart/ vitals / labs / Images reviewed Video assessment done using teleICU camera, rest of exam as per RN Discussed with RN Events overnight : Afebrile hemodynamically stable Respiratory - 2l I/O = nwg 4L Drips: Pressors- no Consultants: Hospital course: (04/01) 66F Admitted for COVID PNA/COPD exacerbation. Bipap (04/04) Increased work of breathing. Bacteremia. H. influenza in sputum. INTUBATED @ 1355 (04/11) EXTUBATED 04/12 - PRN BIPAP for WOB 04/14- a fib RVR again - lopressor -> conferted to sinus A/P Acute hypoxic and hypercarbic respiratory failure secondary to COPD exacerbation as well as COVID19 pneumonia. -(04/11) EXTUBATED, on 3 L PRN BIPAP at night - this am on 3 l - doing well - nebs changed to duoneb and encourage IS Anxiety -precedex OFF COVID19 pneumonia. continueprednisone taper - finished ABX course 04/14- a fib RVR - lopressor -> converted to sinus - on lovenox full dose -changing to OAC -echo on 04/16/22: LVEF 60-65%, mild to mod aortic stenosis Hyperglycemia secondary to steroids and underlying type 2 diabetes mellitus -continue ISS Dysphagia -- to follow on modified dier , add protein / ensure Diarrhea - mild , follow COPD - oxygen dependant at home on 2L/NC Pulm Lines : midline left - patient pulled out 04/17 , (Central Line Necessity Reviewed) Hughes: + OG: Nutrition: to do swallow eval today Analgesia: Anxiety/ delirium VTE Prophylaxis: maximilian full dose Stress Ulcer Prophylaxis: ppi Plans in collaboration with bedside consultants and IM MDs. Discussed with RN to reach out if any questions or concerns A total of 20 minutes of critical care time was devoted to this patient today, required to treat and/or prevent further deterioration of critical care condition ( as above ) . I am remotely monitoring this patient from another state. I am unable to do the bedside exam, and history/physical and pertinent information is taken from other notes in the computer and bedside staff. . Sepsis Event Evaluation Height, Weight, BMI Height: '" Weight: lbs. oz. kg; 41.91 BMI Method: Exam Exam Patient acknowledged, consented, and participated in this virtual visit which was conducted using real time audio/video Vital Signs Date Time Temp Pulse Resp B/P (MAP) Pulse Ox O2 Delivery O2 Flow Rate FiO2 04/17/22 11:00 96 138/82 (100) 94 NIV Bilevel 40.00 04/17/22 10:00 120 136/79 (98) 91 NIV Bilevel 40.00 04/17/22 09:00 98 28 141/73 (95) 97 NIV Bilevel 40.00 04/17/22 08:00 96 21 150/92 (111) 96 NIV Bilevel 40.00 04/17/22 08:00 95 NIV Bilevel 40 04/17/22 07:53 36.7 04/17/22 07:00 102 04/17/22 07:00 109 28 148/75 (99) 96 NIV Bilevel 40.00 04/17/22 06:00 93 25 137/65 (89) 90 NIV Bilevel 40.00 04/17/22 05:00 85 28 142/66 (91) 96 NIV Bilevel 40.00 04/17/22 04:00 98 28 131/59 (83) 93 NIV Bilevel 40.00 04/17/22 04:00 95 NIV Bilevel 40 04/17/22 03:12 36.0 04/17/22 03:00 87 28 153/63 (93) 95 NIV Bilevel 40.00 04/17/22 02:56 95 24 84 40.00 04/17/22 02:00 97 24 130/65 (86) 95 NIV Bilevel 40.00 04/17/22 01:00 102 04/17/22 01:00 96 24 119/60 (79) 95 NIV Bilevel 40.00 04/17/22 00:00 100 24 123/67 (85) 96 NIV Bilevel 40.00 04/16/22 23:45 95 NIV Bilevel 40 04/16/22 23:00 122 28 133/64 (87) 97 NIV Bilevel 40.00 04/16/22 22:00 110 26 109/61 (77) 96 NIV Bilevel 40.00 04/16/22 21:28 98 28 96 40.00 04/16/22 21:00 98 28 109/52 (71) 95 NIV Bilevel 40.00 04/16/22 20:04 109 33 96 40.00 04/16/22 20:00 36.7 04/16/22 20:00 95 NIV Bilevel 40 04/16/22 20:00 107 22 119/87 (98) 95 NIV Bilevel 40.00 04/16/22 19:00 105 24 164/82 (109) 94 Room Air 04/16/22 19:00 108 04/16/22 18:00 110 154/77 (102) 95 Room Air 04/16/22 17:00 98 31 147/78 (101) 96 Room Air 04/16/22 16:00 94 Room Air 3.00 04/16/22 16:00 103 27 162/70 (100) 95 Room Air 04/16/22 15:56 36.9 04/16/22 15:00 99 27 147/80 (102) 95 Room Air 04/16/22 14:00 89 196/92 (126) 92 Room Air 04/16/22 13:00 93 124/60 (81) 93 Room Air 04/16/22 12:43 101 04/16/22 12:00 Nasal Cannula 3.00 04/16/22 12:00 94 93 Room Air 04/16/22 12:00 37.0 I & O 04/17/22 07:00 Intake Total 550 ml Output Total 1875 ml Balance -1325 ml Height & Weight Height: '" Weight: lbs. oz. kg; 41.91 BMI Method: General Appearance: No Apparent Distress, Chronically ill, Obese Respiratory: Lungs Clear, No Accessory Muscle Use Cardiovascular: Regular Rate, Rhythm, No Murmur Capillary Refill: Less Than 3 Seconds Gastrointestinal: normal bowel sounds, non tender, soft Extremity: Normal Inspection, No Pedal Edema Neurologic/Psychiatric: Alert, Oriented x3 Skin: Normal Color, Warm/Dry Results Lab Laboratory Tests 04/15/22 11:30 04/16/22 00:23 04/16/22 09:39 04/16/22 19:53 04/17/22 04:53 Assessment/Plan Assessment/Plan 1 BRAEDEN WALKER MD Apr 17, 2022 11:27
--- NOTE | 2022-04-17 12:22 | Progress Note - Hospitalist ---
Subjective HPI/CC On Admission Date Seen by Provider: Apr 17, 2022 Subjective/Events-last exam Pt more alert today. Off BiPAP. No complaints. Rn reports doing well. Objective Exam Vital Signs Vital Signs Date Time Temp Pulse Resp B/P (MAP) Pulse Ox O2 Delivery O2 Flow Rate FiO2 04/17/22 12:00 92 137/65 (89) 94 NIV Bilevel 40.00 04/17/22 11:47 36.8 04/17/22 09:00 28 04/17/22 08:00 40 Capillary Refill : Less Than 3 Seconds General Appearance: No Apparent Distress, Chronically ill Respiratory: Lungs Clear, No Accessory Muscle Use Cardiovascular: Regular Rate, Rhythm, No Murmur Neurologic/Psychiatric: Alert, Oriented x3 (to major details only) Results/Procedures Lab Laboratory Tests 04/16/22 19:53 04/17/22 04:53 Patient resulted labs reviewed. Imaging: Reviewed Imaging Report Assessment/Plan Assessment and Plan Assess & Plan/Chief Complaint Acute respiratory failure with hypoxia secondary to COVID-19 Continue steroids- weaning dose MAT protocol Extubated 04/11 TeleICU consulted, appreciate recs Speech therapy to continue Discussed with package handler and can come out of isolation on midnight 04/18 Was back on BiPAP overnight but down to NC today A-fib with RVR Converted back to sinus rhythm Lovenox therapeutic dosing Cardiology consulted, appreciate recs T2DM Sliding scale insulin BS well controlled HTN Continue current meds Morbid obesity Clinically significant, no acute management needs DVT prophylaxis: Lovenox Critical Care Ventilator Management Clinical Quality Measures Admission Status Admission Dx Patient is a 66-year-old female with past medical history of COPD who presented to the emergency department due to respiratory distress secondary to COVID. She had already been treated with Paxlovid, steriods, and antibiotics in the [facility]dc but continued to progress. She is normally on 2 L of oxygen due to her COPD but had to be increased to 4 L and was still hypoxic. In the ER she was quite tachypneic and had increased work of breathing so was placed on BiPAP. She was admitted here to the ICU for this. This morning she reports reports feeling a little bit better and would like to trial off of BiPAP so that she can eat. She has no other complaints at this time. BP is trending up slightly so will restarted her Norvasc. Continue on steroids. TeleICU consulted, appreciate recs. BERNA SANDHU MD Apr 17, 2022 12:22
[2022-04-17] MEDS: rOPINIRole 0.25 MG (REQUIP) TAB PO SCH (20:03)
[2022-04-18] MEDS: inSUlin ASPART (NovoLOG) 1 UNIT/0.01 ML (CHARGE PER UNIT) SC SCH ×4 (01:08→18:07)
[2022-04-18] MEDS: RT-ALBUTEROL/IPRATROPIUM 3 ML (DUONEB) VIAL INH SCH ×6 (03:03→21:47)
[2022-04-18] MEDS: ENOXAPARIN 100 MG/1 ML (LOVENOX) SYR SC SCH (04:28)
[2022-04-18 06:21] LABS: BASOPHILS % (AUTO) 0 % (0-10); EOSINOPHILS # (AUTO) 0.2 10^3/uL (0.0-0.3); EOSINOPHILS % (AUTO) 3 % (0-10); HEMATOCRIT 34 % (35-52); HEMOGLOBIN 11.4 g/dL (11.5-16.0); LYMPHOCYTES # (AUTO) 0.8 10^3/uL (1.0-4.0); LYMPHOCYTES % (AUTO) 16 % (12-44); MEAN CORPUSCULAR HEMOGLOBIN 30 pg (25-34); MEAN CORPUSCULAR HGB CONC 33 g/dL (32-36); MEAN CORPUSCULAR VOLUME 90 fL (80-99); MEAN PLATELET VOLUME 10.8 fL (9.0-12.2); MONOCYTES # (AUTO) 0.5 10^3/uL (0.0-1.0); MONOCYTES % (AUTO) 10 % (0-12); NEUTROPHILS # (AUTO) 3.2 10^3/uL (1.8-7.8); NEUTROPHILS % (AUTO) 69 % (42-75); PLATELET COUNT 264 10^3/uL (130-400); WHITE BLOOD COUNT 4.7 10^3/uL (4.3-11.0)
[2022-04-18 06:32] LABS: POTASSIUM 2.9 MMOL/L (3.6-5.0)
[2022-04-18 06:33] LABS: CALCIUM 8.8 MG/DL (8.5-10.1)
[2022-04-18 06:35] LABS: TOTAL PROTEIN 5.1 GM/DL (6.4-8.2)
[2022-04-18 06:36] LABS: BILIRUBIN,TOTAL 0.6 MG/DL (0.1-1.0)
[2022-04-18 06:38] LABS: CREATININE SERUM 0.55 MG/DL (0.60-1.30); PHOSPHORUS 3.1 MG/DL (2.3-4.7)
[2022-04-18 06:42] LABS: MAGNESIUM 1.8 MG/DL (1.6-2.4)
[2022-04-18] MEDS: KCL 20 MEQ TAB (K-DUR) PO SCH (06:46)
[2022-04-18] MEDS: POTASSIUM CL 10MEQ/50ML IVPB 50 ML IV SCH (06:48)
[2022-04-18] MEDS: MAGNESIUM 1 GM/100 ML IVPB 100 ML IV SCH (06:52)
[2022-04-18] MEDS: PANTOPRAZOLE 40 MG (PROTONIX) VIAL IV SCH (08:25)
[2022-04-18] MEDS: SODIUM CHLORIDE 1 GM TABLET PO SCH ×3 (08:25→20:02)
[2022-04-18] MEDS: FUROSEMIDE 40 MG/4 ML INJ (LASIX) IVP SCH (08:25)
[2022-04-18] MEDS: ANASTROZOLE 1 MG TAB (ARIMIDEX) PO SCH (08:25)
[2022-04-18] MEDS: BACLOFEN 10 MG (LIORESAL) TAB PO SCH (08:26)
[2022-04-18] MEDS: DULoxetine 30 MG (CYMBALTA) CAP PO SCH (08:26)
[2022-04-18] MEDS: busPIRone 15 MG (BUSPAR) TABLET PO SCH ×2 (08:26→20:01)
[2022-04-18] MEDS: lisINopril 40 MG (PRINIVIL) TABLET PO SCH (08:26)
[2022-04-18] MEDS: predniSONE 10 MG TAB PO SCH (08:26)
[2022-04-18] MEDS: MICONAZOLE 2% POWDER (DESENEX AF) 90 GM TOP SCH ×2 (08:27→20:01)
[2022-04-18] MEDS: amLODIPine 5 MG (NORVASC) TAB PO SCH (08:27)
[2022-04-18] MEDS ORDERED: KCL 20 MEQ TAB (K-DUR) PO ONE ×2 (09:00→11:00)
--- NOTE | 2022-04-18 14:28 | Progress Note - Hospitalist ---
Subjective HPI/CC On Admission Date Seen by Provider: Apr 18, 2022 Subjective/Events-last exam Pt reports doing well. No complaints. RN states was off BiPAP all night and did well. Plan to transfer out of ICU tomorrow when out of isolation. Objective Exam Vital Signs Vital Signs Date Time Temp Pulse Resp B/P (MAP) Pulse Ox O2 Delivery O2 Flow Rate FiO2 04/18/22 14:10 96 Room Air 04/18/22 14:00 107 24 04/18/22 11:41 36.3 04/18/22 07:00 2.00 04/17/22 08:00 40 Capillary Refill : Less Than 3 Seconds General Appearance: No Apparent Distress, Chronically ill, Obese Respiratory: Lungs Clear, No Respiratory Distress Cardiovascular: Regular Rate, Rhythm Results/Procedures Lab Laboratory Tests 04/18/22 04:20 Patient resulted labs reviewed. Imaging: Reviewed Imaging Report Assessment/Plan Assessment and Plan Assess & Plan/Chief Complaint Acute respiratory failure with hypoxia secondary to COVID-19 Continue steroids- weaning dose MAT protocol Extubated 04/11 TeleICU consulted, appreciate recs Speech therapy to continue Discussed with wire sawyer and can come out of isolation on midnight 04/18 On room air A-fib with RVR Converted back to sinus rhythm Lovenox therapeutic dosing until today- switch to Eliquis Cardiology consulted, appreciate recs T2DM Sliding scale insulin BS well controlled HTN Continue current meds Morbid obesity Clinically significant, no acute management needs DVT prophylaxis: Lovenox Critical Care Ventilator Management Clinical Quality Measures Admission Status Admission Dx Patient is a 66-year-old female with past medical history of COPD who presented to the emergency department due to respiratory distress secondary to COVID. She had already been treated with Paxlovid, steriods, and antibiotics in the senior care but continued to progress. She is normally on 2 L of oxygen due to her COPD but had to be increased to 4 L and was still hypoxic. In the ER she was quite tachypneic and had increased work of breathing so was placed on BiPAP. She was admitted here to the ICU for this. This morning she reports reports feeling a little bit better and would like to trial off of BiPAP so that she can eat. She has no other complaints at this time. BP is trending up slightly so will restarted her Norvasc. Continue on steroids. TeleICU consulted, appreciate recs. BERNA SANDHU MD Apr 18, 2022 2:28 pm
--- NOTE | 2022-04-18 16:11 | Progress Note - Cardiology ---
Cardiology SOAP Progress Note Subjective: States feels and wishes to "go back home to [facility]" Denies cp or palp or syncope or shortness of breath or n/v/d or weakness Objective: I&O/Vital Signs 04/18/22 04/18/22 04/18/22 04/18/22 05:00 06:00 07:00 07:00 Pulse 85 89 88 93 Resp 22 22 24 B/P (MAP) 136/75 (95) 132/71 (91) 123/73 (90) Pulse Ox 100 100 98 O2 Delivery NIV Bilevel NIV Bilevel Nasal Cannula O2 Flow Rate 40.00 40.00 2.00 04/18/22 04/18/22 04/18/22 04/18/22 07:41 07:55 08:00 08:00 Pulse 109 B/P (MAP) 129/75 (93) Pulse Ox 93 95 91 O2 Delivery Room Air Room Air Room Air Room Air 04/18/22 04/18/22 04/18/22 04/18/22 08:00 09:00 10:00 10:43 Temp 35.8 Pulse 93 96 Resp 18 20 B/P (MAP) 113/71 (85) 142/83 (102) Pulse Ox 92 96 96 O2 Delivery Room Air Room Air Room Air 04/18/22 04/18/22 04/18/22 04/18/22 11:00 11:41 11:48 12:00 Temp 36.3 Pulse 103 123 Resp 18 B/P (MAP) 139/84 (102) Pulse Ox 95 93 90 O2 Delivery Room Air Room Air Room Air 04/18/22 04/18/22 04/18/22 04/18/22 12:43 13:00 14:00 14:10 Pulse 104 114 107 Resp 26 24 B/P (MAP) Pulse Ox 98 96 96 O2 Delivery Room Air Room Air Room Air 04/18/22 04/18/22 04/18/22 15:00 15:53 15:58 Temp 36.8 Pulse 100 Resp 22 B/P (MAP) 151/84 (106) Pulse Ox 96 94 O2 Delivery Room Air Room Air 04/18/22 00:00 Intake Total 400 ml Output Total 1300 ml Balance -900 ml Constitutional: well-developed, well-nourished, other (appears mildly confused) Respiratory: No accessory muscle use; chest expansion is symmetric, other (fair to good, bilateral air entry) Cardiovascular: regular rate-rhythm, S1 and S2, systolic murmur (soft ARVIND at card base) Gastrointestional: No tender; soft; No guarding, No rebound; audible bowel sounds Extremities: No clubbing, No cyanosis, No significant edema Neurologic/Psychiatric: other (moves all limbs equally) Skin: No rash on exposed areas, No ulcerations on exposed areas Results/Procedures: Labs Laboratory Tests 04/17/22 17:54: Glucometer 122H 04/18/22 00:02: Glucometer 79 04/18/22 04:20: White Blood Count 4.7, Red Blood Count 3.81, Hemoglobin 11.4L, Hematocrit 34L, Mean Corpuscular Volume 90, Mean Corpuscular Hemoglobin 30, Mean Corpuscular Hemoglobin Concent 33, Red Cell Distribution Width 14.6H, Platelet Count 264, Mean Platelet Volume 10.8, Immature Granulocyte % (Auto) 1, Neutrophils (%) (Auto) 69, Lymphocytes (%) (Auto) 16, Monocytes (%) (Auto) 10, Eosinophils (%) (Auto) 3, Basophils (%) (Auto) 0, Neutrophils # (Auto) 3.2, Lymphocytes # (Auto) 0.8L, Monocytes # (Auto) 0.5, Eosinophils # (Auto) 0.2, Basophils # (Auto) 0.0, Immature Granulocyte # (Auto) 0.0, Sodium Level 138, Potassium Level 2.9L, Chloride Level 99, Carbon Dioxide Level 27, Anion Gap 12, Blood Urea Nitrogen 19H, Creatinine 0.55L, Estimat Glomerular Filtration Rate 101, BUN/Creatinine Ratio 35, Glucose Level 83, Calcium Level 8.8, Corrected Calcium 9.6, Phosphorus Level 3.1, Magnesium Level 1.8, Total Bilirubin 0.6, Aspartate Amino Transf (AST/SGOT) 18, Alanine Aminotransferase (ALT/SGPT) 37, Alkaline Phosphatase 70, Total Protein 5.1L, Albumin 3.0L 04/18/22 05:51: Glucometer 77 04/18/22 11:33: Glucometer 142H 04/18/22 15:28: Potassium Level 4.2 Microbiology 04/06/22 Blood Culture - Final, Complete No growth 04/05/22 Urine Culture - Final, Complete NO GROWTH 04/04/22 Gram Stain - Final, Complete 04/04/22 Sputum Culture - Final, Complete Usual upper respiratory baltazar Laboratory Tests 04/16/22 19:53 04/17/22 04:53 04/18/22 04:20 04/18/22 15:28 A/P: Assessment: PAF with RVR - first dx on ECG of 04-14-22 at [facility]; converted spontaneously to SR - has been maintaining SR - currently on Lovenox - advise changing to OAC - echo on 04/16/22: LVEF 60-65%, mild to mod aortic stenosis Acute resp failure d/t COVID pneumonia - requiring intubation - extubated on 04-12-22 HTN COPD - oxygen dependant at home on 2L/NC DM Obesity - BMI approx 41 Plan: * Beta-chance for vent rate control and for hypertension * Lovenox/OAC for stroke prophylaxis * Replenish K * Monitor labs closely YUAN MAI MD [facility] Apr 18, 2022 16:11
[2022-04-18] MEDS: APIXABAN 5 MG (ELIQUIS) TABLET PO SCH (20:01)
[2022-04-18] MEDS: rOPINIRole 0.25 MG (REQUIP) TAB PO SCH (20:01)
[2022-04-19] MEDS: ACETAMINOPHEN 325 MG TABLET PO PRN (00:43)
[2022-04-19] MEDS: hydrALAZINE (APESOLINE) 20 MG/ML VIAL IV PRN (01:11)
[2022-04-19] MEDS: RT-ALBUTEROL/IPRATROPIUM 3 ML (DUONEB) VIAL INH SCH ×2 (03:30→06:46)
[2022-04-19] MEDS: LORazepam INJ 2 MG/ML (ATIVAN) VIAL IVP PRN (03:50)
[2022-04-19 04:25] LABS: BASOPHILS % (AUTO) 0 % (0-10); EOSINOPHILS % (AUTO) 1 % (0-10); HEMATOCRIT 40 % (35-52); HEMOGLOBIN 13.1 g/dL (11.5-16.0); LYMPHOCYTES # (AUTO) 0.8 10^3/uL (1.0-4.0); LYMPHOCYTES % (AUTO) 13 % (12-44); MEAN CORPUSCULAR HEMOGLOBIN 31 pg (25-34); MEAN CORPUSCULAR HGB CONC 33 g/dL (32-36); MEAN CORPUSCULAR VOLUME 93 fL (80-99); MONOCYTES # (AUTO) 0.4 10^3/uL (0.0-1.0); MONOCYTES % (AUTO) 6 % (0-12); NEUTROPHILS # (AUTO) 5.3 10^3/uL (1.8-7.8); NEUTROPHILS % (AUTO) 80 % (42-75); PLATELET COUNT 287 10^3/uL (130-400); WHITE BLOOD COUNT 6.6 10^3/uL (4.3-11.0)
[2022-04-19 04:41] LABS: ALBUMIN 3.4 GM/DL (3.2-4.5); POTASSIUM 3.7 MMOL/L (3.6-5.0)
[2022-04-19 04:43] LABS: CALCIUM 9.4 MG/DL (8.5-10.1)
[2022-04-19 04:44] LABS: TOTAL PROTEIN 5.7 GM/DL (6.4-8.2)
[2022-04-19 04:46] LABS: BILIRUBIN,TOTAL 0.7 MG/DL (0.1-1.0)
[2022-04-19 04:47] LABS: CREATININE SERUM 0.6 MG/DL (0.60-1.30); PHOSPHORUS 1.8 MG/DL (2.3-4.7)
[2022-04-19 04:50] LABS: MAGNESIUM 1.6 MG/DL (1.6-2.4)
[2022-04-19] MEDS: KCL 20 MEQ TAB (K-DUR) PO SCH (05:01)
[2022-04-19] MEDS: inSUlin ASPART (NovoLOG) 1 UNIT/0.01 ML (CHARGE PER UNIT) SC SCH ×2 (05:01)
[2022-04-19] MEDS: POTASSIUM CL 10MEQ/50ML IVPB 50 ML IV SCH (05:01)
[2022-04-19] MEDS: MAGNESIUM 1 GM/100 ML IVPB 100 ML IV SCH ×2 (05:08→06:11)
[2022-04-19] MEDS: APIXABAN 5 MG (ELIQUIS) TABLET PO SCH (09:02)
[2022-04-19] MEDS: lisINopril 40 MG (PRINIVIL) TABLET PO SCH (09:03)
[2022-04-19] MEDS: amLODIPine 5 MG (NORVASC) TAB PO SCH (09:03)
[2022-04-19] MEDS: BACLOFEN 10 MG (LIORESAL) TAB PO SCH (09:03)
[2022-04-19] MEDS: busPIRone 15 MG (BUSPAR) TABLET PO SCH (09:03)
[2022-04-19] MEDS: DULoxetine 30 MG (CYMBALTA) CAP PO SCH (09:03)
[2022-04-19] MEDS: SODIUM CHLORIDE 1 GM TABLET PO SCH (09:04)
[2022-04-19] MEDS: ANASTROZOLE 1 MG TAB (ARIMIDEX) PO SCH (09:04)
[2022-04-19] MEDS: FUROSEMIDE 40 MG/4 ML INJ (LASIX) IVP SCH (09:04)
[2022-04-19] MEDS: PANTOPRAZOLE 40 MG (PROTONIX) VIAL IV SCH (09:04)
[2022-04-19] MEDS: predniSONE 10 MG TAB PO SCH (09:06)
[2022-04-19] MEDS: MICONAZOLE 2% POWDER (DESENEX AF) 90 GM TOP SCH (09:07)
--- NOTE | 2022-04-19 10:09 | Progress Note - Cardiology ---
Cardiology SOAP Progress Note Subjective: Sitting up in bed States she wants to go home No c/o CP or SOB Objective: I&O/Vital Signs 04/18/22 04/18/22 04/18/22 04/19/22 23:00 23:58 23:59 00:00 Temp 37.1 Pulse 98 98 B/P (MAP) 155/84 (107) 186/84 (118) Pulse Ox 97 98 98 O2 Delivery Room Air Room Air Room Air 04/19/22 04/19/22 04/19/22 04/19/22 01:00 01:30 02:30 03:30 Pulse 87 100 101 98 Resp 39 17 24 B/P (MAP) 150/74 (99) 151/71 (97) 153/89 (110) Pulse Ox 99 O2 Delivery Room Air Room Air Room Air 04/19/22 04/19/22 04/19/22 04/19/22 03:54 04:00 04:00 04:45 Temp 36.8 Pulse 106 Resp 25 B/P (MAP) 159/88 (111) Pulse Ox 96 98 96 O2 Delivery Room Air Room Air Room Air 04/19/22 04/19/22 04/19/22 04/19/22 05:45 06:00 06:10 06:46 Pulse 112 82 93 Resp 21 11 25 B/P (MAP) 172/82 (112) 151/85 (107) Pulse Ox 93 92 92 92 O2 Delivery Room Air Room Air Room Air Room Air 04/19/22 04/19/22 04/19/22 04/19/22 07:00 07:13 07:50 08:00 Temp 37.2 Pulse 98 102 110 Resp 25 30 B/P (MAP) 146/74 (98) 162/78 (106) Pulse Ox 92 90 O2 Delivery Room Air Room Air 04/19/22 09:00 Pulse 106 Resp 30 B/P (MAP) 142/67 (92) Pulse Ox 90 O2 Delivery Room Air 04/19/22 00:00 Intake Total 1200 ml Output Total 1600 ml Balance -400 ml Constitutional: well-developed, well-nourished, other (appears mildly confused) Respiratory: No accessory muscle use; chest expansion is symmetric, other (fair to good, bilateral air entry) Cardiovascular: regular rate-rhythm, S1 and S2, systolic murmur (soft ARVIND at card base) Gastrointestional: No tender; soft; No guarding, No rebound; audible bowel sounds Extremities: No clubbing, No cyanosis, No significant edema Neurologic/Psychiatric: other (moves all limbs equally) Skin: No rash on exposed areas, No ulcerations on exposed areas Results/Procedures: Labs Laboratory Tests 04/18/22 11:33: Glucometer 142H 04/18/22 15:28: Potassium Level 4.2 04/18/22 18:05: Glucometer 82 04/18/22 23:36: Glucometer 97 04/19/22 04:15: White Blood Count 6.6, Red Blood Count 4.28, Hemoglobin 13.1, Hematocrit 40, Mean Corpuscular Volume 93, Mean Corpuscular Hemoglobin 31, Mean Corpuscular Hemoglobin Concent 33, Red Cell Distribution Width 15.2H, Platelet Count 287, Mean Platelet Volume 10.0, Immature Granulocyte % (Auto) 0, Neutrophils (%) (Auto) 80H, Lymphocytes (%) (Auto) 13, Monocytes (%) (Auto) 6, Eosinophils (%) (Auto) 1, Basophils (%) (Auto) 0, Neutrophils # (Auto) 5.3, Lymphocytes # (Auto) 0.8L, Monocytes # (Auto) 0.4, Eosinophils # (Auto) 0.0, Basophils # (Auto) 0.0, Immature Granulocyte # (Auto) 0.0, Sodium Level 135, Potassium Level 3.7, Chlori de Level 99, Carbon Dioxide Level 22, Anion Gap 14, Blood Urea Nitrogen 18, Creatinine 0.60, Estimat Glomerular Filtration Rate 99, BUN/Creatinine Ratio 30, Glucose Level 104, Calcium Level 9.4, Corrected Calcium 9.9, Phosphorus Level 1.8L, Magnesium Level 1.6, Total Bilirubin 0.7, Aspartate Amino Transf (AST/SGOT) 22, Alanine Aminotransferase (ALT/SGPT) 44, Alkaline Phosphatase 71, Total Protein 5.7L, Albumin 3.4 Microbiology 04/06/22 Blood Culture - Final, Complete No growth 04/05/22 Urine Culture - Final, Complete NO GROWTH 04/04/22 Gram Stain - Final, Complete 04/04/22 Sputum Culture - Final, Complete Usual upper respiratory baltazar Laboratory Tests 04/18/22 04:20 04/18/22 15:28 04/19/22 04:15 A/P: Assessment: PAF with RVR - first dx on ECG of 04-14-22 at [facility]; converted spontaneously to SR - has been maintaining SR - currently on Lovenox - advise changing to OAC - echo on 04/16/22: LVEF 60-65%, mild to mod aortic stenosis Acute resp failure d/t COVID pneumonia - requiring intubation - extubated on 04-12-22 HTN COPD - oxygen dependant at home on 2L/NC DM Obesity - BMI approx 41 Plan: * Add beta-chance for vent rate control and for hypertension * OAC for stroke prophylaxis with Eliquis * Replenish electrolytes as indicated * Monitor labs closely ABBY LICONA Apr 19, 2022 10:08
[2022-04-19] MEDS ORDERED: PRED10TA22 PO (10:24)
[2022-04-19] MEDS ORDERED: METO50TA7 PO (10:24)
[2022-04-19] MEDS ORDERED: APIX5TAB PO (10:24)
[2022-04-19] MEDS ORDERED: meTOproloL SUCCINATE 50 MG (TOPROL XL) TAB PO NR (10:30)
[2022-04-19 10:51] VITALS: BP 142/67
--- NOTE | 2022-04-19 11:05 | Speech Therapy Progress Note ---
Therapy Progress Note Speech pathology attempted a follow up cognitive and dysphagia treatment session at 1100. At this time, the patient is receiving care from wound team. ST will re-attempt as able. Thank you. APRIL SHEA Apr 19, 2022 11:05
[2022-04-19 11:56] VITALS: BP 149/86
--- NOTE | 2022-04-19 12:43 | Speech Therapy Daily Note ---
Speech Daily Progress Note Subjective Date Seen by Provider: Apr 19, 2022 Time Seen by Provider: 12:02 The patient was lying in bed, awake and alert, upon entrance to her room by the clinician. The patient greeted the clinician appropriately and was agreeable to participation in the dysphagia and cognitive therapy. The patient is scheduled to discharge on this date. Objective The patient consumed drinks of thin liquid via cup edge and one bite of a aguila cracker. The patient displayed one delayed cough following a cup sip of thin liquid. Additional s/s of suspected aspiration were not demonstrated with multiple cup edge drinks or the aguila cracker. The patient displayed prolonged mastication and poor bolus manipulation and formation with the aguila cracker, requiring multiple cup edge drinks of thin liquid to clear the cracker from the oral cavity. The patient was oriented to self and city. The patient was not oriented to month, day of the week, date, and year. The patient does recall her room number at her facility and does state she is discharging on this date. The patient was provided the month at the initiation of the session. The patient was unable to recall the month following a five minute delay. Assessment Assessment Current Status: Good Progress Treatment Plan Continue Plan of Care Speech Short Term Goals Short Term Goals Short Term Goals 1. The patient will tolerate trials of the least restrictive diet consistency without s/s of suspected aspiration. Time Frame-STG: Three Days. Speech Snuff Grinder Goals Snuff Grinder Goals 1. The patient will tolerate the least restrictive diet consistency without s/s of suspected aspiration. Time Frame: Ten Days. Speech-Plan Treatment Plan Speech Therapy Treatment Plan: Continue Plan of Care Treatment Duration: Apr 23, 2022 Frequency: 4 times per week Estimated Hrs Per Day: .25 hour per day Rehab Potential: Guarded Safety Risks/Education Teaching Recipient: Patient Teaching Methods: Discussion Response to Teaching: Reinforcement Needed Education Topics Provided: Safe Swallowing Strategies Time Speech Therapy Time In: 12:02 Speech Therapy Time Out: 12:19 DATE: Apr 19, 2022 Total Billed Time: 17 Billed Treatment Time SHE Funes SLTS LOY, ELIZABETH ST Apr 19, 2022 12:43
--- NOTE | 2022-04-19 15:21 | Tele-ICU Progress Note ---
Subjective Date Seen by a Provider: Apr 19, 2022 Time Seen by a Provider: 10:42 Subjective/Events-last exam (Tele-ICU Physician , Progress Note ) Service provided via interactive audio and video telecommunications E-CARE system to a patient admitted to ICU bed in [facility]. Patient is seen today due to persistent need of ICU care Available chart/ vitals / labs / Images reviewed Video assessment done using teleICU camera, rest of exam as per RN Discussed with RN Events overnight : Afebrile hemodynamically stable Respiratory - 2l I/O = nwg 4L Drips: Pressors- no Consultants: Hospital course: (04/01) 66F Admitted for COVID PNA/COPD exacerbation. Bipap (04/04) Increased work of breathing. Bacteremia. H. influenza in sputum. INTUBATED @ 1355 (04/11) EXTUBATED 04/12 - PRN BIPAP for WOB 04/14- a fib RVR again - lopressor -> conferted to sinus A/P Acute hypoxic and hypercarbic respiratory failure secondary to COPD exacerbation as well as COVID19 pneumonia. -(04/11) EXTUBATED, on 3 L PRN BIPAP at night - this am on 3 l - doing well - nebs changed to duoneb and encourage IS Anxiety -precedex OFF COVID19 pneumonia. continueprednisone taper - finished ABX course 04/14- a fib RVR - lopressor -> converted to sinus - on lovenox full dose -changing to OAC -echo on 04/16/22: LVEF 60-65%, mild to mod aortic stenosis Hyperglycemia secondary to steroids and underlying type 2 diabetes mellitus -continue ISS Dysphagia -- to follow on modified dier , add protein / ensure Diarrhea - mild , follow COPD - oxygen dependant at home on 2L/NC Pulm Lines : midline left - patient pulled out 04/17 , (Central Line Necessity Reviewed) Hughes: + OG: Nutrition: to do swallow eval today Analgesia: Anxiety/ delirium VTE Prophylaxis: maximilian full dose Stress Ulcer Prophylaxis: ppi Plans in collaboration with bedside consultants and IM MDs. Discussed with RN to reach out if any questions or concerns A total of 10 minutes of critical care time was devoted to this patient today, required to treat and/or prevent further deterioration of critical care condition ( as above ) . I am remotely monitoring this patient from another state. I am unable to do the bedside exam, and history/physical and pertinent information is taken from other notes in the computer and bedside staff. . Sepsis Event Evaluation Height, Weight, BMI Height: '" Weight: lbs. oz. kg; 41.91 BMI Method: Exam Exam Patient acknowledged, consented, and participated in this virtual visit which was conducted using real time audio/video Vital Signs Date Time Temp Pulse Resp B/P (MAP) Pulse Ox O2 Delivery O2 Flow Rate FiO2 04/19/22 12:00 92 Room Air 04/19/22 12:00 105 29 143/87 (105) 94 Room Air 04/19/22 11:56 109 20 149/86 92 Nasal Cannula 2.00 04/19/22 11:00 101 32 165/79 (107) 87 Room Air 04/19/22 10:51 37.2 106 90 04/19/22 10:00 104 24 151/72 (98) 91 Room Air 04/19/22 09:00 106 30 142/67 (92) 90 Room Air 04/19/22 08:00 110 30 162/78 (106) 90 Room Air 04/19/22 08:00 92 Room Air 04/19/22 07:50 37.2 04/19/22 07:13 102 04/19/22 07:00 98 25 146/74 (98) 92 Room Air 04/19/22 06:46 92 Room Air 04/19/22 06:10 93 25 151/85 (107) 92 Room Air 04/19/22 06:00 82 11 92 Room Air 04/19/22 05:45 112 21 172/82 (112) 93 Room Air 04/19/22 04:45 106 25 159/88 (111) 96 Room Air 04/19/22 04:00 36.8 04/19/22 04:00 98 Room Air 04/19/22 03:54 96 Room Air 04/19/22 03:30 98 24 153/89 (110) Room Air 04/19/22 02:30 101 17 151/71 (97) Room Air 04/19/22 01:30 100 39 150/74 (99) 99 Room Air 04/19/22 01:00 87 04/19/22 00:00 98 186/84 (118) 98 Room Air 04/18/22 23:59 98 Room Air 04/18/22 23:58 37.1 04/18/22 23:00 98 155/84 (107) 97 Room Air 04/18/22 22:00 102 15 142/83 (102) 99 Room Air 04/18/22 21:47 99 Room Air 04/18/22 21:00 92 28 142/78 (99) 97 Room Air 04/18/22 20:00 103 28 117/60 (79) Room Air 04/18/22 20:00 98 Room Air 04/18/22 19:49 37.3 04/18/22 19:00 106 19 147/86 (106) 93 Room Air 04/18/22 19:00 107 04/18/22 18:00 110 22 127/62 (83) 92 Room Air 04/18/22 17:00 93 27 94 Room Air 04/18/22 16:00 105 28 96 Room Air 04/18/22 15:58 36.8 04/18/22 15:53 94 Room Air I & O 04/19/22 07:00 Intake Total 2370 ml Output Total 2725 ml Balance -355 ml Height & Weight Height: '" Weight: lbs. oz. kg; 41.91 BMI Method: General Appearance: No Apparent Distress, Chronically ill, Obese Respiratory: Lungs Clear, No Respiratory Distress Cardiovascular: Regular Rate, Rhythm Capillary Refill: Less Than 3 Seconds Gastrointestinal: normal bowel sounds, non tender, soft Extremity: Normal Inspection, No Pedal Edema Neurologic/Psychiatric: Alert, Oriented x3 (to major details only) Skin: Normal Color, Warm/Dry Results Lab Laboratory Tests 04/18/22 04:20 04/18/22 15:28 04/19/22 04:15 Assessment/Plan Assessment/Plan 1 BRAEDEN WALKER MD Apr 19, 2022 15:21
--- NOTE | 2022-04-19 17:52 | Discharge Summary ---
Discharge Summary Hospital Course Was the Problem List Reviewed?: Yes Problems/Dx: (1) Acute respiratory failure Status: Acute Qualifiers: Qualified Codes: J96.01 - Acute respiratory failure with hypoxia; J96.02 - Acute respiratory failure with hypercapnia (2) COVID-19 Status: Acute (3) Endotracheally intubated Status: Resolved (4) COPD exacerbation Status: Acute (5) Morbid obesity Status: Acute (6) Paroxysmal atrial fibrillation with RVR Status: Acute Hospital Course Date of Admission: Apr 01, 2022 at 16:22 Admission Diagnosis : Acute respiratory failure due to COVID-19 Family Physician/Provider: Phoenix Lara MD Date of Discharge: 04/19/22 Discharge Diagnosis: Acute respiratory failure due to COVID-19 Hospital Course: Geovanna Stephenson is a 66 year old female with PMH HTN, T2DM, morbid obesity, who was admitted with acute respiratory failure due to COVID-19. She required endotracheal intubation. She remained on the ventilator for about a week. She was treated with steroids. She also received a course of antibiotics for possi ble secondary bacterial pneumonia. Once extubated, she developed new onset AFib with RVR. Cardiology was consulted and assisted with her care. She was started on Eliquis and Metoprolol. She was given a steroid taper. She was debilitated but refused therapy. She was discharged back to [facility] in stable condition. Labs and Pending Lab Test: Laboratory Tests 04/18/22 18:05: Glucometer 82 04/18/22 23:36: Glucometer 97 04/19/22 04:15: White Blood Count 6.6, Red Blood Count 4.28, Hemoglobin 13.1, Hematocrit 40, Mean Corpuscular Volume 93, Mean Corpuscular Hemoglobin 31, Mean Corpuscular Hemoglobin Concent 33, Red Cell Distribution Width 15.2H, Platelet Count 287, Mean Platelet Volume 10.0, Immature Granulocyte % (Auto) 0, Neutrophils (%) (Auto) 80H, Lymphocytes (%) (Auto) 13, Monocytes (%) (Auto) 6, Eosinophils (%) (Auto) 1, Basophils (%) (Auto) 0, Neutrophils # (Auto) 5.3, Lymphocytes # (Auto) 0.8L, Monocytes # (Auto) 0.4, Eosinophils # (Auto) 0.0, Basophils # (Auto) 0.0, Immature Granulocyte # (Auto) 0.0, Sodium Level 135, Potassium Level 3.7, Chloride Level 99, Carbon Dioxide Level 22, Anion Gap 14, Blood Urea Nitrogen 18, Creatinine 0.60, Estimat Glomerular Filtration Rate 99, BUN/Creatinine Ratio 30, Glucose Level 104, Calcium Level 9.4, Corrected Calcium 9.9, Phosphorus Level 1.8L, Magnesium Level 1.6, Total Bilirubin 0.7, Aspartate Amino Transf (AST/SGOT) 22, Alanine Aminotransferase (ALT/SGPT) 44, Alkaline Phosphatase 71, Total Protein 5.7L, Albumin 3.4 Microbiology 04/06/22 Blood Culture - Final, Complete No growth 04/05/22 Urine Culture - Final, Complete NO GROWTH 04/04/22 Gram Stain - Final, Complete 04/04/22 Sputum Culture - Final, Complete Usual upper respiratory baltazar Home Meds Active Prednisone 10 Mg Tab.ds.pk 10 Mg PO DAILY Take 6 tabs(60mg)daily,decrease by 1 tab(10MG)daily. Metoprolol Succinate 50 Mg Tab.er.24h 50 Mg PO DAILY 30 Days Eliquis (Apixaban) 5 Mg Tablet 5 Mg PO BID 30 Days Reported Saccharomyces Boulardii 250 Mg Capsule 250 Mg PO DAILY Refresh Tears (Carboxymethylcellulose Sodium) 0.5 % Drops 2 Drop OU Q4H PRN Albuterol Sulfate 2.5 Mg/3 Ml (0.083 %) Vial.neb 3 Ml NEB Q6H PRN Tylenol (Acetaminophen) 325 Mg Tablet 650 Mg PO DAILY PRN Iprat-Albut 0.5-3(2.5) mg/3 ml (Ipratropium/Albuterol Sulfate) 0.5 Mg-3 Mg (2.5 Mg Base)/3 Ml Ampul.neb 3 Ml NEB Q6H PRN Glimepiride 2 Mg Tablet 2 Mg PO TID Ventolin Hfa (Albuterol Sulfate) 90 Mcg Hfa.aer.ad 2 Puff INH Q6H PRN Cassy Allergy (Fexofenadine HCl) 60 Mg Tablet 60 Mg PO BID Arimidex (Anastrozole) 1 Mg Tablet 1 Mg PO DAILY One Daily Plus Minerals (Multivitamin with Minerals) 1 Each Tablet 1 Each PO DAILY Sodium Chloride 1 Gram Tab 1 Gm PO TID Ropinirole HCl 0.5 Mg Tablet 0.5 Mg PO HS Buspirone HCl 30 Mg Tablet 30 Mg PO BID Duloxetine HCl 60 Mg Capsule.dr 60 Mg PO DAILY Amlodipine Besylate 5 Mg Tablet 5 Mg PO DAILY HOLD IS SBP <100 Furosemide 20 Mg Tablet 20 Mg PO DAILY Potassium Chloride 10 Meq Capsule.er 10 Meq PO DAILY Magnesium (Magnesium Oxide) 400 Mg Magnesium Capsule 400 Mg PO DAILY Lisinopril 40 Mg Tablet 40 Mg PO DAILY HOLD IF SBP <100 Baclofen 10 Mg Tablet 10 Mg PO DAILY Tylenol (Acetaminophen) 325 Mg Tablet 650 Mg PO TID TAKES 2 (325MG) TABS Miralax (Polyethylene Glycol 3350) 17 Gram Powd.pack 17 Gm PO DAILY PRN Assessment/Pt Instructions See instructions Discharge Planning: >30 minutes discharge planning Discharge Instructions Discharge Diet: No Restrictions Activity as Tolerated: Yes Consultations Cardiology, TeleICU Discharge Physical Examination Vital Signs Vital Signs Date Time Temp Pulse Resp B/P (MAP) Pulse Ox O2 Delivery O2 Flow Rate FiO2 04/19/22 12:00 92 Room Air 04/19/22 12:00 105 29 143/87 (105) 04/19/22 11:56 2.00 04/19/22 10:51 37.2 04/17/22 08:00 40 General Appearance: No Apparent Distress, Obese Respiratory: Lungs Clear, No Respiratory Distress Cardiovascular: Regular Rate, Rhythm, No Murmur Gastrointestinal: Normal Bowel Sounds, Soft Extremity: Normal Inspection, No Pedal Edema Skin: Normal Color, Warm/Dry Neurologic/Psychiatric: Alert, Normal Mood/Affect Allergies: Coded Allergies: No Known Drug Allergies (Unverified , 12/08/19) Copy Copies To 1: PHOENIX LARA MD Discharge Summary Date of Admission Apr 01, 2022 at 16:22 Date of Discharge Apr 19, 2022 at 12:30 Discharge Date: Apr 19, 2022 Discharge Time: 12:30 Admission Diagnosis Acute respiratory failure due to COVID-19 Consults/Procedures Consulations Cardiology, TeleICU Discharge Diagnosis Acute respiratory failure with hypoxia secondary to COVID-19 New onset AFib with RVR T2DM HTN Morbid obesity (1) Acute respiratory failure Status: Acute Qualifiers: Qualified Codes: J96.01 - Acute respiratory failure with hypoxia; J96.02 - Acute respiratory failure with hypercapnia (2) COVID-19 Status: Acute (3) Endotracheally intubated Status: Resolved (4) COPD exacerbation Status: Acute (5) Morbid obesity Status: Acute KRISTY RAMOS MD Apr 19, 2022 17:51
[2022-04-20] MEDS ORDERED: meTOproloL SUCCINATE 50 MG (TOPROL XL) TAB PO SCH (09:00)
== END 2022-04-19 12:30 | DRG 207 ==
LOC: EDUNIT# 14:20 → ER FS 14:25 → ICU 16:22
PROVIDERS: ADMIT Family Medicine; ATTEND Internal Medicine
PROC: 5A09357 Assistance with Respiratory Ventilation, Less than 24 Consecutive Hours, Continuous Positive Airway Pressure (ICD-10-PCS; 2022-04-01)
PROC: 5A0935A Assistance with Respiratory Ventilation, Less than 24 Consecutive Hours, High Flow/Velocity Cannula (ICD-10-PCS; 2022-04-02)
PROC: 5A1955Z Respiratory Ventilation, Greater than 96 Consecutive Hours (ICD-10-PCS; principal; 2022-04-04)
PROC: 0BH17EZ Insertion of Endotracheal Airway into Trachea, Via Natural or Artificial Opening (ICD-10-PCS; 2022-04-04)
DX: U07.1 COVID-19 (principal); J12.82 Pneumonia due to coronavirus disease 2019; J14 Pneumonia due to Hemophilus influenzae; J80 Acute respiratory distress syndrome; J44.0 Chronic obstructive pulmonary disease with (acute) lower respiratory infection; J44.1 Chronic obstructive pulmonary disease with (acute) exacerbation; E87.20 Acidosis, unspecified; E87.29 Other acidosis; E87.1 Hypo-osmolality and hyponatremia; Z68.41 Body mass index [BMI] 40.0-44.9, adult; I48.0 Paroxysmal atrial fibrillation; F41.9 Anxiety disorder, unspecified; F17.210 Nicotine dependence, cigarettes, uncomplicated; E11.65 Type 2 diabetes mellitus with hyperglycemia; Z79.84 Long term (current) use of oral hypoglycemic drugs; T38.0X5A Adverse effect of glucocorticoids and synthetic analogues, initial encounter; E66.01 Morbid (severe) obesity due to excess calories; R13.10 Dysphagia, unspecified; Z79.899 Other long term (current) drug therapy; Z79.52 Long term (current) use of systemic steroids; Z73.0 Burn-out
CPT/HCPCS: 36410; 36415; 36600; 71045; 76937; 80048; 80053; 80076; 81000; 82805; 82947; 83605; 83735; 83880; 84100; 84132; 84145; 84443; 84478; 84484; 85007; 85025; 85027; 85379; 87040; 87070; 87077; 87088; 87185; 87186; 87205; 93005; 93306; 94002; 94003; 94640; 94660; 94761; 94799

== ENCOUNTER → 2022-04-01 | Outpatient (CLI) | payer MEDICARE, MEDICAID ==
[~2022-04-01] MED LIST: ACET325T38 PO; ALBU18HF2 INH; ALBU2.5V4 NEB; AMLO-250 PO; ANAS1TAB50 PO; AZIT250T12 PO; BACL10TA PO; BUSP30TA2 PO; CARB15DR OU; DULO60CA59 PO; FEXO-14 PO; FURO20TA4 PO; GLIM2TAB4 PO; GLMP2T PO; GUAI120013 PO; IPRA3AMP31 NEB; LISI40TA9 PO; MAGN400C PO; METO-333 PO; MULT-422 PO; MULT-974 PO; NF-NACL1GT PO; NIRM1TAB5 PO; POLY17PO6 PO; POTA10CA43 PO; PRD20T PO; ROPI0.5T4 PO; SACC250C12 PO
[2022-04-01 09:01] LABS: HEMATOCRIT 38 % (35-52); HEMOGLOBIN 13.2 g/dL (11.5-16.0); MEAN CORPUSCULAR HEMOGLOBIN 29 pg (25-34); MEAN CORPUSCULAR HGB CONC 35 g/dL (32-36); MEAN CORPUSCULAR VOLUME 85 fL (80-99); MEAN PLATELET VOLUME 9.5 fL (9.0-12.2); PLATELET COUNT 298 10^3/uL (130-400)
[2022-04-01 09:32] LABS: CALCIUM 9.2 MG/DL (8.5-10.1); CREATININE SERUM 0.39 MG/DL (0.60-1.30)
[2022-04-01 09:33] LABS: ALBUMIN 3.9 GM/DL (3.2-4.5); BILIRUBIN,TOTAL 0.4 MG/DL (0.1-1.0); TOTAL PROTEIN 6.6 GM/DL (6.4-8.2)
== END ==
PROVIDERS: ATTEND Pediatrics
DX: J44.9 Chronic obstructive pulmonary disease, unspecified (principal); U07.1 COVID-19
CPT/HCPCS: 80053; 85027

== ENCOUNTER → 2022-07-31 | Outpatient (CLI) | payer MEDICARE, MEDICAID ==
[~2022-07-31] MED LIST changes: +APIX5TAB PO; +METO50TA7 PO; -POTA10CA43 PO; +POTA10CA44 PO; +PRED10TA22 PO
[2022-07-31 17:04] LABS: BASOPHILS # (AUTO) 0.1 10^3/uL (0.0-0.1); BASOPHILS % (AUTO) 1 % (0-10); EOSINOPHILS # (AUTO) 0.4 10^3/uL (0.0-0.3); EOSINOPHILS % (AUTO) 5 % (0-10); HEMATOCRIT 41 % (35-52); HEMOGLOBIN 13.8 g/dL (11.5-16.0); LYMPHOCYTES # (AUTO) 2.1 10^3/uL (1.0-4.0); LYMPHOCYTES % (AUTO) 22 % (12-44); MEAN CORPUSCULAR HEMOGLOBIN 30 pg (25-34); MEAN CORPUSCULAR HGB CONC 34 g/dL (32-36); MEAN CORPUSCULAR VOLUME 89 fL (80-99); MEAN PLATELET VOLUME 8.6 fL (9.0-12.2); MONOCYTES # (AUTO) 0.6 10^3/uL (0.0-1.0); MONOCYTES % (AUTO) 7 % (0-12); NEUTROPHILS # (AUTO) 6.2 10^3/uL (1.8-7.8); NEUTROPHILS % (AUTO) 66 % (42-75); PLATELET COUNT 328 10^3/uL (130-400); WHITE BLOOD COUNT 9.4 10^3/uL (4.3-11.0)
== END ==
LOC: LAB FS 16:57
PROVIDERS: ATTEND Pediatrics
DX: Z01.89 Encounter for other specified special examinations (principal)
CPT/HCPCS: 36415; 85025

== ENCOUNTER → 2022-09-11 | Outpatient (CLI) | payer MEDICARE, MEDICAID ==
[2022-09-11 18:27] LABS: HEMATOCRIT 39 % (35-52); HEMOGLOBIN 13.4 g/dL (11.5-16.0); MEAN CORPUSCULAR HEMOGLOBIN 29 pg (25-34); MEAN CORPUSCULAR HGB CONC 34 g/dL (32-36); MEAN CORPUSCULAR VOLUME 85 fL (80-99); MEAN PLATELET VOLUME 8.8 fL (9.0-12.2); PLATELET COUNT 329 10^3/uL (130-400); WHITE BLOOD COUNT 10.5 10^3/uL (4.3-11.0)
[2022-09-11 18:46] LABS: ALBUMIN 4.2 GM/DL (3.2-4.5); BILIRUBIN,TOTAL 0.4 MG/DL (0.1-1.0); CREATININE SERUM 0.45 MG/DL (0.60-1.30); POTASSIUM 3.9 MMOL/L (3.6-5.0); TOTAL PROTEIN 6.1 GM/DL (6.4-8.2)
== END ==
DX: L30.9 Dermatitis, unspecified (principal); R60.9 Edema, unspecified
CPT/HCPCS: 80053; 85027

== ENCOUNTER → 2022-09-13 | Outpatient (CLI) | payer MEDICARE, MEDICAID | LOC: LAB FS 12:12 | DX: L30.9 Dermatitis, unspecified (principal); R60.9 Edema, unspecified | CPT/HCPCS: 87070; 87205 ==

== ENCOUNTER → 2023-01-14 | Outpatient (CLI) | payer MEDICARE, MEDICAID ==
[~2023-01-14] MED LIST changes: +DIPH25TA65 PO; +FLUT1AER PO; +POTA-177 PO; -POTA10CA44 PO; +POTA10CA84 PO; +RIVA20TA PO; +ROPI0.5T37 PO; -ROPI0.5T4 PO
== END ==
DX: Z79.2 Long term (current) use of antibiotics (principal)
CPT/HCPCS: 87015; 87045; 87046; 87324; 87449; 87899

== ENCOUNTER 2023-01-15 10:58 | Inpatient (IN) | payer MEDICARE, MEDICAID ==
[~2023-01-15] VITALS: Ht 162 cm; Wt 113.6 kg
[~2023-01-15 10:58] MED LIST changes: -DIPH25TA65 PO; -FLUT1AER PO; -POTA-177 PO; -RIVA20TA PO
[2023-01-15] MEDS ORDERED: CEFEPIME INJECTION 1,000 MG in NS (IVPB) 50 ML 50 ML IV ONE (11:30)
--- NOTE | 2023-01-15 11:34 | ED Respiratory ---
General Chief Complaint: Respiratory Problems Stated Complaint: ELEV WBC; CHEST CONGESTION Nursing Triage Note: Pt sent from [facility] for evaluation of abnormal labs. Pt reports complaints of shortness of breath, onset last night. 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 She has felt short of breath for the last couple of days and had labs completed today showing a sodium of 126 and a white blood cell count of 36.4. Differential was not obtained on CBC. She denies any fevers or chills. She does endorse a worsening productive cough over the last couple days. She uses oxygen as needed and has had to use it [id number] for the last couple of days. No sick contacts per her report. No chest pain. All other systems reviewed and negative except documented per HPI. Voice recognition software was used to help create this chart Allergies and Home Medications Allergies Uncoded Allergies: IV contrast (Allergy, Unknown, 01/15/23) Patient Home Medication List Home Medication List Reviewed: Yes Acetaminophen (Tylenol) 325 Mg Tablet, 650 MG PO TID, (Reported) Entered as Reported by: CODY FUENTES on 04/01/221822 Acetaminophen (Tylenol) 325 Mg Tablet, 650 MG PO DAILY PRN for PAIN-MILD (1-4), (Reported) Entered as Reported by: ZENAIDA COBIAN on 04/06/22 1143 Albuterol Sulfate (Ventolin Hfa) 90 Mcg Hfa.aer.ad, 2 PUFF INH Q6H PRN for SHORTNESS OF BREATH, (Reported) Entered as Reported by: ZENAIDA COBIAN on 04/06/22 1143 Albuterol Sulfate (Albuterol Sulfate) 2.5 Mg/3 Ml (0.083 %) Vial.neb, 3 ML NEB Q6H PRN for WHEEZING, (Reported) Entered as Reported by: ZENAIDA COBIAN on 04/06/22 1143 Amlodipine Besylate (Amlodipine Besylate) 5 Mg Tablet, 5 MG PO DAILY, (Reported) Entered as Reported by: CODY FUENTES on 04/01/221822 Anastrozole (Arimidex) 1 Mg Tablet, 1 MG PO DAILY, (Reported) Entered as Reported by: ZENAIDA COBIAN on 04/06/221142 Apixaban (Eliquis) 5 Mg Tablet, 5 MG PO BID Prescribed by: KRISTY RAMOS on 04/19/22 1024 Baclofen (Baclofen) 10 Mg Tablet, 10 MG PO DAILY, (Reported) Entered as Reported by: CODY FUENTES on 04/01/221822 Buspirone HCl (Buspirone HCl) 30 Mg Tablet, 30 MG PO BID, (Reported) Entered as Reported by: CODY FUENTES on 04/01/221822 Carboxymethylcellulose Sodium (Refresh Tears) 0.5 % Drops, 2 DROP OU Q4H PRN for DRY EYES, (Reported) Entered as Reported by: ZENAIDA COBIAN on 04/06/221142 Duloxetine HCl (Duloxetine HCl) 60 Mg Capsule.dr, 60 MG PO DAILY, (Reported) Entered as Reported by: CODY FUENTES on 04/01/221822 Fexofenadine HCl (Cassy Allergy) 60 Mg Tablet, 60 MG PO BID, (Reported) Entered as Reported by: ZENAIDA COBIAN on 04/06/221142 Furosemide (Furosemide) 20 Mg Tablet, 20 MG PO DAILY, (Reported) Entered as Reported by: CODY FUENTES on 04/01/221822 Glimepiride (Glimepiride) 2 Mg Tablet, 2 MG PO TID, (Reported) Entered as Reported by: ZENAIDA COBIAN on 04/06/221142 Ipratropium/Albuterol Sulfate (Iprat-Albut 0.5-3(2.5) mg/3 ml) 0.5 Mg-3 Mg (2.5 Mg Base)/3 Ml Ampul.neb, 3 ML NEB Q6H PRN for SHORTNESS OF BREATH, (Reported) Entered as Reported by: ZENAIDA COBIAN on 04/06/221142 Lisinopril (Lisinopril) 40 Mg Tablet, 40 MG PO DAILY, (Reported) Entered as Reported by: CODY FUENTES on 04/01/221822 Magnesium Oxide (Magnesium) 400 Mg Magnesium Capsule, 400 MG PO DAILY, (Reported) Entered as Reported by: CODY FUENTES on 04/01/221822 Metoprolol Succinate (Metoprolol Succinate) 50 Mg Tab.er.24h, 50 MG PO DAILY Prescribed by: KRISTY RAMOS on 04/19/22 1024 Multivitamin with Minerals (One Daily Plus Minerals) 1 Each Tablet, 1 EACH PO DAILY, (Reported) Entered as Reported by: ZENAIDA COBIAN on 04/06/22 114 Polyethylene Glycol 3350 (Miralax) 17 Gram Powd.pack, 17 GM PO DAILY PRN for CONSTIPATION-2ND LINE, (Reported) Entered as Reported by: CODY FUENTES on 04/01/221822 Potassium Chloride (Potassium Chloride) 10 Meq Capsule.er, 10 MEQ PO DAILY, (Reported) Entered as Reported by: CODY FUENTES on 04/01/221822 Prednisone (Prednisone) 10 Mg Tab.ds.pk, 10 MG PO DAILY Prescribed by: KRISTY RAMOS on 04/19/22 1024 Ropinirole HCl (Ropinirole HCl) 0.5 Mg Tablet, 0.5 MG PO HS, (Reported) Entered as Reported by: CODY FUENTES on 04/01/221822 Saccharomyces Boulardii (Saccharomyces Boulardii) 250 Mg Capsule, 250 MG PO DAILY, (Reported) Entered as Reported by: ZENAIDA COBIAN on 04/06/22 114 Sodium Chloride (Sodium Chloride) 1 Gram Tab, 1 GM PO TID, (Reported) Entered as Reported by: CODY FUENTES on 04/01/221822 Review of Systems Review of Systems Constitutional: see HPI Past [id number]-Fpfqjm-Fivnnx Hx Immunizations Up To Date First/Initial COVID19 Vaccinat: unvaccinated Seasonal Allergies Seasonal Allergies: No Past Medical History Surgery/Hospitalization HX: COPD Surgeries: Yes (right mastectomy) Section, Gallbladder Respiratory: Yes COPD Cardiac: Yes Hypertension Neurological: No Genitourinary: No Gastrointestinal: No Musculoskeletal: No Endocrine: No HEENT: No Cancer: Yes Breast Did You Recieve Any Treatments: Yes What Type of Treatment Did You: Surgical Intervention Psychosocial: No Integumentary: No Family Medical History No Pertinent Family Hx Physical Exam Vital Signs - First Documented Capillary Refill : Less Than 3 Seconds Height: '" Weight: lbs. oz. kg; 43.00 BMI Method: General Appearance: WD/WN, no apparent distress HEENT: normal ENT inspection, pharynx normal Neck: non-tender, supple Respiratory: chest non-tender, no respiratory distress, rales, rhonchi, other (Mild increased work of breathing.) Cardiovascular: no murmur, tachycardia Gastrointestinal: normal bowel sounds, non tender, soft, other (Morbidly obese) Extremities: normal inspection, no calf tenderness, normal capillary refill, other (1+ pitting edema bilateral lower extremities) Neurologic/Psychiatric: alert, oriented x 3 Skin: normal color, warm/dry Focused Exam Lactate Level 01/15/23 11:10: Lactic Acid Level 1.36 Lactic Acid Level Laboratory Tests Test 01/15/23 11:10 Lactic Acid Level 1.36 MMOL/L (0.50-2.00) Progress/Results/Core Measures Suspected Sepsis SIRS Temperature: Pulse: 113 Respiratory Rate: 28 Laboratory Tests 01/15/23 11:10: White Blood Count 38.9*H Blood Pressure 158 /75 Mean: 102 01/15/23 11:10: Lactic Acid Level 1.36 Laboratory Tests 01/15/23 11:10: Creatinine 0.90, Platelet Count 392, Total Bilirubin 1.1H Results/Orders Lab Results Laboratory Tests Test 01/15/23 11:10 01/15/23 11:34 Range/Units White Blood Count 38.9 *H 4.3-11.0 10^3/uL Red Blood Count 4.31 3.80-5.11 10^6/uL Hemoglobin 12.2 11.5-16.0 g/dL Hematocrit 37 35-52 % Mean Corpuscular Volume 86 80-99 fL Mean Corpuscular Hemoglobin 28 25-34 pg Mean Corpuscular Hemoglobin Concent 33 32-36 g/dL Red Cell Distribution Width 14.2 10.0-14.5 % Platelet Count 392 130-400 10^3/uL Mean Platelet Volume 8.3 L 9.0-12.2 fL Neutrophils (%) (Auto) 36 L 42-75 % Lymphocytes (%) (Auto) 1 L 12-44 % Monocytes (%) (Auto) 1 0-12 % Eosinophils (%) (Auto) 0 0-10 % Basophils (%) (Auto) 0 0-10 % Neutrophils # (Auto) 92.6 H 1.8-7.8 X 10^3 Lymphocytes # (Auto) 3.0 1.0-4.0 X 10^3 Monocytes # (Auto) 3.4 H 0.0-1.0 X 10^3 Eosinophils # (Auto) 0.0 0.0-0.3 10^3/uL Basophils # (Auto) 0.2 H 0.0-0.1 10^3/uL Neutrophils % (Manual) 93 % Lymphocytes % (Manual) 2 % Monocytes % (Manual) 5 % Sodium Level 124 *L 135-145 MMOL/L Potassium Level 4.0 3.6-5.0 MMOL/L Chloride Level 88 L 98-107 MMOL/L Carbon Dioxide Level 23 21-32 MMOL/L Anion Gap 13 5-14 MMOL/L Blood Urea Nitrogen 18 7-18 MG/DL Creatinine 0.90 0.60-1.30 MG/DL Estimat Glomerular Filtration Rate 70 BUN/Creatinine Ratio 20 Glucose Level 89 70-105 MG/DL Lactic Acid Level 1.36 0.50-2.00 MMOL/L Calcium Level 9.2 8.5-10.1 MG/DL Corrected Calcium 9.0 8.5-10.1 MG/DL Total Bilirubin 1.1 H 0.1-1.0 MG/DL Aspartate Amino Transf (AST/SGOT) 16 5-34 U/L Alanine Aminotransferase (ALT/SGPT) 11 0-55 U/L Alkaline Phosphatase 130 40-136 U/L Total Protein 6.9 6.4-8.2 GM/DL Albumin 4.2 3.2-4.5 GM/DL Influenza Type A (RT-PCR) Not Detected Not Detecte Influenza Type B (RT-PCR) Not Detected Not Detecte SARS-CoV-2 RNA (RT-PCR) Not Detected Not Detecte My Orders Orders - STACEY COX DO Cbc And Automated Diff (01/15/23 11:28) Comprehensive Metabolic Panel (01/15/23 11:28) Blood Culture (01/15/23 11:28) Chest 1 View Ap/Pa Only (01/15/23 11:28) Ed Iv/Invasive Line Start (01/15/23 11:28) Ekg Tracing (01/15/23 11:28) Vital Signs Adult Sepsis Patie Q15M (01/15/23 11:28) O2 (01/15/23 11:28) Lactic Acid Analyzer (01/15/23 11:28) Cefepime Injection (Cefepime Injection) (01/15/23 11:30) Ns Iv 500 Ml (Ns Iv 500 Ml) (01/15/23 11:30) Covid 19 Inhouse Test (01/15/23 11:28) Influenza A And B By Pcr (01/15/23 11:28) Manual Differential (01/15/23 11:10) Ipratropium/Albuterol Inh Soln (Ipratrop (01/15/23 12:00) Svn Small Volume Nebulizer (01/15/23 11:48) Methylprednisolone Sod Succ (Methylpredn (01/15/23 12:15) Vancomycin Injection (Vancomycin Injecti (01/15/23 12:15) Iohexol Injection (Omnipaque 350 Mg/Ml 1 (01/15/23 12:15) Received Contrast (Hold Metformin- Contr (01/15/23 12:15) Ns (Ivpb) 100 Ml (Sodium Chloride 0.9% 1 (01/15/23 12:15) Ct Chest Wo (01/15/23 ) Ondansetron Injection (Ondansetron Inj (01/15/23 13:00) Ondansetron Injection (Ondansetron Inj (01/15/23 12:48) Medications Given in ED Current Medications Medications Dose Ordered Sig/Letitia Route Start Time Stop Time Status Last Admin Dose Admin Albuterol/ Ipratropium 3 ml ONCE ONCE INH 01/15/23 12:00 01/15/23 12:01 DC 01/15/23 11:51 3 ML Cefepime HCl 1000 mg/Sodium Chloride 50 ml @ 100 mls/hr ONCE ONCE IV 01/15/23 11:30 01/15/23 11:59 DC 01/15/23 11:42 100 MLS/HR Methylprednisolone Sodium Succinate 125 mg ONCE ONCE IVP 01/15/23 12:15 01/15/23 12:16 DC 01/15/23 12:16 125 MG Ondansetron HCl 4 mg STK-MED ONCE .ROUTE 01/15/23 12:48 01/15/23 12:50 DC 01/15/23 12:52 4 MG Vancomycin HCl 1000 mg/Sodium Chloride 250 ml @ 250 mls/hr ONCE ONCE IV 01/15/23 12:15 01/15/23 13:14 DC 01/15/23 12:56 250 MLS/HR Vital Signs/I&O 01/15/23 01/15/23 01/15/23 01/15/23 11:07 11:07 11:07 11:56 Temp 37.4 Pulse 113 117 Resp 28 28 B/P (MAP) 158/75 (102) 162/90 (114) Pulse Ox 97 100 O2 Delivery Nasal Cannula Nasal Cannula Nasal Cannula O2 Flow Rate 2.00 2.00 2.00 01/15/23 01/15/23 01/15/23 01/15/23 12:26 13:01 13:14 14:02 Temp 37.8 Pulse 115 115 116 112 Resp 24 20 24 22 B/P (MAP) 194/98 (130) 153/79 (103) 162/74 (103) 123/94 (104) Pulse Ox 99 96 97 96 O2 Delivery Nasal Cannula Nasal Cannula Nasal Cannula Nasal Cannula O2 Flow Rate 2.00 2.00 2.00 2.00 Capillary Refill : Less Than 3 Seconds Blood Pressure Mean: 102 ECG Comment Sinus tachycardia with a rate of 111 bpm. There are intervals slightly short of 116. Otherwise normal intervals. Normal axis. No ST or T wave abnormalities. No ectopy. No STEMI. Departure Communication (Admissions) Labs reviewed patient sitting. UA shows 3+ blood, 3+ leukocyte esterase, 50-100 RBCs, too numerous to count white blood cells with large amount of bacteria. This was a dipstick only so squamous cells were not counted. White blood cell count was 36.4 and no differential was performed sodium was 126. Labs here sodium 124, white blood cell count 3000 with 93% neutrophils and 2% bands. Patient on exam looks fairly well with mild increased work of breathing though she does continue to complain of some shortness of breath. She was given a D uoNeb which she stated helped. Have also ordered her Solu-Medrol. Given her respiratory symptoms significant leukocytosis and tachycardia I went ahead and ordered cefepime and vancomycin to be given. With her tachycardia and leukocytosis I also ordered 500 cc normal saline as a bolus. Her COVID test is negative. Chest x-ray is relatively unremarkable. I spoke with Dr. Ramos about admission. He requests a CT of her chest prior to transfer. She has a contrast allergy listed and does not know what her allergy is. She is never had IV contrast here so we will go ahead and do this without contrast. Impression Primary Impression: Shortness of breath Additional Impressions: Leukocytosis Qualified Codes: D72.829 - Elevated white blood cell count, unspecified Tachycardia Disposition: 30 STILL A PATIENT Condition: Stable Departure-Patient Inst. Referrals: PHOENIX GODOY MD (PCP) Primary Care Physician STACEY COX DO Jan 15, 2023 11:34
[2023-01-15 11:35] LABS: BASOPHILS # (AUTO) 0.2 10^3/uL (0.0-0.1); BASOPHILS % (AUTO) 0 % (0-10); EOSINOPHILS % (AUTO) 0 % (0-10); HEMATOCRIT 37 % (35-52); HEMOGLOBIN 12.2 g/dL (11.5-16.0); LYMPHOCYTES % (AUTO) 1 % (12-44); MEAN CORPUSCULAR HEMOGLOBIN 28 pg (25-34); MEAN CORPUSCULAR HGB CONC 33 g/dL (32-36); MEAN CORPUSCULAR VOLUME 86 fL (80-99); MEAN PLATELET VOLUME 8.3 fL (9.0-12.2); MONOCYTES # (AUTO) 3.4 X 10^3 (0.0-1.0); MONOCYTES % (AUTO) 1 % (0-12); NEUTROPHILS # (AUTO) 92.6 X 10^3 (1.8-7.8); NEUTROPHILS % (AUTO) 36 % (42-75); PLATELET COUNT 392 10^3/uL (130-400); WHITE BLOOD COUNT 38.9 10^3/uL (4.3-11.0)
[2023-01-15 11:36] LABS: LYMPHOCYTES % (MANUAL) 2 %; MONOCYTES % (MANUAL) 5 %; NEUTROPHILS % (MANUAL) 93 %
[2023-01-15] MEDS: NS IV 500 ML 500 ML IV SCH (11:42)
[2023-01-15 11:46] LABS: ALBUMIN 4.2 GM/DL (3.2-4.5); BILIRUBIN,TOTAL 1.1 MG/DL (0.1-1.0); CALCIUM 9.2 MG/DL (8.5-10.1); CREATININE SERUM 0.9 MG/DL (0.60-1.30); TOTAL PROTEIN 6.9 GM/DL (6.4-8.2)
--- NOTE | 2023-01-15 11:51 | Diagnostic Imaging Report ---
EXAMINATION: Chest 1 view HISTORY: Shortness of breath. COMPARISON: 04/12/2022 FINDINGS: No edema or pneumonia. No pleural effusion or pneumothorax. Heart size is normal. IMPRESSION: 1. Clear lungs. Dictated by: Dictated on workstation # [id number]
[2023-01-15] MEDS ORDERED: RT-Ipratropium/Albuterol NEB 3 ML VIAL INH ONE (12:00)
[2023-01-15] MEDS ORDERED: HOLD METFORMIN - RECEIVED CONTRAST 20 ML VIAL IV SCH (12:15)
[2023-01-15] MEDS ORDERED: methylPREDNISolone INJ 125 MG VIAL IVP ONE (12:15)
[2023-01-15] MEDS ORDERED: VANCOMYCIN INJECTION 1,000 MG in NS (IVPB) 250 ML 250 ML IV ONE (12:15)
[2023-01-15] MEDS ORDERED: NS 100 ML (IVPB) BAG IV ONE (12:15)
[2023-01-15] MEDS ORDERED: IOHEXOL 350 MG/ML 100 ML (OMNIPAQUE 350) VIAL IV ONE (12:15)
[2023-01-15] MEDS ORDERED: ONDANSETRON INJECTION 4 MG/2 ML (SDV) ONE (12:48)
--- NOTE | 2023-01-15 12:56 | Diagnostic Imaging Report ---
EXAMINATION: CT chest without contrast. TECHNIQUE: Multiple contiguous axial images were obtained through the chest without the use of intravenous contrast. All CT scans use one or more of the following dose optimizing techniques: automated exposure control, MA and/or KvP adjustment based on patient size and exam type or iterative reconstruction. HISTORY: Shortness of breath and congestion. COMPARISON: None available. FINDINGS: There is no edema or pneumonia. No pleural effusion. No pneumothorax. No suspicious nodules. There is no axillary or supraclavicular lymphadenopathy. There is no mediastinal lymphadenopathy. Heart size is normal. There are severe coronary artery calcifications. No pericardial effusion. Aorta is normal in caliber. Aortic valve is calcified suggestive of aortic stenosis. Limited views of the upper abdomen are unremarkable. There are no suspicious osseus lesions. There are compression fractures of T5, T7, T8, and T10. IMPRESSION: 1. No acute abnormality in the chest. 2. Age-indeterminate mid thoracic spine compression fractures. Dictated by: Dictated on workstation # [id number]
[2023-01-15] MEDS ORDERED: ONDANSETRON INJECTION 4 MG/2 ML (SDV) IVP ONE (13:00)
[2023-01-15] MEDS ORDERED: ONDANSETRON INJECTION 4 MG/2 ML (SDV) IV PRN (15:30)
[2023-01-15] MEDS ORDERED: NS IV 1000 ML 1,000 ML IV SCH (15:30)
[2023-01-15] MEDS ORDERED: BISACODYL 10 MG SUPPOSITORY PR PRN (15:30)
[2023-01-15] MEDS ORDERED: LACTULOSE SYRUP 10GM/15ML 30ML UDC PO PRN (15:30)
[2023-01-15] MEDS ORDERED: MELATONIN 3 MG TABLET PO PRN (15:30)
[2023-01-15] MEDS ORDERED: ANTACID SUSPENSION 30 ML UDC PO PRN (15:30)
[2023-01-15] MEDS ORDERED: ONDANSETRON 4 MG ORAL DISSOLVE TABLET PO PRN (15:30)
[2023-01-15] MEDS ORDERED: NS IV 500 ML 500 ML IV PRN (15:30)
[2023-01-15] MEDS: cefTRIAXone INJECTION 2,000 MG in NS (IVPB) 50 ML 50 ML IV SCH (16:02)
[2023-01-15 16:50] VITALS: BP 167/90
[2023-01-15] MEDS ORDERED: RT-Ipratropium/Albuterol NEB 3 ML VIAL INH PRN (17:00)
[2023-01-15] MEDS ORDERED: RIVAROXABAN 20 MG TABLET PO SCH (17:00)
--- NOTE | 2023-01-15 17:12 | Tele-ICU Consult ---
History of Present Illness History of Present Illness Date Seen by Provider: Jan 15, 2023 Time Seen by Provider: 17:11 Date of Admission History of Present Illness (Tele-ICU Physician , consultation as per request of PCP Service provided via interactive audio and video telecommunications E-CARE system to a patient admitted to ICU bed in [facility]. Available chart/ vitals / labs / Images reviewed H&P is from ER notes Patient's information available about PMH, Shx, Fhx allergy reviewed inEMR. ROS as per chart and RN report Now in ICU, hemodynamically stable Video assessment done using teleICU camera, rest of exam as per RN Discussed with RN. Hospital course: (-14) 67 y/o F - SOB - abd Pain - Hyponatremia 124 , tx with maicrobid for recent UTI [place] A/P Possible infection, + diarrhea (? 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 whezing with AECOPD -> steroids as per bedside MD Hyponatremia - 124 at 11 am in ER , has h/o low NA 2020 , but last year 14- 136 - received 500 ml NS , no Sz or confusion - will repeat NA now H/o Afib - in sinus now -AC - xarelto -echo on 04/16/22: LVEF 60-65%, mild to mod aortic stenosis Diarrhea ? c diff , but as per patient - no BM last 36 h - monitor , can be due to ABX Lines : periph , (Central Line Necessity Reviewed) Hughes: chronic OG: Nutrition: Analgesia: Anxiety/ delirium VTE Prophylaxis: xarelto Stress Ulcer Prophylaxis: na Plans in collaboration with bedside consultants and IM MDs. Discussed with RN to reach out if any questions or concerns A total of 25 minutes of critical care time was devoted to this patient today, required to treat and/or prevent further deterioration of critical care condition ( as above ) . I am remotely monitoring this patient from another state. I am unable to do the bedside exam, and history/physical and pertinent information is taken from other notes in the computer and bedside staff. . Allergies and Home Medications Allergies Uncoded Allergies: IV contrast (Allergy, Unknown, 01/15/23) Home Medications Acetaminophen 325 Mg Tablet, 650 MG PO TID, (Reported) TAKES 2 (325MG) TABS Acetaminophen 325 Mg Tablet, 650 MG PO DAILY PRN for PAIN-MILD (1-4), (Reported) Albuterol Sulfate 90 Mcg Hfa.aer.ad, 2 PUFF INH Q6H PRN for SHORTNESS OF BREATH, (Reported) Albuterol Sulfate 2.5 Mg/3 Ml (0.083 %) Vial.neb, 3 ML NEB Q6H PRN for WHEEZING, (Reported) Amlodipine Besylate 5 Mg Tablet, 5 MG PO DAILY, (Reported) HOLD IS SBP <100 Anastrozole 1 Mg Tablet, 1 MG PO DAILY, (Reported) Apixaban 5 Mg Tablet, 5 MG PO BID Prescribed by: KRISTY RAMOS on 04/19/22 1024 Baclofen 10 Mg Tablet, 10 MG PO DAILY, (Reported) Buspirone HCl 30 Mg Tablet, 30 MG PO BID, (Reported) Carboxymethylcellulose Sodium 0.5 % Drops, 2 DROP OU Q4H PRN for DRY EYES, (Reported) Duloxetine HCl 60 Mg Capsule.dr, 60 MG PO DAILY, (Reported) Fexofenadine HCl 60 Mg Tablet, 60 MG PO BID, (Reported) Furosemide 20 Mg Tablet, 20 MG PO DAILY, (Reported) Glimepiride 2 Mg Tablet, 2 MG PO TID, (Reported) Ipratropium/Albuterol Sulfate 0.5 Mg-3 Mg (2.5 Mg Base)/3 Ml Ampul.neb, 3 ML NEB Q6H PRN for SHORTNESS OF BREATH, (Reported) Lisinopril 40 Mg Tablet, 40 MG PO DAILY, (Reported) HOLD IF SBP <100 Magnesium Oxide 400 Mg Magnesium Capsule, 400 MG PO DAILY, (Reported) Metoprolol Succinate 50 Mg Tab.er.24h, 50 MG PO DAILY Prescribed by: KRISTY RAMOS on 04/19/22 1024 Multivitamin with Minerals 1 Each Tablet, 1 EACH PO DAILY, (Reported) Polyethylene Glycol 3350 17 Gram Powd.pack, 17 GM PO DAILY PRN for CONSTIPATION- 2ND LINE, (Reported) Potassium Chloride 10 Meq Capsule.er, 10 MEQ PO DAILY, (Reported) Prednisone 10 Mg Tab.ds.pk, 10 MG PO DAILY Take 6 tabs(60mg)daily,decrease by 1 tab(10MG)daily. Prescribed by: KRISTY RAMOS on 04/19/22 1024 Ropinirole HCl 0.5 Mg Tablet, 0.5 MG PO HS, (Reported) Saccharomyces Boulardii 250 Mg Capsule, 250 MG PO DAILY, (Reported) Sodium Chloride 1 Gram Tab, 1 GM PO TID, (Reported) Past Medical/Social/Family Hx Patient Social History Tobacco Use?: Yes Tobacco type used: Cigarettes Smoking Status: Current Everyday Smoker Use of E-Cig and/or Vaping dev: No Substance use?: No Alcohol Use?: No Pt stated abuse/neglect: No Immunizations Up To Date Influenza Vaccine Up-to-Date: No; Not Current First/Initial COVID19 Vaccinat: pt reports that she has been vaccinated for COVID Current Status status: No status: No Advance Directives: No Communicates: Verbally Primary Language: [place] Preferred Spoken Language: [place] Implanted or Applied Medical D: None Review of Systems Constitutional: other Focused Exam Lactate Level 01/15/23 11:10: Lactic Acid Level 1.36 Height, Weight, BMI Height: '" Weight: lbs. oz. kg; 43.20 BMI Method: Exam Exam Patient acknowledged, consented, and participated in this virtual visit which was conducted using real time audio/video Vital Signs Date Time Temp Pulse Resp B/P (MAP) Pulse Ox O2 Delivery O2 Flow Rate FiO2 01/15/23 16:55 97 Nasal Cannula 2.00 01/15/23 16:50 36.1 109 97 28 01/15/23 16:00 109 167/90 (116) 97 High Flow N/C 2.00 01/15/23 15:31 114 01/15/23 15:29 36.1 High Flow N/C 2.00 01/15/23 15:15 112 135/93 (107) 96 High Flow N/C 2.00 01/15/23 14:02 37.8 112 22 123/94 (104) 96 Nasal Cannula 2.00 01/15/23 13:14 116 24 162/74 (103) 97 Nasal Cannula 2.00 01/15/23 13:01 115 20 153/79 (103) 96 Nasal Cannula 2.00 01/15/23 12:26 115 24 194/98 (130) 99 Nasal Cannula 2.00 01/15/23 11:56 117 28 162/90 (114) 100 01/15/23 11:07 Nasal Cannula 2.00 01/15/23 11:07 Nasal Cannula 2.00 01/15/23 11:07 37.4 113 28 158/75 (102) 97 Nasal Cannula 2.00 Height & Weight Height: '" Weight: lbs. oz. kg; 43.20 BMI Method: General Appearance: Other Capillary Refill: Less Than 3 Seconds Gastrointestinal: normal bowel sounds, non tender, soft, other Results Lab Laboratory Tests 01/15/23 11:10 Assessment/Plan Assessment/Plan 1 BRAEDEN WALKER MD Jan 15, 2023 17:12
[2023-01-15 17:54] LABS: CALCIUM 9.1 MG/DL (8.5-10.1)
[2023-01-15 17:58] LABS: CREATININE SERUM 0.85 MG/DL (0.60-1.30)
[2023-01-15] MEDS ORDERED: DIPH25TA65 PO (18:07)
[2023-01-15] MEDS ORDERED: FLUT1AER PO (18:07)
[2023-01-15] MEDS ORDERED: RIVA20TA PO (18:07)
[2023-01-15] MEDS: ACETAMINOPHEN 325 MG TABLET PO PRN (18:39)
[2023-01-15] MEDS: RT-Ipratropium/Albuterol NEB 3 ML VIAL INH SCH (20:26)
[2023-01-15] MEDS: DOCUSATE SODIUM 100 MG CAPSULE PO SCH (20:56)
[2023-01-15 22:58] LABS: POTASSIUM 4.1 MMOL/L (3.6-5.0)
[2023-01-15 22:59] LABS: CALCIUM 8.9 MG/DL (8.5-10.1)
[2023-01-15 23:03] LABS: CREATININE SERUM 0.83 MG/DL (0.60-1.30)
[2023-01-16] MEDS: RT-Ipratropium/Albuterol NEB 3 ML VIAL INH SCH ×4 (03:49→21:37)
[2023-01-16] MEDS: ACETAMINOPHEN 325 MG TABLET PO PRN ×3 (04:04→16:53)
[2023-01-16 05:11] LABS: BASOPHILS # (AUTO) 0.1 10^3/uL (0.0-0.1); BASOPHILS % (AUTO) 0 % (0-10); EOSINOPHILS % (AUTO) 0 % (0-10); HEMATOCRIT 33 % (35-52); HEMOGLOBIN 11.2 g/dL (11.5-16.0); LYMPHOCYTES # (AUTO) 0.6 10^3/uL (1.0-4.0); LYMPHOCYTES % (AUTO) 2 % (12-44); MEAN CORPUSCULAR HEMOGLOBIN 30 pg (25-34); MEAN CORPUSCULAR HGB CONC 35 g/dL (32-36); MEAN CORPUSCULAR VOLUME 86 fL (80-99); MEAN PLATELET VOLUME 8.7 fL (9.0-12.2); MONOCYTES # (AUTO) 1.4 10^3/uL (0.0-1.0); MONOCYTES % (AUTO) 4 % (0-12); NEUTROPHILS % (AUTO) 94 % (42-75); PLATELET COUNT 291 10^3/uL (130-400)
[2023-01-16 05:13] LABS: WHITE BLOOD COUNT 37.5 10^3/uL (4.3-11.0)
[2023-01-16 05:18] LABS: POTASSIUM 4.3 MMOL/L (3.6-5.0)
[2023-01-16 05:19] LABS: CALCIUM 8.9 MG/DL (8.5-10.1)
[2023-01-16 05:24] LABS: CREATININE SERUM 0.76 MG/DL (0.60-1.30)
[2023-01-16 05:26] LABS: MAGNESIUM 2.1 MG/DL (1.6-2.4)
[2023-01-16] MEDS: NS IV 500 ML 500 ML IV SCH ×2 (05:52→21:20)
[2023-01-16] MEDS: POTASSIUM CL 10MEQ/50ML IVPB 50 ML IV SCH (05:52)
[2023-01-16] MEDS: MAGNESIUM 1 GM/100 ML IVPB 100 ML IV SCH (05:52)
[2023-01-16] MEDS: POTASSIUM CHLORIDE 20 MEQ TABLET PO SCH (05:52)
[2023-01-16] MEDS: DOCUSATE SODIUM 100 MG CAPSULE PO SCH ×2 (08:10→21:21)
[2023-01-16] MEDS: RIVAROXABAN 20 MG TABLET PO SCH (08:11)
--- NOTE | 2023-01-16 09:25 | Tele-ICU Progress Note ---
Subjective Date Seen by a Provider: Jan 16, 2023 Time Seen by a Provider: 09:25 Subjective/Events-last exam (Tele-ICU Physician , Progress Note ) Service provided via interactive audio and video telecommunications E-CARE system to a patient admitted to ICU bed in [facility]. Patient is seen today due to persistent need of ICU care Available chart/ vitals / labs / Images reviewed Video assessment done using teleICU camera, rest of exam as per RN Discussed with RN Events overnight : Afebrile hemodynamically stable Respiratory - 2l I/O = even Drips: Pressors- no Hospital course: (-) 67 y/o F - SOB - abd Pain - Hyponatremia 124 , tx with maicrobid for recent UTI in NH A/P Possible infection, + diarrhea (? 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 whezing with AECOPD -> steroids as per bedside MD Hyponatremia - 124 at 11 am in ER , has h/o low NA 2020 , but last year 14- 136 - received 500 ml NS , no Sz or confusion - MA rised to 129 in 5 h - ahmet srable - can tolerateed more NS if need for other reasons H/o Afib - in sinus now -AC - xarelto -echo on 04/16/22: LVEF 60-65%, mild to mod aortic stenosis Diarrhea ? 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 CT abd pelvis - as per bedside exam Lines : periph , (Central Line Necessity Reviewed) Hughes: chronic OG: Nutrition: po Analgesia: Anxiety/ delirium VTE Prophylaxis: xarelto Stress Ulcer Prophylaxis: na Plans in collaboration with bedside consultants and IM MDs. Discussed with RN to reach out if any questions or concerns A total of 25 minutes of critical care time was devoted to this patient today, required to treat and/or prevent further deterioration of critical care condition ( as above ) . I am remotely monitoring this patient from another state. I am unable to do the bedside exam, and history/physical and pertinent information is taken from other notes in the computer and bedside staff. . Sepsis Event Evaluation Height, Weight, BMI Height: '" Weight: lbs. oz. kg; 43.20 BMI Method: Focused Exam Lactate Level 01/15/23 11:10: Lactic Acid Level 1.36 Exam Exam Patient acknowledged, consented, and participated in this virtual visit which was conducted using real time audio/video Vital Signs Date Time Temp Pulse Resp B/P (MAP) Pulse Ox O2 Delivery O2 Flow Rate FiO2 01/16/23 09:00 105 160/75 (103) 96 High Flow N/C 2.00 01/16/23 08:28 101 156/80 (105) 97 High Flow N/C 2.00 01/16/23 07:32 36.9 High Flow N/C 1.50 01/16/23 07:00 103 158/77 (104) 95 High Flow N/C 2.00 01/16/23 07:00 102 01/16/23 06:00 92 131/63 (85) 98 High Flow N/C 2.00 01/16/23 05:00 109 162/82 (108) 95 High Flow N/C 2.00 01/16/23 04:00 95 Nasal Cannula 2.00 01/16/23 04:00 108 149/70 (96) 93 High Flow N/C 2.00 01/16/23 03:50 97 Nasal Cannula 2.00 01/16/23 03:00 100 152/71 (98) 97 High Flow N/C 2.00 01/16/23 02:00 105 163/73 (103) 96 High Flow N/C 2.00 01/16/23 01:00 102 172/73 (106) 95 High Flow N/C 2.00 01/16/23 00:37 108 01/16/23 00:00 36.0 01/16/23 00:00 106 161/78 (105) 95 High Flow N/C 2.00 01/15/23 23:59 95 Nasal Cannula 2.00 01/15/23 23:00 111 154/73 (100) 94 High Flow N/C 2.00 01/15/23 22:00 101 132/71 (91) 96 High Flow N/C 2.00 01/15/23 21:00 112 175/82 (113) 94 High Flow N/C 2.00 01/15/23 20:26 96 Nasal Cannula 2.00 01/15/23 20:00 107 158/82 (107) 95 High Flow N/C 2.00 01/15/23 19:59 96 Nasal Cannula 2.00 01/15/23 19:34 35.8 120 22 156/78 (104) High Flow N/C 2.00 01/15/23 19:00 112 156/78 (104) 96 High Flow N/C 2.00 01/15/23 19:00 111 01/15/23 18:00 113 177/79 (114) 97 High Flow N/C 2.00 01/15/23 17:21 94 Nasal Cannula 2.00 01/15/23 17:00 115 176/97 (123) 96 High Flow N/C 2.00 01/15/23 16:55 97 Nasal Cannula 2.00 01/15/23 16:50 36.1 109 97 28 01/15/23 16:00 109 167/90 (116) 97 High Flow N/C 2.00 01/15/23 15:31 114 01/15/23 15:29 36.1 High Flow N/C 2.00 01/15/23 15:15 112 135/93 (107) 96 High Flow N/C 2.00 01/15/23 15:10 97 Nasal Cannula 2.00 01/15/23 14:02 37.8 112 22 123/94 (104) 96 Nasal Cannula 2.00 01/15/23 13:14 116 24 162/74 (103) 97 Nasal Cannula 2.00 01/15/23 13:01 115 20 153/79 (103) 96 Nasal Cannula 2.00 01/15/23 12:26 115 24 194/98 (130) 99 Nasal Cannula 2.00 01/15/23 11:56 117 28 162/90 (114) 100 01/15/23 11:07 Nasal Cannula 2.00 01/15/23 11:07 Nasal Cannula 2.00 01/15/23 11:07 37.4 113 28 158/75 (102) 97 Nasal Cannula 2.00 I & O 01/16/23 07:00 Intake Total 1950 ml Output Total 3250 ml Balance -1300 ml Height & Weight Height: '" Weight: lbs. oz. kg; 43.20 BMI Method: General Appearance: Other Capillary Refill: Less Than 3 Seconds Gastrointestinal: normal bowel sounds, non tender, soft, other Results Lab Laboratory Tests 01/15/23 11:10 01/15/23 17:33 01/15/23 22:36 01/16/23 05:00 Assessment/Plan Assessment/Plan 1 BRAEDEN WALKER MD Jan 16, 2023 09:25
--- NOTE | 2023-01-16 11:21 | Diagnostic Imaging Report ---
PROCEDURE: CT urinary tract, rule out kidney stone. TECHNIQUE: Multiple contiguous axial images were obtained through the abdomen and pelvis without the use of intravenous contrast. Auto Exposure Controls were utilized during the CT exam to meet ALARA standards for radiation dose reduction. INDICATION: Abdominal pain, leukocytosis. COMPARISON: CT of the chest on the 2022. FINDINGS: Included views of the lung bases demonstrate bibasilar airspace opacities and small bilateral pleural effusions. Age-indeterminate compression deformity of T10 vertebral body is concerning for an acute fracture. With associated 50% height loss. No lytic or sclerotic bone lesion. Age indeterminate compression compression deformity of L2 with the 80-90% height loss. The liver, spleen, right adrenal gland, pancreas are normal. The left adrenal gland demonstrates a 2 cm left adrenal adenoma. The gallbladder is postsurgical. The right kidney demonstrates a 0.4 cm nonobstructing renal calculi. Left kidney demonstrates 4 nonobstructing left renal calculi. No hydronephrosis on either side. No stones within the ureters or urinary bladder. The urinary bladder is decompressed with a Hughes catheter. A 0.4 cm stone seen within the urinary bladder. There is calcified aortic atherosclerosis without aneurysm. No abdominal pelvic lymphadenopathy. The bowel is nondilated. There is a fat-containing ventral hernia in the lower mid abdomen which is contains loops of small bowel. Inflammatory change or bowel obstruction. No free air, loculated fluid collections, or ascites. The osseous structures demonstrate severe degenerative changes of the left femoral acetabular joint with significant bone remodeling. Moderate degenerative changes of the right hip joint. IMPRESSION: 0.4 cm stone within the urinary bladder likely representing a recently passed kidney stone. No hydronephrosis. Additional nonobstructing bilateral renal calculi. Decompressed urinary bladder with Hughes catheter. Small bowel containing ventral hernia. No bowel obstruction. No associated inflammatory change. Severe degenerative changes of the left femoral acetabular joint with significant bone remodeling. Age-indeterminate compression deformity of T10 and L2 vertebral bodies. Dictated by: Dictated on workstation # [id number]
[2023-01-16] MEDS: cefTRIAXone INJECTION 2,000 MG in NS (IVPB) 50 ML 50 ML IV SCH (16:14)
--- NOTE | 2023-01-16 20:41 | History & Physical-Hospitalist ---
History of Present Illness HPI/Chief Complaint Geovanna Stephenson is a 67 year old female with PMH HTN, T2DM, AFib, morbid obesity, who presented to the ER from her [facility] with abnormal labs. She had an elevated WBC and low sodium. She reports abdominal pain. She reports diarrhea recently but she has been constipated the past three days. She denies nausea and vomiting. She denies back pain. She denies fevers. She denies chest pain. She denies shortness of breath. Source: patient Exam Limitations: no limitations Date Seen 01/16/23 Time Seen by a Provider: 10:10 Attending Physician Saad Lara MD PCP Admitting Physician: Kristy Ramos MD Attending Physician: Kristy Ramos MD Referring Physician Date of Admission Jan 15, 2023 at 20:34 Home Medications & Allergies Home Medications Reviewed patient Home Medication Reconciliation performed by pharmacy medication reconciliations injection mold tooling technician and/or nursing. Patients Allergies have been reviewed. Allergies Allergies Uncoded Allergies IV contrast ( Allergy, Unknown, 01/15/23) Past [id number]-Ceqdgr Hx Patient Social History Tobacco Use?: Yes Tobacco type used: Cigarettes Smoking Status: Current Everyday Smoker Use of E-Cig and/or Vaping dev: No Substance use?: No Alcohol Use?: No Pt feels they are or have been: No Immunizations Up To Date First/Initial COVID19 Vaccinat: pt reports that she has been vaccinated for COVID Seasonal Allergies Seasonal Allergies: No Current Status status: No status: No Advance Directives: No Communicates: Verbally Primary Language: [place] Preferred Spoken Language: [place] Implanted or Applied Medical D: None Past Medical History Surgeries: Section, Gallbladder COPD Hypertension Breast Did You Recieve Any Treatments: Yes What Type of Treatment Did You: Surgical Intervention Family Medical History No Pertinent Family Hx Review of Systems Constitutional: no symptoms reported Respiratory: no symptoms reported Cardiovascular: no symptoms reported Gastrointestinal: abdominal pain, constipation, diarrhea Physical Exam Physical Exam Vital Signs Vital Signs - First Documented 01/15/23 16:50 FiO2 28 Capillary Refill : Less Than 3 Seconds Height, Weight, BMI Height: '" Weight: lbs. oz. kg; 43.20 BMI Method: General Appearance: No Apparent Distress, Obese HEENT: PERRL/EOMI, Pharynx Normal Neck: Normal Inspection, Supple Respiratory: No Respiratory Distress, Decreased Breath Sounds Cardiovascular: Regular Rate, Rhythm, No Murmur Gastrointestinal: Normal Bowel Sounds, Soft, Tenderness Extremity: Normal Inspection, Pedal Edema Neurologic/Psychiatric: Alert, Normal Mood/Affect Skin: Normal Color, Warm/Dry Results Results/Procedures Labs Laboratory Tests 01/15/23 11:10 01/15/23 17:33 01/15/23 22:36 01/16/23 05:00 Patient resulted labs reviewed. Imaging: Reviewed Imaging Report Assessment/Plan Admission Diagnosis Sepsis due to UTI and bacteremia Admission Status: Inpatient Order (span 2 midnights) Reason for Inpatient Admission: IV antibiotics Assessment and Plan Sepsis due to UTI Gram negative bacteremia Kidney stone UA consistent with UTI Urine culture with gram negative bacillus Blood culture with gram negative bacillus Started on Rocephin Transition to Cefepime for coverage of possible Pseudomonas CT chest negative CT abdomen with stone in the bladder likely recently passed, bilateral non- obstructive renal stones Hyponatremia Chronic Improved with volume replacement Continue home salt tabs T2DM Sliding scale insuin HTN AFib Anxiety and depression Continue home meds as able Tobacco abuse Refused nicotine patch DVT prophylaxis: already receiving therapeutic anticoagulation Diagnosis/Problems Diagnosis/Problems (1) Sepsis due to urinary tract infection Status: Acute (2) Gram-negative bacteremia Status: Acute (3) Kidney stone Status: Acute (4) HTN (hypertension) Status: Chronic (5) T2DM (type 2 diabetes mellitus) Status: Chronic Qualifiers: Diabetes mellitus fci insulin use: without fci use (6) Afib Status: Chronic (7) Hyponatremia Status: Acute (8) Hughes catheter in place on admission Status: Chronic (9) Morbid obesity Status: Acute KRISTY RAMOS MD Jan 16, 2023 20:41
[2023-01-16] MEDS: CEFEPIME INJECTION 1,000 MG in NS (IVPB) 50 ML 50 ML IV SCH (21:21)
[2023-01-16] MEDS: SODIUM CHLORIDE 1 GM TABLET PO SCH (21:55)
[2023-01-16] MEDS: busPIRone 15 MG TABLET PO SCH (21:56)
[2023-01-16] MEDS ORDERED: LABETALOL 5 mg/ml 4 ML SINGLE DOSE SYRINGE IV ONE (23:45)
[2023-01-17] MEDS: RT-Ipratropium/Albuterol NEB 3 ML VIAL INH SCH ×4 (03:17→20:37)
[2023-01-17] MEDS ORDERED: amLODIPine 10 MG TABLET PO ONE (03:30)
[2023-01-17] MEDS ORDERED: LABETALOL 5 mg/ml 4 ML SINGLE DOSE SYRINGE IV PRN (03:30)
[2023-01-17] MEDS: CEFEPIME INJECTION 1,000 MG in NS (IVPB) 50 ML 50 ML IV SCH ×4 (04:15→20:56)
[2023-01-17 04:16] LABS: BASOPHILS % (AUTO) 0 % (0-10); EOSINOPHILS % (AUTO) 0 % (0-10); HEMATOCRIT 31 % (35-52); HEMOGLOBIN 10.8 g/dL (11.5-16.0); LYMPHOCYTES # (AUTO) 0.5 10^3/uL (1.0-4.0); LYMPHOCYTES % (AUTO) 3 % (12-44); MEAN CORPUSCULAR HEMOGLOBIN 29 pg (25-34); MEAN CORPUSCULAR HGB CONC 34 g/dL (32-36); MEAN CORPUSCULAR VOLUME 84 fL (80-99); MEAN PLATELET VOLUME 8.6 fL (9.0-12.2); MONOCYTES # (AUTO) 0.6 10^3/uL (0.0-1.0); MONOCYTES % (AUTO) 4 % (0-12); NEUTROPHILS # (AUTO) 13.8 10^3/uL (1.8-7.8); NEUTROPHILS % (AUTO) 92 % (42-75); PLATELET COUNT 254 10^3/uL (130-400); WHITE BLOOD COUNT 14.9 10^3/uL (4.3-11.0)
[2023-01-17 04:37] LABS: CALCIUM 8.5 MG/DL (8.5-10.1); CREATININE SERUM 0.62 MG/DL (0.60-1.30); MAGNESIUM 1.7 MG/DL (1.6-2.4); POTASSIUM 3.1 MMOL/L (3.6-5.0)
[2023-01-17] MEDS: POTASSIUM CL 10MEQ/50ML IVPB 50 ML IV SCH ×8 (05:16→13:14)
[2023-01-17] MEDS: MAGNESIUM 1 GM/100 ML IVPB 100 ML IV SCH ×5 (05:16→08:48)
[2023-01-17] MEDS: POTASSIUM CHLORIDE 20 MEQ TABLET PO SCH (05:17)
--- NOTE | 2023-01-17 08:06 | Physical Therapy Evaluation ---
PT Evaluation-General Medical Diagnosis Admission Date Jan 15, 2023 at 20:34 Medical Diagnosis: sepsis Onset Date: Jan 15, 2023 Therapy Diagnosis Therapy Diagnosis: debility/weakness Precautions Precautions/Isolations: Fall Prevention, Standard Precautions, Pressure Ulcer Referral Physician: Jazzy Reason for Referral: Evaluation/Treatment Medical History Pertinent Medical History: Atrial Fib, COPD, DM, HTN, Smoking Additional Medical History obesity Current History ER secondary to SOA and abdominal discomfort Reviewed History: Yes Social History Home: Retirement Prior Prior Level of Function SCALE: Activities may be completed with or without assistive devices. 9-Evocneshcl-ymebiih completes the activity by him/herself with no assistance from a helper. 5-Set-up or Clean-up Assistance-helper sets up or cleans up; patient completes activity. [place] assists only prior to or following the activity. 4-Supervision or Touching Assistance-helper provides verbal cues and/or touching/steadying and/or contact guard assistance as patient completes activity. Assistance may be provided throughout the activity or intermittently. 3-Partial/Moderate Assistance-helper does LESS THAN HALF the effort. [place] lifts, holds or supports trunk or limbs, but provides less than half the effort. 2-Substantial/Maximal Assistance-helper does MORE THAN HALF the effort. [place] lifts or holds trunk or limbs and provides more than half the effort. 8-Lvnqhkvph-hgzwet does ALL the effort. Patient does none of the effort to co mplete the activity. Or, the assistance of 2 or more helpers is required for the patient to complete the activity. If activity was not attempted, code reason: 7-Patient Refused. 9-Not Applicable-not attempted and the patient did not perform the activity before the current illness, exacerbation or injury. 10-Not Attempted due to Environmental Limitations-(lack of equipment, weather restraints, etc.). 88-Not Attempted due to Medical Conditions or Safety Concerns. Bed Mobility: 4 Transfers (B,C,W/C): 4 Gait: 9 Stairs: 9 Indoor Mobility (Ambulation): Not App[place]be Prior Devices Use: Manual wheelchair PT Evaluation-Current Subjective Patient agrees to PT. Objective Patient Orientation: Normal For Age Attachments: Oxygen, Hughes Catheter ROM/Strength ROM Lower Extremities bilateral LE WFL Strength Lower Extremities 3-/5 grossly bilateral LE all planes Integumentary/Posture Bladder Incontinence: Hughes Cath Neuromuscular (Tone, Coordination, Reflexes) grossly intact Sensory Vision: Functional Hearing: Functional Transfers Lying to Sitting/Side of Bed(Q: 4 Sit to Stand (QC): 3 Chair/Pqo-wh-Jkqiu Xfer(QC): 3 Gait Does the Patient Walk?: No and Walking Goal NOT indicated Balance Sitting Static: Normal Sitting Dynamic: Normal Standing Static: Fair Standing Dynamic: Fair Assessment/Needs Patient will be seen short term by skilled PT to address functional strength and mobility to improve current LOF to [facility]. Rehab Potential: Fair PT Terrazzo Helper Goals [facility] Goals PT [facility] Goals Time Frame: Jan 29, 2023 Roll Left & Right (QC): 4 Sit to Lying (QC): 4 Lying-Sitting on Side/Bed(QC): 4 Sit to Stand (QC): 4 Chair/Qno-ch-Hppkh Xfer(QC): 4 Toilet Transfer (QC): 4 PT Plan Problem List Problem List: Activity Tolerance, Functional Strength, Balance, Transfer Treatment/Plan Treatment Plan: Continue Plan of Care Treatment Plan: Bed Mobility, Education, Functional Activity Forest, Functional Strength, Safety, Therapeutic Exercise, Transfers Treatment Duration: Jan 29, 2023 Frequency: 5 times per week Estimated Hrs Per Day: .25 hour per day Time Time In: 730 Time Out: 743 DATE: Jan 17, 2023 Total Billed Treatment Time: 13 Total Billed Treatment 1 visit [facility] 13 min NOVA DODSON PT Jan 17, 2023 08:06
[2023-01-17] MEDS: FUROSEMIDE 20 MG TABLET PO SCH (08:41)
[2023-01-17] MEDS: DOCUSATE SODIUM 100 MG CAPSULE PO SCH ×2 (08:41→20:56)
[2023-01-17] MEDS: amLODIPine 5 MG TABLET PO SCH (08:42)
[2023-01-17] MEDS: DULoxetine 30 MG CAPSULE PO SCH (08:42)
[2023-01-17] MEDS: RIVAROXABAN 20 MG TABLET PO SCH (08:42)
[2023-01-17] MEDS: busPIRone 15 MG TABLET PO SCH ×2 (08:42→20:55)
[2023-01-17] MEDS: SODIUM CHLORIDE 1 GM TABLET PO SCH ×3 (08:45→20:55)
[2023-01-17] MEDS: ANASTROZOLE 1 MG TABLET PO SCH (08:45)
[2023-01-17] MEDS ORDERED: SODIUM CHLORIDE 1 GM TABLET PO SCH (09:00)
--- NOTE | 2023-01-17 09:22 | Progress Note - Hospitalist ---
Subjective HPI/CC On Admission Date Seen by Provider: Jan 17, 2023 Geovanna Stephenson is a 67 year old female with PMH HTN, T2DM, AFib, morbid obesity, who presented to the ER from her custodial with abnormal labs. She had an elevated WBC and low sodium. She reports abdominal pain. She reports diarrhea recently but she has been constipated the past three days. She denies nausea and vomiting. She denies back pain. She denies fevers. She denies chest pain. She denies shortness of breath. Subjective/Events-last exam Pt reports feeling better today. Needs catheter changed. Discussed results of CT. Focused Exam Lactate Level 01/15/23 11:10: Lactic Acid Level 1.36 Objective Exam Vital Signs Vital Signs Date Time Temp Pulse Resp B/P (MAP) Pulse Ox O2 Delivery O2 Flow Rate FiO2 01/17/23 07:15 116 01/17/23 07:00 191/93 (125) 98 High Flow N/C 2.00 01/16/23 16:17 37.7 01/15/23 19:34 22 01/15/23 16:50 28 Capillary Refill : Less Than 3 Seconds General Appearance: No Apparent Distress, Chronically ill, Obese Cardiovascular: Regular Rate, Rhythm, No Murmur Gastrointestinal: Normal Bowel Sounds, Soft Neurologic/Psychiatric: Alert, Oriented x3, Normal Mood/Affect Results/Procedures Lab Laboratory Tests 01/17/23 04:08 Patient resulted labs reviewed. Imaging: Reviewed Imaging Report Assessment/Plan Assessment and Plan Assess & Plan/Chief Complaint Sepsis due to UTI Gram negative bacteremia Kidney stone UA consistent with UTI Urine culture with gram negative bacillus Blood culture with e coli Continue Cefepime WBC down today CT chest negative CT abdomen with stone in the bladder likely recently passed, bilateral non- obstructive renal stones Hyponatremia Chronic Down some today, trend Continue home salt tabs T2DM Sliding scale insuin HTN AFib Anxiety and depression Continue home meds as able Tobacco abuse Refused nicotine patch DVT prophylaxis: already receiving therapeutic anticoagulation BERNA SANDHU MD Jan 17, 2023 09:22
[2023-01-17] MEDS: FLUTICASONE/VILANTEROL 100/25 MCG (7 DOSES) IH SCH (09:58)
[2023-01-17] MEDS ORDERED: POTA-177 PO (13:20)
[2023-01-17] MEDS ORDERED: NF-NACL1GT PO (13:20)
--- NOTE | 2023-01-17 14:51 | Occupational Therapy Eval ---
OT Evaluation-General/PLF Medical Diagnosis Admission Date Jan 15, 2023 at 20:34 Medical Diagnosis: sepsis Onset Date: Jan 15, 2023 Therapy Diagnosis Therapy Diagnosis: weakness Precautions Precautions/Isolations: Fall Prevention, Standard Precautions Referral Physician: Jazzy Referral Reason: Evaluation/Treatment Medical History Pertinent Medical History: Atrial Fib, COPD, DM, HTN, Smoking Reviewed History: Yes Social History Home: Senior Living ADL-Prior Level of Function SCALE: Activities may be completed with or without assistive devices. 6-Rmjaptbgkp-jfzkdnm completes the activity by him/herself with no assistance from a helper. 5-Set-up or Clean-up Assistance-helper sets up or cleans up; patient completes activity. [place] assists only prior to or following the activity. 4-Supervision or Touching Assistance-helper provides verbal cues and/or touching/steadying and/or contact guard assistance as patient completes activit y. Assistance may be provided throughout the activity or intermittently. 3-Partial/Moderate Assistance-helper does LESS THAN HALF the effort. [place] lifts, holds or supports trunk or limbs, but provides less than half the effort. 2-Substantial/Maximal Assistance-helper does MORE THAN HALF the effort. [place] lifts or holds trunk or limbs and provides more than half the effort. 6-Ewzolyxds-galgqm does ALL the effort. Patient does none of the effort to complete the activity. Or, the assistance of 2 or more helpers is required for the patient to complete the activity. If activity was not attempted, code reason: 7-Patient Refused. 9-Not Applicable-not attempted and the patient did not perform the activity before the current illness, exacerbation or injury. 10-Not Attempted due to Environmental Limitations-(lack of equipment, weather restraints, etc.). 88-Not Attempted due to Medical Conditions or Safety Concerns. Self Care: Needed Some Help Functional Cognition: Needed Some Help Drive Self: No OT Current Status Subjective Agreeable to OT. Has questions about food menu and going to medical floor Mental Status/Objective Patient Orientation: Person, Place, Time, Situation Attachments: Hughes Catheter, IV Current Glasses/Contacts: No Upper Extremity ROM BUE ROM WFLS Upper Extremity Coordination fair Upper Extremity Strength WNL ADL-Treatment Eating (QC): 6 Oral Hygiene (QC): 5 Shower/Bathe Self (QC): 7 Upper Body Dressing (QC): 4 Lower Body Dressing (QC): 2 On/Off Footwear (QC): 1 Toileting Hygiene (QC): 2 Education OT Patient Education: Correct positioning, Modified ADL techniques, Progress toward Goal/Update tx plan, Purpose of tx/functional activities, Reviewed precautions, Rehab process, Safety issues, Transfer techniques, Use of adapted equipment Teaching Recipient: Patient Response to Teaching: Reinforcement Needed OT [facility] Goals Tentering Machine Feeder Goals Eating (QC): 6 Oral Hygiene (QC): 5 Toileting Hygiene (QC): 4 Shower/Bathe Self (QC): 3 Upper Body Dressing (QC): 4 Lower Body Dressing (QC): 4 On/Off Footwear (QC): 3 1=Demonstrate adherence to instructed precautions during ADL tasks. 2=Patient will verbalize/demonstrate understanding of assistive devices/modifications for ADL. 3=Patient will improve strength/tolerance for activity to enable patient to perform ADL's. OT Education/Plan Problem List/Assessment Assessment: Decreased Activ Tolerance, Decreased UE Strength, Impaired Coordination, Impaired Funct Balance, Impaired Self-Care Skills Discharge Recommendations Plan/Recommendations: Continue POC Therapy Discharge Recommendati: Post Acute OT Treatment Plan/Plan of Care Treatment,Training & Education: Yes Patient would benefit from OT for education, treatment and training to promote independence in ADL's, mobility, safety and/or upper extremity function for ADL's. Plan of Care: ADL Retraining, Concurrent Therapy, Functional Mobility, Group Exercise/Act as Ind, UE Funct Exercise/Act Treatment Duration: Jan 21, 2023 Frequency: 3 times per week (3-5 times per week) Estimated Hrs Per Day: .25 hour per day Rehab Potential: Fair Time Start Time: 14:00 Stop Time: 14:21 DATE: Jan 17, 2023 Total Time Billed (hr/min): 21 Billed Treatment Time EVM 21 min GRACE HUA OT Jan 17, 2023 14:51
[2023-01-17 16:00] VITALS: BP 172/75
--- NOTE | 2023-01-17 18:37 | Physician Query-Final Dx ---
KAYLEY ZHANG 01/17/23 1837: Final Diagnosis Give Final Diagnosis Please give Final Diagnosis The medical record reflects the following clinical scenario: The patient, in the setting of History/Risk factors, shelter resident with chronic urinary catheter, High BMI and decreased self care abilities Clinical Findings Documentation from [place] that patient was found in WC asleep and clammy with Hematuria in felix tubing, BC X 2 with E. Coli, Treatment IV ABX, Cath care, Question: Can you specify if the UTI/Sepsis is due to/associated with indwelling urinary catheter? Yes - UTI/Sepsis is likely due to/associated with indwelling urinary catheter No - UTI/Sepsis is not due to/associated with indwelling urinary catheter Other, with explanation of the clinical findings Clinically undetermined, no explanation for the clinical findings Please clarify and document your clinical opinion in the Progress Notes and Discharge Summary including the definitive and/or presumptive diagnosis, (suspected or probable), related to the above clinical findings. Please include clinical findings supporting your diagnosis. In responding to this query, please exercise your independent professional judgment. The purpose of this communication is to more accurately reflect the complexity of your patients condition. The fact that a question is asked does not imply that any particular answer is desired or expected. Thank you for timely response to this clarification. Kayley Zhang, MSN, RN Clinical Supervisor Electronic Testing [phone] [email or web address] KRISTY RAMOS MD 01/21/23 0939: Final Diagnosis Give Final Diagnosis yes KAYLEY ZHANG Jan 17, 2023 18:37 KRISTY RAMOS MD Jan 21, 2023 09:39
[2023-01-17 20:18] VITALS: BP 164/73
[2023-01-17] MEDS: ACETAMINOPHEN 325 MG TABLET PO PRN (21:02)
[2023-01-17 22:57] VITALS: BP 154/68
[2023-01-18] VITALS (7 sets, daily range): BP systolic 134–153; BP diastolic 63–87
[2023-01-18] MEDS: CEFEPIME INJECTION 1,000 MG in NS (IVPB) 50 ML 50 ML IV SCH ×2 (02:27→08:26)
[2023-01-18] MEDS: RT-Ipratropium/Albuterol NEB 3 ML VIAL INH SCH ×3 (03:02→21:31)
[2023-01-18 05:34] LABS: BASOPHILS % (AUTO) 0 % (0-10); EOSINOPHILS # (AUTO) 0.1 10^3/uL (0.0-0.3); EOSINOPHILS % (AUTO) 1 % (0-10); HEMATOCRIT 29 % (35-52); HEMOGLOBIN 9.9 g/dL (11.5-16.0); LYMPHOCYTES # (AUTO) 0.4 10^3/uL (1.0-4.0); LYMPHOCYTES % (AUTO) 4 % (12-44); MEAN CORPUSCULAR HEMOGLOBIN 29 pg (25-34); MEAN CORPUSCULAR HGB CONC 34 g/dL (32-36); MEAN CORPUSCULAR VOLUME 85 fL (80-99); MEAN PLATELET VOLUME 9.1 fL (9.0-12.2); MONOCYTES # (AUTO) 0.8 10^3/uL (0.0-1.0); MONOCYTES % (AUTO) 8 % (0-12); NEUTROPHILS # (AUTO) 8.8 10^3/uL (1.8-7.8); NEUTROPHILS % (AUTO) 87 % (42-75); PLATELET COUNT 244 10^3/uL (130-400); WHITE BLOOD COUNT 10.2 10^3/uL (4.3-11.0)
[2023-01-18 05:52] LABS: CALCIUM 8.3 MG/DL (8.5-10.1); CREATININE SERUM 0.58 MG/DL (0.60-1.30); MAGNESIUM 1.9 MG/DL (1.6-2.4); POTASSIUM 3.3 MMOL/L (3.6-5.0)
[2023-01-18] MEDS: MAGNESIUM 1 GM/100 ML IVPB 100 ML IV SCH ×2 (05:57→06:23)
[2023-01-18] MEDS: POTASSIUM CL 10MEQ/50ML IVPB 50 ML IV SCH (05:57)
[2023-01-18] MEDS: POTASSIUM CHLORIDE 20 MEQ TABLET PO SCH (05:58)
[2023-01-18] MEDS ORDERED: POTASSIUM CHLORIDE 20 MEQ TABLET PO ONE ×2 (06:00→08:00)
[2023-01-18] MEDS: busPIRone 15 MG TABLET PO SCH ×2 (08:23→20:56)
[2023-01-18] MEDS: DULoxetine 30 MG CAPSULE PO SCH (08:24)
[2023-01-18] MEDS: FUROSEMIDE 20 MG TABLET PO SCH (08:24)
[2023-01-18] MEDS: amLODIPine 5 MG TABLET PO SCH (08:24)
[2023-01-18] MEDS: RIVAROXABAN 20 MG TABLET PO SCH (08:24)
[2023-01-18] MEDS: DOCUSATE SODIUM 100 MG CAPSULE PO SCH ×2 (08:29→20:57)
[2023-01-18] MEDS: ANASTROZOLE 1 MG TABLET PO SCH (09:22)
[2023-01-18] MEDS: SODIUM CHLORIDE 1 GM TABLET PO SCH ×4 (09:23→20:57)
[2023-01-18] MEDS: ACETAMINOPHEN 325 MG TABLET PO PRN ×2 (09:23→18:58)
--- NOTE | 2023-01-18 10:23 | Physical Therapy Daily Note ---
PT Daily Note-Current Subjective Patient agrees to PT. PCT taking patient to shower Pain Section J - Health Conditions 1. Rarely or not at all 2. Occasionally 3. Frequently 4. Almost constantly 8. Unable to answer Pain Effect on Sleep: 1 Pain Interference with Therapy: 1 Pain Interference w/Day-to-Day: 1 Transfers SCALE: Activities may be completed with or without assistive devices. 9-Obhbvcczcc-epvrwkt completes the activity by him/herself with no assistance from a helper. 5-Set-up or Clean-up Assistance-helper sets up or cleans up; patient completes activity. [place] assists only prior to or following the activity. 4-Supervision or Touching Assistance-helper provides verbal cues and/or touching/steadying and/or contact guard assistance as patient completes activity. Assistance may be provided throughout the activity or intermittently. 3-Partial/Moderate Assistance-helper does LESS THAN HALF the effort. [place] lifts, holds or supports trunk or limbs, but provides less than half the effort. 2-Substantial/Maximal Assistance-helper does MORE THAN HALF the effort. [place] lifts or holds trunk or limbs and provides more than half the effort. 9-Rbqpqqjnu-tepewe does ALL the effort. Patient does none of the effort to complete the activity. Or, the assistance of 2 or more helpers is required for the patient to complete the activity. If activity was not attempted, code reason: 7-Patient Refused. 9-Not Applicable-not attempted and the patient did not perform the activity befo re the current illness, exacerbation or injury. 10-Not Attempted due to Environmental Limitations-(lack of equipment, weather re straints, etc.). 88-Not Attempted due to Medical Conditions or Safety Concerns. Sit to Stand (QC): 4 Chair/Ffi-zo-Kkrfc Xfer(QC): 4 Gait Training Does the Patient Walk?: No and Walking Goal NOT indicated Assessment Patient performs sit to strategic business development shower with use of grab bars in shower to assist with transferring to shower bench. Patient tolerates minimal activity. PT Community Life Director Goals Community Life Director Goals PT Community Life Director Goals Time Frame: Jan 29, 2023 Roll Left & Right (QC): 4 Sit to Lying (QC): 4 Lying-Sitting on Side/Bed(QC): 4 Sit to Stand (QC): 4 Chair/Yqp-gu-Fswch Xfer(QC): 4 Toilet Transfer (QC): 4 PT Plan Treatment/Plan Treatment Plan: Continue Plan of Care Treatment Plan: Bed Mobility, Education, Functional Activity [place], Functional Strength, Safety, Therapeutic Exercise, Transfers Treatment Duration: Jan 29, 2023 Frequency: 5 times per week Estimated Hrs Per Day: .25 hour per day Time Time In: 954 Time Out: 1002 DATE: Jan 18, 2023 Total Billed Treatment Time: 8 Total Billed Treatment 1 visit FA 8 min NOVA DODSON PT Jan 18, 2023 10:23
--- NOTE | 2023-01-18 13:48 | Occupational Ther Daily Note ---
OT Current Status-Daily Note Subjective Agreeable to OT Mental Status/Objective Patient Orientation: Person, Place, Time, Situation ADL-Treatment Therapy Code Descriptions/Definitions Functional [place] Measure: 0=Not Assessed/NA 4=Minimal Assistance 1=Total Assistance 5=Supervision or Setup 2=Maximal Assistance 6=Modified [place] 3=Moderate Assistance 7=Complete IndependenceSCALE: Activities may be completed with or without assistive devices. 1-Wjqqrfhxww-qzdkqnt completes the activity by him/herself with no assistance from a helper. 5-Set-up or Clean-up Assistance-helper sets up or cleans up; patient completes activity. [place] assists only prior to or following the activity. 4-Supervision or Touching Assistance-helper provides verbal cues and/or touching/steadying and/or contact guard assistance as patient completes activity. Assistance may be provided throughout the activity or intermittently. 3-Partial/Moderate Assistance-helper does LESS THAN HALF the effort. [place] lifts, holds or supports trunk or limbs, but provides less than half the effort. 2-Substantial/Maximal Assistance-helper does MORE THAN HALF the effort. [place] lifts or holds trunk or limbs and provides more than half the effort. 1-Ngifcasea-jswlky does ALL the effort. Patient does none of the effort to complete the activity. Or, the assistance of 2 or more helpers is required for the patient to complete the activity. If activity was not attempted, code reason: 7-Patient Refused. 9-Not Applicable-not attempted and the patient did not perform the activity before the current illness, exacerbation or injury. 10-Not Attempted due to Environmental Limitations-(lack of equipment, weather restraints, etc.). 88-Not Attempted due to Medical Conditions or Safety Concerns. Other Treatment BUE functional reach tasks, isometric exercise to increase endurance OT Longterm Goals Client Support Representative Goals Eating (QC): 6 Oral Hygiene (QC): 5 Toileting Hygiene (QC): 4 Shower/Bathe Self (QC): 3 Upper Body Dressing (QC): 4 Lower Body Dressing (QC): 4 On/Off Footwear (QC): 3 1=Demonstrate adherence to instructed precautions during ADL tasks. 2=Patient will verbalize/demonstrate understanding of assistive devices/modifications for ADL. 3=Patient will improve strength/tolerance for activity to enable patient to perform ADL's. OT Education/Plan Discharge Recommendations Plan/Recommendations: Continue POC Treatment Plan/Plan of Care Patient would benefit from OT for education, treatment and training to promote independence in ADL's, mobility, safety and/or upper extremity function for ADL's. Plan of Care: ADL Retraining, Concurrent Therapy, Functional Mobility, Group Exercise/Act as Ind, UE Funct Exercise/Act Treatment Duration: Jan 21, 2023 Frequency: 3 times per week (3-5 times per week) Estimated Hrs Per Day: .25 hour per day Rehab Potential: Fair Time Start Time: 09:51 Stop Time: 10:00 DATE: Jan 18, 2023 Total Time Billed (hr/min): 9 Billed Treatment Time EX 9 min GRACE HUA OT Jan 18, 2023 13:48
--- NOTE | 2023-01-18 14:42 | Progress Note - Hospitalist ---
Subjective HPI/CC On Admission Date Seen by Provider: Jan 18, 2023 Geovanna Stephenson is a 67 year old female with PMH HTN, T2DM, AFib, morbid obesity, who presented to the ER from her care home with abnormal labs. She had an elevated WBC and low sodium. She reports abdominal pain. She reports diarrhea recently but she has been constipated the past three days. She denies nausea and vomiting. She denies back pain. She denies fevers. She denies chest pain. She denies shortness of breath. Subjective/Events-last exam Pt reports doing well today. She has no complaints. She was hoping to get to go home today. Discussed lab results though and need to trend in AM. Objective Exam Vital Signs Vital Signs Date Time Temp Pulse Resp B/P (MAP) Pulse Ox O2 Delivery O2 Flow Rate FiO2 01/18/23 14:13 36.6 96 97 01/18/23 12:01 16 148/82 (104) Nasal Cannula 2.00 01/15/23 16:50 28 Capillary Refill : Less Than 3 Seconds General Appearance: No Apparent Distress, Chronically ill, Obese Respiratory: Lungs Clear Cardiovascular: Regular Rate, Rhythm, No Murmur Gastrointestinal: Normal Bowel Sounds, Soft Neurologic/Psychiatric: Alert, Oriented x3 Results/Procedures Lab Laboratory Tests 01/18/23 05:00 Patient resulted labs reviewed. Imaging: Reviewed Imaging Report Assessment/Plan Assessment and Plan Assess & Plan/Chief Complaint Sepsis due to UTI Gram negative bacteremia Kidney stone UA consistent with UTI Urine culture with gram negative bacillus Blood culture with e coli Switch to ancef per sensitivities CT chest negative CT abdomen with stone in the bladder likely recently passed, bilateral non- obstructive renal stones Hyponatremia Chronic Down some today, trend Continue home salt tabs- increase frequency T2DM Sliding scale insuin HTN AFib Anxiety and depression Continue home meds as able Tobacco abuse Refused nicotine patch DVT prophylaxis: already receiving therapeutic anticoagulation BERNA SANDHU MD Jan 18, 2023 14:42
[2023-01-18] MEDS ORDERED: ARTIFICIAL TEARS Ophth solution 0.4 ML UNIT DOSE OU PRN (14:45)
[2023-01-18] MEDS: ceFAZolin INJECTION 2,000 MG in NS (IVPB) 50 ML 50 ML IV SCH ×2 (15:02→22:57)
[2023-01-19 03:49] VITALS: BP 189/83
[2023-01-19] MEDS: ACETAMINOPHEN 325 MG TABLET PO PRN ×2 (03:51→11:43)
[2023-01-19 05:28] LABS: BASOPHILS % (AUTO) 0 % (0-10); EOSINOPHILS # (AUTO) 0.3 10^3/uL (0.0-0.3); EOSINOPHILS % (AUTO) 3 % (0-10); HEMATOCRIT 28 % (35-52); HEMOGLOBIN 9.5 g/dL (11.5-16.0); LYMPHOCYTES # (AUTO) 0.8 10^3/uL (1.0-4.0); LYMPHOCYTES % (AUTO) 8 % (12-44); MEAN CORPUSCULAR HEMOGLOBIN 29 pg (25-34); MEAN CORPUSCULAR HGB CONC 34 g/dL (32-36); MEAN CORPUSCULAR VOLUME 85 fL (80-99); MONOCYTES # (AUTO) 0.9 10^3/uL (0.0-1.0); MONOCYTES % (AUTO) 9 % (0-12); NEUTROPHILS % (AUTO) 79 % (42-75); PLATELET COUNT 272 10^3/uL (130-400); WHITE BLOOD COUNT 10.1 10^3/uL (4.3-11.0)
[2023-01-19 05:52] LABS: CALCIUM 8.4 MG/DL (8.5-10.1); CREATININE SERUM 0.55 MG/DL (0.60-1.30); MAGNESIUM 1.6 MG/DL (1.6-2.4); POTASSIUM 3.6 MMOL/L (3.6-5.0)
[2023-01-19] MEDS: MAGNESIUM 1 GM/100 ML IVPB 100 ML IV SCH ×5 (06:18→10:56)
[2023-01-19] MEDS: POTASSIUM CL 10MEQ/50ML IVPB 50 ML IV SCH (06:18)
[2023-01-19] MEDS: POTASSIUM CHLORIDE 20 MEQ TABLET PO SCH ×2 (06:18→08:53)
[2023-01-19] MEDS: ceFAZolin INJECTION 2,000 MG in NS (IVPB) 50 ML 50 ML IV SCH (06:29)
[2023-01-19] MEDS: DOCUSATE SODIUM 100 MG CAPSULE PO SCH (07:42)
[2023-01-19 07:56] VITALS: BP 152/75
[2023-01-19] MEDS ORDERED: POTASSIUM CHLORIDE 20 MEQ TABLET PO ONE (08:00)
[2023-01-19] MEDS: ANASTROZOLE 1 MG TABLET PO SCH (08:51)
[2023-01-19] MEDS: busPIRone 15 MG TABLET PO SCH (08:52)
[2023-01-19] MEDS: RIVAROXABAN 20 MG TABLET PO SCH (08:54)
[2023-01-19] MEDS: DULoxetine 30 MG CAPSULE PO SCH (08:54)
[2023-01-19] MEDS: FUROSEMIDE 20 MG TABLET PO SCH (08:54)
[2023-01-19] MEDS: RT-Ipratropium/Albuterol NEB 3 ML VIAL INH SCH (09:28)
[2023-01-19] MEDS: SODIUM CHLORIDE 1 GM TABLET PO SCH ×2 (09:43→13:53)
[2023-01-19] MEDS: amLODIPine 5 MG TABLET PO SCH (09:44)
--- NOTE | 2023-01-19 09:46 | Discharge Inst-Skilled Nursing ---
Discharge Inst-Skilled NF Chief Complaint Geovanna Stephenson is a 67 year old female with PMH HTN, T2DM, AFib, morbid obesity, who [facility] with [facility]. She had an elevated WBC and low sodium. She reports abdominal pain. She reports diarrhea recently but she has been constipated the past three days. She denies nausea and vomiting. She denies back pain. She denies fevers. She denies chest pain. She denies shortness of breath. Consult/Follow Up/Orders Follow Up Appt.: With Dr Lara in 1 week Skilled NF Admit to: [facility] Certification (SNF) I certify that SNF services are required to be given on an inpatient basis because of the above named patient's need for half-way care on a continuing basis for the conditions(s) for which he/she was receiving inpatient hospital services prior to his/her transfer to the SNF. Oxygen Delivery Method: Nasal Cannula Discharge Diet: No Restrictions Daily Activity as Tolerated: Yes Resuscitation Status: Full Code New & Resume Previous Orders Berna Saldivar Jan 19, 2023 09:45 BERNA SALDIVAR MD Jan 19, 2023 09:46
[2023-01-19] MEDS ORDERED: CEPH500T PO (09:50)
--- NOTE | 2023-01-19 10:31 | Occupational Ther Daily Note ---
OT Current Status-Daily Note Subjective Agreeable to OT, reports leaving to return to [facility], no order noted. Patient also reports need for BM incont change, no supplies in room, Patient instructed to use call light for assistance while OT gathers supplies Mental Status/Objective Attachments: Hughes Catheter, IV, Telemetry ADL-Treatment Therapy Code Descriptions/Definitions Functional [place] Measure: 0=Not Assessed/NA 4=Minimal Assistance 1=Total Assistance 5=Supervision or Setup 2=Maximal Assistance 6=Modified [place] 3=Moderate Assistance 7=Complete IndependenceSCALE: Activities may be completed with or without assistive devices. 1-Gviyrsphzq-yurjusg completes the activity by him/herself with no assistance from a helper. 5-Set-up or Clean-up Assistance-helper sets up or cleans up; patient completes activity. [place] assists only prior to or following the activity. 4-Supervision or Touching Assistance-helper provides verbal cues and/or touching/steadying and/or contact guard assistance as patient completes activity. Assistance may be provided throughout the activity or intermittently. 3-Partial/Moderate Assistance-helper does LESS THAN HALF the effort. [place] lifts, holds or supports trunk or limbs, but provides less than half the effort. 2-Substantial/Maximal Assistance-helper does MORE THAN HALF the effort. [place] lifts or holds trunk or limbs and provides more than half the effort. 6-Pznejoasm-upvnvm does ALL the effort. Patient does none of the effort to complete the activity. Or, the assistance of 2 or more helpers is required for the patient to complete the activity. If activity was not attempted, code reason: 7-Patient Refused. 9-Not Applicable-not attempted and the patient did not perform the activity before the current illness, exacerbation or injury. 10-Not Attempted due to Environmental Limitations-(lack of equipment, weather restraints, etc.). 88-Not Attempted due to Medical Conditions or Safety Concerns. Lower Body Dressing (QC): 2 On/Off Footwear: 5 Toileting Hygiene (QC): 1 Toilet Transfer (QC): 2 Education OT Patient Education: Correct positioning, Modified ADL techniques, Progress toward Goal/Update tx plan, Purpose of tx/functional activities, Reviewed precautions, Rehab process, Safety issues, Transfer techniques, Use of adapted equipment Teaching Recipient: Patient Teaching Methods: Demonstration, Discussion Response to Teaching: Verbalize Understanding, Reinforcement Needed OT Custodial Goals Crossbar Frame Wirer Goals Eating (QC): 6 Oral Hygiene (QC): 5 Toileting Hygiene (QC): 4 Shower/Bathe Self (QC): 3 Upper Body Dressing (QC): 4 Lower Body Dressing (QC): 4 On/Off Footwear (QC): 3 1=Demonstrate adherence to instructed precautions during ADL tasks. 2=Patient will verbalize/demonstrate understanding of assistive devices/modifications for ADL. 3=Patient will improve strength/tolerance for activity to enable patient to perform ADL's. OT Education/Plan Problem List/Assessment Assessment: Decreased Activ Tolerance, Impaired Self-Care Skills Discharge Recommendations Plan/Recommendations: Continue POC Treatment Plan/Plan of Care Patient would benefit from OT for education, treatment and training to promote independence in ADL's, mobility, safety and/or upper extremity function for ADL's. Plan of Care: ADL Retraining, Concurrent Therapy, Functional Mobility, Group Exercise/Act as Ind, UE Funct Exercise/Act Treatment Duration: Jan 21, 2023 Frequency: 3 times per week (3-5 times per week) Estimated Hrs Per Day: .25 hour per day Rehab Potential: Fair Time Start Time: 09:45 Stop Time: 10:03 DATE: Jan 19, 2023 Total Time Billed (hr/min): 17 Billed Treatment Time ADL 17 min GRACE HUA OT Jan 19, 2023 10:31
[2023-01-19] MEDS: FLUTICASONE/VILANTEROL 100/25 MCG (7 DOSES) IH SCH ×2 (10:56→10:58)
[2023-01-19 11:35] VITALS: BP 153/85
--- NOTE | 2023-01-19 13:13 | Discharge Summary ---
Diagnosis/Chief Complaint Date of Admission Jan 15, 2023 at 20:34 Date of Discharge Discharge Date: Jan 19, 2023 Admission Diagnosis Sepsis due to UTI and bacteremia Primary Care Saad Lara MD Discharge Diagnosis (1) Sepsis due to urinary tract infection Status: Acute (2) Gram-negative bacteremia Status: Acute (3) Kidney stone Status: Acute (4) HTN (hypertension) Status: Chronic (5) T2DM (type 2 diabetes mellitus) Status: Chronic (6) Afib Status: Chronic (7) Hyponatremia Status: Acute (8) Hughes catheter in place on admission Status: Chronic (9) Morbid obesity Status: Acute Discharge Summary Discharge Physical Exam Allergies: Uncoded Allergies: IV contrast (Allergy, Unknown, 01/15/23) Vitals & I&Os Vital Signs Date Time Temp Pulse Resp B/P (MAP) Pulse Ox O2 Delivery O2 Flow Rate FiO2 01/19/23 11:35 36.6 79 16 153/85 (107) 99 Nasal Cannula 2.00 01/15/23 16:50 28 Hospital Course The patient was admitted Labs (last 24 hrs) Laboratory Tests 01/19/23 05:03: White Blood Count 10.1, Red Blood Count 3.29L, Hemoglobin 9.5L, Hematocrit 28L, Mean Corpuscular Volume 85, Mean Corpuscular Hemoglobin 29, Mean Corpuscular Hemoglobin Concent 34, Red Cell Distribution Width 13.5, Platelet Count 272, Mean Platelet Volume 9.0, Immature Granulocyte % (Auto) 1, Neutrophils (%) (Auto) 79H, Lymphocytes (%) (Auto) 8L, Monocytes (%) (Auto) 9, Eosinophils (%) (Auto) 3, Basophils (%) (Auto) 0, Neutrophils # (Auto) 8.0H, Lymphocytes # (Auto) 0.8L, Monocytes # (Auto) 0.9, Eosinophils # (Auto) 0.3, Basophils # (Auto) 0.0, Immature Granulocyte # (Auto) 0.1, Sodium Level 127L, Potassium Level 3.6, Chloride Level 95L, Carbon Dioxide Level 23, Anion Gap 9, Blood Urea Nitrogen 9, Creatinine 0.55L, Estimat Glomerular Filtration Rate 100, BUN/Creatinine Ratio 16, Glucose Level 136H, Calcium Level 8.4L, Magnesium Level 1.6 Microbiology 01/15/23 MRSA Screen - Final, Complete MRSA not isolated 01/15/23 Blood Culture - Final, Complete Escherichia coli Patient resulted labs reviewed. Imaging: Reviewed Imaging Report Discharge Home Medications: Active Scripts Active Cephalexin 500 Mg Tablet 500 Mg PO BID Reported Potassium Chloride 10 Meq Tab.er.prt 10 Meq PO DAILY Sodium Chloride 1,000 Mg Tablet.awilda 1,000 Mg PO TID Benadryl Allergy (Diphenhydramine HCl) 25 Mg Tablet 25 Mg PO Q4H PRN MDD 150MG Breo Ellipta 100-25 Mcg INH (Fluticasone/Vilanterol) 100 Mcg-25 Mcg/Dose Blst.w.dev 1 Puff PO DAILY Xarelto (Rivaroxaban) 20 Mg Tablet 20 Mg PO DAILY Refresh Tears (Carboxymethylcellulose Sodium) 0.5 % Drops 2 Drop OU Q4H PRN Tylenol (Acetaminophen) 325 Mg Tablet 650 Mg PO Q4H PRN Iprat-Albut 0.5-3(2.5) mg/3 ml (Ipratropium/Albuterol Sulfate) 0.5 Mg-3 Mg (2.5 Mg Base)/3 Ml Ampul.neb 3 Ml NEB Q6H PRN Glimepiride 2 Mg Tablet 2 Mg PO TID Ventolin Hfa (Albuterol Sulfate) 90 Mcg Hfa.aer.ad 1 Puff INH Q6H PRN Cassy Allergy (Fexofenadine HCl) 60 Mg Tablet 60 Mg PO BID Arimidex (Anastrozole) 1 Mg Tablet 1 Mg PO DAILY One Daily Plus Minerals (Multivitamin with Minerals) 1 Each Tablet 1 Each PO DAILY Buspirone HCl 30 Mg Tablet 30 Mg PO BID Duloxetine HCl 60 Mg Capsule.dr 60 Mg PO DAILY Amlodipine Besylate 5 Mg Tablet 5 Mg PO DAILY HOLD FOR SBP <100 Furosemide 20 Mg Tablet 20 Mg PO DAILY Magnesium (Magnesium Oxide) 400 Mg Magnesium Capsule 400 Mg PO DAILY Lisinopril 40 Mg Tablet 40 Mg PO DAILY HOLD IF SBP <100 Baclofen 10 Mg Tablet 10 Mg PO Q8H PRN Tylenol (Acetaminophen) 325 Mg Tablet 650 Mg PO TID TAKES 2 (325MG) TABS Miralax (Polyethylene Glycol 3350) 17 Gram Powd.pack 17 Gm PO DAILY PRN Instructions to patient/family Please see electronic discharge instructions given to patient. Problem Qualifiers (1) T2DM (type 2 diabetes mellitus): Diabetes mellitus extermination inspector insulin use: without extermination inspector use BERNA SANDHU MD Jan 19, 2023 13:13
[2023-01-19 14:17] VITALS: BP 153/85
== END 2023-01-19 14:21 | DRG 698 ==
LOC: EDUNIT# 10:58 → ER FS 10:59 → ICU 15:10 → OBSVTOIN 20:34 → ICU 01-17 14:45 → 4TH 01-17 15:07
PROVIDERS: ADMIT Internal Medicine; ATTEND Internal Medicine
PROC: 5A0935A Assistance with Respiratory Ventilation, Less than 24 Consecutive Hours, High Flow/Velocity Cannula (ICD-10-PCS; principal; 2023-01-15)
DX: T83.518A Infection and inflammatory reaction due to other urinary catheter, initial encounter (principal); A41.50 Gram-negative sepsis, unspecified; I48.20 Chronic atrial fibrillation, unspecified; N39.0 Urinary tract infection, site not specified; Z68.41 Body mass index [BMI] 40.0-44.9, adult; E87.1 Hypo-osmolality and hyponatremia; N20.0 Calculus of kidney; I10 Essential (primary) hypertension; E11.9 Type 2 diabetes mellitus without complications; E66.01 Morbid (severe) obesity due to excess calories; J44.9 Chronic obstructive pulmonary disease, unspecified; Z11.52 Encounter for screening for COVID-19; F17.210 Nicotine dependence, cigarettes, uncomplicated; F41.9 Anxiety disorder, unspecified; F32.A Depression, unspecified
CPT/HCPCS: 36415; 71045; 71250; 74176; 80048; 80053; 82947; 83605; 83735; 84484; 85007; 85025; 85027; 87040; 87077; 87081; 87186; 87636; 93005; 94640; 94760; 96361; 96365; 96367; 96375

== ENCOUNTER → 2023-01-15 | Outpatient (CLI) | payer MEDICARE, MEDICAID ==
[2023-01-15 10:08] LABS: BILIRUBIN,URINE NEGATIVE (NEGATIVE); COLOR,URINE YELLOW; GLUCOSE, URINE (UA) NEGATIVE (NEGATIVE); KETONES,URINE NEGATIVE (NEGATIVE); LEUKOCYTE ESTERASE ,URINE 3+ (NEGATIVE); NITRITE,URINE NEGATIVE (NEGATIVE); PROTEIN,URINE 2+ (NEGATIVE)
[2023-01-15 10:11] LABS: BACTERIA,URINE LARGE /HPF; CLARITY,URINE TURBID; HEMATOCRIT 36 % (35-52); HEMOGLOBIN 12.1 g/dL (11.5-16.0); MEAN CORPUSCULAR HEMOGLOBIN 29 pg (25-34); MEAN CORPUSCULAR HGB CONC 34 g/dL (32-36); MEAN CORPUSCULAR VOLUME 85 fL (80-99); MEAN PLATELET VOLUME 8.7 fL (9.0-12.2); PLATELET COUNT 380 10^3/uL (130-400); RBC,URINE 50-100 /HPF; WBC,URINE TNTC /HPF
[2023-01-15 10:17] LABS: WHITE BLOOD COUNT 36.4 10^3/uL (4.3-11.0)
[2023-01-15 10:20] LABS: ALBUMIN 4.1 GM/DL (3.2-4.5); BILIRUBIN,TOTAL 0.9 MG/DL (0.1-1.0); CREATININE SERUM 0.83 MG/DL (0.60-1.30); POTASSIUM 4.1 MMOL/L (3.6-5.0); TOTAL PROTEIN 6.2 GM/DL (6.4-8.2)
== END ==
PROVIDERS: ATTEND Pediatrics
DX: J96.00 Acute respiratory failure, unspecified whether with hypoxia or hypercapnia (principal); E11.9 Type 2 diabetes mellitus without complications; J44.9 Chronic obstructive pulmonary disease, unspecified; N39.0 Urinary tract infection, site not specified
CPT/HCPCS: 80053; 81000; 84145; 85027; 87088